=== PATIENT | male | born 1990 | race Caucasian/White ===

== ENCOUNTER 2021-02-24 04:48 | Emergency (ER) | payer MEDICAID, SELFPAY ==
--- NOTE | ~2021-02-24 | XR_ITS ---
EXAMINATION: XR CHEST CLINICAL INFORMATION: Shortness of breath COMPARISON: 04/27/2029 TECHNIQUE: 2 views of the chest were obtained. FINDINGS: The lungs are clear with no focal consolidation. No evidence of pneumothorax, pulmonary edema, or pleural effusions. The cardiomediastinal silhouette is unremarkable. No acute osseous findings. XR/XR chest 2V IMPRESSION: No acute cardiopulmonary findings.
--- NOTE | 2021-02-24 04:53 | ECG_ITS ---
Test Reason : CHEST PAIN Blood Pressure : / mmHG Vent. Rate : 091 BPM Atrial Rate : 091 BPM P-R Int : 168 ms QRS Dur : 088 ms QT Int : 336 ms P-R-T Axes : 060 061 035 degrees QTc Int : 413 ms Normal sinus rhythm ST elevation, consider early repolarization, pericarditis, or injury Abnormal ECG When compared with ECG of 23-JUN-2020 04:38, No significant change was found Referred By: Generic ED Physician Electronically Signed By:ANNA VILLASEÑOR MD
[2021-02-24 05:37] VITALS: BP 129/69; PULSE 87; RESP 16; TEMP 37.2; O2SAT 97; BMI 25.8
[2021-02-24 05:37] LABS: MANUAL DIFF FLAG NO
[2021-02-24 05:38] LABS: Basophils Percent Auto 0.3 % (0-2); Eosinophils Absolute Auto 0.1 X10*3/uL (0.0-0.4); Eosinophils Percent Auto 2.2 % (0-4); Hematocrit 41.2 % (42-52); Hemoglobin 13.7 g/dl (14.0-18.0); Imm Gran Abs Auto 0.03 X10*3/uL (0.00-0.03); Imm Gran Pct Auto 0.5 % (0.0-0.4); Lymphocytes Absolute Auto 1.8 X10*3/uL (1.2-4.9); Lymphocytes Percent Auto 28.1 % (20-40); Mean Corpuscular HGB Conc 33.3 g/dl (31.0-36.0); Mean Corpuscular Hemoglobin 29.7 pg (27.0-33.0); Mean Corpuscular Volume 89.2 fL (80-98); Mean Platelet Volume 11.6 fL (9.4-12.4); Monocytes Absolute Auto 0.7 X10*3/uL (0.1-1.2); Monocytes Percent Auto 10.4 % (2-11); Neutrophils Absolute Auto 3.6 X10*3/uL (2.0-8.3); Neutrophils Percent Auto 58.5 % (45-73); Platelet Count 188 X10*3/uL (160-400); Red Blood Count 4.62 X10*6/uL (4.60-5.80); Red Cell Distribution Width 12.7 % (11.0-16.0); White Blood Count 6.2 X10*3/uL (4.8-10.8)
[2021-02-24 06:03] LABS: Ethanol < 10 mg/dL
[2021-02-24 06:05] LABS: Anion Gap 12 (12-20); Blood Urea Nitrogen 14 mg/dL (9-16); Calcium 8.9 mg/dL (8.4-10.2); Carbon Dioxide 26 mmol/L (22-29); Chloride 105 mmol/L (96-108); Estimated Glomerular Filt Rate > 60; Glucose Random 114 mg/dL (60-115); Potassium 3.8 mmol/L (3.3-5.1); Sodium 139 mmol/L (135-145)
[2021-02-24 06:11] LABS: Troponin-I High Sensitivity < 3.5 ng/L (<3.5-35.0)
--- NOTE | 2021-02-24 09:17 | ED.GENADULT ---
HPI - General Adult General Chief complaint: ETOH/Substance Use Stated complaint: SOB, chest pain, vomiting Time Seen by Provider: 02/24/21 09:04 History of Present Illness HPI narrative: This is a 30 years old man presented to the emergency room after he smoked weed he states that they felt weird after that he experiences anxiety nausea. Onset (ago): hour(s) (1) Radiation: non-radiation Severity: moderate Pain Consistency: constant Associated symptoms: denies other symptoms Related Data Allergies Allergy/AdvReac Type Severity Reaction Status Date / Time SEAFOOD Allergy Severe THROAT Uncoded 02/24/21 05:36 CLOSING Crustaceans Allergy Unknown UNKNOWN Uncoded 02/24/21 05:36 Shellfish Allergy Unknown SWOLLEN Uncoded 02/24/21 05:36 Review of Systems Review of Systems: Yes all other systems are reviewed and are negative Cardiovascular: Cardiovascular: Reports no additional cardiovascular complaints and Reports Abdominal Cramping after Meds Respiratory: Respiratory: Reports no additional respiratory complaints and Reports no additional respiratory complaints Gastrointestinal: Gastrointestinal: Reports no additional gastrointestinal complaints and Reports abdominal pain Neurologic: Reports system reviewed and no additional complaints, except as documented Psychiatric: Psychiatric: Reports anxiety PMFSH Social History Social History Advance Directives: No Advance Directives Information Provided: No Physical Exam Vital Signs: Vital Signs: Last Vital Signs Temp 96.7 F L 02/24/21 09:54 Pulse 56 02/24/21 09:54 Resp 16 02/24/21 09:54 BP 120/82 02/24/21 09:54 Pulse Ox 100 02/24/21 09:54 Body Mass Index 25.8 Const: Other: On examination he looks well is no in distress General: cooperative and healthy appearing Orientation/consciousness: oriented to person, oriented to place, oriented to time and patient oriented x3 HENMT: Head: Yes normal to inspection, Yes No palpable skull fracture present and Yes normocephalic Eyes: General: appearance normal, both eyes and all related structures Visual Wright: normal visual wright by confrontation Alignment and Position: alignment normal Periorbital: periorbital findings normal Conjunctivae: conjunctivae normal Neck: Neck: Yes normal visual inspection, Yes full ROM and Yes no lymphadenopathy Chest: Chest palpation & inspection: normal inspection of the chest and normal palpation of entire chest wall Resp: Effort & Inspection: normal respiratory effort, able to speak in complete sentences and abnormal respiratory pattern Cardio: Jugular venous distension: no JVD Palpation: normal PMI Rate: regular rate Rhythm: regular rhythm GI: Inspection: Yes normal to inspection Palpation (GI): Soft to palpation, nontender and no guarding Skin: General skin exam: no rashes or lesions noted, elasticity normal and turgor normal Neuro: General: oriented to person, oriented to place, oriented to time, patient oriented x3 and gait normal Extrem: General: Yes normal to inspection, Yes full ROM, Yes capillary refill normal and Yes normal exam except as noted Medical Decision Making Lab Data Result diagrams: 02/24/21 05:31 02/24/21 05:31 Labs: Lab Results 02/24/21 02/24/21 02/24/21 Range/Units 05:31 05:31 05:31 WBC 6.2 (4.8-10.8) X10*3/uL RBC 4.62 (4.60-5.80) X10*6/uL Hgb 13.7 L (14.0-18.0) g/dl Hct 41.2 L (42-52) % MCV 89.2 (80-98) fL MCH 29.7 (27.0-33.0) pg MCHC 33.3 (31.0-36.0) g/dl RDW 12.7 (11.0-16.0) % Plt Count 188 (160-400) X10*3/uL MPV 11.6 (9.4-12.4) fL Immature Gran % (Auto) 0.5 H (0.0-0.4) % Neut % (Auto) 58.5 (45-73) % Lymph % (Auto) 28.1 (20-40) % [place]ck[place] % (Auto) 10.4 (2-11) % Eos % (Auto) 2.2 (0-4) % Baso % (Auto) 0.3 (0-2) % Lymph # (Auto) 1.8 (1.2-4.9) X10*3/uL [place] # (Auto) 0.7 (0.1-1.2) X10*3/uL Eos # (Auto) 0.1 (0.0-0.4) X10*3/uL Baso # (Auto) 0.0 (0.0-0.2) X10*3/uL Abs Immat Gran (auto) 0.03 (0.00-0.03) X10*3/uL Absolute Neuts (auto) 3.6 (2.0-8.3) X10*3/uL Absolute Nucleated RBC 0.000 (0.0-0.012) X10*3/uL Nucleated RBC % (auto) 0.0 (0.0-0.2) /100WBC Hold Blue Top SEE NOTE Sodium 139 (135-145) mmol/L Potassium 3.8 (3.3-5.1) mmol/L Chloride 105 (96-108) mmol/L Carbon Dioxide 26 (22-29) mmol/L Anion Gap 12 (12-20) BUN 14 (9-16) mg/dL Creatinine 1.05 (0.5-1.4) mg/dL Estim Creat Clear Calc 97.0 Estimated GFR > 60 Random Glucose 114 (60-115) mg/dL Calcium 8.9 (8.4-10.2) mg/dL Troponin I High Sens (<3.5-35.0) ng/L Ethyl Alcohol mg/dL 02/24/21 02/24/21 Range/Units 05:31 05:32 WBC (4.8-10.8) X10*3/uL RBC (4.60-5.80) X10*6/uL Hgb (14.0-18.0) g/dl Hct (42-52) % MCV (80-98) fL MCH (27.0-33.0) pg MCHC (31.0-36.0) g/dl RDW (11.0-16.0) % Plt Count (160-400) X10*3/uL MPV (9.4-12.4) fL Immature Gran % (Auto) (0.0-0.4) % Neut % (Auto) (45-73) % Lymph % (Auto) (20-40) % Bleck[place] % (Auto) (2-11) % Eos % (Auto) (0-4) % Baso % (Auto) (0-2) % Lymph # (Auto) (1.2-4.9) X10*3/uL [place] # (Auto) (0.1-1.2) X10*3/uL Eos # (Auto) (0.0-0.4) X10*3/uL Baso # (Auto) (0.0-0.2) X10*3/uL Abs Immat Gran (auto) (0.00-0.03) X10*3/uL Absolute Neuts (auto) (2.0-8.3) X10*3/uL Absolute Nucleated RBC (0.0-0.012) X10*3/uL Nucleated RBC % (auto) (0.0-0.2) /100WBC Hold Blue Top Sodium (135-145) mmol/L Potassium (3.3-5.1) mmol/L Chloride (96-108) mmol/L Carbon Dioxide (22-29) mmol/L Anion Gap (12-20) BUN (9-16) mg/dL Creatinine (0.5-1.4) mg/dL Estim Creat Clear Calc Estimated GFR Random Glucose (60-115) mg/dL Calcium (8.4-10.2) mg/dL Troponin I High Sens < 3.5 (<3.5-35.0) ng/L Ethyl Alcohol < 10 mg/dL Imaging Data Chest x-ray: Radiologist's impression: COMPARISON: 02/15/2021 TECHNIQUE: Frontal view of the chest was obtained. FINDINGS: The lungs are clear with no focal consolidation. No evidence of pneumothorax, pulmonary edema, or pleural effusions. Cardiac size is within normal limits. Calcification is present at the aortic arch. No acute osseous findings are seen. XR/XR chest 1V IMPRESSION: No acute cardiopulmonary findings. Dictated By:CHAR RAMOS MDSigned By:<Electr ECG Data Attestation: I personally reviewed and interpreted this ECG as follows: Pacemaker model: Normal sinus rhythm rate [address]-T changes normal EKG Discharge Plan Discharge Clinical Impression: Drug abuse Patient Disposition: Home, Self-Care Instructions: Cannabis Abuse (ED) Additional Instructions: Rest drink plenty of fluids ,follow up with primary care physician as needed Referrals: Fabby Hester MD [Primary Care Provider] - 2 days Interventions: ED Discharge Assessment Last Done: 02/24/21 10:02 Discharge Date/Time: 02/24/21 10:02
[2021-02-24] MEDS: Ibuprofen 800 MG TABLET PO (09:43)
[2021-02-24 09:54] VITALS: BP 120/82; PULSE 56; RESP 16; TEMP 35.9; O2SAT 100
== END 2021-02-24 10:02 | disposition home or self-care (01) ==
PROVIDERS: Emergency Provider Emergency Medicine; PCP Internal Medicine
DX: F12.10 Cannabis abuse, uncomplicated (principal); R06.02 Shortness of breath; R07.9 Chest pain, unspecified; F41.1 Generalized anxiety disorder; F43.0 Acute stress reaction
CPT/HCPCS: 36415; 71046; 80048; 80320; 84484; 85025; 93005; 99284

== ENCOUNTER 2021-11-09 05:18 | Emergency (ER) | payer MEDICAID, SELFPAY ==
[2021-11-09 05:29] VITALS: BP 117/82; BP 135/92; PULSE 69; PULSE 70; RESP 16; TEMP 36.6; O2SAT 100; BMI 25.3
--- NOTE | 2021-11-09 07:37 | ED_ITS ---
HPI - Alcohol General Chief Complaint: ETOH/Substance Use Stated Complaint: etoh Time Seen by Provider: 11/09/21 06:59 Source: patient History of Present Illness HPI narrative: this is a 31 years old patient presented by ambulance with chief complaint of alcoholic intoxication, denies SI and HI to me complaint: alcohol intoxication Last drink: Hours (ago) (3) Recent trauma: No Associated symptoms: denies other symptoms Related Data Allergies Allergy/AdvReac Type Severity Reaction Status Date / Time SEAFOOD Allergy Severe THROAT Uncoded 02/24/21 05:36 CLOSING Crustaceans Allergy Unknown UNKNOWN Uncoded 02/24/21 05:36 Shellfish Allergy Unknown SWOLLEN Uncoded 02/24/21 05:36 Review of Systems Verdana 4l Constitutional: Verdana 4d Constitutional: Verdana 4d Verdana 4d Reports no additional constitutional complaints, Denies frequent falls and Denies headache(s) Verdana 4l ENT: Verdana 4d Reports system reviewed and no additional complaints, except as documented and Denies headache(s) Verdana 4l Cardiovascular: Verdana 4d Cardiovascular: Verdana 4d Verdana 4d Reports no additional cardiovascular complaints Verdana 4l Respiratory: Verdana 4d Verdana 4d Respiratory: Verdana 4d Reports no additional respiratory complaints Verdana 4l Neurologic: Verdana 4d Denies frequent falls, Denies headache(s) and Denies focal weakness PMFSH Social History Social History Advance Directives: No Advance Directives Information Provided: No Physical Exam Verdana 4l Vital Signs: Verdana 4d Verdana 4d Vital Signs: Verdana 4d Verdana 4Bd Last Vital Signs Verdana 4d Luster Repairer New 4d Luster Repairer New 4d Temp 97.9 F 11/09/21 07:46 Luster Repairer New 4d Pulse 68 11/09/21 10:25 Luster Repairer New 4d Resp 14 11/09/21 10:25 BP 113/53 L 11/09/21 10:25 Pulse Ox 97 11/09/21 10:25 BMI result Body Mass Index 25.3 Const: General: cooperative, comfortable and no acute distress Nutritional Appearance: average body habitus Orientation/consciousness: patient oriented x3 Limitations: no limitations HENMT: Head: Yes normal to inspection Ears: hearing grossly normal bilaterally Face and sinus: Yes normal facial exam Mouth: Normal oral and palatal mucosa present Teeth and gingiva: dentition normal Neck: Neck: Yes normal visual inspection and Yes full ROM Chest: Chest palpation & inspection: normal inspection of the chest Resp: Effort & Inspection: normal respiratory effort Cardio: Rate: regular rate Rhythm: regular rhythm GI: Inspection: Yes normal to inspection Palpation (GI): Soft to palpation, not firm and no guarding Auscultation: normal bowel sounds Skin: General skin exam: no rashes or lesions noted, elasticity normal, turgor normal and atrophy Rashes: no rashes Neuro: General: patient oriented x3 Course Reevaluation(s) Reevaluation #1: patient was re-examined he is awake and alert denies SI HI, labs are within normal limit. He was seen in consultation by the care team, he was given appropriate follow-up Time: 10:20 [facility] - Alcohol Lab Data Result diagrams: 11/09/21 07:56 11/09/21 07:56 Labs: Lab Results 11/09/21 11/09/21 11/09/21 Range/Units 07:56 07:56 07:56 WBC 7.8 (4.8-10.8) X10*3/uL RBC 5.22 (4.60-5.80) X10*6/uL Hgb 15.6 (14.0-18.0) g/dl Hct 46.8 (42.0-52.0) % MCV 89.7 (80.0-98.0) fL MCH 29.9 (27.0-33.0) pg MCHC 33.3 (31.0-36.0) g/dl RDW 12.8 (11.0-16.0) % Plt Count 228 (160-400) X10*3/uL MPV 11.6 (9.4-12.4) fL Immature Gran % (Auto) 0.4 (0.0-0.4) % Neut % (Auto) 72.8 (45-73) % Lymph % (Auto) 19.8 L (20-40) % [place]ie % (Auto) 5.9 (2-11) % Eos % (Auto) 0.8 (0-4) % Baso % (Auto) 0.3 (0-2) % Lymph # (Auto) 1.6 (1.2-4.9) X10*3/uL [place]ie # (Auto) 0.5 (0.1-1.2) X10*3/uL Eos # (Auto) 0.1 (0.0-0.4) X10*3/uL Baso # (Auto) 0.0 (0.0-0.2) X10*3/uL Abs Immat Gran (auto) 0.03 (0.00-0.03) X10*3/uL Absolute Neuts (auto) 5.7 (2.0-8.3) x10*3/uL Absolute Nucleated RBC 0.000 (0.0-0.012) X10*3/uL Nucleated RBC % (auto) 0.0 (0.0-0.2) /100WBC Sodium 144 (135-145) mmol/L Potassium 4.6 D (3.3-5.1) mmol/L Chloride 108 (96-108) mmol/L Carbon Dioxide 27 (22-29) mmol/L Anion Gap 14 (12-20) BUN 8 L (9-16) mg/dL Creatinine 0.95 (0.5-1.4) mg/dL Estim Creat Clear Calc 106.3 Estimated GFR > 60 Random Glucose 108 (60-115) mg/dL Calcium 9.4 (8.4-10.2) mg/dL Total Bilirubin 0.6 (0.0-1.0) mg/dL AST 19 (5-37) U/L ALT 23 (0-40) U/L Alkaline Phosphatase 66 (39-117) U/L Total Protein 8.1 H (6.5-8.0) g/dL Albumin 5.0 (3.5-5.0) g/dL Ethyl Alcohol 176 mg/dL Discharge Plan Discharge Clinical Impression: Alcoholic intoxication, Anxiety Patient Disposition: Home, Self-Care Instructions: Alcohol Intoxication (ED), Anxiety (ED) Referrals: Physician,Unknown J [Primary Care Provider] - 2 days Stand Alone Forms: Work/School Release Interventions: ED Discharge Assessment Last Done: 11/09/21 11:00 Discharge Date/Time: 11/09/21 10:55
[2021-11-09 07:46] VITALS: BP 97/53; PULSE 64; RESP 14; TEMP 36.6; O2SAT 96
[2021-11-09 08:01] LABS: MANUAL DIFF FLAG NO
[2021-11-09 08:12] LABS: Basophils Percent Auto 0.3 % (0-2); Eosinophils Absolute Auto 0.1 X10*3/uL (0.0-0.4); Eosinophils Percent Auto 0.8 % (0-4); Hematocrit 46.8 % (42.0-52.0); Hemoglobin 15.6 g/dl (14.0-18.0); Imm Gran Abs Auto 0.03 X10*3/uL (0.00-0.03); Imm Gran Pct Auto 0.4 % (0.0-0.4); Lymphocytes Absolute Auto 1.6 X10*3/uL (1.2-4.9); Lymphocytes Percent Auto 19.8 % (20-40); Mean Corpuscular HGB Conc 33.3 g/dl (31.0-36.0); Mean Corpuscular Hemoglobin 29.9 pg (27.0-33.0); Mean Corpuscular Volume 89.7 fL (80.0-98.0); Mean Platelet Volume 11.6 fL (9.4-12.4); Monocytes Absolute Auto 0.5 X10*3/uL (0.1-1.2); Monocytes Percent Auto 5.9 % (2-11); Neutrophils Absolute Auto 5.7 x10*3/uL (2.0-8.3); Neutrophils Percent Auto 72.8 % (45-73); Platelet Count 228 X10*3/uL (160-400); Red Blood Count 5.22 X10*6/uL (4.60-5.80); Red Cell Distribution Width 12.8 % (11.0-16.0); White Blood Count 7.8 X10*3/uL (4.8-10.8)
[2021-11-09 08:18] LABS: Ethanol 176 mg/dL
[2021-11-09 08:21] LABS: Alanine Aminotransferase 23 U/L (0-40); Alkaline Phosphatase 66 U/L (39-117); Anion Gap 14 (12-20); Aspartate Amino Transferase 19 U/L (5-37); Bilirubin Total 0.6 mg/dL (0.0-1.0); Blood Urea Nitrogen 8 mg/dL (9-16); Calcium 9.4 mg/dL (8.4-10.2); Carbon Dioxide 27 mmol/L (22-29); Chloride 108 mmol/L (96-108); Creatinine Clr Calc Pharmacy 106.3; Estimated Glomerular Filt Rate > 60; Glucose Random 108 mg/dL (60-115); Potassium 4.6 mmol/L (3.3-5.1); Sodium 144 mmol/L (135-145); Total Protein 8.1 g/dL (6.5-8.0)
[2021-11-09 10:25] VITALS: BP 113/53; PULSE 68; RESP 14; O2SAT 97
--- NOTE | 2021-11-09 11:06 | MHC.RECOVSUP ---
Recovery Support note: Patient is a 31 year old Congolese speaking male who [place] [facility] [place] due to alcohol use, anxiety and depression. This publications writer met with patient to discuss his alcohol use. Patient was sleeping when this publications writer entered ED4 however he awoke when this publications writer spoke his name. Patient was engaged in consultation however provided short answers. Patient reports he has been stressed and anxious lately and that he drinks to cope with the stress. Patient acknowledges that drinking is not a healthy coping mechanism and he is interested in developing healthier ways to manage stress. Patient reports he does not drink daily. Patient denies SI/HI. Discussed recovery supports with patient. Patient previously had a therapist through [facility] and found it helpful and is interested in resuming services. Patient has attended AA meetings in the past and accepted information on [facility]. Discussed IOP and provided patient with information. This publications writer will refer patient to [facility] and he will be contacted after discharge. Discussed case with ED provider.
== END 2021-11-09 10:55 | disposition home or self-care (01) ==
PROVIDERS: Emergency Provider Emergency Medicine
DX: F10.920 Alcohol use, unspecified with intoxication, uncomplicated (principal); Y90.6 Blood alcohol level of 120-199 mg/100 ml; F41.9 Anxiety disorder, unspecified
CPT/HCPCS: 36415; 80053; 82077; 85025; 99284

== ENCOUNTER 2022-02-11 16:20 | Emergency (ER) | payer MEDICAID, SELFPAY ==
--- NOTE | 2022-02-11 | ECG_ITS ---
Test Reason : CP Blood Pressure : / mmHG Vent. Rate : 079 BPM Atrial Rate : 079 BPM P-R Int : 146 ms QRS Dur : 100 ms QT Int : 364 ms P-R-T Axes : 085 090 015 degrees QTc Int : 417 ms Normal sinus rhythm Rightward axis Biventricular hypertrophy Abnormal ECG When compared to the previous EKG of QRS axis have changed rightward Referred By: Generic ED Physician Electronically Signed By:ANNA VILLASEÑOR MD
--- NOTE | ~2022-02-11 | XR_ITS ---
EXAMINATION: XR CHEST CLINICAL INFORMATION: Chest pain. COMPARISON: 02/24/2021 chest radiographs. TECHNIQUE: Frontal view of the chest was obtained. FINDINGS: No significant abnormality is noted involving the heart, lungs, mediastinum, bony thorax or soft tissues. XR/XR chest 1V IMPRESSION: No acute cardiopulmonary process.
[2022-02-11 16:25] VITALS: BP 145/78; PULSE 87; RESP 18; TEMP 36.7; O2SAT 100; BMI 29.0
[2022-02-11 16:41] LABS: MANUAL DIFF FLAG NO
[2022-02-11 16:51] LABS: Basophils Percent Auto 0.3 % (0-2); Eosinophils Absolute Auto 0.2 X10*3/uL (0.0-0.4); Eosinophils Percent Auto 2.4 % (0-4); Hematocrit 42.8 % (42.0-52.0); Hemoglobin 14.5 g/dl (14.0-18.0); Imm Gran Abs Auto 0.04 X10*3/uL (0.00-0.03); Imm Gran Pct Auto 0.6 % (0.0-0.4); Lymphocytes Percent Auto 45.9 % (20-40); Mean Corpuscular HGB Conc 33.9 g/dl (31.0-36.0); Mean Corpuscular Hemoglobin 30.2 pg (27.0-33.0); Mean Corpuscular Volume 89.2 fL (80.0-98.0); Mean Platelet Volume 11.3 fL (9.4-12.4); Monocytes Absolute Auto 0.7 X10*3/uL (0.1-1.2); Monocytes Percent Auto 10.2 % (2-11); Neutrophils Absolute Auto 2.7 x10*3/uL (2.0-8.3); Neutrophils Percent Auto 40.6 % (45-73); Platelet Count 223 X10*3/uL (160-400); Red Cell Distribution Width 12.7 % (11.0-16.0); White Blood Count 6.6 X10*3/uL (4.8-10.8)
[2022-02-11 16:59] LABS: Anion Gap 13 (12-20); Blood Urea Nitrogen 9 mg/dL (9-16); Calcium 9.8 mg/dL (8.4-10.2); Carbon Dioxide 27 mmol/L (22-29); Chloride 103 mmol/L (96-108); Creatinine Clr Calc Pharmacy 115.3; Estimated Glomerular Filt Rate > 60; Glucose Random 124 mg/dL (60-115); Potassium 3.8 mmol/L (3.3-5.1); Sodium 139 mmol/L (135-145)
[2022-02-11 17:02] LABS: Troponin-I High Sensitivity < 3.5 ng/L (<3.5-35.0)
== END 2022-02-11 19:44 | disposition left against medical advice (07) ==
PROVIDERS: Emergency Provider Emergency Medicine
DX: R07.89 Other chest pain (principal); R55 Syncope and collapse; F17.210 Nicotine dependence, cigarettes, uncomplicated; Z71.6 Tobacco abuse counseling; Z79.899 Other long term (current) drug therapy
CPT/HCPCS: 36415; 71045; 80048; 84484; 85025; 93005; 99283

== ENCOUNTER 2022-03-11 05:15 | Emergency (ER) | payer MEDICAID, SELFPAY ==
--- NOTE | ~2022-03-11 | XR_ITS ---
EXAMINATION: XR CHEST CLINICAL INFORMATION: Dyspnea COMPARISON: None TECHNIQUE: 2 views of the chest were obtained. FINDINGS: No significant abnormality is noted involving the heart, lungs, mediastinum, bony thorax or soft tissues. XR/XR chest 2V IMPRESSION: Unremarkable examination.
[2022-03-11 05:22] VITALS: BP 122/81; PULSE 71; RESP 20; TEMP 36.7; O2SAT 98; BMI 25.0
--- NOTE | 2022-03-11 05:36 | ED_ITS ---
HPI - URI/Sore Throat General Chief Complaint: Upper Respiratory Symptoms Stated Complaint: unable to breathe Time Seen by Provider: 03/11/22 05:30 Source: patient Mode of arrival: ambulatory Limitations: no limitations History of Present Illness MD elicited complaint: other (runny nose, difficulty breathing) Pertinent past history: sinusitis and asthma Onset (ago): week(s) Consistency: intermittent Severity: mild Description of mucous: clear Able to tolerate fluids by mouth: Yes Exacerbating factors: other (worse at night) Relieving factors: nothing Context: other (has hx of allergies, also notes he stopped drinking 1 month ago and is taking trazodone without relief) Associated symptoms: rhinorrhea, nasal congestion and other (insomnia) Treatments prior to arrival: none Related Data Previous Rx's Medication Instructions Recorded cetirizine 10 mg tablet 10 mg PO DAILY PRN #30 tab 03/11/22 prednisone 20 mg tablet 40 mg PO DAILY 5 Days #10 tab 03/11/22 Allergies Allergy/AdvReac Type Severity Reaction Status Date / Time SEAFOOD Allergy Severe THROAT Uncoded 02/24/21 05:36 CLOSING Crustaceans Allergy Unknown UNKNOWN Uncoded 02/24/21 05:36 Shellfish Allergy Unknown SWOLLEN Uncoded 02/24/21 05:36 Review of Systems Review of Systems: Constitutional : No Fever, No Chills ENT/Mouth : No sore throat, pos Rhinorrhea Eyes: No Eye Pain, No Swelling, No Redness Cardiovascular : No Chest Pain, pos SOB Respiratory : No Cough, No Sputum, No Wheezing Gastrointestinal : No Nausea, No Vomiting, No Diarrhea Genitourinary : No Dysuria, No Urinary Frequency, No Hematuria, Musculoskeletal : No joint pain, No Myalgias, No Joint Swelling Skin : No Skin Lesions, No rash Neuro : No Weakness, No Numbness, No Dizziness, No Headache PMFSH Past Medical History Attestation statement: The following information was validated with the patient. Medical History (Updated 03/11/22 @ 06:06 by Jessica Casiano DO) Asthma Social History Social History (Updated 03/11/22 @ 05:49 by Jessica Casiano DO) Alcohol intake: former Patient Tobacco Use Status: Never used Tobacco Substance Use Type: Marijuana Advance Directives: No Physical Exam Vital Signs: Vital Signs: Last Vital Signs Temp 98.0 F 03/11/22 05:22 Pulse 71 03/11/22 05:22 Resp 20 03/11/22 05:22 BP 122/81 03/11/22 05:22 Pulse Ox 98 03/11/22 05:22 BMI result Body Mass Index 25.0 Appearance: Alert. Oriented X3. No acute distress. Eyes: Pupils equal, round and reactive to light. ENT: Pharynx normal. Nasal congestion Neck: Normal inspection. Neck supple. CVS: Normal heart rate and rhythm. Pulses normal. Respiratory: No respiratory distress. Breath sounds diminished Abdomen: Soft and nontender. Skin: Skin warm and dry. Normal skin color. Normal skin turgor. Extremities: No lower extremity edema. Neuro: Oriented X 3. No motor deficit. No sensory deficit. Course Course Course Narrative: negative CXR, negative COVID stable for DC 98% on RA MDM - URI/Sore Throat MDM Narrative Medical decision making narrative: 31 yo male with hx of asthma and sinusitis here with c/o nasal congestion feels like he cannot breathe - at this time will give albuterol INH, CXR, COVID swab - anticipate treatment at home. Discharge Plan Discharge Clinical Impression: Acute dyspnea, Nasal congestion Patient Disposition: Home, Self-Care Instructions: Upper Respiratory Infection (ED), Dyspnea (ED) Additional Instructions: return to ED for any worsening symptoms or concerns chest xray and COVID swab are negative USE ALBUTEROL INHALER 2 PUFFS EVERY 4 HOURS NEEDED FOR WHEEZING Prescriptions: New prednisone 20 mg tablet 40 mg PO DAILY 5 Days Qty: 10 0RF cetirizine 10 mg tablet 10 mg PO DAILY PRN (Reason: allergy symptoms) Qty: 30 0RF Referrals: [facility] [Primary Care Provider] - 2 days Stand Alone Forms: Work/School Release
[2022-03-11] MEDS: Albuterol Sulfate 90 MCG 8 GM INHALER 2 PUFF INHALE (05:50)
[2022-03-11 05:58] LABS: COVID-19 Test Negative (Negative); IDNOW Serial# 16C4AD1C
[2022-03-11] MEDS: Oxymetazoline HCl 0.05 % Nasal 15 ML SPRAY 2 SPRAY NOSTRIL-B (06:03)
== END 2022-03-11 06:29 | disposition home or self-care (01) ==
PROVIDERS: Emergency Provider Emergency Medicine
DX: R06.02 Shortness of breath (principal); R09.81 Nasal congestion; Z20.822 Contact with and (suspected) exposure to COVID-19; J45.909 Unspecified asthma, uncomplicated
CPT/HCPCS: 71046; 87635; 99284

== ENCOUNTER 2022-03-24 12:27 | Emergency (ER) | payer MEDICAID, SELFPAY ==
--- NOTE | 2022-03-24 | ECG_ITS ---
Test Reason : chest pressuer Blood Pressure : / mmHG Vent. Rate : 075 BPM Atrial Rate : 075 BPM P-R Int : 154 ms QRS Dur : 084 ms QT Int : 344 ms P-R-T Axes : 061 074 039 degrees QTc Int : 384 ms Normal sinus rhythm ST elevation, consider early repolarization Borderline ECG When compared with ECG of 11-FEB-2022 16:24, ST elevation now present in Inferior leads Referred By: Generic ED Physician Electronically Signed By:ANNA VILLASEÑOR MD
--- NOTE | ~2022-03-24 | XR_ITS ---
EXAMINATION: XR CHEST CLINICAL INFORMATION: Shortness of breath. COMPARISON: 03/11/2022 chest radiographs. TECHNIQUE: 2 views of the chest were obtained. FINDINGS: No significant abnormality is noted involving the heart, lungs, mediastinum, bony thorax or soft tissues. XR/XR chest 2V IMPRESSION: No acute cardiopulmonary process.
[2022-03-24 12:30] VITALS: BP 137/88; PULSE 83; RESP 18; TEMP 37.2; O2SAT 99; BMI 25.0
[2022-03-24 12:48] LABS: MANUAL DIFF FLAG NO
[2022-03-24 12:49] LABS: Basophils Percent Auto 0.2 % (0-2); Eosinophils Absolute Auto 0.1 X10*3/uL (0.0-0.4); Eosinophils Percent Auto 1.4 % (0-4); Hematocrit 47.8 % (42.0-52.0); Hemoglobin 15.9 g/dl (14.0-18.0); Imm Gran Pct Auto 1.2 % (0.0-0.4); Lymphocytes Absolute Auto 1.1 X10*3/uL (1.2-4.9); Lymphocytes Percent Auto 12.5 % (20-40); Mean Corpuscular HGB Conc 33.3 g/dl (31.0-36.0); Mean Corpuscular Hemoglobin 30.2 pg (27.0-33.0); Mean Corpuscular Volume 90.9 fL (80.0-98.0); Mean Platelet Volume 11.3 fL (9.4-12.4); Monocytes Absolute Auto 1.1 X10*3/uL (0.1-1.2); Monocytes Percent Auto 12.2 % (2-11); Neutrophils Absolute Auto 6.3 x10*3/uL (2.0-8.3); Neutrophils Percent Auto 72.5 % (45-73); Platelet Count 163 X10*3/uL (160-400); Red Blood Count 5.26 X10*6/uL (4.60-5.80); White Blood Count 8.6 X10*3/uL (4.8-10.8)
[2022-03-24 13:02] LABS: Anion Gap 11 (12-20); Blood Urea Nitrogen 9 mg/dL (9-16); Calcium 9.5 mg/dL (8.4-10.2); Carbon Dioxide 30 mmol/L (22-29); Chloride 103 mmol/L (96-108); Creatinine Clr Calc Pharmacy 96.1; Estimated Glomerular Filt Rate > 60; Glucose Random 104 mg/dL (60-115); Potassium 4.9 mmol/L (3.3-5.1); Sodium 139 mmol/L (135-145)
[2022-03-24 13:08] LABS: Troponin-I High Sensitivity < 3.5 ng/L (<3.5-35.0)
--- NOTE | 2022-03-24 15:17 | ED.CHESTPAIN ---
HPI - Chest Pain General Chief Complaint: Chest Pain Stated Complaint: chest pressure Time Seen by Provider: 03/24/22 12:41 Source: patient Mode of arrival: ambulatory Limitations: no limitations History of Present Illness HPI narrative: 31-year-old male with a history of asthma, alcohol abuse, anxiety and panic attacks presents for shortness of breath, chest pain, diarrhea, and panic attack. Patient has felt shortness of breath with a stuffy nose that makes it hard to breathe. When he breathes in he feels a burning in his chest, which precipitates a panic attack. States when he tries to eat or drink, he feels that he cannot breathe, and he is worried that he will suffocate, due to his stuffy nose. No headache, no sinus pressure, no fever, no cough, patient took home COVID test that was negative. No abdominal pain, no nausea, no vomiting. Patient is vaccinated for COVID and also boosted. Patient states he has not slept for 2 days due to being out of his trazodone. Patient was in rehab for alcohol abuse and has not used alcohol for the past 2 months. Endorses twice daily marijuana use. Related Data Previous Rx's Medication Instructions Recorded cetirizine 10 mg tablet 10 mg PO DAILY PRN allergy 03/11/22 symptoms #30 tabs prednisone 20 mg tablet 40 mg PO DAILY 5 days #10 tabs 03/11/22 trazodone 50 mg tablet 50 mg PO BEDTIME 30 days #30 tabs 03/24/22 Allergies Allergy/AdvReac Type Severity Reaction Status Date / Time SEAFOOD Allergy Severe THROAT Uncoded 02/24/21 05:36 CLOSING Crustaceans Allergy Unknown UNKNOWN Uncoded 02/24/21 05:36 Shellfish Allergy Unknown SWOLLEN Uncoded 02/24/21 05:36 Review of Systems Constitutional: Constitutional: Denies body ache(s), Denies chills, Denies fatigue, Denies fever(s), Denies headache(s), Denies malaise and Denies weakness Eyes: Eyes: Denies diplopia ENT: Reports dysphagia, Denies vertigo, Denies dizziness, Denies otalgia, Denies headache(s), Denies mouth pain, Denies odynophagia, Denies post nasal drip, Denies sinus pain, Denies sinus pressure, Denies sore throat and Denies throat swelling Cardiovascular: Cardiovascular: Reports chest pain, Denies syncope, Denies leg edema, Denies lightheadedness, Denies Loss of Consciousness, Denies palpitations and Reports dyspnea Respiratory: Respiratory: Denies chest congestion, Denies cough, Denies hemoptysis, Denies excessive phlegm production, Denies pain on inspiration, Reports dyspnea, Denies stridor and Denies wheezing Gastrointestinal: Gastrointestinal: Denies abdominal pain, Denies melena, Denies hematochezia, Denies change in bowel habits, Denies coffee ground emesis, Denies constipation, Reports dysphagia, Reports diarrhea, Denies nausea, Denies odynophagia and Denies vomiting Musculoskeletal: Musculoskeletal: Reports no additional musculoskeletal complaints Neurologic: Denies confusion, Denies vertigo, Denies dizziness, Denies syncope, Denies headache(s) and Denies weakness Psychiatric: Psychiatric: Reports anxiety, Denies confusion and Denies depression Endocrine: Endocrine: Denies fatigue and Denies palpitations Allergic/Immunologic: Allergic/Immunologic: Denies throat swelling and Denies wheezing PMFSH Past Medical History Medical History (Updated 03/24/22 @ 17:17 by DANIELE Parra) Asthma Social History Social History (Updated 03/11/22 @ 05:49 by Jessica Casiano DO) Alcohol intake: former Patient Tobacco Use Status: Never used Tobacco Substance Use Type: Marijuana Substance Use Frequency: Daily Last Used Substance: Days (ago) Any prior treatment program specific to substance use: No Advance Directives: No Advance Directives Information Provided: No Physical Exam Vital Signs: Vital Signs: Last Vital Signs Temp 99.0 F 03/24/22 12:30 Pulse 71 03/24/22 16:02 Resp 22 H 03/24/22 16:02 BP 129/90 H 03/24/22 16:02 Pulse Ox 100 03/24/22 16:02 O2 Del Method 03/24/22 16:02 BMI result Body Mass Index 25.0 Const: General: No confusion Nutritional Appearance: well nourished Orientation/consciousness: No confusion Limitations: no limitations HEENT: Head: Yes normal to inspection, Yes normocephalic and Yes atraumatic Ears: hearing grossly normal bilaterally, external ears normal, TM's normal bilaterally and EAC's normal General nose exam: Normal external nose present Face and sinus: Yes normal facial exam and Yes sinuses nontender Mouth: Normal oral and palatal mucosa present Throat: Yes posterior oropharynx normal Eyes: Conjunctivae: conjunctivae normal Pupils: Equal, round and reactive pupils present EOM: EOMs intact bilaterally Neck: Neck: Yes full ROM, Yes no lymphadenopathy and Yes supple Resp: Effort & Inspection: normal respiratory effort and able to speak in complete sentences Auscultation: clear to auscultation bilaterally, no crackles, no rales, no rhonchi and no wheezes Cardio: Rate: regular rate Rhythm: regular rhythm Heart sounds: S1 normal heart sound present and S2 normal heart sound present GI: Inspection: Yes normal to inspection Palpation (GI): Soft to palpation, nontender, no guarding and not rigid Percussion: Yes normal to percussion Auscultation: normal bowel sounds Skin: General skin exam: no rashes or lesions noted Neuro: General: No confusion Cranial nerves: Yes Equal, round and reactive pupils present Extrem: General: Yes normal to inspection and Yes full ROM Psych: Appearance: grossly normal Affect: Anxious affect present Attitude: cooperative Thought process: Normal thought process present Thought content: suicidality, no homicidality and no hallucinations Course Course Course Narrative: 31-year-old male presents for not having slept for 2 days because he ran out of his trazodone, for chest pain and shortness of breath that started last night. Patient has had diarrhea, feels his nose is so stuffy that when he tries to swallow he cannot drink water because he feels he will suffocate. Patient endorses anxiety, and a history of panic attacks, he says he had a panic attack in the waiting room, and is trying not to cry. Denies SI, HI, visual or auditory hallucinations patient scores 0 on the Wells score for PE, he is not tachycardic, he is satting 98% on room air. patient has an EKG that shows no ischemia, he has a negative troponin, labs are unremarkable. Will get chest x-ray, test for COVID, gave Ativan for anxiety patient states that the inhaler, steroids, and Zyrtec he was given for his stuffy nose when he was seen in the emergency room March 11, have not helped. If chest x-ray and COVID are negative, will represcribed 1 month of trazodone, have patient follow-up with primary care provider, will recommend [id number] Sudafed, and will prescribe Flonase Reevaluation(s) Reevaluation #1: FINDINGS: No significant abnormality is noted involving the heart, lungs, mediastinum, bony thorax or soft tissues. XR/XR chest 2V IMPRESSION: No acute cardiopulmonary process. Reevaluation #2: patient is COVID negative, chest x-ray is negative, patient states the Flonase is not helpful. Discussed the utility of Sudafed, counseled using a Neti pot, counseled patient to use trazodone I prescribed, and get back on a regular sleep schedule, as this will help with his anxiety. Discussed with patient that he should follow up with his therapist and his primary care provider. Discussed that I think this is more anxiety driven symptoms, that are exacerbated by lack of sleep. Gave return precautions of chest pain, shortness of breath, suicidal ideation, homicidal ideation, patient verbalized agreement and understanding of plan MDM - Chest Pain Lab Data Result diagrams: 03/24/22 12:43 03/24/22 12:43 Labs: Lab Results 03/24/22 03/24/22 03/24/22 Range/Units 12:43 12:43 12:43 WBC 8.6 (4.8-10.8) X10*3/uL RBC 5.26 (4.60-5.80) X10*6/uL Hgb 15.9 (14.0-18.0) g/dl Hct 47.8 (42.0-52.0) % MCV 90.9 (80.0-98.0) fL MCH 30.2 (27.0-33.0) pg MCHC 33.3 (31.0-36.0) g/dl RDW 13.0 (11.0-16.0) % Plt Count 163 D (160-400) X10*3/uL MPV 11.3 (9.4-12.4) fL Immature Gran % (Auto) 1.2 H (0.0-0.4) % Neut % (Auto) 72.5 (45-73) % Lymph % (Auto) 12.5 L (20-40) % Charlton % (Auto) 12.2 H (2-11) % Eos % (Auto) 1.4 (0-4) % Baso % (Auto) 0.2 (0-2) % Lymph # (Auto) 1.1 L (1.2-4.9) X10*3/uL [place] # (Auto) 1.1 (0.1-1.2) X10*3/uL Eos # (Auto) 0.1 (0.0-0.4) X10*3/uL Baso # (Auto) 0.0 (0.0-0.2) X10*3/uL Abs Immat Gran (auto) 0.10 H (0.00-0.03) X10*3/uL Absolute Neuts (auto) 6.3 (2.0-8.3) x10*3/uL Absolute Nucleated RBC 0.000 (0.0-0.012) X10*3/uL Nucleated RBC % (auto) 0.0 (0.0-0.2) /100WBC Sodium 139 (135-145) mmol/L Potassium 4.9 D (3.3-5.1) mmol/L Chloride 103 (96-108) mmol/L Carbon Dioxide 30 H (22-29) mmol/L Anion Gap 11 L (12-20) BUN 9 (9-16) mg/dL Creatinine 1.05 (0.5-1.4) mg/dL Estim Creat Clear Calc 96.1 Estimated GFR > 60 Random Glucose 104 (60-115) mg/dL Calcium 9.5 (8.4-10.2) mg/dL Troponin I High Sens < 3.5 (<3.5-35.0) ng/L COVID-19 ([facility]) (Negative) COVID-19 Clin Com 03/24/22 Range/Units 16:01 WBC (4.8-10.8) X10*3/uL RBC (4.60-5.80) X10*6/uL Hgb (14.0-18.0) g/dl Hct (42.0-52.0) % MCV (80.0-98.0) fL MCH (27.0-33.0) pg MCHC (31.0-36.0) g/dl RDW (11.0-16.0) % Plt Count (160-400) X10*3/uL MPV (9.4-12.4) fL Immature Gran % (Auto) (0.0-0.4) % Neut % (Auto) (45-73) % Lymph % (Auto) (20-40) % Charlton % (Auto) (2-11) % Eos % (Auto) (0-4) % Baso % (Auto) (0-2) % Lymph # (Auto) (1.2-4.9) X10*3/uL [place] # (Auto) (0.1-1.2) X10*3/uL Eos # (Auto) (0.0-0.4) X10*3/uL Baso # (Auto) (0.0-0.2) X10*3/uL Abs Immat Gran (auto) (0.00-0.03) X10*3/uL Absolute Neuts (auto) (2.0-8.3) x10*3/uL Absolute Nucleated RBC (0.0-0.012) X10*3/uL Nucleated RBC % (auto) (0.0-0.2) /100WBC Sodium (135-145) mmol/L Potassium (3.3-5.1) mmol/L Chloride (96-108) mmol/L Carbon Dioxide (22-29) mmol/L Anion Gap (12-20) BUN (9-16) mg/dL Creatinine (0.5-1.4) mg/dL Estim Creat Clear Calc Estimated GFR Random Glucose (60-115) mg/dL Calcium (8.4-10.2) mg/dL Troponin I High Sens (<3.5-35.0) ng/L COVID-19 ([facility]) Negative (Negative) COVID-19 Clin Com See Note ECG Data ECG #1: Interpretation: sinus at a rate of 75, KS interval 154, QRS 84, QTC 384, normal axis, early refill all, no ST depression or elevation, no T-wave all abnormalities Discharge Plan Discharge Clinical Impression: Anxiety, Nasal congestion Patient Disposition: Home, Self-Care Instructions: Allergic Rhinitis (ED), Anxiety (ED) Additional Instructions: I have prescribed trazodone to your pharmacy. Please buy some [id number] Sudafed and take it as prescribed. You may also try a nasal sinus rinse, something called Willy Med Sinus Rinse, this is like a Neti pot and would be very helpful for your nasal congestion please call your primary care provider for follow-up appointment from today's emergency room visit. I would like you to see them in the next couple of weeks, they can determine if you need allergy testing, and they can follow-up on your trazodone dose. Please call the new therapist at [facility] tomorrow, I would like you to be seen this week if possible please return to the emergency room if you have any thoughts of hurting herself, hurting anyone else, chest pain, shortness of breath, or any other new or concerning symptoms Prescriptions: New trazodone 50 mg tablet 50 mg PO BEDTIME 30 Days Qty: 30 0RF No Action prednisone 20 mg tablet 40 mg PO DAILY 5 Days Qty: 10 0RF cetirizine 10 mg tablet 10 mg PO DAILY PRN (Reason: allergy symptoms) Qty: 30 0RF Interventions: ED Discharge Assessment Last Done: 03/24/22 17:22
[2022-03-24] MEDS: LORazepam 1 MG TABLET PO (16:01)
[2022-03-24 16:02] VITALS: BP 129/90; PULSE 71; RESP 22; O2SAT 100
[2022-03-24 16:36] LABS: COVID-19 Test Negative (Negative)
--- NOTE | 2022-03-24 16:37 | PC.NURSE ---
DENIES ANY CHEST PAIN, HAS PAIN IN HIS THROAT ON OCCASION AND HAS PAIN IN MIDDLE OF UPPER CHEST ONLY. SOBER 2 MONTHS, SMOKES POT DAILY. EARS FEEL CLOGGED. SINUS AREA ALSO FEELS PRESSURE. NO CARDIAC HISTORY NOTED. TAKES TRAZODONE BUT RAN OUT 2 DAYS AGO AND HAS NO PROVIDER RIGHT NOW.
== END 2022-03-24 17:24 | disposition home or self-care (01) ==
PROVIDERS: Physician Assistant; Emergency Provider Emergency Medicine
DX: R07.89 Other chest pain (principal); F41.1 Generalized anxiety disorder; R09.81 Nasal congestion; F43.0 Acute stress reaction; F12.90 Cannabis use, unspecified, uncomplicated; Z20.822 Contact with and (suspected) exposure to COVID-19; Z79.899 Other long term (current) drug therapy
CPT/HCPCS: 36415; 71046; 80048; 84484; 85025; 87635; 93005; 99284

== ENCOUNTER 2022-07-15 00:01 | Emergency (ER) | payer MEDICAID, SELFPAY ==
--- NOTE | 2022-07-15 | ECG_ITS ---
Test Reason : SOB Blood Pressure : / mmHG Vent. Rate : 064 BPM Atrial Rate : 064 BPM P-R Int : 160 ms QRS Dur : 090 ms QT Int : 354 ms P-R-T Axes : 056 066 050 degrees QTc Int : 365 ms Normal sinus rhythm Early repolarization Normal ECG When compared with ECG of 24-MAR-2022 12:28, No significant change was found Referred By: Generic ED Physician Electronically Signed By:ALYSSA ZAPATA MD
[2022-07-15 00:32] VITALS: BP 130/83; PULSE 79; RESP 18; TEMP 36.7; O2SAT 98; BMI 24.3
[2022-07-15 00:52] LABS: Basophils Percent Auto 0.5 % (0-2); Eosinophils Absolute Auto 0.3 X10*3/uL (0.0-0.4); Eosinophils Percent Auto 4.5 % (0-4); Hematocrit 42.5 % (42.0-52.0); Hemoglobin 14.6 g/dl (14.0-18.0); Imm Gran Abs Auto 0.02 X10*3/uL (0.00-0.03); Imm Gran Pct Auto 0.3 % (0.0-0.4); Lymphocytes Absolute Auto 2.5 X10*3/uL (1.2-4.9); Lymphocytes Percent Auto 32.9 % (20-40); MANUAL DIFF FLAG NO; Mean Corpuscular HGB Conc 34.4 g/dl (31.0-36.0); Mean Corpuscular Hemoglobin 30.4 pg (27.0-33.0); Mean Corpuscular Volume 88.5 fL (80.0-98.0); Mean Platelet Volume 11.1 fL (9.4-12.4); Monocytes Absolute Auto 0.8 X10*3/uL (0.1-1.2); Monocytes Percent Auto 10.4 % (2-11); Neutrophils Absolute Auto 3.9 x10*3/uL (2.0-8.3); Neutrophils Percent Auto 51.4 % (45-73); Platelet Count 183 X10*3/uL (160-400); Red Cell Distribution Width 12.5 % (11.0-16.0); White Blood Count 7.6 X10*3/uL (4.8-10.8)
[2022-07-15 01:11] LABS: Troponin-I High Sensitivity < 3.5 ng/L (<3.5-35.0)
[2022-07-15 01:14] LABS: Alanine Aminotransferase 19 U/L (0-40); Albumin Level 4.7 g/dL (3.5-5.0); Alkaline Phosphatase 59 U/L (39-117); Anion Gap 17 (12-20); Aspartate Amino Transferase 21 U/L (5-37); Bilirubin Total 0.3 mg/dL (0.0-1.0); Blood Urea Nitrogen 10 mg/dL (9-16); Calcium 9.5 mg/dL (8.4-10.2); Carbon Dioxide 23 mmol/L (22-29); Chloride 103 mmol/L (96-108); Creatinine Clr Calc Pharmacy 97.1; Estimated Glomerular Filt Rate > 60; Glucose Random 121 mg/dL (60-115); Potassium 3.9 mmol/L (3.3-5.1); Sodium 139 mmol/L (135-145); Total Protein 7.9 g/dL (6.5-8.0)
[2022-07-15 02:15] VITALS: BP 113/71; PULSE 64; RESP 16; TEMP 36.6; O2SAT 99
--- OUTSIDE RECORDS SUMMARY | 2022-07-15 02:36 | XMS_ITS | Continuity of Care Document ---
:1990 Author Organization [facility] Address [address] [place] [id number]- Care Team Providers Name Role Phone James Rai MD Primary Care Physician Encounter [facility] [id number] Date(s): 10/14/20 - 10/15/[address] [address]- Encounter Diagnosis Tendon tear (Final) - 10/15/20 Self-inflicted injury (Final) - 10/15/20 Discharge Disposition: A-D/C Home Attending Physician: Mark Anthony Tomas MD Admitting Physician: Mark Anthony Tomas MD Referring Physician: Not on Staff, Referring MD Allergies, Adverse Reactions, Alerts Substance Reaction Severity Status shellfish Active Immunizations Given and Recorded Vaccine Date Status Refusal Reason tetanus/diphtheria/pertussis, acel(Tdap) 10/15/20 Given Medications Augmentin 875 mg-125 mg oral tablet 1 tablet, By Mouth, Every 12 hours, for 7 days, # 14 tablet, 0 Refills, Acute 10/22/20 15:05:00 EST,10/15/20 15:05:00 EST, Tablet, Partial fill upon patient request if the prescription is for a schedule II opioid drug. Start Date: 10/15/20 Stop Date: 10/22/20 Status: OrderedBactrim 400 mg-80 mg oral tablet 1 tablet, By Mouth, 2 times a day, # 14 tablet, 0 Refills, Maintenance, 10/15/20 15:05:00 EST, Tablet, Partial fill upon patient request if the prescription is for a schedule II opioid drug. Start Date: 10/15/20 Status: OrderedLexapro 5 mg oral tablet 1 tablet = 5 mg, By Mouth, Daily, # 7 tablet, 0 Refills, Maintenance, 10/15/20 15:38:00 EST, Tablet,[facility]/pharmacy #[id number], Partial fill upon patient request if the prescription is for a schedule II opioid drug. Start Date: 10/15/20 Stop Date: 10/22/20 Status: OrderedSEROquel 25 mg oral tablet 25 mg, 1, tablet, By Mouth, Daily at bedtime, # 7 tablet, Refills 0, Tot. Refills 0, Maintenance, 10/15/20 15:37:00 EST, Route to Pharmacy Electronically, [facility]/pharmacy #[id number], Partial fill upon patient request if the prescription is for a schedule II o... Start Date: 10/15/20 Stop Date: 10/22/20 Status: OrderedVistaril pamoate 25 mg oral capsule 1 capsule = 25 mg, By Mouth, 2 times a day, for 7 days, # 14 capsule, 0 Refills, Acute 10/22/20 15:38:00 EST, 10/15/20 15:38:00 EST, [facility]/pharmacy #[id number], Partial fill upon patient request if the prescription is for a schedule II opioid drug. Start Date: 10/15/20 Stop Date: 10/22/20 Status: Ordered Vital Signs Most recent to oldest 1 2 3 [Reference Range]: Oxygen Saturation [94-100 %] 100 % 99 % 99 % (10/15/20 1:01 PM) (10/15/20 4:36 AM) (10/15/20 12: 07 AM) Pulse Rate [55-90 bpm] 77 bpm 82 bpm 50 bpm (10/15/20 1:01 PM) (10/15/20 4:36 AM) *L* (10/15/20 12:07 A M) Blood Pressure [90-138/55-84 154/94 mm Hg 133/70 mm Hg 119 /72 mm Hg mm Hg] *H* (10/15/20 4:36 AM) (10/15/20 12:07 AM) (10/15/20 1:01 PM) Respiratory Rate [16-30 18 br/min 14 br/min 14 br/mi n br/min] (10/15/20 1:01 PM) *L* *L* (10/15/20 4:36 AM) (10/15/20 12:07 AM) Temperature [96.8-100.4 DegF] 99.1 DegF 98.5 DegF 97 .4 DegF (10/15/20 1:01 PM) (10/15/20 4:36 AM) (10/14/20 5:1 3 PM) Mode of Delivery (Oxygen) Room air Room air Room a ir (10/15/20 1:01 PM) (10/15/20 4:36 AM) (10/15/20 12: 07 AM) Blood pressure sites Arm, right Arm, left Arm, right (10/15/20 1:01 PM) (10/15/20 4:36 AM) (10/15/20 12: 07 AM) Temperature Route Oral Oral Oral (10/15/20 1:01 PM) (10/15/20 4:36 AM) (10/14/20 5:1 3 PM)
[2022-07-15 03:04] VITALS: BP 111/74; PULSE 52; RESP 17; TEMP 536.8; TEMP 998.2; O2SAT 98
--- NOTE | 2022-07-15 04:19 | ED.ANXIETY ---
HPI - Anxiety General Chief Complaint: Anxiety Stated Complaint: anxiety Time Seen by Provider: 07/15/22 03:16 History of Present Illness HPI narrative: Patient is 32 years old with a history of anxiety presents today with having increasing shortness of breath. Very sudden in onset similar to previous bouts of anxiety attacks. Lasting about 10 minutes. There is no history diabetes, hypertension, mi, arrhythmias, recreational drug use. Patient had multiple episodes similar. He is from home. No stress test. No history of blood clots. Related Data Previous Rx's Medication Instructions Recorded cetirizine 10 mg tablet 10 mg PO DAILY PRN allergy 03/11/22 symptoms #30 tabs prednisone 20 mg tablet 40 mg PO DAILY 5 days #10 tabs 03/11/22 trazodone 50 mg tablet 50 mg PO BEDTIME 30 days #30 tabs 03/24/22 Allergies Allergy/AdvReac Type Severity Reaction Status Date / Time SEAFOOD Allergy Severe THROAT Uncoded 02/24/21 05:36 CLOSING Crustaceans Allergy Unknown UNKNOWN Uncoded 02/24/21 05:36 Shellfish Allergy Unknown SWOLLEN Uncoded 02/24/21 05:36 Review of Systems Review of Systems: No fever no chills positive shortness of breath lasting about 10 minutes. Yes all other systems are reviewed and are negative PMFSH Past Medical History Attestation statement: The following information was validated with the patient. Medical History Asthma Social History Social History Alcohol intake: former Patient Tobacco Use Status: Never used Tobacco Use of substances other than those prescribed or required for medical reasons: Yes Substance Use Type: Marijuana Substance Use Frequency: Daily Advance Directives: No Physical Exam Vital Signs: Vital Signs: Last Vital Signs Temp 998.2 F H 07/15/22 03:04 Pulse 52 07/15/22 03:04 Resp 17 07/15/22 03:04 BP 111/74 07/15/22 03:04 Pulse Ox 98 07/15/22 03:04 O2 Del Method 07/15/22 03:04 BMI result Body Mass Index 24.3 Appearance: Alert. Oriented X3. No acute distress. Eyes: Pupils equal, round and reactive to light. ENT: Pharynx normal. Neck: Normal inspection. Neck supple. No lymph nodes noted. No crepitus CVS: Normal heart rate and rhythm. Pulses normal. Normal S1 and S2 Respiratory: No respiratory distress. Breath sounds normal. No Wheezing. No rales Abdomen: Soft and nontender. No rigidity. No distention. good BS x4 Skin: Skin warm and dry. Normal skin color. Normal skin turgor. Extremities: No lower extremity edema. Neurovascular intact to all extremities. No Lacerations. No Rash Neuro: Oriented X 3. No motor deficit. No sensory deficit. Moving all extermities. No slurred speech MDM - Anxiety MDM Narrative Medical decision making narrative: EKG showed a sinus pressure and heart rate is 70 OR QRS QTC within normal limits is no acute ST segment elevation. Patient in no distress. Pain atypical for ACS. Similar to previous bouts of anxiety attack. Will discharge patient home. In stable condition Medical Records Attestation: I reviewed the patient's medical records. Lab Data Attestation: I reviewed the patient's lab results. Result diagrams: 07/15/22 00:47 07/15/22 00:47 Labs: Lab Results 07/15/22 07/15/22 07/15/22 Range/Units 00:47 00:47 00:47 WBC 7.6 (4.8-10.8) X10*3/uL RBC 4.80 (4.60-5.80) X10*6/uL Hgb 14.6 (14.0-18.0) g/dl Hct 42.5 (42.0-52.0) % MCV 88.5 (80.0-98.0) fL MCH 30.4 (27.0-33.0) pg MCHC 34.4 (31.0-36.0) g/dl RDW 12.5 (11.0-16.0) % Plt Count 183 (160-400) X10*3/uL MPV 11.1 (9.4-12.4) fL Immature Gran % (Auto) 0.3 (0.0-0.4) % Neut % (Auto) 51.4 (45-73) % Lymph % (Auto) 32.9 (20-40) % [place] % (Auto) 10.4 (2-11) % Eos % (Auto) 4.5 H (0-4) % Baso % (Auto) 0.5 (0-2) % Lymph # (Auto) 2.5 (1.2-4.9) X10*3/uL [place] # (Auto) 0.8 (0.1-1.2) X10*3/uL Eos # (Auto) 0.3 (0.0-0.4) X10*3/uL Baso # (Auto) 0.0 (0.0-0.2) X10*3/uL Abs Immat Gran (auto) 0.02 (0.00-0.03) X10*3/uL Absolute Neuts (auto) 3.9 (2.0-8.3) x10*3/uL Absolute Nucleated RBC 0.000 (0.0-0.012) X10*3/uL Nucleated RBC % (auto) 0.0 (0.0-0.2) /100WBC Sodium 139 (135-145) mmol/L Potassium 3.9 D (3.3-5.1) mmol/L Chloride 103 (96-108) mmol/L Carbon Dioxide 23 (22-29) mmol/L Anion Gap 17 (12-20) BUN 10 (9-16) mg/dL Creatinine 1.03 (0.5-1.4) mg/dL Estim Creat Clear Calc 97.1 Estimated GFR > 60 Random Glucose 121 H (60-115) mg/dL Calcium 9.5 (8.4-10.2) mg/dL Total Bilirubin 0.3 (0.0-1.0) mg/dL AST 21 (5-37) U/L ALT 19 (0-40) U/L Alkaline Phosphatase 59 (39-117) U/L Troponin I High Sens < 3.5 (<3.5-35.0) ng/L Total Protein 7.9 (6.5-8.0) g/dL Albumin 4.7 (3.5-5.0) g/dL Discharge Plan Discharge Clinical Impression: Acute anxiety, Panic disorder Patient Disposition: Home, Self-Care Instructions: Anxiety (ED), Panic Disorder (ED) Prescriptions: No Action prednisone 20 mg tablet 40 mg PO DAILY 5 Days Qty: 10 0RF cetirizine 10 mg tablet 10 mg PO DAILY PRN (Reason: allergy symptoms) Qty: 30 0RF trazodone 50 mg tablet 50 mg PO BEDTIME 30 Days Qty: 30 0RF Referrals: [place],[facility] [Primary Care Provider] -
== END 2022-07-15 05:04 | disposition home or self-care (01) ==
PROVIDERS: Emergency Provider Emergency Medicine Emergency Medical Services
DX: F41.9 Anxiety disorder, unspecified (principal); R06.02 Shortness of breath; Z79.899 Other long term (current) drug therapy
CPT/HCPCS: 36415; 80053; 84484; 85025; 93005; 99283; 99284

== ENCOUNTER 2022-08-10 02:50 | Emergency (ER) | payer MEDICAID, SELFPAY ==
--- NOTE | ~2022-08-10 | XR_ITS ---
EXAMINATION: XR ELBOW, LEFT CLINICAL INFORMATION: Fall, pain COMPARISON: None TECHNIQUE: AP, lateral, and oblique views of the left elbow. FINDINGS: Osseous alignment is anatomic. No acute fracture is seen. No appreciable focal soft tissue abnormality or elbow effusion. XR/XR elbow LT 2V IMPRESSION: No acute findings identified.
--- NOTE | ~2022-08-10 | XR_ITS ---
EXAMINATION: XR ANKLE, LEFT CLINICAL INFORMATION: Fall, pain COMPARISON: None TECHNIQUE: AP, lateral, and mortise views of the left ankle. FINDINGS: Osseous alignment is anatomic. No acute fracture is seen. No significant focal soft tissue abnormality identified. XR/XR ankle LT 2V IMPRESSION: No acute findings identified.
[2022-08-10 03:18] VITALS: BP 133/109; PULSE 87; RESP 16; TEMP 36.9; O2SAT 96; BMI 24.3
[2022-08-10 06:39] VITALS: BP 142/92; PULSE 85; RESP 18; TEMP 36.7; O2SAT 95
--- NOTE | 2022-08-10 06:40 | PC.NURSE ---
PT WAS CALLED BACK TO TRIAGE TO REASSESS AND TAKE VITALS .
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
== END 2022-08-10 10:08 | disposition home or self-care (01) ==
PROVIDERS: Emergency Provider Emergency Medicine
DX: S93.402A Sprain of unspecified ligament of left ankle, initial encounter (principal); M79.602 Pain in left arm; M25.572 Pain in left ankle and joints of left foot; W17.89XA Other fall from one level to another, initial encounter; Y93.9 Activity, unspecified; Y92.410 Unspecified street and highway as the place of occurrence of the external cause; Y99.9 Unspecified external cause status; Z79.899 Other long term (current) drug therapy
CPT/HCPCS: 29515; 73070; 73600; 99284

== ENCOUNTER 2022-12-20 02:39 | Emergency (ER) | payer MEDICAID, SELFPAY ==
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
[2022-12-20 02:46] VITALS: BP 125/86; BP 133/94; PULSE 100; PULSE 102; RESP 16; TEMP 37.2; O2SAT 95; O2SAT 98; BMI 25.0
[2022-12-20 02:50] VITALS: BP 125/86; PULSE 97; RESP 16; TEMP 37.2; O2SAT 97
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
[2022-12-20] MEDS: Ibuprofen 600 MG TABLET PO (04:29)
== END 2022-12-20 04:32 | disposition home or self-care (01) ==
PROVIDERS: Emergency Provider Internal Medicine
DX: S02.2XXA Fracture of nasal bones, initial encounter for closed fracture (principal); S01.21XA Laceration without foreign body of nose, initial encounter; S00.531A Contusion of lip, initial encounter; Y00.XXXA Assault by blunt object, initial encounter; Y93.89 Activity, other specified; Y92.511 Restaurant or cafe as the place of occurrence of the external cause; Y99.9 Unspecified external cause status
CPT/HCPCS: 12011; 70486; 99284

== ENCOUNTER 2023-01-08 19:52 | Emergency (ER) | payer MEDICAID, SELFPAY ==
--- NOTE | ~2023-01-08 | CT_ITS ---
EXAMINATION: CT CHEST WITHOUT CONTRAST CLINICAL INFORMATION: Vomiting. Chest pain. Questionable blunting of the right costophrenic sulcus seen on prior chest x-ray. COMPARISON: None available. TECHNIQUE: Multidetector volumetric CT imaging of the chest was done. Axial MIP volume rendering provided. Sagittal and coronal reformatted images were obtained. This CT examination was performed using dose optimization techniques as appropriate, variously including the following: *Automated exposure control *Adjustment of mA and/or kV according to patient size (this includes techniques or standardized protocols for targeted exams where dose is matched to indication/reason for exam; i.e. extremities or head) *Use of iterative reconstruction technique DLP: 224 mGy-cm FINDINGS: LUNGS: Lungs are clear. No parenchymal consolidation or evidence of pneumonitis. No airways disease. There are a few sub-3 mm pulmonary nodules. There are a few fissural lymph nodes as well. MEDIASTINUM: Normal heart size. No pericardial effusion. Great vessels normal caliber. No mediastinal or hilar lymphadenopathy. Gastrografin evident within the thoracic esophagus. No extraluminal contrast to suggest esophageal tear. CORONARY ARTERY CALCIFICATION: None visualized on this study. PLEURA: There is no pleural effusion. No pleural mass or thickening. AXILLA: No lymphadenopathy. UPPER ABDOMEN: Unremarkable. OSSEOUS STRUCTURES: No acute or suspicious osseous abnormalities. CT/CT chest wo IV con IMPRESSION: * No evidence of esophageal injury. * Lungs are clear. * No pleural effusion. * There are a few sub-3 mm pulmonary nodules which are of doubtful clinical significance. Fleischner Society guidelines do not apply in patients of this age. The decision whether or not to do a single follow-up CT chest in one year would be at the clinician's discretion.
--- NOTE | ~2023-01-08 | XR_ITS ---
EXAMINATION: XR CHEST CLINICAL INFORMATION: Reason for Exam chest pain s/p vomiting COMPARISON: Chest radiograph 03/24/2022 TECHNIQUE: One view of the chest FINDINGS: Clear lungs. No pneumothorax. Blunting of the right costophrenic angle may reflect a trace pleural effusion. Normal cardiomediastinal silhouette. XR/XR chest 1V IMPRESSION: 1. Blunting of the right costophrenic angle may reflect a trace pleural effusion.
[2023-01-08 19:52] VITALS: BP 136/67; PULSE 74; RESP 18; TEMP 36.6; O2SAT 100; BMI 24.7
--- NOTE | 2023-01-08 19:53 | ED_ITS ---
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 of the chest revealed no injury to your esophagus from your vomiting. Your laboratory evaluation was unremarkable. [facility] ([facility]) and . This is an outpatient community service that can help you get treatment for your anxiety, they have access to counselors and prescribing provider. Follow-up with your doctor in 2 days. Please return to the emergency department if your symptoms get worse or if you develop any symptoms that are concerning to you. <DANIELE Steen - Last Filed: 01/08/23 19:56> Prescriptions: New ondansetron 4 mg tablet,disintegrating 4 mg PO Q6-8H PRN (Reason: nausea and vomiting) Qty: 14 0RF No Action prednisone 20 mg tablet 40 mg PO DAILY 5 Days Qty: 10 0RF cetirizine 10 mg tablet 10 mg PO DAILY PRN (Reason: allergy symptoms) Qty: 30 0RF ibuprofen 600 mg tablet 600 mg PO Q6H PRN (Reason: fever or pain) Qty: 30 0RF trazodone 50 mg tablet 50 mg PO BEDTIME 30 Days Qty: 30 0RF ibuprofen 800 mg tablet 800 mg PO Q8H PRN (Reason: pain) Qty: 14 0RF <DANIELE Steen - Last Filed: 01/08/23 19:56>
--- NOTE | 2023-01-08 20:11 | ECG_ITS ---
Test Reason : chest pain Blood Pressure : / mmHG Vent. Rate : 071 BPM Atrial Rate : 071 BPM P-R Int : 152 ms QRS Dur : 090 ms QT Int : 350 ms P-R-T Axes : 066 077 054 degrees QTc Int : 380 ms Normal sinus rhythm Normal ECG When compared with ECG of 15-JUL-2022 00:51, No significant change was found Referred By: Teagan Milner Electronically Signed By:Arian Tong
[2023-01-08 20:21] VITALS: BP 123/81; PULSE 68; RESP 14; O2SAT 100
[2023-01-08 20:21] LABS: MANUAL DIFF FLAG NO
[2023-01-08 20:32] LABS: Basophils Percent Auto 0.6 % (0-2); Eosinophils Absolute Auto 0.1 X10*3/uL (0.0-0.4); Eosinophils Percent Auto 1.9 % (0-4); Hematocrit 43.9 % (42.0-52.0); Imm Gran Abs Auto 0.02 X10*3/uL (0.00-0.03); Imm Gran Pct Auto 0.4 % (0.0-0.4); Lymphocytes Absolute Auto 1.4 X10*3/uL (1.2-4.9); Mean Corpuscular HGB Conc 34.2 g/dl (31.0-36.0); Mean Corpuscular Hemoglobin 30.5 pg (27.0-33.0); Mean Corpuscular Volume 89.2 fL (80.0-98.0); Mean Platelet Volume 12.2 fL (9.4-12.4); Monocytes Absolute Auto 0.5 X10*3/uL (0.1-1.2); Monocytes Percent Auto 9.3 % (2-11); Neutrophils Absolute Auto 3.3 x10*3/uL (2.0-8.3); Neutrophils Percent Auto 61.8 % (45-73); Platelet Count 189 X10*3/uL (160-400); Red Blood Count 4.92 X10*6/uL (4.60-5.80); Red Cell Distribution Width 12.8 % (11.0-16.0); White Blood Count 5.4 X10*3/uL (4.8-10.8)
[2023-01-08] MEDS: 0.9 % Sodium Chloride 1,000 ML 999 ML IV (20:42)
[2023-01-08] MEDS: ondansetron HCL 4 MG/2 ML VIAL IVPUSH (20:42)
[2023-01-08] MEDS: Famotidine/PF 20 MG/2 ML VIAL IVPUSH (20:42)
[2023-01-08 20:50] LABS: Amphetamine Screen Urine Not Detected (Not Detect); Barbiturates, Urine Not Detected (Not Detect); Benzodiazepines Screen Urine Not Detected (Not Detect); Cannabinoid Screen Urine POSITIVE (Not Detect); Cocaine Screen Urine Not Detected (Not Detect); Fentanyl, urine Not Detected (Not Detect); Opiate Screen Urine Not Detected (Not Detect); Phencyclidine Screen Urine Not Detected (Not Detect)
[2023-01-08 20:53] LABS: Appearance Urine Cloudy; Color Urine Yellow; Glucose Urine UA Negative (Negative); Leukocyte Esterase Urine Negative (Negative); Nitrite Urine Negative (Negative); PH 6.5 (5.0-9.0); Specific Gravity - Urine 1.015 (1.005-1.025); Urine Blood Negative (Negative); Urine Ketones Negative (Negative); Urine Protein Negative (Neg-Trace)
[2023-01-08 20:54] LABS: Alanine Aminotransferase 35 U/L (0-40); Albumin Level 4.7 g/dL (3.5-5.0); Alkaline Phosphatase 60 U/L (39-117); Anion Gap 17 (12-20); Aspartate Amino Transferase 32 U/L (5-37); Bilirubin Direct < 0.2 mg/dL (0.0-0.5); Bilirubin Total 0.4 mg/dL (0.0-1.0); Blood Urea Nitrogen 8 mg/dL (9-16); Carbon Dioxide 24 mmol/L (22-29); Chloride 107 mmol/L (96-108); Creatinine Clr Calc Pharmacy 116.3; Estimated Glomerular Filt Rate > 60; Ethanol 137 mg/dL; Glucose Random 90 mg/dL (60-115); Lipase 13 U/L (8-78); Magnesium 2.4 mg/dL (1.6-2.6); Potassium 4.5 mmol/L (3.3-5.1); Sodium 143 mmol/L (135-145); Total Protein 7.4 g/dL (6.5-8.0)
[2023-01-08] MEDS: Lidocaine HCl Viscous 2 % 15 ML SOLUTION 10 ML MUCOUS MEM (22:05)
[2023-01-08] MEDS: Sucralfate Oral Suspension 1 GM/10 ML ORAL.SUSP PO (22:05)
[2023-01-08] MEDS: Magnesium Hydrox/Alum Hydrox 30 ML ORAL.SUSP PO (22:05)
[2023-01-08 22:09] VITALS: BP 108/63; PULSE 61; RESP 20; O2SAT 100
[2023-01-08] MEDS: Diatrizoate Meglumine, Sodium 30 ML SOLUTION PO (22:38)
[2023-01-08 23:45] VITALS: BP 109/47; PULSE 70; RESP 17; TEMP 36.7; O2SAT 97
== END 2023-01-09 01:32 | disposition home or self-care (01) ==
PROVIDERS: Physician Assistant; Student in an Organized Health Care Education/Training Program; Emergency Provider Emergency Medicine Emergency Medical Services
DX: R07.89 Other chest pain (principal); F10.129 Alcohol abuse with intoxication, unspecified; M54.6 Pain in thoracic spine; Y90.5 Blood alcohol level of 100-119 mg/100 ml; F12.10 Cannabis abuse, uncomplicated; Z79.899 Other long term (current) drug therapy
CPT/HCPCS: 36415; 71045; 71250; 80048; 80076; 80307; 81003; 82077; 83690; 83735; 85025; 93005; 96361; 96374; 96375; 99284; J2405

== ENCOUNTER 2023-01-21 16:00 | Outpatient (REF) | payer MEDICAID, SELFPAY ==
--- NOTE | ~2023-01-21 | XR_ITS ---
EXAMINATION: XR RIBS, RIGHT CLINICAL INFORMATION: Fall, right-sided rib pain. COMPARISON: Chest radiographs 01/08/2023, 03/24/2022 TECHNIQUE: Frontal view chest is performed along with 4 views of the right ribs for a total of 5 views. FINDINGS: No visible rib fracture or rib destructive process. No pneumothorax or pneumomediastinum or subcutaneous emphysema. Lungs are clear. The heart is normal in size. The costophrenic sulci are well-defined. No effusion. The hilar and mediastinal contours are normal. XR/XR ribs RT min 3V w CXR1V IMPRESSION: No visible rib fracture. Lungs clear. No pneumothorax, infiltrate, or effusion.
== END 2023-01-21 16:01 | disposition home or self-care (01) ==
LOC: HO.XRAY 16:00
PROVIDERS: PCP Nurse Practitioner Primary Care; Visit Provider Nurse Practitioner Primary Care
DX: R07.81 Pleurodynia (principal); W10.8XXA Fall (on) (from) other stairs and steps, initial encounter
CPT/HCPCS: 71101

== ENCOUNTER 2023-04-07 13:12 | Emergency (ER) | payer MEDICAID, SELFPAY ==
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
[2023-04-07 13:39] VITALS: BP 125/83; PULSE 78; RESP 16; TEMP 36.2; O2SAT 98; BMI 25.1
[2023-04-07 15:51] VITALS: BP 116/80; PULSE 61; RESP 16; O2SAT 100
== END 2023-04-07 15:54 | disposition home or self-care (01) ==
PROVIDERS: Emergency Provider Emergency Medicine Emergency Medical Services; PCP Family Medicine
DX: R51.9 Headache, unspecified (principal); S06.0XAA Concussion with loss of consciousness status unknown, initial encounter; W20.8XXA Other cause of strike by thrown, projected or falling object, initial encounter; Y93.9 Activity, unspecified; Y92.9 Unspecified place or not applicable; Y99.9 Unspecified external cause status
CPT/HCPCS: 70450; 99284

== ENCOUNTER 2023-05-14 10:28 | Outpatient (REF) | payer MEDICAID, SELFPAY ==
[2023-05-14 20:41] LABS: Influenza A PCR NEGATIVE (Negative); Influenza B PCR NEGATIVE (Negative); Resp Syncy Virus RNA Qual PCR NEGATIVE (Negative); SARS COV2 PCR INHOUSE NEGATIVE (Negative)
== END 2023-05-14 10:29 | disposition home or self-care (01) ==
LOC: HO.HHCLNP 10:28
PROVIDERS: Visit Provider Internal Medicine
DX: R05.9 Cough, unspecified (principal); Z20.822 Contact with and (suspected) exposure to COVID-19
CPT/HCPCS: 0241U

== ENCOUNTER 2023-07-11 10:54 | Inpatient (IN) | payer MEDICAID, SELFPAY ==
[2023-07-11] VITALS (9 sets, daily range): BP systolic 99–132; BP diastolic 44–85; PULSE 53–100; RESP 16–22; TEMP 36.2–36.9; O2SAT 96–100; BMI 23.1; BMI 24.0
--- NOTE | 2023-07-11 11:38 | PC.NURSE ---
pt alert and oriented, skin appropriate for ethnicity, pt is visibly diaphoretic, pt is hyperventilating, dry heaving-spitting in the emesis bag, shaking uncontrollably, pt states that he thinks he is alcohol withdraw last drink was 2200 and has been drinking 750ml of Henessy daily. reports abd and chest pain 10/10, vs stable, normal sinus on the monitor. pt also reports smoking marijuana.
[2023-07-11 11:39] LABS: Alanine Aminotransferase 31 U/L (0-40); Albumin Level 5.3 g/dL (3.5-5.0); Alkaline Phosphatase 62 U/L (39-117); Anion Gap 21 (12-20); Aspartate Amino Transferase 27 U/L (5-37); Bilirubin Direct 0.3 mg/dL (0.0-0.5); Bilirubin Total 1.1 mg/dL (0.0-1.0); Blood Urea Nitrogen 19 mg/dL (9-16); Calcium 10.2 mg/dL (8.4-10.2); Carbon Dioxide 19 mmol/L (22-29); Chloride 107 mmol/L (96-108); Creatinine Clr Calc Pharmacy 94.4; Estimated Glomerular Filt Rate > 60; Ethanol < 10 mg/dL; Glucose Random 88 mg/dL (60-115); Magnesium 2.4 mg/dL (1.6-2.6); Potassium 3.9 mmol/L (3.3-5.1); Sodium 143 mmol/L (135-145); Total Protein 8.5 g/dL (6.5-8.0)
--- NOTE | 2023-07-11 11:46 | PC.NURSE ---
seizure pads in place
--- NOTE | 2023-07-11 13:05 | PC.NURSE ---
pt is currently asleep, respirations even and unlabored, no tremor at this time, no dry heaving, diaphoresis has improved
--- NOTE | 2023-07-11 16:31 | ED.ALCOHOL ---
HPI - Alcohol General Chief Complaint: ETOH/Substance Use Stated Complaint: alcohol withdrawals Time Seen by Provider: 07/11/23 13:25 Source: patient Mode of arrival: EMS Limitations: language barrier (Guamanian speaking only) History of Present Illness HPI narrative: 33-year-old male who presents emergency department for evaluation of alcohol withdrawal, chest pain and abdominal pain patient states that over the last 7 days he has been bingeing on alcohol. He has been drinking 750 mL of Pastora daily. States his last drink was at 22:00 hours last night. Patient states that he was last in rehab 1 year prior. Patient states that he feels like he is withdrawing, he states that he is tremulous and feels agitated . He states he has not been able sleep for 2 days. Patient states that in the past he has had alcohol withdrawal seizures in delirium tremens. This morning at 09:00 hours he developed pain in the center of his chest describes it as a hot sensation which is worse with movement. He also developed lower abdominal pain which she describes as a constant, throbbing sensation which is 8/10 at its worst. Patient also states that he has had dark loose diarrheal stool 4-5 times since onset of his pain. He did not see any blood in the diarrhea. Patient states he has his wisdom teeth extracted 2 months prior he did take a 7 day course of amoxicillin Related Data Previous Rx's Medication Instructions Recorded cetirizine 10 mg tablet 10 mg PO DAILY PRN allergy 03/11/22 symptoms #30 tabs prednisone 20 mg tablet 40 mg (2 x 20 mg) PO DAILY 5 days 03/11/22 #10 tabs trazodone 50 mg tablet 50 mg PO BEDTIME 30 days #30 tabs 03/24/22 ibuprofen 800 mg tablet 800 mg PO Q8H PRN pain #14 tabs 08/10/22 ibuprofen 600 mg tablet 600 mg PO Q6H PRN fever or pain 12/20/22 #30 tabs ondansetron 4 mg disintegrating 4 mg PO Q6-8H PRN nausea and 01/09/23 tablet vomiting #14 tabs Allergies Allergy/AdvReac Type Severity Reaction Status Date / Time SEAFOOD Allergy Severe THROAT Uncoded 04/07/23 13:39 CLOSING Crustaceans Allergy Unknown UNKNOWN Uncoded 04/07/23 13:39 Shellfish Allergy Unknown SWOLLEN Uncoded 04/07/23 13:39 Review of Systems Review of Systems: Yes all other systems are reviewed and are negative [facility] Past Medical History Attestation statement: The following information was validated with the patient. [facility] Narrative: Social history: He denies tobacco use. He does drink alcohol daily as discussed in the HPI. Smokes marijuana. He denies other drug use. Medical History Asthma Social History Social History Alcohol intake: current Alcohol intake frequency: 3 or more drinks per day Alcohol type: hard liquor Patient Tobacco Use Status: Never used Tobacco Smoked in Last 30 Days: No Use of substances other than those prescribed or required for medical reasons: Yes Substance Use Type: Marijuana Substance Use Frequency: Daily Advance Directives: No Advance Directives Information Provided: Yes Physical Exam ED Vital Signs: Vital Signs - 24 hr 07/11/23 11:05 07/11/23 11:39 07/11/23 13:42 Temperature 97.4 F 97.2 F Pulse Rate 89 53 53 Respiratory Rate 22 H 16 16 Blood Pressure 122/85 126/81 107/57 L Pulse Oximetry 100 99 99 Oxygen Delivery Method Room Air Room Air Room Air 07/11/23 16:29 07/11/23 18:03 Temperature Pulse Rate 64 91 Respiratory Rate 19 18 Blood Pressure 101/45 L 99/44 L Pulse Oximetry 97 100 Oxygen Delivery Method Room Air Room Air BMI result Body Mass Index 23.1 Vital signs did reveal an elevated respiratory rate of 22 otherwise were unremarkable. Exam: General: Somnolent but arousable, falls asleep in between questioning, answers all questions appropriately Head: Normocephalic, atraumatic EENT: PERRL, Lids normal, sclera normal, conjunctiva normal, nose normal , ears normal, throat without erythema or exudates Neck: Supple, no adenopathy, trachea midline and nontender Lung: breath sounds symmetric, no wheezing, rales or rhonchi Chest: symmetric movement, moderate tenderness to the anterior chest Heart: regular rate and rhythm, normal S1, S2 no murmurs or rubs Abdomen: soft, moderate lower abdominal tender, nondistended, normal bowel sounds, no rebound Back: no vertebral tenderness, no CVAT Extremities: no deformities, moves all extremities symmetrically Skin: no rashes, no lesion, normal color and warmth Neuro: Somnolent, oriented, normal speech, cranial nerves intact, moves all extremities symmetrically Psych: Pleasant, cooperative Medical Decision Making Medical Decision Making [facility] Narrative: 33-year-old male with history of alcohol use disorder, delirium tremens, alcohol withdrawal seizures who presents emergency department for evaluation of alcohol withdrawal, chest pain abdominal pain and diarrhea. Patient states he has been binge drinking for 1 week and has been drinking 750 mL of Pastora daily with his last drink being 22:00 hours. Patient states that he is feeling like he is withdrawing from alcohol also he developed anterior chest pain and abdominal pain today. Patient's vital signs did reveal an elevated respiratory rate otherwise were unremarkable. Patient's exam anterior chest wall tenderness and lower abdominal tenderness. On initial presentation patient was tremulous and vomiting and was treated Ativan 2 mg IV. Following evaluation was ordered: CBC, BMP, liver panel, ethanol, urinalysis, magnesium, urine drug screen CT scan of the abdomen pelvis with IV contrast. Patient was treated with normal saline IV x2 L, Toradol 15 mg IV, lorazepam 2 mg IV and Zofran 4 mg IV. 16:51 Patient's laboratory evaluation revealed an elevated white blood count 36857, low bicarb of 19 otherwise unremarkable. Urinalysis was negative. Patient's is feeling better after the above treatment. Patient's CT scan of the abdomen pelvis is been done but the radiology interpretation is pending. 16:[address] scan is consistent with mild distal colitis. Patient's exam still reveals left lower quadrant tenderness, concerned that he may have it infectious colitis versus C diff colitis Patient will be treated Levaquin 500 mg IV and Flagyl 500 mg IV. Patient will also be started on phenobarbital protocol, 15 milligrams/kilogram. I will discuss admission with the covering hospitalist. 18:22 The patient was discussed with Dr. Boyle over tiger text the patient will be admitted for further management Differential Diagnosis Differential Diagnoses: The differential diagnosis associated with the presentation includes Differential diagnosis includes was not limited to alcohol withdrawal,costochondritis, musculoskeletal pain, gastritis, diverticulitis, appendicitis Admission/Observation Consideration of admission/observation: Escalation of care including admission/observation considered Consult Healthcare Provider Management of the patient was discussed with: Hospitalist Lab Data [facility] Lab Attestation statement: I reviewed the patient's lab results. Independent interpretation patient's laboratory evaluation as follows: WBC elevated 15,000 bicarb low 19. LFTs normal. Urinalysis negative. 07/11/23 11:19 07/11/23 11:19 Labs: Lab Results 07/11/23 07/11/23 07/11/23 Range/Units 11:16 11:19 15:04 WBC 15.8 H (4.8-10.8) X10*3/uL RBC 5.33 (4.60-5.80) X10*6/uL Hgb 16.1 (14.0-18.0) g/dl Hct 45.9 (42.0-52.0) % MCV 86.1 (80.0-98.0) fL MCH 30.2 (27.0-33.0) pg MCHC 35.1 (31.0-36.0) g/dl RDW 12.8 (11.0-16.0) % Plt Count 246 D (160-400) X10*3/uL MPV 11.1 (9.4-12.4) fL Immature Gran % (Auto) 0.4 (0.0-0.4) % Neut % (Auto) 85.4 H (45-73) % Lymph % (Auto) 8.1 L (20-40) % [place] % (Auto) 5.6 (2-11) % Eos % (Auto) 0.2 (0-4) % Baso % (Auto) 0.3 (0-2) % Lymph # (Auto) 1.3 (1.2-4.9) X10*3/uL [place] # (Auto) 0.9 (0.1-1.2) X10*3/uL Eos # (Auto) 0.0 (0.0-0.4) X10*3/uL Baso # (Auto) 0.1 (0.0-0.2) X10*3/uL Abs Immat Gran (auto) 0.07 H (0.00-0.03) X10*3/uL Absolute Neuts (auto) 13.5 H (2.0-8.3) x10*3/uL Absolute Nucleated RBC 0.000 (0.0-0.012) X10*3/uL Nucleated RBC % (auto) 0.0 (0.0-0.2) /100WBC Sodium 143 (135-145) mmol/L Potassium 3.9 (3.3-5.1) mmol/L Chloride 107 (96-108) mmol/L Carbon Dioxide 19 L (22-29) mmol/L Anion Gap 21 H (12-20) BUN 19 H (9-16) mg/dL Creatinine 1.05 (0.5-1.4) mg/dL Estim Creat Clear Calc 94.4 Estimated GFR > 60 POC Glucose 87 (60-115) mg/dL Random Glucose 88 (60-115) mg/dL Calcium 10.2 D (8.4-10.2) mg/dL Magnesium 2.4 (1.6-2.6) mg/dL Total Bilirubin 1.1 H (0.0-1.0) mg/dL Direct Bilirubin 0.3 (0.0-0.5) mg/dL AST 27 (5-37) U/L ALT 31 (0-40) U/L Alkaline Phosphatase 62 (39-117) U/L Total Protein 8.5 H (6.5-8.0) g/dL Albumin 5.3 H (3.5-5.0) g/dL Urine Color Yellow Urine Appearance Clear Urine pH 6.5 (5.0-9.0) Ur Specific [place] >= 1.030 H (1.005-1.025) Urine Protein Negative (Neg-Trace) mg/dL Urine Glucose (UA) Negative (Negative) mg/dL Urine Ketones 80 (Negative) mg/dL Urine Blood Negative (Negative) Urine Nitrite Negative (Negative) Ur Leukocyte Esterase Negative (Negative) Urine Opiates Screen Not Detected (Not Detect) Urine Fentanyl Screen Not Detected (Not Detect) Ur Barbiturates Screen Not Detected (Not Detect) Ur Phencyclidine Scrn Not Detected (Not Detect) Ur Amphetamines Screen Not Detected (Not Detect) U Benzodiazepines Scrn Not Detected (Not Detect) Urine Cocaine Screen Not Detected (Not Detect) U Marijuana (THC) Screen POSITIVE H (Not Detect) Ethyl Alcohol < 10 mg/dL Independent Interpretation I performed an independent interpretation of an: EKG Interpretation: Twelve EKG done at 12:41 hours is as follows: Sinus bradycardia with a rate of 54: Artifact in leads 1 through 3 DC interval, QRS duration QTC intervals were normal, no ST segment elevation, no ST segment depression, no PACs no PVCs no significant T-wave abnormalities Radiology Impression Discussion of test interpretation with radiology: I have reviewed the radiologist's reading. Radiologist Impression: CT abdomen pelvis w IV con IMPRESSION: Nonspecific mild colitis distal colon. No obstruction. Tiny urachal cyst. No definite mass. Fleischner guidelines were followed. Dictated By: Sriram Tabares MD Medications Administered Discontinued Medications Generic Name Dose Route Start Last Admin Trade Name Freq PRN Reason Stop Dose Admin Sodium Chloride 1,000 mls @ 999 mls/hr 07/11/23 12:30 07/11/23 13:45 Ns IVCONT 07/11/23 13:30 Infused .Q1H1M PRAVEEN Infusion Sodium Chloride 1,000 mls @ 999 mls/hr 07/11/23 13:34 07/11/23 15:00 Ns IV 07/11/23 14:34 Infused .Q1H1M STA Infusion Iohexol 100 ml 07/11/23 14:15 07/11/23 14:16 Iohexol 350 Mg/Ml 100 Ml Infus..Btl IV 07/11/23 14:16 85 ml ONCE ONE Administration Ketorolac Tromethamine 15 mg 07/11/23 13:34 07/11/23 13:43 Ketorolac Tromethamine 15 Mg/Ml Vial IVPUSH 07/11/23 13:35 15 mg ONCE STA Administration Lorazepam 2 mg 07/11/23 12:21 07/11/23 12:29 Lorazepam 2 Mg/Ml Vial IVPUSH 07/11/23 12:22 2 mg ONCE ONE Administration Ondansetron HCl 4 mg 07/11/23 12:21 07/11/23 12:29 Ondansetron Hcl 4 Mg/2 Ml Vial IVPUSH 07/11/23 12:22 4 mg ONCE ONE Administration Discharge Plan Discharge Prescriptions: No Action prednisone 20 mg tablet 40 mg PO DAILY 5 Days Qty: 10 0RF cetirizine 10 mg tablet 10 mg PO DAILY PRN (Reason: allergy symptoms) Qty: 30 0RF ibuprofen 600 mg tablet 600 mg PO Q6H PRN (Reason: fever or pain) Qty: 30 0RF trazodone 50 mg tablet 50 mg PO BEDTIME 30 Days Qty: 30 0RF ibuprofen 800 mg tablet 800 mg PO Q8H PRN (Reason: pain) Qty: 14 0RF ondansetron 4 mg tablet,disintegrating 4 mg PO Q6-8H PRN (Reason: nausea and vomiting) Qty: 14 0RF
--- NOTE | 2023-07-11 18:03 | PC.NURSE ---
pt awake at this time, tolerating ice chips, reports feeling better pain at 7/10
--- NOTE | 2023-07-11 19:08 | PM.IMHP ---
History of Present Illness Date of Service: 07/11/23 Chief Complaint: Alcohol withdrawal Review of Systems Review of Systems: Gen: no fever Resp: no sob, no cough CV: no chest, no FRASER, no leg edema GI: No n/v, no abd pain Neuro: No confusion Yes all other systems are reviewed and are negative [facility] Medical History Asthma Social History Alcohol intake: current Alcohol intake frequency: 3 or more drinks per day Alcohol type: hard liquor Patient Tobacco Use Status: Never used Tobacco Smoked in Last 30 Days: No Use of substances other than those prescribed or required for medical reasons: Yes Substance Use Type: Marijuana Substance Use Frequency: Daily Advance Directives: No Advance Directives Information Provided: Yes Meds Allergies Allergy/AdvReac Type Severity Reaction Status Date / Time SEAFOOD Allergy Severe THROAT Uncoded 04/07/23 13:39 CLOSING Crustaceans Allergy Unknown UNKNOWN Uncoded 04/07/23 13:39 Shellfish Allergy Unknown SWOLLEN Uncoded 04/07/23 13:39 Active Medications: Current Medications Pharmacy Consult (Consult Rx Etoh Phenob Im/Po) 1 each MISCELLANE ONCE PRN; Protocol PRN Reason: Consult order Phenobarbital (Phenobarbital 15 Mg Tablet) 45 mg PO BID [facility] Stop: 07/13/23 21:01 Phenobarbital (Phenobarbital 30 Mg Tablet) 30 mg PO BID [facility] Stop: 07/15/23 21:01 Phenobarbital (Phenobarbital 15 Mg Tablet) 15 mg PO DAILY [facility] Stop: 07/17/23 09:01 Phenobarbital Sodium (Phenobarbital Sodium 130 Mg/Ml Vial Im Q3hx2) 297 mg IM Q3H [facility] Stop: 07/12/23 02:01 Physical Exam Vital Signs and Narrative: Vital Signs: Last Vital Signs Temp 97.2 F 07/11/23 11:39 Pulse 80 07/11/23 18:08 Resp 18 07/11/23 18:08 BP 103/52 L 07/11/23 18:08 Pulse Ox 100 07/11/23 18:03 O2 Del Method Room Air 07/11/23 18:03 BMI result Body Mass Index 23.1 Const: Other: Constitutional: Alert, in no distress, overweight. Mental Status: Oriented to person, place and time. Eyes: Pupils are equal, round and reactive to light. Ear, Nose and Throat: Oropharynx clear, mucous membranes moist. Ears and nose without eformities. Trachea midline. Respiratory: Clear to auscultation. No wheezing, rales or rhonchi. Cardiovascular: S1 S2 regular. No murmurs, rubs or gallops. Gastrointestinal: Abdomen soft, non-tender, non-distended. Normal bowel sounds.? Neurologic: Cranial nerves II-XII grossly intact. No focal neurological deficits. Moves all extremities spontaneously.? Skin: No rashes or lesions.? Musculoskeletal: No cyanosis or clubbing. Psychiatric: Normal mood and affect? Results Labs 07/11/23 11:19 07/11/23 11:19 Labs: Laboratory Results - last 24 hr 07/11/23 07/11/23 07/11/23 11:16 11:19 15:04 MCV 86.1 MCH 30.2 MCHC 35.1 RDW 12.8 Plt Count 246 D MPV 11.1 Immature Gran % (Auto) 0.4 Neut % (Auto) 85.4 H Lymph % (Auto) 8.1 L [place] % (Auto) 5.6 Eos % (Auto) 0.2 Baso % (Auto) 0.3 Lymph # (Auto) 1.3 [place] # (Auto) 0.9 Eos # (Auto) 0.0 Baso # (Auto) 0.1 Abs Immat Gran (auto) 0.07 H Absolute Neuts (auto) 13.5 H Absolute Nucleated RBC 0.000 Nucleated RBC % (auto) 0.0 Anion Gap 21 H Estim Creat Clear Calc 94.4 Estimated GFR > 60 POC Glucose 87 Random Glucose 88 Calcium 10.2 D Magnesium 2.4 Total Bilirubin 1.1 H Direct Bilirubin 0.3 AST 27 ALT 31 Alkaline Phosphatase 62 Total Protein 8.5 H Albumin 5.3 H Urine Color Yellow Urine Appearance Clear Urine pH 6.5 Ur Specific [place] >= 1.030 H Urine Protein Negative Urine Glucose (UA) Negative Urine Ketones 80 Urine Blood Negative Urine Nitrite Negative Ur Leukocyte Esterase Negative Urine Opiates Screen Not Detected Urine Fentanyl Screen Not Detected Ur Barbiturates Screen Not Detected Ur Phencyclidine Scrn Not Detected Ur Amphetamines Screen Not Detected U Benzodiazepines Scrn Not Detected Urine Cocaine Screen Not Detected U Marijuana (THC) Screen POSITIVE H Ethyl Alcohol < 10 Imaging Radiologist's Impressions: Impressions Abdomen/Pelvis CT 07/11/23 14:15 IMPRESSION: Nonspecific mild colitis distal colon. No obstruction. Tiny urachal cyst. No definite mass. Fleischner guidelines were followed. Assessment and Plan (1) Alcohol withdrawal: Qualifiers: Complication of substance-induced condition: with unspecified complication Qualified Code(s): F10.939 - Alcohol use, unspecified with withdrawal, unspecified Status: Acute Plan Alcohol withdrawal Abdominal pain/chest pain check Lipase leukocytosis Time Spent With Patient Time: Total time managing care of this patient today ____ minutes. Quality Stroke Does the patient have a stroke diagnosis?: No VTE Prior VTE?: No VTE Risk Level:: Medical - moderate - high VTE Device Contraindication: Treatment Not Indicated VTE Drug Contraindication: N/A - Med Ordered
--- NOTE | 2023-07-11 19:25 | P.HPHOSP_ITS ---
History of Present Illness Date of Service: 07/11/23 Attending physician on admission: [facility] Chief Complaint: abd pain, diarrhea 33-year-old male with history of mild intermittent asthma and alcohol dependence presents to the ED earlier today for evaluation of lower abdominal pain and multiple episodes of diarrhea that started this morning. He also desires detox from alcohol. He reports he consumes a 750 mL bottle of Pastora on a daily basis, last drink was around 22:00 last night. He also smokes marijuana on a regular basis but denies any other substance use including cigarettes. He denies eating any bad foods or recent travel. He was on course of amoxicillin about 2 months ago following wisdom teeth extraction but denies any other antibiotic use since then. Known home with similar symptoms. He describes the pain is severe and nonradiating. He has had about 5-6 episodes of nonbloody diarrhea since this morning. Also reporting mild headache. Denies any fevers or shaking chills. Denies any nausea, vomiting, melena, hematochezia, lightheadedness, shortness of breath, or chest pain. He reports when he arrived he was tremulous with palpitations and sweats but these have improved as he has been started on phenobarbital per protocol. On arrival, vital stable. There is leukocytosis of 15.8. Creatinine baseline, BUN slightly elevated at 19. Electrolytes normal except for CO2 of 19. Hepatic function normal except for mildly elevated bilirubin of 1.1. Urinalysis unremarkable. Urine tox screen positive for marijuana, otherwise negative. Ethyl alcohol level negative. CT abdomen/pelvis shows a nonspecific mild colitis of the distal colon without any obstruction and a tiny your urachal cyst. In the ED, patient given 2 L bolus IV NS, ketorolac, 2 mg lorazepam. Given persistent withdrawal symptoms, patient started on phenobarbital per protocol. He has also been given 500 mg Levaquin and 500 mg Flagyl. Review of Systems 2 Review of Systems: General: No fevers, malaise, unintentional weight loss HEENT: No blurred vision, diplopia. No sore throat, nasal congestion, rhinorrhea, sinus pain, ear pain Cardiovascular: No chest pain, palpitations, or leg edema Respiratory: No shortness of breath, wheezing, cough GI: +abd pain, +diarrhea. No nausea, vomiting, constipation, melena, hematochezia : No dysuria, hematuria, increased urinary frequency, decreased urinary output MSK: No myalgia, back pain Neuro: No weakness, paresthesias. +headache Skin: No rashes or lesions [facility] Medical History (Updated 07/11/23 @ 19:53 by DANIELE Brush) Alcohol use disorder Asthma Social History Alcohol intake: current Alcohol intake frequency: 3 or more drinks per day Alcohol type: hard liquor Patient Tobacco Use Status: Never used Tobacco Smoked in Last 30 Days: No Use of substances other than those prescribed or required for medical reasons: Yes Substance Use Type: Marijuana Substance Use Frequency: Daily Advance Directives: No Advance Directives Information Provided: Yes Meds Allergies Allergy/AdvReac Type Severity Reaction Status Date / Time SEAFOOD Allergy Severe THROAT Uncoded 04/07/23 13:39 CLOSING Crustaceans Allergy Unknown UNKNOWN Uncoded 04/07/23 13:39 Shellfish Allergy Unknown SWOLLEN Uncoded 04/07/23 13:39 Active Medications: Current Medications Lactated Ringer's (Lr) 1,000 mls @ 150 mls/hr IVCONT .Q6H40M [facility] Pharmacy Consult (Consult Rx Etoh Phenob Im/Po) 1 each MISCELLANE ONCE PRN; Protocol PRN Reason: Consult order Phenobarbital (Phenobarbital 15 Mg Tablet) 45 mg PO BID [facility] Stop: 07/13/23 21:01 Phenobarbital (Phenobarbital 30 Mg Tablet) 30 mg PO BID [facility] Stop: 07/15/23 21:01 Phenobarbital (Phenobarbital 15 Mg Tablet) 15 mg PO DAILY [facility] Stop: 07/17/23 09:01 Phenobarbital Sodium (Phenobarbital Sodium 130 Mg/Ml Vial Im Q3hx2) 297 mg IM Q3H [facility] Stop: 07/12/23 02:01 Physical Exam 2 Vital Signs and Narrative: Vital Signs: Last Vital Signs Temp 97.2 F 07/11/23 11:39 Pulse 80 07/11/23 18:08 Resp 18 07/11/23 18:08 BP 103/52 L 07/11/23 18:08 Pulse Ox 100 07/11/23 18:03 O2 Del Method Room Air 07/11/23 18:03 BMI result Body Mass Index 23.1 Constitutional - Awake and Alert, No apparent distress Eyes - PERRLA, EOMI Cardiovascular - S1S2, RRR, No edema Respiratory - Normal lung expansion, Normal respiratory effort, No respiratory distress, CTA bilaterally Gastrointestinal - RLQ ttp, ND; +BS; No rebound or guarding Extremities - no calf tenderness bilaterally, no swelling Skin - Warm, slightly clammy Neurological - Alert & oriented x3, horizontal nystagmus, otherwise CN II-XII in tact Psychological - Appropriate affect Results Labs 07/11/23 11:19 07/11/23 11:19 Labs: Laboratory Results - last 24 hr 07/11/23 07/11/23 07/11/23 11:16 11:19 15:04 MCV 86.1 MCH 30.2 MCHC 35.1 RDW 12.8 Plt Count 246 D MPV 11.1 Immature Gran % (Auto) 0.4 Neut % (Auto) 85.4 H Lymph % (Auto) 8.1 L [place] % (Auto) 5.6 Eos % (Auto) 0.2 Baso % (Auto) 0.3 Lymph # (Auto) 1.3 [place] # (Auto) 0.9 Eos # (Auto) 0.0 Baso # (Auto) 0.1 Abs Immat Gran (auto) 0.07 H Absolute Neuts (auto) 13.5 H Absolute Nucleated RBC 0.000 Nucleated RBC % (auto) 0.0 Anion Gap 21 H Estim Creat Clear Calc 94.4 Estimated GFR > 60 POC Glucose 87 Random Glucose 88 Calcium 10.2 D Magnesium 2.4 Total Bilirubin 1.1 H Direct Bilirubin 0.3 AST 27 ALT 31 Alkaline Phosphatase 62 Total Protein 8.5 H Albumin 5.3 H Urine Color Yellow Urine Appearance Clear Urine pH 6.5 Ur Specific [place] >= 1.030 H Urine Protein Negative Urine Glucose (UA) Negative Urine Ketones 80 Urine Blood Negative Urine Nitrite Negative Ur Leukocyte Esterase Negative Urine Opiates Screen Not Detected Urine Fentanyl Screen Not Detected Ur Barbiturates Screen Not Detected Ur Phencyclidine Scrn Not Detected Ur Amphetamines Screen Not Detected U Benzodiazepines Scrn Not Detected Urine Cocaine Screen Not Detected U Marijuana (THC) Screen POSITIVE H Ethyl Alcohol < 10 Imaging Radiologist's Impressions: Impressions Abdomen/Pelvis CT 07/11/23 14:15 IMPRESSION: Nonspecific mild colitis distal colon. No obstruction. Tiny urachal cyst. No definite mass. Fleischner guidelines were followed. Assessment and Plan (1) Colitis: Status: Acute (2) Alcohol withdrawal: Qualifiers: Complication of substance-induced condition: with unspecified complication Qualified Code(s): F10.939 - Alcohol use, unspecified with withdrawal, unspecified Status: Acute Plan 33-year-old male with history of mild intermittent asthma and alcohol dependence admitted for acute alcohol withdrawal with colitis. #Acute alcohol withdrawal -CIWA on arrival 13. Drinks 750ml hard liquor daily, last drink 10pm last night -Continue phenobarbital per protocol -Monitor on CIWA -IV thiamine x 3 days, then transition to PO -PO folic acid -Addiction medicine consult #Acute colitis- unclear etiology at this time -?Infectious vs inflammatory -Leukocytosis 15 -IV levaquin and flagyl (initiated 07/11) -GI panel and CDiff pcr pending -Clear liquid diet -Follow CBC #Mild intermittent asthma -no acute exacerbation -albuterol prn DVT prophylaxis- lovenox Full code Pt requires inpt stay at least 2 midights for management of acute alcohol withdrawal with elevated CIWA on phenobarbital per protocol Time Spent With Patient Time: Total time managing care of this patient today ____ minutes. Quality Stroke Does the patient have a stroke diagnosis?: No VTE Prior VTE?: No VTE Risk Level:: Medical - moderate - high VTE Device Contraindication: Treatment Not Indicated VTE Drug Contraindication: N/A - Med Ordered
[2023-07-11 19:33] LABS: Lipase 8 U/L (8-78)
--- NOTE | 2023-07-11 20:14 | PC.NURSE ---
completed med rec with pt, hhe sts does not take any medications, let provider know
[2023-07-12 03:06] VITALS: BP 100/57; PULSE 57; RESP 18; TEMP 36.4; O2SAT 98
[2023-07-12 05:56] LABS: MANUAL DIFF FLAG NO
[2023-07-12 06:04] LABS: Basophils Percent Auto 0.5 % (0-2); Eosinophils Absolute Auto 0.2 X10*3/uL (0.0-0.4); Eosinophils Percent Auto 2.5 % (0-4); Hematocrit 37.3 % (42.0-52.0); Hemoglobin 12.5 g/dl (14.0-18.0); Imm Gran Abs Auto 0.02 X10*3/uL (0.00-0.03); Imm Gran Pct Auto 0.2 % (0.0-0.4); Lymphocytes Absolute Auto 2.1 X10*3/uL (1.2-4.9); Lymphocytes Percent Auto 25.3 % (20-40); Mean Corpuscular HGB Conc 33.5 g/dl (31.0-36.0); Mean Corpuscular Hemoglobin 30.4 pg (27.0-33.0); Mean Corpuscular Volume 90.8 fL (80.0-98.0); Mean Platelet Volume 11.8 fL (9.4-12.4); Monocytes Percent Auto 12.2 % (2-11); Neutrophils Absolute Auto 4.9 x10*3/uL (2.0-8.3); Neutrophils Percent Auto 59.3 % (45-73); Platelet Count 173 X10*3/uL (160-400); Red Blood Count 4.11 X10*6/uL (4.60-5.80); Red Cell Distribution Width 12.8 % (11.0-16.0); White Blood Count 8.3 X10*3/uL (4.8-10.8)
[2023-07-12 06:22] LABS: Alanine Aminotransferase 21 U/L (0-40); Albumin Level 3.8 g/dL (3.5-5.0); Alkaline Phosphatase 46 U/L (39-117); Anion Gap 15 (12-20); Aspartate Amino Transferase 36 U/L (5-37); Blood Urea Nitrogen 14 mg/dL (9-16); Calcium 8.5 mg/dL (8.4-10.2); Carbon Dioxide 19 mmol/L (22-29); Chloride 106 mmol/L (96-108); Estimated Glomerular Filt Rate > 60; Glucose Random 74 mg/dL (60-115); Potassium 3.7 mmol/L (3.3-5.1); Sodium 136 mmol/L (135-145)
[2023-07-12 07:02] VITALS: BP 102/52; PULSE 54; RESP 17; TEMP 36.1; O2SAT 98
--- NOTE | 2023-07-12 07:58 | PHA.MEDREC ---
Pharmacy Consult ? Medication Reconciliation Pharmacy has completed the medication reconciliation. Patient reports they have Seroquel 25mg po bedtime at home, but haven't started taking yet.
--- NOTE | 2023-07-12 08:55 | HO.PM.IMPN ---
Subjective Subjective Date of Service: 07/12/23 Interval History: abd pain /diarrhae. Review of Systems seems abd pain-little response diarrhae improvin has tremers /anxious Physical Exam Vital Signs: Vital Signs: Last Vital Signs Temp 97 F 07/12/23 07:02 Pulse 54 07/12/23 07:02 Resp 17 07/12/23 07:02 BP 102/52 L 07/12/23 07:02 Pulse Ox 98 07/12/23 07:02 O2 Del Method Room Air 07/12/23 07:02 BMI result Body Mass Index 24.0 Appearance: Alert.? Oriented X3.? not in distress.? cvs: rrr, [id number] , no murmur res: clear to auscultation ,no rhonchii or wheezing abd: no rebound or guarding,bs present. ext pulses present , no cyanosis . neuro: axo3 , nonfocal. Objective Data Active Medications Acetaminophen (Acetaminophen 325 Mg Tablet) 650 mg PO Q6H PRN PRN Reason: Pain, Mild (Pain Scale 1-3) Docusate Sodium (Docusate Sodium 100 Mg Capsule) 100 mg PO DAILY PRN PRN Reason: Constipation Enoxaparin Sodium (Enoxaparin Sodium 40 Mg/0.4 Ml Syringe) 40 mg SUBCUT Q24H [facility] Last Admin: 07/11/23 21:08 Dose: 40 mg Documented By: AMANDA Folic Acid (Folic Acid 1 Mg Tablet) 1 mg PO DAILY [facility] Last Admin: 07/11/23 20:11 Dose: 1 mg Documented By: AMANDA Hydroxyzine HCl (Hydroxyzine Hcl 10 Mg Tablet) 10 mg PO Q6H PRN PRN Reason: anxiety/restlessness Lactated Ringer's (Lr) 1,000 mls @ 150 mls/hr IVCONT .Q6H40M [facility] Last Admin: 07/12/23 02:09 Dose: 150 mls/hr Documented By: TOMY Levofloxacin (Levaquin) 750 mg in 150 mls @ 100 mls/hr IV Q24H [facility] Metronidazole (Flagyl) 500 mg in 100 mls @ 100 mls/hr IV Q12H [facility] Last Infusion: 07/12/23 08:55 Dose: Infused Documented By: TOM Thiamine HCl 100 mg/ Sodium (Chloride) 101 mls @ 202 mls/hr IV DAILY PRAVEEN Stop: 07/13/23 09:29 Last Infusion: 07/11/23 21:46 Dose: Infused Documented By: TOMY Melatonin (Melatonin 3 Mg Tablet) 6 mg PO BEDTIME PRN PRN Reason: Sleep Last Admin: 07/12/23 02:18 Dose: 6 mg Documented By: TOMY Ondansetron HCl (Ondansetron Hcl 4 Mg/2 Ml Vial) 4 mg IVPUSH Q8H PRN PRN Reason: Nausea and Vomiting Pharmacy Consult (Consult Rx Etoh Phenob Im/Po) 1 each MISCELLANE ONCE PRN; Protocol PRN Reason: Consult order Phenobarbital (Phenobarbital 15 Mg Tablet) 45 mg PO BID [facility] Stop: 07/13/23 21:01 Phenobarbital (Phenobarbital 30 Mg Tablet) 30 mg PO BID PRAVEEN Stop: 07/15/23 21:01 Phenobarbital (Phenobarbital 15 Mg Tablet) 15 mg PO DAILY [facility] Stop: 07/17/23 09:01 Sodium Chloride (0.9 % Sodium Chloride Flush 3 Ml Syringe) 3 ml IVFLUSH QSHIFT [facility] Last Admin: 07/11/23 23:31 Dose: Not Given Documented By: TOMY Non-Admin Reason: IV Running Labs 07/12/23 05:41 07/12/23 05:41 Labs: Laboratory Results - last 24 hr 07/11/23 07/11/23 07/11/23 11:16 11:19 15:04 MCV 86.1 MCH 30.2 MCHC 35.1 RDW 12.8 Plt Count 246 D MPV 11.1 Immature Gran % (Auto) 0.4 Neut % (Auto) 85.4 H Lymph % (Auto) 8.1 L [place] % (Auto) 5.6 Eos % (Auto) 0.2 Baso % (Auto) 0.3 Lymph # (Auto) 1.3 [place] # (Auto) 0.9 Eos # (Auto) 0.0 Baso # (Auto) 0.1 Abs Immat Gran (auto) 0.07 H Absolute Neuts (auto) 13.5 H Absolute Nucleated RBC 0.000 Nucleated RBC % (auto) 0.0 Anion Gap 21 H Estim Creat Clear Calc 94.4 Estimated GFR > 60 POC Glucose 87 Random Glucose 88 Calcium 10.2 D Magnesium 2.4 Total Bilirubin 1.1 H Direct Bilirubin 0.3 AST 27 ALT 31 Alkaline Phosphatase 62 Total Protein 8.5 H Albumin 5.3 H Lipase 8 Urine Color Yellow Urine Appearance Clear Urine pH 6.5 Ur Specific [place] >= 1.030 H Urine Protein Negative Urine Glucose (UA) Negative Urine Ketones 80 Urine Blood Negative Urine Nitrite Negative Ur Leukocyte Esterase Negative Urine Opiates Screen Not Detected Urine Fentanyl Screen Not Detected Ur Barbiturates Screen Not Detected Ur Phencyclidine Scrn Not Detected Ur Amphetamines Screen Not Detected U Benzodiazepines Scrn Not Detected Urine Cocaine Screen Not Detected U Marijuana (THC) Screen POSITIVE H Ethyl Alcohol < 10 07/12/23 05:41 MCV 90.8 MCH 30.4 MCHC 33.5 RDW 12.8 Plt Count 173 D MPV 11.8 Immature Gran % (Auto) 0.2 Neut % (Auto) 59.3 Lymph % (Auto) 25.3 [place] % (Auto) 12.2 H Eos % (Auto) 2.5 Baso % (Auto) 0.5 Lymph # (Auto) 2.1 [place] # (Auto) 1.0 Eos # (Auto) 0.2 Baso # (Auto) 0.0 Abs Immat Gran (auto) 0.02 Absolute Neuts (auto) 4.9 Absolute Nucleated RBC 0.000 Nucleated RBC % (auto) 0.0 Anion Gap 15 Estim Creat Clear Calc 118.0 Estimated GFR > 60 POC Glucose Random Glucose 74 Calcium 8.5 D Magnesium Total Bilirubin 1.0 Direct Bilirubin AST 36 ALT 21 Alkaline Phosphatase 46 Total Protein 6.0 L Albumin 3.8 Lipase Urine Color Urine Appearance Urine pH Ur Specific [place] Urine Protein Urine Glucose (UA) Urine Ketones Urine Blood Urine Nitrite Ur Leukocyte Esterase Urine Opiates Screen Urine Fentanyl Screen Ur Barbiturates Screen Ur Phencyclidine Scrn Ur Amphetamines Screen U Benzodiazepines Scrn Urine Cocaine Screen U Marijuana (THC) Screen Ethyl Alcohol Assessment and Plan (1) Colitis: Status: Acute (2) Alcohol withdrawal: Status: Acute Plan 33-year-old male with history of mild intermittent asthma and alcohol dependence admitted for acute alcohol withdrawal with colitis. Acute alcohol withdrawal Drinks 750ml hard liquor daily, last drink 10pm last night somewhat improving Monitor on CIWA( intial ciwa was 13 -last ciwa improving to 4) Continue phenobarbital per protocol,thiamine and PO folic acid Addiction medicine consult possible Acute colitis- unclear etiology at this time -?Infectious vs inflammatory -Leukocytosis improved ,no fever still has similar abd pain ,diarrhae slightly improving -IV levaquin and flagyl (initiated 07/11) -GI panel and CDiff pcr pending -Clear liquid diet -Follow CBC Mild intermittent asthma -no acute exacerbation -albuterol prn DVT prophylaxis- lovenox Full code ongoing hospitlisation stay: management of acute alcohol withdrawal with elevated CIWA on phenobarbital per protocol,possible Acute colitis-need iv antibiotics. Time Spent With Patient Time: Total time managing care of this patient today ____ minutes. Quality Stroke Does the patient have a stroke diagnosis?: No VTE Prior VTE?: No VTE Risk Level:: Medical - moderate - high VTE Device Contraindication: Treatment Not Indicated VTE Drug Contraindication: N/A - Med Ordered
--- NOTE | 2023-07-12 10:27 | MHC.CM.PN ---
Pt lives w/[facility]. Previously independent; no prior services or equipment, drives self where he needs to go. D/C plan is home via [facility] transport. CM to follow.
--- NOTE | 2023-07-12 13:11 | MHC.RECOVRN ---
This writer technical publications met with patient after addiction consult was placed. Pt admitted ETOH withdrawal, colitis. Pt reports 2 years ago, detox admission at [facility]. Pt reports maintained sobriety/abstinence for 1.5 years, recurrence February 2023. Pt reports increased stress, lack of support, away from daughter contributing factors to recurrence. Pt reports started drinking on the weekends, progressed to daily. Pt reports heavy drinking for past 7 days JIGSAWYER. Pt reports for 7 days, 750ml [place] daily. Pt states no hx of hospitalizations related to ETOH use. 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 Pt stopped Antebuse. Pt reports staying busy, movivated, working alot helped to maintain sobriety. Pt reports partner, friends not supportive of recovery and lack understanding of addiction process. Pt tearful during NHAN assessment. Pt reports goal of abstinence. Reviewed harm reduction, LACHO, recovery supports. Pt verbalized understanding. Pt agreeable to executive coach referral. Pt encouraged to contact Addiction/Recovery team with any questions/concerns.
--- NOTE | 2023-07-12 14:21 | PM.DS ---
DS: Providers Provider Date of Service: 07/12/23 Date of admission: 07/11/23 19:40 Date of discharge: 07/12/23 Primary care physician: [facility] Consults: 07/11/23 19:40 Addiction Medicine Routine Consulting Provider: Addiction Covering Reason for consultation: etoh dependence Attending physician on discharge: Vandana Charles Discharging clinician: Vandana Charles DS: Diagnosis Discharge Diagnosis (1) Colitis: Status: Acute (2) Alcohol withdrawal: Status: Acute DS: Summary Hospital Course Hospital Course: 33-year-old male with history of mild intermittent asthma and alcohol dependence presents to the ED earlier today for evaluation of lower abdominal pain and multiple episodes of diarrhea that started this morning. He also desires detox from alcohol. He reports he consumes a 750 mL bottle of [place] on a daily basis, last drink was around 22:00 last night. He also smokes marijuana on a regular basis but denies any other substance use including cigarettes. He denies eating any bad foods or recent travel. He was on course of amoxicillin about 2 months ago following wisdom teeth extraction but denies any other antibiotic use since then. Known home with similar symptoms. He describes the pain is severe and nonradiating. He has had about 5-6 episodes of nonbloody diarrhea since this morning. Also reporting mild headache. Denies any fevers or shaking chills. Denies any nausea, vomiting, melena, hematochezia, lightheadedness, shortness of breath, or chest pain. He reports when he arrived he was tremulous with palpitations and sweats but these have improved as he has been started on phenobarbital per protocol. On arrival, vital stable. There is leukocytosis of 15.8. Creatinine baseline, BUN slightly elevated at 19. Electrolytes normal except for CO2 of 19. Hepatic function normal except for mildly elevated bilirubin of 1.1. Urinalysis unremarkable. Urine tox screen positive for marijuana, otherwise negative. Ethyl alcohol level negative. CT abdomen/pelvis shows a nonspecific mild colitis of the distal colon without any obstruction and a tiny your urachal cyst. In the ED, patient given 2 L bolus IV NS, ketorolac, 2 mg lorazepam. Given persistent withdrawal symptoms, patient started on phenobarbital per protocol. He has also been given 500 mg Levaquin and 500 mg Flagyl. hospital course: Patient was admitted for alcohol withdrawal, colitis: Subsequently received phenobarb protocol and IV antibiotics: Patient is somewhat improving with supportive care: He decided to go against medical advise-risk of leaving against medical advice including worsening alcohol withdrawal, seizure, also worsening abdominal infection discussed with the detail she understand and alert oriented x3 wants to leave, for could able to repeat 2 back to me of risk of leaving against medical advise. Staff witnessed discussion. Patient will be given p.o. antibiotic upon discharge. In addition patient was advised to go to nearest emergency room for getting evaluated . Assessment plan coordination time spent 50 minute. Time Spent with Patient Time attestation: Total time managing care of this patient today ____ minutes. Discharge coordination time: Greater than 30 minutes Quality: Safe Use of Opioids Does Pt have an Active Cancer Diagnosis on the Problem List?: No Quality: Stroke Does the patient have a stroke diagnosis?: No Physical Exam Vital Signs: Vital Signs: Last Vital Signs Temp 97 F 07/12/23 07:02 Pulse 54 07/12/23 07:02 Resp 17 07/12/23 07:02 BP 102/52 L 07/12/23 07:02 Pulse Ox 98 07/12/23 07:02 O2 Del Method Room Air 07/12/23 07:02 BMI result Body Mass Index 24.0 unchanged ,please see progress note from today. DS: Data Data Completed and Pending Labs on day of discharge: Laboratory Results - last 24 hr 07/11/23 07/11/23 07/12/23 11:19 15:04 05:41 WBC 8.3 RBC 4.11 L D Hgb 12.5 L D Hct 37.3 L MCV 90.8 MCH 30.4 MCHC 33.5 RDW 12.8 Plt Count 173 D MPV 11.8 Immature Gran % (Auto) 0.2 Neut % (Auto) 59.3 Lymph % (Auto) 25.3 [place] % (Auto) 12.2 H Eos % (Auto) 2.5 Baso % (Auto) 0.5 Lymph # (Auto) 2.1 [place] # (Auto) 1.0 Eos # (Auto) 0.2 Baso # (Auto) 0.0 Abs Immat Gran (auto) 0.02 Absolute Neuts (auto) 4.9 Absolute Nucleated RBC 0.000 Nucleated RBC % (auto) 0.0 Sodium 136 Potassium 3.7 Chloride 106 Carbon Dioxide 19 L Anion Gap 15 BUN 14 Creatinine 0.84 Estim Creat Clear Calc 118.0 Estimated GFR > 60 Random Glucose 74 Calcium 8.5 D Total Bilirubin 1.0 AST 36 ALT 21 Alkaline Phosphatase 46 Total Protein 6.0 L Albumin 3.8 Lipase 8 Urine Color Yellow Urine Appearance Clear Urine pH 6.5 Ur Specific [place] >= 1.030 H Urine Protein Negative Urine Glucose (UA) Negative Urine Ketones 80 Urine Blood Negative Urine Nitrite Negative Ur Leukocyte Esterase Negative Urine Opiates Screen Not Detected Urine Fentanyl Screen Not Detected Ur Barbiturates Screen Not Detected Ur Phencyclidine Scrn Not Detected Ur Amphetamines Screen Not Detected U Benzodiazepines Scrn Not Detected Urine Cocaine Screen Not Detected U Marijuana (THC) Screen POSITIVE H Imaging Chest x-ray: Radiologist's impression: ITS Impressions Abdomen/Pelvis CT 07/11/23 14:15 IMPRESSION: Nonspecific mild colitis distal colon. No obstruction. Tiny urachal cyst. No definite mass. Fleischner guidelines were followed. Discharge Plan Discharge Anticipated Discharge Date/Time: 07/12/23 14:08 Patient Disposition: Left Against Medical Advice Discharge Diagnosis: alcohol withdrawal ,coliitis Referrals: [facility] [Primary Care Provider] - 1 Week Discharge Medications: New amoxicillin-pot clavulanate 875-125 mg tablet 1 tab PO Q12H Qty: 12 0RF No Action No Known Home Meds Discharge Orders: Discharge Order (Routine); Ordered 07/12/23 Ordered By: Vandana Charles Care Plan Goals: Patient was admitted for alcohol withdrawal, colitis: Subsequently received phenobarb protocol and IV antibiotics: Patient is somewhat improving with supportive care: He decided to go against medical advise-risk of leaving against medical advice including worsening alcohol withdrawal, seizure, also worsening abdominal infection discussed with the detail she understand and alert oriented x3 wants to leave, for could able to repeat 2 back to me of risk of leaving against medical advise. Staff witnessed discussion. Patient will be given p.o. antibiotic upon discharge. In addition patient was advised to go to nearest emergency room for getting evaluated . Health Concerns: as above. Plan of Treatment: as above. Assessment: as above.
--- NOTE | 2023-07-12 14:25 | MHC.CM.PN ---
Per MD D/C indications; Pt left AMA. CM acknowledge.
--- NOTE | 2023-07-12 15:26 | PC.NURSE ---
PT LEFT AMA AT 1430. PT AWARE OF RISKS AND ONGOING ETOH WITHDRAWAL. PT HAS RESOURCES IN PLACE.
== END 2023-07-12 14:30 | disposition left against medical advice (07) | DRG 249 ==
LOC: HO.ED 18:23 → HO.EDOVER 19:54 → HO.S3 21:07
PROVIDERS: Physician Assistant; Admitting Provider Physician Assistant; Emergency Provider Emergency Medicine Emergency Medical Services; Visit Provider Internal Medicine
DX: K52.9 Noninfective gastroenteritis and colitis, unspecified (principal); F10.930 Alcohol use, unspecified with withdrawal, uncomplicated; J45.20 Mild intermittent asthma, uncomplicated
CPT/HCPCS: 36415; 74177; 80048; 80053; 80076; 80307; 81003; 82947; 83690; 83735; 85025; 93005; 99285; J1650; J1885; J1956; J2060; J2405; J2560; J3411; Q9967

== ENCOUNTER → 2023-07-11 19:40 | Outpatient (BNV) | payer MEDICAID, SELFPAY | PROVIDERS: Admitting Provider Physician Assistant; Emergency Provider Emergency Medicine Emergency Medical Services; Visit Provider Internal Medicine | DX: K52.9 Noninfective gastroenteritis and colitis, unspecified (principal); F10.939 Alcohol use, unspecified with withdrawal, unspecified | CPT/HCPCS: 99223; 99239 ==

== ENCOUNTER 2023-08-25 12:51 | Outpatient (REF) | payer MEDICAID, SELFPAY ==
[2023-08-27 22:59] LABS: TS Negative Control Passed; TS Panel A 0; TS Panel B 0; TS Positive Control Passed; TSpotTB Negative (Negative)
== END 2023-08-25 12:52 | disposition home or self-care (01) ==
LOC: HO.HHCL 12:51
PROVIDERS: Visit Provider Emergency Medicine
DX: Z11.1 Encounter for screening for respiratory tuberculosis (principal); R35.0 Frequency of micturition; J45.20 Mild intermittent asthma, uncomplicated
CPT/HCPCS: 36415; 86481; 87086

== ENCOUNTER 2023-11-13 10:25 | Outpatient (AMB) | payer MEDICAID, SELFPAY ==
--- NOTE | 2023-11-13 10:29 | MHC.OFFVIS ---
Intake Intake Visit Reasons: Renal Cyst Intake Note: New patient presents today to establish treatment for Renal Cyst Alllergies to antibiotics: None blood thinners: None Patient symptoms: Patient stated he is been bleeding since October 21, when he is having a bowel. 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 Don. He has a past medical history of alcohol abuse disorder and asthma. He presents to the office today as a new patient for renal cysts. In discussion with the patient today he reports having seeked emergency room care approximately 4 months ago for ongoing abdominal pain he had been experiencing at which time a CT of the abdomen was ordered and performed. These results were reviewed with the patient today. Tiny renal cortical cysts grossly unchanged from baseline left kidney. The kidneys are normal in size, shape, and attenuation. No hydronephrosis, hydroureter, or calculi seen. Small urachal cyst without evidence for any definite lesion. He discusses since his ER visit he has since went to [place] for detox alcohol abuse disorder. In office urinalysis results reviewed with the patient today. When asked he does report episodes of urinary frequency he otherwise denies incontinence, nocturia, hematuria, dysuria, foul smelling urine, changes to urinary stream, flank pain, fever, and or chills. Discussed at length potential causes of urinary frequency as well as renal cysts. He discusses following up with his PCP regarding his episodes of hematochezia. He otherwise offers no other issues or concerns at this time. [facility] Medical History Alcohol use disorder Asthma Social History Household Members: None Housing: House Alcohol intake: current Alcohol intake frequency: 3 or more drinks per day Alcohol type: hard liquor Patient Tobacco Use Status: Never used Tobacco Substance Use Type: Marijuana service: No Review of Systems Const Reports as per [facility] Eyes Reports no additional complaints ENT Reports no additional complaints Card Reports no additional complaints Resp Reports as per [facility] GI Reports as per [facility] Reports as per [facility] Musc Reports no additional complaints Neuro Reports as per [facility] Psych Reports as per [facility] Endo Reports no additional complaints Arnie/Lymph Reports no additional complaints Aller/Immun Reports no additional complaints Physical Exam Const General: cooperative, comfortable, no acute distress, well developed, alert and awake Orientation/consciousness: patient oriented x3 Limitations: no limitations HEENT Head: Yes normal to inspection, Yes normocephalic and Yes atraumatic Ears: hearing grossly normal bilaterally Eyes General: appearance normal, both eyes and all related structures Neck Neck: Yes normal visual inspection and Yes trachea midline Chest Chest palpation & inspection: normal inspection of the chest Resp Effort & Inspection: normal respiratory effort and able to speak in complete sentences Cardio Rate: regular rate GI Inspection: Yes normal to inspection General: Yes no CVA tenderness Back/Spine/Pelvis Back: no CVA tenderness Skin General skin exam: no rashes or lesions noted Neuro General: patient oriented x3 Extrem General: Yes normal to inspection Psych Appearance: grossly normal and well kempt Mental Status: mental status grossly normal Speech and movement: Normal speech and movement present and Clear speech present Affect: normal affect Attitude: cooperative Thought process: Normal thought process present Thought content: Normal thought content present Insight: Fair insight present (Psych) Judgement: Fair judgement present (Psych) Results AMB Urinalysis, Automated UA Leukoctes 0 Ovi/uL Last Edit by Tatianna Loera CMA on 11/13/23 10:47 UA Nitrite Negative Last Edit by Tatianna Loera CMA on 11/13/23 10:47 UA Urobilinogen 0.2 mg/dL Last Edit by Tatianna Loera CMA on 11/13/23 10:47 UA Protein 0 mg/dL Last Edit by Tatianna Loera CMA on 11/13/23 10:47 UA pH 7.0 Last Edit by Tatianna Loera CMA on 11/13/23 10:47 UA Blood 0 Vicente/uL Last Edit by Tatianna Loera CMA on 11/13/23 10:47 UA Specific [place] 1.015 Last Edit by Tatianna Loera CMA on 11/13/23 10:47 UA Ketone Negative Last Edit by Tatianna Loera CMA on 11/13/23 10:47 UA Bilirubin 0 mg/dL Last Edit by Tatianna Loera CMA on 11/13/23 10:47 UA Glucose 0 mg/dL Last Edit by Tatianna Loera CMA on 11/13/23 10:47 Results Reviewed Results Reviewed: Laboratory Last Values Urine pH (Auto) 7.0 11/13/23 10:46 Specific [place] (Auto) 1.015 11/13/23 10:46 Urine Protein (Auto) 0 mg/dL 11/13/23 10:46 Glucose (UA)(Auto) 0 mg/dL 11/13/23 10:46 Urine Ketones (Auto) Negative 11/13/23 10:46 Urine Blood (Auto) 0 Vicente/uL 11/13/23 10:46 Urine Nitrite (Auto) Negative 11/13/23 10:46 Urine Bilirubin (Auto) 0 mg/dL 11/13/23 10:46 Urine Urobilinogen (Auto) 0.2 mg/dL 11/13/23 10:46 Leukocyte Esterase (Auto) 0 Ovi/uL 11/13/23 10:46 Date of Service: 07/11/23 EXAMINATION: CT ABDOMEN AND PELVIS WITH CONTRAST FINDINGS: LUNG BASES: The visualized lung bases are unremarkable. LIVER, GALLBLADDER, AND BILIARY TREE: The liver is normal in size, shape, and attenuation. No focal hepatic lesion or biliary ductal dilatation is present. The gallbladder is unremarkable with no evidence of radiopaque gallstones, gallbladder wall thickening, or obvious pericholecystic inflammatory changes. PANCREAS: Unremarkable. SPLEEN: Unremarkable. ADRENAL GLANDS: Unremarkable. KIDNEYS AND URETERS: Tiny renal cortical cysts grossly unchanged from baseline left kidney. The kidneys are normal in size, shape, and attenuation. No hydronephrosis, hydroureter, or calculi seen. No perinephric stranding. BLADDER: Small urachal cyst without evidence for any definite lesion. GASTROINTESTINAL TRACT: Changes of mild diffuse nonspecific colitis suspected distal colon suspected. No evidence of any diverticulitis. No small bowel pathology. Normal appendix. No obstruction. ABDOMINAL WALL: No significant hernia is appreciated. LYMPH NODES: Normal. VASCULAR: Unremarkable. PELVIC VISCERA: Unremarkable. OSSEOUS STRUCTURES: Unremarkable. IMPRESSION: Nonspecific mild colitis distal colon. No obstruction. Tiny urachal cyst. No definite mass. Assessment & Plan Assessment & Plan (1) Renal cyst: Code(s): N28.1 - Cyst of kidney, acquired (2) Urinary frequency: Code(s): R35.0 - Frequency of micturition Plan In office urinalysis results reviewed with the patient today; as noted above. Recent CT results reviewed with the patient today; as noted above. Discussed at length potential causes for renal cysts as well as urinary frequency patient has been experiencing. Discussed bladder triggers/irritants. Discussed further workup with urine cytology and office cystoscopy versus surveillance monitoring; this was discussed at length; risks and benefits of these interventions were discussed. Discussed importance of following up with PCP and or GI regarding hematochezia. Will refer to GI as he is unsure if PCP has sent referral Discussed, educated, and stressed the importance of drinking plenty of water daily. Follow-up in 3 months with [facility]; or sooner with any issues, concerns, and or questions. Orders: Orders AMB Urinalysis Automated 11/13/23 R33.9 - Retention of urine, unspecified Simón Millan MD Referrals Gastroenterology Referral K92.1 - JASPREET Omer Patient Instructions: The patient had an opportunity to ask questions regarding the treatment plan. All questions were answered. Physical exam, labs, and imaging were discussed and reviewed in detail. As well as risks, benefits, and discussion of treatment choices. No major barriers to understanding were identified. The patient expressed understanding and agreement with the above treatment plan. The patient was made aware they should contact our office by phone for worsening of their current condition, the appearance of new symptoms, or with any questions or concerns. Compliance is encouraged with any medications and follow up testing that is ordered. It is a privilege to be allowed the opportunity to participate in? your urological care.? Again, if you have any questions or concerns If you have any questions or concerns please do not hesitate to contact me. The office is [phone]. This note is constructed using voice recognition software. While every effort has been made to ensure accuracy belly roller errors may have been included. Yours sincerely, JASPREET Zepeda Coding Level of Care Code New Pt Level 3 (53254) Diagnoses Renal cyst N28.1 Urinary frequency R35.0
== END 2023-11-13 11:08 | disposition home or self-care (01) ==
PROVIDERS: PCP Emergency Medicine; Visit Provider Urology
DX: N28.1 Cyst of kidney, acquired (principal); R35.0 Frequency of micturition
CPT/HCPCS: 99203

== ENCOUNTER → 2023-11-13 10:25 | Outpatient (BNVA) | payer MEDICAID, SELFPAY | PROVIDERS: PCP Emergency Medicine; Visit Provider Urology | DX: N28.1 Cyst of kidney, acquired (principal); R35.0 Frequency of micturition | CPT/HCPCS: 81003; 99202 ==

== ENCOUNTER 2024-02-21 15:23 | Emergency (ER) | payer MEDICAID, SELFPAY ==
--- NOTE | 2024-02-21 15:29 | ED.MALEGU ---
HPI - Male Genitourinary General Chief complaint: Urogenital-Male Stated complaint: Painful urination Time Seen by Provider: 02/21/24 16:33 Source: patient Mode of arrival: ambulatory Limitations: no limitations History of Present Illness ED Provider: Deann Simmons HPI Narrative: 33-year-old male previously healthy here with complaints burning with urination for the last 2 days. No testicle pain, hematuria, abdominal pain, back pain, fevers, chills, vomiting. Patient reports he recently found out that the mother of his child was unfaithful and he has some concern for STDs. Related Data Previous Rx's ?Medication ?Instructions ?Recorded doxycycline monohydrate 100 mg 100 mg PO BID #14 caps 02/21/24 capsule Allergies Allergy/AdvReac Type Severity Reaction Status Date / Time SEAFOOD Allergy Severe THROAT Uncoded 02/21/24 15:31 CLOSING Crustaceans Allergy Unknown UNKNOWN Uncoded 02/21/24 15:31 Shellfish Allergy Unknown SWOLLEN Uncoded 02/21/24 15:31 Review of Systems Review of Systems: Yes all other systems are reviewed and are negative Constitutional: Constitutional: Reports no additional constitutional complaints, Denies body ache(s), Denies chills, Denies fever(s), Denies headache(s) and Denies weakness Eyes: Eyes: Reports no additional eye complaints and Denies change in vision ENT: Reports system reviewed and no additional complaints, except as documented, Denies dizziness, Denies headache(s), Denies nasal congestion, Denies nasal discharge and Denies neck pain Cardiovascular: Cardiovascular: Reports no additional cardiovascular complaints, Denies chest pain, Denies leg edema and Denies dyspnea Respiratory: Respiratory: Reports no additional respiratory complaints, Denies cough and Denies dyspnea Gastrointestinal: Gastrointestinal: Reports no additional gastrointestinal complaints, Denies abdominal pain, Denies diarrhea, Denies nausea and Denies vomiting Genitourinary: Genitourinary: Reports dysuria, Denies flank pain, Denies penile discharge, Denies testicular mass, Denies testicular pain, Denies urinary frequency, Denies urinary hesitancy and Denies urinary incontinence Musculoskeletal: Musculoskeletal: Reports no additional musculoskeletal complaints, Denies back pain, Denies arthralgias, Denies joint swelling, Denies neck pain, Denies numbness and Denies tingling Integumentary/Breasts: Skin/Breast: Reports system reviewed and no additional complaints, except as docu and Denies rash Neurologic: Reports system reviewed and no additional complaints, except as documented, Denies Abnormal speech present, Denies dizziness, Denies headache(s), Denies numbness, Denies tingling and Denies weakness PMF Past Medical History Attestation statement: The following information was validated with the patient. Source: old records reviewed and nursing notes reviewed Medical History Alcohol use disorder Asthma Social History Social History Household Members: None Housing: House Alcohol intake: current Alcohol intake frequency: 3 or more drinks per day Alcohol type: hard liquor Patient Tobacco Use Status: Never used Tobacco Substance Use Type: Marijuana Advance Directives: No Advance Directives Information Provided: No service: No Physical Exam Vital Signs: Vital Signs: Last Vital Signs Temp 98.9 F 02/21/24 15:30 Pulse 74 02/21/24 15:30 Resp 18 02/21/24 15:30 BP 115/71 02/21/24 15:30 Pulse Ox 98 02/21/24 15:30 O2 Del Method Room Air 02/21/24 15:30 BMI result Body Mass Index 27.0 Const: General: cooperative, healthy appearing, comfortable and no acute distress Orientation/consciousness: patient oriented x3 Limitations: no limitations HEENT: Head: Yes normal to inspection Ears: hearing grossly normal bilaterally General nose exam: Normal external nose present Face and sinus: Yes normal facial exam Mouth: Normal oral and palatal mucosa present Throat: Yes posterior oropharynx normal Eyes: General: appearance normal, both eyes and all related structures Pupils: Equal, round and reactive pupils present Neck: Neck: Yes normal visual inspection Chest: Chest palpation & inspection: normal inspection of the chest Resp: Effort & Inspection: normal respiratory effort Auscultation: clear to auscultation bilaterally Cardio: Rate: regular rate Rhythm: regular rhythm Peripheral pulses: Peripheral pulses 2+ throughout GI: Inspection: Yes normal to inspection Palpation (GI): Soft to palpation and nontender Auscultation: normal bowel sounds : 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 Penis: normal penis and circumcised Meatus: meatus normal Scrotum: scrotum normal Testes: Testes normal Back/Spine/Pelvis: Thoracic/Lumbar Spine: thoracic and lumbar spine normal to inspection Skin: General skin exam: no rashes or lesions noted Neuro: General: patient oriented x3, no focal motor deficits and normal sensation to monofilament Cranial nerves: Yes Equal, round and reactive pupils present Cognition (Neuro): normal cognition Speech: No Abnormal speech present Gait exam (Neuro): Normal gait present Motor exam (neuro): 5/5 motor strength present throughout Extrem: General: Yes normal to inspection Course Course Course Narrative: This is an RME performed by Zeferino Delgado CNP: Additional HPI, ROS, PE not included below will be deferred to primary provider. Patient is a 33-year-old male who presents emergency department for evaluation of dysuria for 2 days, Denies urinary frequency/urgency/hesitancy. Denies any rashes or lesions. Reports possibility of STI, states his significant other has recently been found to have another sexual partner. Plan: Urinalysis, CT/NG Medical Decision Making Medical Decision Making [facility] Narrative: 33-year-old male previously healthy here with complaints burning with urination for the last 2 days. No testicle pain, hematuria, abdominal pain, back pain, fevers, chills, vomiting. Patient reports he recently found out that the mother of his child was unfaithful and he has some concern for STDs. exam normal Will send UA, STI panel Will treat prophylactically with ceftriaxone 500mg IM, doxy for home Differential Diagnosis Differential Diagnoses: The differential diagnosis associated with the presentation includes STI, UTI low suspicion for testicular torsion, epididymitis Admission/Observation Consideration of admission/observation: Escalation of care including admission/observation considered Lab Data [facility] Lab Attestation statement: I reviewed the patient's lab results. Labs: Lab Results 02/21/24 Range/Units 15:39 Urine Color Yellow Urine Appearance Clear Urine pH 6.5 (5.0-9.0) Ur Specific [place] <= 1.005 (1.005-1.025) Urine Protein Negative (Neg-Trace) mg/dL Urine Glucose (UA) Negative (Negative) mg/dL Urine Ketones Negative (Negative) mg/dL Urine Blood Negative (Negative) Urine Nitrite Negative (Negative) Ur Leukocyte Esterase Negative (Negative) Tests considered The following testing was considered but not selected: no abdominal pain or flank pain to suggest need for CT, no testicular pain to suggest need for ultrasound Prescription Management I considered prescription management with: Antibiotic Discharge Plan Discharge Clinical Impression: Urethritis Patient Disposition: Home, Self-Care Instructions: Nonspecific Urethritis in Men (ED) Additional Instructions: Your urine shows no signs of a urinary tract infection. We did send an STD testing. We do not know the results of these and they will take 1-2 days. We are treating her prophylactically and you received an injection of an antibiotic here and you are going home with oral antibiotics. Return for any worsening symptoms Prescriptions: New doxycycline monohydrate 100 mg capsule 100 mg PO BID Qty: 14 0RF Referrals: Physician,Unknown J [Primary Care Provider] - 1 week (as needed) Print Language: Yoruba
[2024-02-21 15:30] VITALS: BP 115/71; PULSE 74; RESP 18; TEMP 37.2; O2SAT 98; BMI 27.0
[2024-02-21 15:49] LABS: Appearance Urine Clear; Color Urine Yellow; Glucose Urine UA Negative (Negative); Leukocyte Esterase Urine Negative (Negative); Nitrite Urine Negative (Negative); PH 6.5 (5.0-9.0); Specific Gravity - Urine <= 1.005 (1.005-1.025); Urine Blood Negative (Negative); Urine Ketones Negative (Negative); Urine Protein Negative (Neg-Trace)
--- OUTSIDE RECORDS SUMMARY | 2024-02-21 16:24 | XMS_ITS | Continuity of Care Document ---
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 Name Role Phone Not on Staff, PCP Primary Care Physician Unavail able Encounter [facility] Date(s): 12/24/23 - 12/24/[address] [address]- Encounter Diagnosis Pain(Final) - 12/24/23 Left-sided chest pain(Final) - 12/24/23 Discharge Disposition: A-D/C Home Attending Physician: Bao Meza MD Admitting Physician: Bao Meza MD Referring Physician: Not on Staff, Referring MD Allergies, Adverse Reactions, Alerts Substance Reaction Severity Status buPROPion Active shellfish Active Immunizations Given and Recorded Vaccine Date Status Refusal Reason tetanus/diphtheria/pertussis, acel(Tdap) 10/15/20 Given Medications HydrOXYzine By Mouth, 0 Refills, Maintenance, 10/23/20 11:32:00 EST, Partial fill upon patient request if the prescription is for a schedule II opioid drug. Start Date: 10/23/20 Status: Ordered Lexapro 5 mg oral tablet 1 tablet = 5 mg, By Mouth, Daily, # 7 tablet, 0 Refills, Maintenance, 10/15/20 15:38:00 EST, Tablet, [facility]/pharmacy #[id number], Partial fill upon patient request if the prescription is for a schedule II opioid drug. Start Date: 10/15/20 Stop Date: 10/22/20 Status: Ordered SEROquel 25 mg oral tablet 25 mg, 1, tablet, By Mouth, Daily at bedtime, # 7 tablet, Refills 0, Tot. Refills 0, Maintenance, 10/15/20 15:37:00 EST, Route to Pharmacy Electronically, [facility]/pharmacy #[id number], Partial fill upon patient request if the prescription is for a schedule II o... Start Date: 10/15/20 Stop Date: 10/22/20 Status: Ordered Results Radiology Reports * Exam Date Time Procedure Performing Provider Status 12/24/23 12:30 PM Chest Portable Elder Gregg; Selena (V erified) Notes: (Chest Portable) Reason For Exam: CP SOB;Other: RESULT: Chest Portable Chest Portable Reason: Other:; CP SOB; Clinical Question(s): Other:; Chest pain COMPARISON: None. FINDINGS: LINES AND TUBES: None. LUNGS AND PLEURA: Clear lungs. Normal pulmonary vascularity. No pleural effusion. No pneumothorax. HEART, MEDIASTINUM AND ABBY: Heart is normal in size. Normal mediastinal and hilar contour. BONES AND SOFT TISSUES: No acute abnormality. IMPRESSION: No acute abnormality. WSN: [id number] Ordering Physician: Bao Meza Dictated By: Hemanth Recinos MD, V Dictated Date/Time: 12/24/23 12:32 p Reviewed By: Hemanth Recinos MD, V Signed By: Hemanth Recinos MD, V Signed Date/Time: 12/24/23 12:32 pm Transcribed By: NIKKO Transcribed Date/Time: 12/24/23 12:32 pm Vital Signs Most recent to oldest [Reference Range]: 1 2 3 Oxygen Saturation [94-100 %] 100 % (12/24/23 4:23 PM) 100 % (12/24/23 3:51 PM) 100 % (12/24/23 1:42 PM) Pulse Rate [55-90 bpm] 58 bpm (12/24/23 4:23 PM) 54 bpm *L* (12/24/23 3:51 PM) 68 bpm (12/24/23 1:42 PM) Blood Pressure [90-138/55-84 mm Hg] 113/69mm Hg (12/24/23 4:23 PM) 105/59mm Hg (12/24/23 3:51 PM) 109/73mm Hg (12/24/23 1:42 PM) Respiratory Rate [16-30 br/min] 17 br/min (12/24/23 4:23 PM) 14 br/min *L* (12/24/23 3:51 PM) 17 br/min (12/24/23 1:42 PM) Temperature [96.8-100.4 DegF] 98.1 DegF (3/21/24 12:00 PM) Mode of Delivery (Oxygen) Room air (12/24/23 4:23 PM) Room air (12/24/23 3:51 PM) Room air (12/24/23 1:42 PM) Blood pressure sites Arm, left (12/24/23 4:23 PM) Arm, left (12/24/23 3:51 PM) Arm, left (12/24/23 1:42 PM) Temperature Route Axillary (12/24/23 12:00 PM) Social History Social History Type Response Sex Male EKG study * Event Display: ECG 12-Lead Authored Date: Please click on pdf link to open report * Event Display: ECG 12-Lead Authored Date: Ventricular Rate: 66 BPM Atrial Rate: 66 BPM P-R Interval: 152 ms QRS Duration: 76 ms Q-T Interval: 354 ms QTC Calculation(Bazett): 371 ms P [place]: 59 degrees R [place]: 67 degrees T [place]: 53 degrees Normal sinus rhythm Early repolarization Normal ECG No previous ECGs available Confirmed by JAYDON QUEZADA ([id number]) on 12/25/2023 8:25:20 AM [place]: JAYDON QUEZADA Note * Fermín Tabares DO: PERFORM Event Display: Patient Education Leaflets Authored Date: Pericarditis ?? [id number] Pericarditis Pericarditis is inflammation of the pericardium, the thin sac (membrane) that surrounds the??heart. The pericardium holds the heart in place and helps it work correctly. Normally, there is a small amount of fluid between the inner and outer layers of the pericardium. This fluid keeps the layers from rubbing as the heart moves to pump blood. With pericarditis, there may be an increase in the amount of fluid. Sometimes this fluid can restrict how well the heart pumps and it may need to be removed. Pericarditis may last for 2 to 6 weeks. Home care Follow these guidelines when caring for yourself at home: ??? It???s important to rest until you feel better. Don???t do any strenuous activity during this time. ??? You may use ibuprofen or naproxento control pain, unless another medicine was prescribed. If you have chronic liver or kidney disease, talk with your healthcare provider before using these medicines. Also talk with your provider if you???ve had a stomach ulcer or gastrointestinal bleeding. Acetaminophen may not help this type of pain as much as ibuprofen or naproxen. ?? Follow-up care Follow up with your healthcare provider, or as advised. ?? When to get medical advice Call your healthcare provider right away if any of these occur: ??? Mild shortness of breath or more pain with breathing ??? Mild weakness or dizziness ??? Cough with small amount of dark-colored phlegm (sputum) or blood ??? Fever of 100.4??F (38??C) or higher, or as advised by your provider ??? Leg swelling ??? Fast pulse rate that doesn't go away with rest ?? Call 911 Call 911 if any of these occur: ??? A change in the type of pain. This means if it feels different, becomes more severe, lasts longer, or starts to spread into your shoulder, arm, neck, jaw, or back. ??? Fainting, or severe weakness or dizziness ??? Cough with large amount of dark-colored phlegm (sputum) or blood ??? Severe shortness of breath or pain with breathing ?? Last Reviewed Date: 2021 ?? [id number] The [employer]. All rights reserved. This information is not intended as a substitute for professional medical care. Always follow your healthcare professional's instructions. ?? Patient Care team information Care Team Personnel Name: Not on Staff, PCP Position: S Physician (General Medicine) Member Role: PCP Care Team Related Persons Name: PING GALARZA Address: home [address] [place] [id number]
[2024-02-21] MEDS: cefTRIAXone sodium 500 MG, Lidocaine HCl 1 % MPF 1 ML IM (17:38)
[2024-02-21 17:45] VITALS: BP 122/70; PULSE 56; O2SAT 99
[2024-02-21 17:48] VITALS: BP 122/70; PULSE 56; RESP 18; TEMP 36.7; O2SAT 99
--- NOTE | 2024-02-21 17:48 | PC.NURSE ---
pt medicated per order
[2024-02-22 05:18] LABS: CT PCR NOT DETECTED (Not Detect.); NG PCR NOT DETECTED (Not Detect.)
== END 2024-02-21 17:49 | disposition home or self-care (01) ==
PROVIDERS: Nurse Practitioner Family; Emergency Provider Internal Medicine
DX: N34.2 Other urethritis (principal); F12.90 Cannabis use, unspecified, uncomplicated; Z20.2 Contact with and (suspected) exposure to infections with a predominantly sexual mode of transmission
CPT/HCPCS: 0353U; 81003; 96372; 99283; 99284; J0696

== ENCOUNTER 2024-06-29 07:21 | Outpatient (REF) | payer MEDICAID, SELFPAY ==
--- NOTE | ~2024-06-29 | MR_ITS ---
MRI OF THE BRAIN WITHOUT IV CONTRAST INDICATION: Chronic headache for greater than 12 weeks, worsening in severity. COMPARISON: Head CT April 07, 2023. TECHNIQUE: Multiplanar multisequence MR imaging of the brain was obtained without IV contrast. FINDINGS: There is no hydrocephalus, extra-axial surface collection, or herniation. No parenchymal signal abnormality. The major flow voids at the skull base are preserved. There is no acute infarct on diffusion-weighted imaging. There is no intracranial hemorrhage on the gradient recalled echo acquisition. The midline structures are normal. The cerebellar tonsils are normally positioned. The cerebellum and brainstem are normal. The craniocervical junction is normal. Osseous marrow signal intensity is homogenous. The visualized soft tissues are unremarkable. There is a small retention cyst and mild mucosal thickening within the right maxillary sinus. There is moderate mucosal thickening within the ethmoid air cells bilaterally and the left sphenoid sinus. There is mild mucosal thickening within the right frontal sinus. MR/MR head/brain wo con IMPRESSION: No acute intracranial findings. [id number]-[id number] sinus mucosal disease. Electronically signed by: Jeancarlos Aranda MD 06/29/2024 08:13 AM EDT
== END 2024-06-29 07:22 | disposition home or self-care (01) ==
LOC: HO.MRI 07:21
PROVIDERS: Visit Provider Nurse Practitioner Family
DX: R51.9 Headache, unspecified (principal); G89.29 Other chronic pain
CPT/HCPCS: 70551

== ENCOUNTER 2024-09-18 12:40 | Emergency (ER) | payer MEDICAID, SELFPAY ==
--- NOTE | ~2024-09-18 | XR_ITS ---
EXAMINATION: XR CHEST CLINICAL INFORMATION: chest pain, cold symptoms COMPARISON: 01/21/2023 TECHNIQUE: 2 views of the chest were obtained. FINDINGS: No significant abnormality is noted involving the heart, lungs, mediastinum, bony thorax or soft tissues. XR/XR chest 2V IMPRESSION: Unremarkable examination. Electronically signed by: Sriram Tabares MD 09/18/2024 01:55 PM [facility]
[2024-09-18 12:42] VITALS: BP 152/94; PULSE 92; RESP 18; TEMP 36.8; O2SAT 100; BMI 24.4
--- NOTE | 2024-09-18 12:42 | ED.URI ---
HPI - URI/Sore Throat General Chief Complaint: Upper Respiratory Symptoms Stated Complaint: Cold symptoms Time Seen by Provider: 09/18/24 13:20 Source: patient Mode of arrival: ambulatory Limitations: no limitations History of Present Illness ED Provider: Deann Simmons APRN HPI Narrative: 34-year-old male with history of mild asthma here with 2 days of sinus pressure, sinus pain, cough, sore throat, headache. Had fever of 102 last evening. Has had nausea. No vomiting or diarrhea. 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 Related Data Previous Rx's ?Medication ?Instructions ?Recorded doxycycline monohydrate 100 mg 100 mg PO BID #14 caps 02/21/24 capsule Allergies Allergy/AdvReac Type Severity Reaction Status Date / Time Crustaceans Allergy Severe UNKNOWN Uncoded 09/18/24 12:44 SEAFOOD Allergy Severe THROAT Uncoded 02/21/24 15:31 CLOSING Shellfish Allergy Severe SWOLLEN Uncoded 09/18/24 12:44 Review of Systems Review of Systems: Yes all other systems are reviewed and are negative Constitutional: Constitutional: Reports no additional constitutional complaints, Denies body ache(s), Reports chills, Reports fever(s), Reports headache(s) and Denies weakness Eyes: Eyes: Reports no additional eye complaints and Denies change in vision ENT: Reports system reviewed and no additional complaints, except as documented, Denies dizziness, Reports headache(s), Denies nasal congestion, Denies nasal discharge, Denies neck pain, Reports sinus pain, Reports sinus pressure and Reports sore throat Cardiovascular: Cardiovascular: Reports no additional cardiovascular complaints, Denies chest pain, Denies leg edema and Denies dyspnea Respiratory: Respiratory: Reports no additional respiratory complaints, Reports cough and Denies dyspnea Gastrointestinal: Gastrointestinal: Reports no additional gastrointestinal complaints, Denies abdominal pain, Denies diarrhea, Denies nausea and Denies vomiting Genitourinary: Genitourinary: Denies urinary incontinence Musculoskeletal: Musculoskeletal: Reports no additional musculoskeletal complaints, Denies back pain, Denies arthralgias, Denies joint swelling, Denies neck pain, Denies numbness and Denies tingling Integumentary/Breasts: Skin/Breast: Reports system reviewed and no additional complaints, except as docu and Denies rash Neurologic: Reports system reviewed and no additional complaints, except as documented, Denies Abnormal speech present, Denies dizziness, Reports headache(s), Denies numbness, Denies tingling and Denies weakness PMF Past Medical History Attestation statement: The following information was validated with the patient. Source: old records reviewed and nursing notes reviewed Medical History Alcohol use disorder Asthma Social History Social History Household Members: None Housing: House Alcohol intake: current Alcohol intake frequency: 3 or more drinks per day Alcohol type: hard liquor Patient Tobacco Use Status: Never used Tobacco Substance Use Type: Marijuana Advance Directives: No Advance Directives Information Provided: Yes Do you have a plan to hurt others: No Plan service: No Physical Exam Vital Signs: Vital Signs: Last Vital Signs Temp 98.2 F 09/18/24 12:42 Pulse 92 09/18/24 12:42 Resp 18 09/18/24 12:42 BP 152/94 H 09/18/24 12:42 Pulse Ox 100 09/18/24 12:42 O2 Del Method Room Air 09/18/24 12:42 BMI result Body Mass Index 24.4 Const: General: cooperative, healthy appearing, comfortable and no acute distress Orientation/consciousness: patient oriented x3 Limitations: no limitations HEENT: Head: Yes normal to inspection Ears: hearing grossly normal bilaterally and TM's normal bilaterally General nose exam: Normal external nose present Face and sinus: Yes normal facial exam Mouth: Normal oral and palatal mucosa present Throat: Yes posterior oropharynx normal, Yes tonsils normal and Yes uvula midline Eyes: General: appearance normal, both eyes and all related structures Pupils: Equal, round and reactive pupils present Neck: Neck: Yes normal visual inspection, Yes full ROM, Yes no lymphadenopathy and Yes no meningeal signs Chest: Chest palpation & inspection: normal inspection of the chest Resp: Effort & Inspection: normal respiratory effort Auscultation: clear to auscultation bilaterally Cardio: Rate: regular rate Rhythm: regular rhythm Peripheral pulses: Peripheral pulses 2+ throughout GI: Inspection: Yes normal to inspection Palpation (GI): Soft to palpation and nontender Auscultation: normal bowel sounds Back/Spine/Pelvis: Thoracic/Lumbar Spine: thoracic and lumbar spine normal to inspection Skin: General skin exam: no rashes or lesions noted Neuro: General: patient oriented x3, no meningeal signs, no focal motor deficits and normal sensation to monofilament Cranial nerves: Yes Equal, round and reactive pupils present Cognition (Neuro): normal cognition Speech: No Abnormal speech present Gait exam (Neuro): Normal gait present Motor exam (neuro): 5/5 motor strength present throughout Extrem: General: Yes normal to inspection Course Course Course Narrative: This is an RME performed by Zeferino Delgado CNP: Additional HPI, ROS, PE not included below will be deferred to primary provider. patient is a 34-year-old male who presents emergency department for evaluation of cold-like symptoms coughing, sneezing, runny nose, nasal congestion, chest discomfort during coughing. Symptom onset 2 days ago. Patient does admit that he is employed on a [employer]- [employer] isolation floor. Reports that he took a home COVID - 19 test which was negative. Reports that he missed yesterday and today from work. Plan: Viral serologies, strep a, CXR Medical Decision Making Medical Decision Making [facility] Narrative: 34-year-old male with history of mild asthma here with 2 days of sinus pressure, sinus pain, cough, sore throat, headache. Had fever of 102 last evening. Has had nausea. No vomiting or diarrhea. 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 Exam is benign. VSS WIll send viral testing. Review CXR from triage Differential Diagnosis Differential Diagnoses: The differential diagnosis associated with the presentation includes Viral syndrome, influenza, pneumonia Admission/Observation Consideration of admission/observation: Escalation of care including admission/observation considered viral syndrome with no hypoxia or tachypnea requiring supplemental oxygen and or admission Lab Data [facility] Lab Attestation statement: I reviewed the patient's lab results. Labs: Lab Results 09/18/24 Range/Units 12:54 Influenza Type A (PCR) NEGATIVE (Negative) Influenza Type B (PCR) NEGATIVE (Negative) RSV RNA Qual (PCR) NEGATIVE (Negative) SARS-CoV-2 RNA (RT-PCR) NEGATIVE (Negative) S. pyogenes GrpA HERLINDA Negative (Negative) Independent Interpretation I performed an independent interpretation of an: Plain X-Ray Interpretation: I independently viewed the x-ray and agree with the radiology report Radiology Impression Discussion of test interpretation with radiology: I have reviewed the radiologist's reading. Radiologist Impression: [address] [place] [address] XRay Report Signed Patient: Mayco Sparrow MR#: [id number] : 1990 Acct:[id number] Age/Sex: 34 / M ADM Date: 09/18/24 Loc: .ED Attending Dr: Ordering Physician: Emily Delgado CNP Date of Service: 09/18/24 Procedure(s): XR chest 2V Accession Number(s): [id number] cc: Emily Delgado CNP; [facility] EXAMINATION: XR CHEST CLINICAL INFORMATION: chest pain, cold symptoms COMPARISON: 01/21/2023 TECHNIQUE: 2 views of the chest were obtained. FINDINGS: No significant abnormality is noted involving the heart, lungs, mediastinum, bony thorax or soft tissues. XR/XR chest 2V IMPRESSION: Unremarkable examination. Electronically signed by: Sriram Tabares MD 09/18/2024 01:[address] [facility] Prescription Management I considered prescription management with: Antibiotic symptoms <48 hrs, no need for antibiotics at this time Discharge Plan Discharge Clinical Impression: Viral infection Patient Disposition: Home, Self-Care Instructions: Viral Syndrome (ED) Additional Instructions: Your x-ray shows no signs of pneumonia Your testing for flu, COVID, strep and RSV are negative You likely have a virus Take Motrin or Tylenol for any pain or fever Follow-up through doctor in 5-7 days for any continued symptoms Prescriptions: No Action doxycycline monohydrate 100 mg capsule 100 mg PO BID Qty: 14 0RF Referrals: [facility] [Primary Care Provider] - 1 week Stand Alone Forms: Work/School Release Print Language: Tunisian
[2024-09-18 13:07] LABS: IDNOW Serial# 6674DD1D; Strep A Nucleic Acid Negative (Negative)
[2024-09-18 13:36] LABS: Influenza A PCR NEGATIVE (Negative); Influenza B PCR NEGATIVE (Negative); Resp Syncy Virus RNA Qual PCR NEGATIVE (Negative); SARS COV2 PCR INHOUSE NEGATIVE (Negative)
[2024-09-18 14:11] VITALS: BP 152/94; PULSE 92; RESP 18; TEMP 36.8; O2SAT 100
== END 2024-09-18 14:24 | disposition home or self-care (01) ==
PROVIDERS: Nurse Practitioner Family; Emergency Provider Emergency Medicine
DX: B34.9 Viral infection, unspecified (principal); J02.9 Acute pharyngitis, unspecified; R07.89 Other chest pain; R05.9 Cough, unspecified; R51.9 Headache, unspecified; R11.0 Nausea; Z03.818 Encounter for observation for suspected exposure to other biological agents ruled out
CPT/HCPCS: 0241U; 71046; 87651; 99282; 99283

== ENCOUNTER 2024-10-13 11:51 | Outpatient (REF) | payer MEDICAID, SELFPAY ==
[2024-10-13 13:24] LABS: MANUAL DIFF FLAG NO
[2024-10-13 13:29] LABS: Basophils Percent Auto 0.5 % (0-2); Eosinophils Absolute Auto 0.2 X10*3/uL (0.0-0.4); Eosinophils Percent Auto 2.5 % (0-4); Hematocrit 42.1 % (42.0-52.0); Imm Gran Abs Auto 0.02 X10*3/uL (0.00-0.03); Imm Gran Pct Auto 0.3 % (0.0-0.4); Lymphocytes Absolute Auto 1.4 X10*3/uL (1.2-4.9); Lymphocytes Percent Auto 22.4 % (20-40); Mean Corpuscular HGB Conc 33.3 g/dl (31.0-36.0); Mean Corpuscular Hemoglobin 30.2 pg (27.0-33.0); Mean Corpuscular Volume 90.7 fL (80.0-98.0); Mean Platelet Volume 12.5 fL (9.4-12.4); Monocytes Absolute Auto 0.7 X10*3/uL (0.1-1.2); Monocytes Percent Auto 10.6 % (2-11); Neutrophils Percent Auto 63.7 % (45-73); Platelet Count 176 X10*3/uL (160-400); Red Blood Count 4.64 X10*6/uL (4.60-5.80); Red Cell Distribution Width 12.9 % (11.0-16.0); White Blood Count 6.3 X10*3/uL (4.8-10.8)
[2024-10-13 13:49] LABS: C Reactive Protein < 0.10 mg/dL (< or = 0.50)
== END 2024-10-13 11:52 | disposition home or self-care (01) ==
LOC: HO.HHCL 11:51
PROVIDERS: Visit Provider Family Medicine
DX: K62.5 Hemorrhage of anus and rectum (principal)
CPT/HCPCS: 36415; 85025; 86140

== ENCOUNTER → 2024-11-08 14:22 | Outpatient (BNV) | payer MEDICAID, SELFPAY | PROVIDERS: Visit Provider Radiology Diagnostic Radiology | DX: M54.50 Low back pain, unspecified (principal); M25.531 Pain in right wrist | CPT/HCPCS: 72100; 73130 ==

== ENCOUNTER 2024-11-15 01:03 | Emergency (ER) | payer MEDICAID, SELFPAY ==
--- NOTE | ~2024-11-15 | XR_ITS ---
CLINICAL HISTORY: sob 2 view chest x-ray Comparison: CR/SR - XR CHEST 2V - 09/18/24 13:01 EST Findings: No consolidation or effusion. Normal size heart. No acute fracture. IMPRESSION: 1. No acute findings. This document has been electronically signed by: Jean Alicea MD on 11/15/2024 01:53:11
[2024-11-15 00:57] VITALS: BP 161/86; PULSE 90; O2SAT 98
[2024-11-15 01:04] VITALS: BP 131/78; PULSE 81; RESP 18; TEMP 36.6; O2SAT 96; BMI 25.6
--- NOTE | 2024-11-15 01:07 | ECG_ITS ---
Test Reason : CHEST PAIN Blood Pressure : */* mmHG Vent. Rate : 72 BPM Atrial Rate : 72 BPM P-R Int : 162 ms QRS Dur : 94 ms QT Int : 356 ms P-R-T Axes : 67 64 36 degrees QTcB Int : 389 ms Normal sinus rhythm with sinus arrhythmia Normal ECG When compared with ECG of 11-Jul-2023 12:41, Premature ventricular complexes are no longer Present T wave amplitude has decreased in Anterior leads Referred By: Generic ED Physician Electronically Signed By: ANNA VILLASEÑOR MD
[2024-11-15 01:21] LABS: MANUAL DIFF FLAG NO
[2024-11-15 01:22] LABS: Basophils Percent Auto 0.6 % (0-2); Eosinophils Absolute Auto 0.3 X10*3/uL (0.0-0.4); Eosinophils Percent Auto 4.7 % (0-4); Hematocrit 40.7 % (42.0-52.0); Hemoglobin 13.5 g/dl (14.0-18.0); Imm Gran Abs Auto 0.02 X10*3/uL (0.00-0.03); Imm Gran Pct Auto 0.3 % (0.0-0.4); Lymphocytes Absolute Auto 2.1 X10*3/uL (1.2-4.9); Lymphocytes Percent Auto 33.8 % (20-40); Mean Corpuscular HGB Conc 33.2 g/dl (31.0-36.0); Mean Corpuscular Volume 90.4 fL (80.0-98.0); Monocytes Absolute Auto 0.8 X10*3/uL (0.1-1.2); Monocytes Percent Auto 12.3 % (2-11); Neutrophils Absolute Auto 3.1 x10*3/uL (2.0-8.3); Neutrophils Percent Auto 48.3 % (45-73); Platelet Count 167 X10*3/uL (160-400); White Blood Count 6.3 X10*3/uL (4.8-10.8)
[2024-11-15 01:45] LABS: Alanine Aminotransferase 39 U/L (0-40); Albumin Level 4.3 g/dL (3.5-5.0); Alkaline Phosphatase 68 U/L (39-117); Anion Gap 11 (12-20); Aspartate Amino Transferase 36 U/L (5-37); Bilirubin Total 0.3 mg/dL (0.0-1.0); Blood Urea Nitrogen 7 mg/dL (9-16); Calcium 8.9 mg/dL (8.4-10.2); Carbon Dioxide 24 mmol/L (22-29); Chloride 110 mmol/L (96-108); Creatinine Clr Calc Pharmacy 97.2; Estimated Glomerular Filt Rate > 60; Glucose Random 102 mg/dL (60-115); Potassium 3.8 mmol/L (3.3-5.1); Sodium 141 mmol/L (135-145); Total Protein 7.1 g/dL (6.5-8.0); Troponin-I High Sensitivity < 2.7 ng/L (<3.5-35.0)
[2024-11-15 01:58] LABS: Influenza A PCR NEGATIVE (Negative); Influenza B PCR NEGATIVE (Negative); Resp Syncy Virus RNA Qual PCR NEGATIVE (Negative); SARS COV2 PCR INHOUSE NEGATIVE (Negative)
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
[2024-11-15 07:39] VITALS: BP 118/81; PULSE 51; RESP 16; TEMP 36.5; O2SAT 100
[2024-11-15] MEDS: Cyclobenzaprine HCl 10 MG TABLET PO (07:41)
[2024-11-15 08:11] LABS: D Dimer High Sensitivity < 150 NG/ML
[2024-11-15 09:04] VITALS: BP 120/70; PULSE 78; RESP 12; TEMP 36.9
== END 2024-11-15 09:31 | disposition home or self-care (01) ==
PROVIDERS: Emergency Provider Emergency Medicine; PCP Internal Medicine
DX: R07.89 Other chest pain (principal); M54.6 Pain in thoracic spine; R07.1 Chest pain on breathing; Z79.899 Other long term (current) drug therapy; Z03.818 Encounter for observation for suspected exposure to other biological agents ruled out
CPT/HCPCS: 0241U; 36415; 71046; 80053; 84484; 85025; 85379; 93005; 99283; 99284

== ENCOUNTER → 2024-11-15 01:07 | Outpatient (BNV) | payer MEDICAID, SELFPAY | PROVIDERS: Emergency Provider Emergency Medicine; PCP Internal Medicine; Visit Provider Internal Medicine Cardiovascular Disease | DX: R07.9 Chest pain, unspecified (principal) | CPT/HCPCS: 93010 ==

== ENCOUNTER → 2024-11-15 01:15 | Outpatient (BNV) | payer MEDICAID, SELFPAY | PROVIDERS: Visit Provider Radiology Diagnostic Radiology | DX: R06.02 Shortness of breath (principal) | CPT/HCPCS: 71046 ==

== ENCOUNTER 2024-11-27 14:19 | Emergency (ER) | payer MEDICAID, SELFPAY ==
--- NOTE | ~2024-11-27 | CT_ITS ---
CLINICAL HISTORY: sudden severe R posterior H A CT head without contrast Comparison: CT/REG/HI/SR - CT HEAD/BRAIN WO IV CON - 04/07/23 14:33 EDT Findings: No intra-axial mass, midline shift, hydrocephalus, or acute hemorrhage. No significant atrophy-like change or white matter disease. Mild mucosal thickening within the paranasal sinuses. The orbits are unremarkable. There is no acute fracture. IMPRESSION: 1. No acute intracranial findings. This document has been electronically signed by: Snehal Hudson MD on 11/27/2024 18:04:39
[2024-11-27 14:23] VITALS: BP 128/93; PULSE 80; RESP 16; TEMP 36.4; O2SAT 100; BMI 25.1
--- NOTE | 2024-11-27 14:24 | ED_ITS ---
HPI - Headache General Chief Complaint: Headache Stated Complaint: headache Time Seen by Provider: 11/27/24 16:26 Related Data Previous Rx's ?Medication ?Instructions ?Recorded doxycycline monohydrate 100 mg 100 mg PO BID #14 caps 02/21/24 capsule Allergies Allergy/AdvReac Type Severity Reaction Status Date / Time Crustaceans Allergy Severe UNKNOWN Uncoded 11/27/24 14:26 SEAFOOD Allergy Severe THROAT Uncoded 11/15/24 01:05 CLOSING Shellfish Allergy Severe SWOLLEN Uncoded 11/15/24 01:05 PMFSH Past Medical History Medical History Alcohol use disorder Asthma Social History Social History Household Members: None Housing: House Alcohol intake: current Alcohol intake frequency: 3 or more drinks per day Alcohol type: hard liquor Patient Tobacco Use Status: Never used Tobacco Substance Use Type: Marijuana Advance Directives: No Advance Directives Information Provided: No service: No Physical Exam 2 Vital Signs: Vital Signs: Last Vital Signs Temp 97.5 F 11/27/24 14:23 Pulse 80 11/27/24 14:23 Resp 16 11/27/24 14:23 BP 128/93 H 11/27/24 14:23 Pulse Ox 100 11/27/24 14:23 O2 Del Method Room Air 11/27/24 14:23 BMI result Body Mass Index 25.1 Course Course Course Narrative: This is an RME performed by Zeferino Delgado CNP: Additional HPI, ROS, PE not included below will be deferred to primary provider. Patient is a 34-year-old male who presents emergency department for evaluation, endorsing severe 10/10 R posterior headache with photophobia, exacerbates with head movement, sudden onset 1 hour prior to arrival. Denies any headaches in the past. Denies any recent trauma or injury. NO focal neuro deficits, NIH score of 0. Medical Decision Making Lab Data 11/27/24 14:35 11/27/24 14:35 Labs: Lab Results 11/27/24 Range/Units 14:35 WBC 5.7 (4.8-10.8) X10*3/uL RBC 4.77 (4.60-5.80) X10*6/uL Hgb 14.4 (14.0-18.0) g/dl Hct 42.3 (42.0-52.0) % MCV 88.7 (80.0-98.0) fL MCH 30.2 (27.0-33.0) pg MCHC 34.0 (31.0-36.0) g/dl RDW 12.5 (11.0-16.0) % Plt Count 164 (160-400) X10*3/uL MPV 11.4 (9.4-12.4) fL Immature Gran % (Auto) 0.4 (0.0-0.4) % Neut % (Auto) 55.7 (45-73) % Lymph % (Auto) 25.9 (20-40) % [place] % (Auto) 13.3 H (2-11) % Eos % (Auto) 4.2 H (0-4) % Baso % (Auto) 0.5 (0-2) % Lymph # (Auto) 1.5 (1.2-4.9) X10*3/uL [place] # (Auto) 0.8 (0.1-1.2) X10*3/uL Eos # (Auto) 0.2 (0.0-0.4) X10*3/uL Baso # (Auto) 0.0 (0.0-0.2) X10*3/uL Abs Immat Gran (auto) 0.02 (0.00-0.03) X10*3/uL Absolute Neuts (auto) 3.2 (2.0-8.3) x10*3/uL Absolute Nucleated RBC 0.000 (0.0-0.012) X10*3/uL Nucleated RBC % (auto) 0.0 (0.0-0.2) /100WBC Sodium 141 (135-145) mmol/L Potassium 3.9 (3.3-5.1) mmol/L Chloride 107 (96-108) mmol/L Carbon Dioxide 25 (22-29) mmol/L Anion Gap 13 (12-20) BUN 9 (9-16) mg/dL Creatinine 1.03 (0.5-1.4) mg/dL Estim Creat Clear Calc 95.3 Estimated GFR > 60 Random Glucose 71 (60-115) mg/dL Calcium 9.4 (8.4-10.2) mg/dL Total Bilirubin 0.7 (0.0-1.0) mg/dL AST 29 (5-37) U/L ALT 44 H (0-40) U/L Alkaline Phosphatase 68 (39-117) U/L Total Protein 7.9 (6.5-8.0) g/dL Albumin 4.8 (3.5-5.0) g/dL Influenza Type A (PCR) NEGATIVE (Negative) Influenza Type B (PCR) NEGATIVE (Negative) RSV RNA Qual (PCR) NEGATIVE (Negative) SARS-CoV-2 RNA (RT-PCR) NEGATIVE (Negative) Discharge Plan Discharge Clinical Impression: Headache Patient Disposition: Home, Self-Care Instructions: Acute Headache (DC) Prescriptions: No Action doxycycline monohydrate 100 mg capsule 100 mg PO BID Qty: 14 0RF Referrals: [facility] [Primary Care Provider] - 11/28/24 Print Language: Cook Islander
[2024-11-27 14:38] LABS: MANUAL DIFF FLAG NO
--- OUTSIDE RECORDS SUMMARY | 2024-11-27 14:38 | XMS_ITS | Encounter Summary ---
Author Organization [employer] Address [address] [place] [address] Care Team Providers Care Limo Driver Name Role Phone Roxanne Cortez [employer] Primary Care Provider [phone] Yarelis Graves NP Primary Care Provider [phone] Encounter Details Date Type Department Care Team (Late Contact Info) Description 02/10/[address] [facility] ADULT DENTAL [address] [place] [address] Ryan Carpenter DMD [address] [place] [address] Social History Tobacco Use Types Packs/Day Years Used Date Smoking Tobacco: Never Passive Smoke Exposure: Never Smokeless Tobacco: Never Depression Answer Date Recorded Patient Health Questionnaire-9 Score 3 01/05/2023 Depression Answer Date Recorded Patient Health Questionnaire-2 Score 1 01/05/2023 Sex and Gender Information Value Date Recorded Sex Assigned at Male 08/04/2022 10:16 AM EDT Legal Sex Male 10:16 AM EDT Gender Identity Male 08/04/2022 10:16 AM EDT Sexual Orientation Straight 08/04/2022 10 :16 AM EDT COVID-19 Exposure Response Date Recorded In the last 10 days, have yo u been in contact with someone who was confirmed or suspected to have Coronavirus/COVID-19? No / Unsure 02/04/2023 10:59 AM EDT documented as of this encounter Plan of Treatment Upcoming Encounters Date Type Department Care Team ([facility] Contact Info) Description 01/27/2025 9:00 AM EDT Office Visit [facility] MEDICINE [address] [place] [address] Yarelis Graves NP [address] [place] [address] documented as of this encounter Visit Diagnoses Not on filedocumented in this encounter Additional Health Concerns Assessment Noted Time PHQ-9 Depression Total Score: 3 01/06/20 23 10:23 AM EDT documented as of this encounter Care Teams Limo Driver Relationship Specialty Start Date End Date Roxanne Cortez FNP [address] [place] [address] PCP - General Family Medicine 07/11/22 06/07/24 Yarelis Graves NP [address] [place] [address] PCP - General Family Medicine 06/08/24 documented as of this encounter
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
--- OUTSIDE RECORDS SUMMARY | 2024-11-27 14:38 | XMS_ITS | Encounter Summary ---
Author Organization [employer] Address [address] [facility] 7 [place] [address] Care Team Providers Care Dock Associate Name Role Phone Star Yarelis NIRAV Primary Care Provider [phone] Reason for Referral * Imaging (Routine) - Authorized Specialty Diagnoses / Procedures Referred By Conthill t Referred To Contact Radiology Diagnoses Acute right-sided low back pain without sciatica Procedures CT Pelvis w/o Contrast Vasu Morales MD [address] [place] [address] Phone: tel: fax: [address] Phone: tel: fax: Referral ID Status Reason Start Date Expiration Date V isits Requested Visits Authorized [id number] Authorized 11/08/2024 11/08/2025 1 1 Encounter Details Date Type Department Care Team (Late st Contact Info) Description 11/08/2024 Orders Only [facility] MED & PEDS [address] [place] [address] Vasu Morales MD [address] [place], [place] [phone] Acute right-sided low back pain without sciatica (Primary Dx) Social History Tobacco Use Types Packs/Day Years [...] Description 01/27/2025 9:00 AM EDT Office Visit [facility] MEDICINE [address] [place], [place] [phone] Yarelis Graves NP [address] [place] [address] Scheduled Orders Name Type Priority Associated Diagnoses Orde r Schedule CT Pelvis w/o Contrast Imaging Routine Acute right-sided low back pain without sciatica Expected: 11/08/2024, Expires: 11/08/2025 documented as of this encounter Visit Diagnoses Diagnosis Acute right-sided low back pain without sciatica- Primary documented in this encounter Additional Health Concerns Assessment Noted Time PHQ-9 Depression Total Score: 3 01/06/20 23 10:23 AM EDT documented as of this encounter Care Teams Dock Associate Relationship Specialty Start Date End Date Yarelis Graves NP [address] [place] [address] PCP - General Family Medicine 06/08/24 documented as of this encounter
--- OUTSIDE RECORDS SUMMARY | 2024-11-27 14:38 | XMS_ITS | Encounter Summary ---
Author Organization [facility] [employer] Address [address] [facility] 7 [place] [address] Care Team Providers Care Icer Hand Name Role Phone Yarelis Graves NIRAV Primary Care Provider [phone] Reason for Visit * Reason Onset Date Comments ct pelvis order 11/22/2024 Encounter Details Date Type Department Care Team ([facility] Contact Info) Description 11/22/2024 Telephone [facility] 230 [place] [address] Vasu Morales MD [address] [place], [place] [phone] ct pelvis order Social History Tobacco Use Types Packs/Day Years [...] encounter Miscellaneous Notes * Telephone Encounter - Violette Kelly - 11/22/2024 2:34 PM EST Incoming fax from [facility], pelvis w/o wont cover entire lumbar spine for low back pain, please confirm w/ provider that this is ok. faxed to office for review documented in this encounter Plan of Treatment Upcoming Encounters Date Type Department Care Team (Late st Contact Info) Description 01/27/2025 9:00 AM EDT Office Visit [facility] MEDICINE [address] [place] [address] Yarelis Graves NP [address] [place] [address] documented as of this encounter Visit Diagnoses Not on filedocumented in this encounter Additional Health Concerns Assessment Noted Time PHQ-9 Depression Total Score: 3 01/06/20 23 10:23 AM EDT documented as of this encounter Care Teams Icer Hand Relationship Specialty Start Date End Date Yarelis Graves NP [address] [place] [address] PCP - General Family Medicine 06/08/24 documented as of this encounter
--- OUTSIDE RECORDS SUMMARY | 2024-11-27 14:38 | XMS_ITS | Encounter Summary ---
Author Organization [employer] Address [address] [facility] 7t [place] [address] Care Team Providers Care Academic Counselor Name Role Phone Roxanne CortezP Primary Care Provider [phone] Yarelis Graves NP Primary Care Provider [phone] Reason for Visit * Reason Onset Date Comments Durable Medical Equipment 09/04/2023 Encounter Details Date Type Department Care Team (Late st Contact Info) Description 09/04/2023 Telephone [facility] MEDICINE [address] [place] [address] Roxanne Cortez FNP [address] [place] [address] Durable Medical Equipment Social History Tobacco Use Types Packs/Day Years [...] encounter Miscellaneous Notes * Telephone Encounter - Quinn Lima - 09/09/2023 12:35 PM EST Tc from patient requesting status in regards to message below * Telephone Encounter - Vivian French - 09/04/2023 3:17 PM EST Tc from pt requesting a new script for nebulizer machine with medical supply and solution. documented in this encounter Plan of Treatment Upcoming Encounters Date Type Department Care Team (Late st Contact Info) Description 01/27/2025 9:00 AM EDT Office Visit [facility] MEDICINE [address] [place] [address] Yarelis Graves NP [address] [place] [address] documented as of this encounter Visit Diagnoses Not on filedocumented in this encounter Additional Health Concerns Assessment Noted Time PHQ-9 Depression Total Score: 3 01/06/20 23 10:23 AM EDT documented as of this encounter Care Teams Academic Counselor Relationship Specialty Start Date End Date Roxanne Cortez FNP [address] [place] [address] PCP - General Family Medicine 07/11/22 06/07/24 Yarelis Graves NP [address] [place] [address] PCP - General Family Medicine 06/08/24 documented as of this encounter
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
--- OUTSIDE RECORDS SUMMARY | 2024-11-27 14:38 | XMS_ITS | Encounter Summary ---
Author Organization [employer] Address [address] [facility] [address] 7[address] [place] [address] Care Team Providers Care Head Of Store Operations Name Role Phone Yarelis Graves NIRAV Primary Care Provider [phone] Reason for Visit * Reason Onset Date Comments Results 11/10/2024 Encounter Details Date Type Department Care Team ([facility] st Contact Info) Description 11/10/2024 Telephone [facility] [address] [place], [place] [phone] Coni Sorensen RN Results Social History Tobacco Use Types Packs/Day Years [...] Telephone Encounter - Nat Castillo RN - 11/11/2024 10:49 AM EST Tc to pt to let them know per Dr. Morales Please call patient to report the results. He has mildpresacral soft tissue swelling with a deformity of the sacrococcygeal junction on his x-ray. He will need a CT scan for further characterization. I advised to return to work only if the pain has improved. Pt verbalized understanding understanding, request for us to print the results for them to pickup driver. Pt advised that result will be left at [facility] [employer] front end software developer and can be picked up at their convenience. 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 Results printed and given to [facility] front end software developer. * Telephone Encounter - Vonda Parish - 11/10/2024 2:25 PM EST Tc from pt returning call regarding Xray results. * Telephone Encounter - Coni Sorensen RN - 11/10/2024 10:44 AM EST TC placed to pt and LVM to call back the office regarding results below ----- Message from Vasu Morales MD sent at 11/08/2024 4:45 PM EST ----- Please call patient to report the results. He has mild presacral soft tissue swelling with a deformity of the sacrococcygeal junction on his x-ray. He will need a CT scan for further characterization. I advised to return to work only if the pain h as improved. documented in this encounter Plan of Treatment Upcoming Encounters Date Type Department Care Team (Late st Contact Info) Description 01/27/2025 9:00 AM EDT Office Visit [facility] MEDICINE [address] [place] [address] Yarelis Graves NP [address] [place] [address] documented as of this encounter Visit Diagnoses Not on filedocumented in this encounter Additional Health Concerns Assessment Noted Time PHQ-9 Depression Total Score: 3 01/06/20 23 10:23 AM EDT documented as of this encounter Care Teams Head Of Store Operations Relationship Specialty Start Date End Date Yarelis Graves NP [address] [place] [address] PCP - General Family Medicine 06/08/24 documented as of this encounter
--- OUTSIDE RECORDS SUMMARY | 2024-11-27 14:38 | XMS_ITS | Encounter Summary ---
Author Organization [employer] Address [address] [facility] [address] [place] [address] Care Team Providers Care Family Life Educator Name Role Phone Roxanne Cortez OFFAL ICER POULTRY Primary Care Provider [phone] Yarelis Graves NP Primary Care Provider [phone] Encounter Details Date Type Department Care Team (Late st Contact Info) Description 03/03/2023 Abstract [facility] ADULT DENTAL [address] [place] [address] Ryan Carpenter DMD [address] [place] [address] Social History Tobacco Use Types Packs/Day Years [...] suspected to have Coronavirus/COVID-19? No / Unsure 02/20/2023 10:52 AM EDT documented as of this encounter Plan of Treatment Upcoming Encounters Date Type Department Care Team (Late st Contact Info) Description 01/27/2025 9:00 AM EDT Office Visit [facility] MEDICINE [address] [place] [address] Yarelis Graves NP [address] [place] [address] documented as of this encounter Visit Diagnoses Not on filedocumented in this encounter Additional Health Concerns Assessment Noted Time PHQ-9 Depression Total Score: 3 01/06/20 23 10:23 AM EDT documented as of this encounter Care Teams Family Life Educator Relationship Specialty Start Date End Date Roxanne Cortez FNP [address] [place] [address] PCP - General Family Medicine 07/11/22 06/07/24 Yarelis Graves NP [address] [place] [address] PCP - General Family Medicine 06/08/24 documented as of this encounter
--- OUTSIDE RECORDS SUMMARY | 2024-11-27 14:38 | XMS_ITS | Encounter Summary ---
Author Organization [employer] Address [address] [facility] 7t [place] [address] Care Team Providers Care Pulp Drier Firer Name Role Phone Roxanne Cortez DENTISTRY TEACHER Primary Care Provider [phone] Yarelis Graves NP Primary Care Provider Reason for Visit * Reason Onset Date Comments Appointment 04/01/2023 Encounter Details Date Type Department Care Team ([facility] st Contact Info) Description 04/01/2023 Telephone C ADULT DENTAL [address] [place] [address] Ryan Carpenter, DMD [address] [place] [address] Appointment Social History Tobacco Use Types Packs/Day Years [...] suspected to have Coronavirus/COVID-19? No / Unsure 04/01/2023 9:33 AM EDT documented as of this encounter Miscellaneous Notes * Telephone Encounter - Teagan Kelly - 04/01/2023 3:50 PM EDT Mayco Carrasquillo Patient called in and stated that stitches are falling out and wanted to know if it was normal patient was seen on 04/01/2023 please reach out to patient. documented in this encounter Plan of Treatment Upcoming Encounters Date Type Department Care Team (Late st Contact Info) Description 01/27/2025 9:00 AM EDT Office Visit [facility] MEDICINE [address] [place] [address] Yarelis Graves NP [address] [place] [address] documented as of this encounter Visit Diagnoses Not on filedocumented in this encounter Additional Health Concerns Assessment Noted Time PHQ-9 Depression Total Score: 3 01/06/20 23 10:23 AM EDT documented as of this encounter Care Teams Pulp Drier Firer Relationship Specialty Start Date End Date Roxanne Cortez FNP [address] [place] [address] PCP - General Family Medicine 07/11/22 06/07/24 Yarelis Graves NP [address] [place] [address] PCP - General Family Medicine 06/08/24 documented as of this encounter
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
--- OUTSIDE RECORDS SUMMARY | 2024-11-27 14:38 | XMS_ITS | Encounter Summary ---
Author Organization [employer] Address [address] [facility] 7t [place] [address] Care Team Providers Care Rn Testing Name Role Phone Yarelis Graves NIRAV Primary Care Provider [phone] Encounter Details Date Type Department Care Team (Late st Contact Info) Description 11/15/2024 Orders Only GENERIC EXTERNAL DATA DEPARTMENT Provider, Generic External Data Social History Tobacco Use Types Packs/Day Years [...] Description 01/27/2025 9:00 AM EDT Office Visit [facility] MEDICINE [address] [place], [place] [phone] Yarelis Graves NP [address] [place] [address] documented as of this encounter Procedures Procedure Name Priority Date/Time Associated Diagnosis Comments D DIMER HIGH SENSITIVITY Routine 11/15/2024 7:46 AM EST documented in this encounter Results * D Dimer High Sensitivity (11/15/2024 7:46 AM EST) D Dimer High Sensitivity <150 NG/ML [facility] Comment:D-DIMER HS REFERENCE RANGENote: Our assay reports D-Dimer Units (D- DU).The cut-off value for venous thromboembolic (VTE) disease is230 ng/mL. This value has a very high negative predictivevalue when the patient has a low to moderate clinicalprobability of VTE.The upper limit of normal is 243 ng/mL. 11/15/2024 7:46 AM EST 11/15/2024 7:50 AM EST us Generic External Data Provider LAB BLOOD ORDERAB LES Final Result [facility] [address] [place] [address] [phone] documented in this encounter Visit Diagnoses Not on filedocumented in this encounter Additional Health Concerns Assessment Noted Time PHQ-9 Depression Total Score: 3 01/06/20 23 10:23 AM EDT documented as of this encounter Care Teams Rn Testing Relationship Specialty Start Date End Date Yarelis Graves NP [address] [place] [address] PCP - General Family Medicine 06/08/24 documented as of this encounter
[2024-11-27 14:40] LABS: Basophils Percent Auto 0.5 % (0-2); Eosinophils Absolute Auto 0.2 X10*3/uL (0.0-0.4); Eosinophils Percent Auto 4.2 % (0-4); Hematocrit 42.3 % (42.0-52.0); Hemoglobin 14.4 g/dl (14.0-18.0); Imm Gran Abs Auto 0.02 X10*3/uL (0.00-0.03); Imm Gran Pct Auto 0.4 % (0.0-0.4); Lymphocytes Absolute Auto 1.5 X10*3/uL (1.2-4.9); Lymphocytes Percent Auto 25.9 % (20-40); Mean Corpuscular Hemoglobin 30.2 pg (27.0-33.0); Mean Corpuscular Volume 88.7 fL (80.0-98.0); Mean Platelet Volume 11.4 fL (9.4-12.4); Monocytes Absolute Auto 0.8 X10*3/uL (0.1-1.2); Monocytes Percent Auto 13.3 % (2-11); Neutrophils Absolute Auto 3.2 x10*3/uL (2.0-8.3); Neutrophils Percent Auto 55.7 % (45-73); Platelet Count 164 X10*3/uL (160-400); Red Blood Count 4.77 X10*6/uL (4.60-5.80); Red Cell Distribution Width 12.5 % (11.0-16.0); White Blood Count 5.7 X10*3/uL (4.8-10.8)
[2024-11-27 14:54] LABS: Alanine Aminotransferase 44 U/L (0-40); Albumin Level 4.8 g/dL (3.5-5.0); Alkaline Phosphatase 68 U/L (39-117); Anion Gap 13 (12-20); Aspartate Amino Transferase 29 U/L (5-37); Bilirubin Total 0.7 mg/dL (0.0-1.0); Blood Urea Nitrogen 9 mg/dL (9-16); Calcium 9.4 mg/dL (8.4-10.2); Carbon Dioxide 25 mmol/L (22-29); Chloride 107 mmol/L (96-108); Creatinine Clr Calc Pharmacy 95.3; Estimated Glomerular Filt Rate > 60; Glucose Random 71 mg/dL (60-115); Potassium 3.9 mmol/L (3.3-5.1); Sodium 141 mmol/L (135-145); Total Protein 7.9 g/dL (6.5-8.0)
[2024-11-27 15:17] LABS: Influenza A PCR NEGATIVE (Negative); Influenza B PCR NEGATIVE (Negative); Resp Syncy Virus RNA Qual PCR NEGATIVE (Negative); SARS COV2 PCR INHOUSE NEGATIVE (Negative)
--- NOTE | 2024-11-27 17:33 | ED.HA ---
HPI - Headache General Chief Complaint: Headache Stated Complaint: headache Time Seen by Provider: 11/27/24 16:26 History of Present Illness HPI Narrative: Patient is a 34-year-old male presents today with having headache on the right side occipital area denies any recent trauma. Patient's pain started about an hour ago. There is no fever no chills. No focal weakness. No bowel urinary incontinence. Not on any blood thinners. Patient from home. No neck pain or diaphoresis. Related Data Previous Rx's ?Medication ?Instructions ?Recorded doxycycline monohydrate 100 mg 100 mg PO BID #14 caps 02/21/24 capsule Allergies Allergy/AdvReac Type Severity Reaction Status Date / Time Crustaceans Allergy Severe UNKNOWN Uncoded 11/27/24 14:26 SEAFOOD Allergy Severe THROAT Uncoded 11/15/24 01:05 CLOSING Shellfish Allergy Severe SWOLLEN Uncoded 11/15/24 01:05 Review of Systems Review of Systems: Positive headache to the right occipital area PMFSH Past Medical History Attestation statement: The following information was validated with the patient. Medical History Alcohol use disorder Asthma Social History Social History Household Members: None Housing: House Alcohol intake: current Alcohol intake frequency: 3 or more drinks per day Alcohol type: hard liquor Patient Tobacco Use Status: Never used Tobacco Substance Use Type: Marijuana Advance Directives: No Advance Directives Information Provided: No service: No Physical Exam Vital Signs: Vital Signs: Last Vital Signs Temp 97.5 F 11/27/24 14:23 Pulse 80 11/27/24 14:23 Resp 16 11/27/24 14:23 BP 128/93 H 11/27/24 14:23 Pulse Ox 100 11/27/24 14:23 O2 Del Method Room Air 11/27/24 14:23 BMI result Body Mass Index 25.1 Appearance: Alert. Oriented X3. No acute distress. Eyes: Pupils equal, round and reactive to light. ENT: Pharynx normal. Neck: Normal inspection. Neck supple. No lymph nodes noted. No crepitus CVS: Normal heart rate and rhythm. Pulses normal. Normal S1 and S2 Respiratory: No respiratory distress. Breath sounds normal. No Wheezing. No rales Abdomen: Soft and nontender. No rigidity. No distention. good BS x4 Skin: Skin warm and dry. Normal skin color. Normal skin turgor. Extremities: No lower extremity edema. Neurovascular intact to all extremities. No Lacerations. No Rash Neuro: Oriented X 3. No motor deficit. No sensory deficit. Moving all extermities. No slurred speech Medical Decision Making Medical Decision Making [facility] Narrative: Well-appearing neurologically intact. Headache started less than [address] scan of the head by my interpretation was grossly negative. No evidence of bleeding. Patient's white count is normal symptoms not consistent with meningitis patient's electrolytes are normal COVID flu RSV were all negative. Not on blood thinners. Will discharge patient home likely tension headache. Differential Diagnosis Differential Diagnoses: The differential diagnosis associated with the presentation includes Intracranial bleeding, mass, infection, tension headache Admission/Observation Consideration of admission/observation: Escalation of care including admission/observation considered Lab Data [facility] Lab Attestation statement: I reviewed the patient's lab results. 11/27/24 14:35 11/27/24 14:35 Labs: Lab Results 11/27/24 Range/Units 14:35 WBC 5.7 (4.8-10.8) X10*3/uL RBC 4.77 (4.60-5.80) X10*6/uL Hgb 14.4 (14.0-18.0) g/dl Hct 42.3 (42.0-52.0) % MCV 88.7 (80.0-98.0) fL MCH 30.2 (27.0-33.0) pg MCHC 34.0 (31.0-36.0) g/dl RDW 12.5 (11.0-16.0) % Plt Count 164 (160-400) X10*3/uL MPV 11.4 (9.4-12.4) fL Immature Gran % (Auto) 0.4 (0.0-0.4) % Neut % (Auto) 55.7 (45-73) % Lymph % (Auto) 25.9 (20-40) % Braxton % (Auto) 13.3 H (2-11) % Eos % (Auto) 4.2 H (0-4) % Baso % (Auto) 0.5 (0-2) % Lymph # (Auto) 1.5 (1.2-4.9) X10*3/uL Braxton # (Auto) 0.8 (0.1-1.2) X10*3/uL Eos # (Auto) 0.2 (0.0-0.4) X10*3/uL Baso # (Auto) 0.0 (0.0-0.2) X10*3/uL Abs Immat Gran (auto) 0.02 (0.00-0.03) X10*3/uL Absolute Neuts (auto) 3.2 (2.0-8.3) x10*3/uL Absolute Nucleated RBC 0.000 (0.0-0.012) X10*3/uL Nucleated RBC % (auto) 0.0 (0.0-0.2) /100WBC Sodium 141 (135-145) mmol/L Potassium 3.9 (3.3-5.1) mmol/L Chloride 107 (96-108) mmol/L Carbon Dioxide 25 (22-29) mmol/L Anion Gap 13 (12-20) BUN 9 (9-16) mg/dL Creatinine 1.03 (0.5-1.4) mg/dL Estim Creat Clear Calc 95.3 Estimated GFR > 60 Random Glucose 71 (60-115) mg/dL Calcium 9.4 (8.4-10.2) mg/dL Total Bilirubin 0.7 (0.0-1.0) mg/dL AST 29 (5-37) U/L ALT 44 H (0-40) U/L Alkaline Phosphatase 68 (39-117) U/L Total Protein 7.9 (6.5-8.0) g/dL Albumin 4.8 (3.5-5.0) g/dL Influenza Type A (PCR) NEGATIVE (Negative) Influenza Type B (PCR) NEGATIVE (Negative) RSV RNA Qual (PCR) NEGATIVE (Negative) SARS-CoV-2 RNA (RT-PCR) NEGATIVE (Negative) Independent Interpretation I performed an independent interpretation of an: CT Scan (CT head grossly negative for any acute evidence of bleeding) Radiology Impression Discussion of test interpretation with radiology: I have reviewed the radiologist's reading. Discharge Plan Discharge Clinical Impression: Headache Patient Disposition: Home, Self-Care Instructions: Acute Headache (DC) Prescriptions: No Action doxycycline monohydrate 100 mg capsule 100 mg PO BID Qty: 14 0RF Referrals: [facility] [Primary Care Provider] - 11/28/24 Print Language: Indonesian
[2024-11-27 18:24] VITALS: BP 128/93; PULSE 80; RESP 16; TEMP 36.4; O2SAT 100
== END 2024-11-27 18:24 | disposition home or self-care (01) ==
PROVIDERS: Nurse Practitioner Family; Emergency Provider Emergency Medicine Emergency Medical Services
DX: R51.9 Headache, unspecified (principal); Z79.899 Other long term (current) drug therapy; Z03.818 Encounter for observation for suspected exposure to other biological agents ruled out
CPT/HCPCS: 0241U; 70450; 80053; 85025; 99282; 99284

== ENCOUNTER → 2024-11-27 14:28 | Outpatient (BNV) | payer MEDICAID, SELFPAY | PROVIDERS: Emergency Provider Emergency Medicine Emergency Medical Services; Visit Provider Radiology Diagnostic Radiology | DX: R51.9 Headache, unspecified (principal) | CPT/HCPCS: 70450 ==

== ENCOUNTER 2025-01-05 12:32 | Outpatient (REF) | payer MEDICAID, SELFPAY ==
--- OUTSIDE RECORDS SUMMARY | 2025-01-05 13:36 | XMS_ITS | Clinical Summary ---
Author Organization [employer] Address [address] [facility] [address] [place] [address] Care Team Providers Care Fast Food Manager Name Role Phone Yarelis Graves NIRAV Primary Care Provider [phone] Allergies Active Allergy Reactions Criticality Noted Date Comments Bupropion 10/17/2010 Other reaction(s): Increased anxiety Shellfish-Derived Products Hives 3 Other Reaction(s): Rash/Dermatitis Medications * This document contains information received from the source organization and may not represent a complete record from that organization. Glycerin-Hyprom ellose-PEG 400 (Artificial Tears) 0.2-0.2-1 % solution Administer 2 drops into affected eye(s) 3 times daily. 15 mL 3 Active Blood Pressure Monitoring (Omron 3 Series BP Monitor) device USE TO CHECK BLOOD PRESSURE EVERY DAY 1 each 3 Active diphenhydrAMINE (BENADryl) 25 MG tablet Take 1 tablet (25 mg) by mouth if needed at bedtime (nasal congestion and postnasal drip). 30 tablet 1 3 Active budesonide (Pulmicort Flexhaler) 90 MCG/ACT inhaler Inhale 1 puff in the morning and at bedtime. Rinse mouth with water after use to reduce aftertaste and incidence of candidiasis. Do not swallow. 1 each 11 4 Active Humidifiers misc 1 Units if needed in the morning, at noon, and at bedtime (congestion). 1 Units 4 03/01/20 25 Active sodium chloride (Saline Nasal Warwick) 0.65 % nasal spray Administer 1 spray into each nostril if needed for congestion. 30 mL 2 4 03/18/20 25 Active fluticasone (Flonase) 50 MCG/ACT nasal spray INSTILL 2 SPRAYS IN EACH NOSTRIL ONCE DAILY NEEDED FOR NASAL CONGESTION- for no more than 3 weeks as TRIAL for sinusitis 18 g 4 Active QUEtiapine (SEROquel) 25 MG tabletIndicatio ns:H/O insomnia Take 1 tablet (25 mg) by mouth at bedtime. 30 tablet 5 11/07/19 26 Active meloxicam (Mobic) 15 MG tablet Take 1 tablet (15 mg) by mouth Once per day. 15 tablet 5 11/23/19 26 Active cyclobenzaprine (Flexeril) 10 MG tablet Take 1 tablet (10 mg) by mouth at bedtime for 10 days. 10 tablet 5 Active albuterol 108 (90 Base) MCG/ACT inhaler Inhale 2 puffs every 4 (four) hours if needed for wheezing. 18 g 1 5 11/23/19 26 Active acetaminophen (Tylenol Extra Strength) 500 MG tablet Take 1 tablet (500 mg) by mouth every 6 (six) hours if needed for mild pain. 120 tablet 5 12/24/19 25 Diclofenac Sodium 1 % gel Apply 1 inch topically if needed in the morning and at bedtime (pain). 60 g 5 12/24/19 25 Active Problems Problem Noted Date Diagnosed Date Sprain of anterior shoulder joint 11/23/2024 Assessment & Plan (11/23/2024 5:48 PM EST): Start meloxicam daily x 1 week and [...] light duty within the next 2 weeks Contusion of left chest wall 11/23/2024 Assessment & Plan (11/23/2024 5:47 PM EST): Status post fall. She x-ray is normal, advised to use albuterol 3 times daily for the next 5 days then as needed pleuritic chest pain Follow-up with PCP Concussion without loss of consciousness 024 Sinusitis 03/18/2024 Assessment & Plan (09/26/2024 4:55 PM EST): Likely a complication of viral URI. Rx Augmentin x 10d + Flonase + Tyelnol prn He's to be out of work x 2d, back on 09/29 Advise to rest, increase PO fluids, use albuterol inh prn. Assessment & Plan (03/18/2024 6:37 PM EDT): Pt clinically presents w sinusitis ,lung exam is normal Covid /Flu neg today -augmentin BID x 10 days -Flonase for 3 weeks -Saline nasal spray -Excuse work letter for missing days of work for his symptoms from 03/16 To 03/18 -alarm signs and symptoms discussed w pt . If symptoms dont improve of keep recurring will need image of sinuses Alcohol withdrawal syndrome without complication 07/12/2023 Assessment & Plan (07/12/2023 10:31 PM EDT): Pt w Sx of alcohol withdrawal, VS stable, mild sweating and hand tremors.reports insomnia for the past 3 days -states ongoing insomnia that is making his symptoms worse , states tried before several meds with no improvement ,states used to take low dose quetiapine in the past which helped w symptoms -EKG : [id number], HR 76x', noted ST elevation in inf leads II and II. When compared w previous EKG - unchanged from before. Calculated CIWA-Ar: 13 (mild withdrawal) 02/2023 Chem wnl - Gabapentin taper for mild withdrawal. ?Day 1: 300 mg orally every 6 hours (1200 mg total daily dose) ?Day 2: 300 mg orally every 8 hours (900 mg total daily dose) ?Day 3: 300 mg orally every 12 hours (600 mg total daily dose) ?Day 4: 300 mg once at night (300 mg total daily dose) -for insomnia will resume low dose quetiapine but advised to start med only after completes gabapentin taper -Advise pt hydration. Alarm S/Sx discussed w pt. If no improvement go to ED. -Pt agreed today to referral to CRS team for EtOH abuse Upper respiratory tract infection 01/28/2023 Assessment & Plan (01/28/2023 1:55 PM EDT): Patient with URI symptoms, reports home test positive for COVID, will send supportive treatment and also will end paxlovid. RTC if worsening symptoms. He is aware of CDC recommendations for isolation and mask wearing. 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 Encounters Date Type Department Care Team Description 01/05/2025 Telephone [facility] [address] [place] [address] Yarelis Graves NP Lab Orders (Patient requesting lab order for TB TEST for work) 12/16/2024 Population Health Risk Score [facility] Department [address] [phone] Provider, Population Health Generic 11/29/2024 Orders Only [facility] [address] [place] [address] Vasu Morales MD Acute right-sided low back pain without sciatica (Primary Dx) 11/29/2024 Telephone [facility] [employer] [facility] [address] [place] [address] orders 11/27/2024 Orders Only GENERIC EXTERNAL DATA DEPARTMENT Provider, Generic External Data 11/23/2024 5:40 PM EST [facility] [address] [address] Airam Shane MD Sprain of anterior shoulder joint (Primary Dx); Contusion of left chest wall, subsequent encounter 11/23/2024 Telephone [facility] [address] [address] Yarelis Graves, NIRAV Nurse Triage 11/22/2024 Telephone [facility] [address] [place] [address] [address] pelvis order 11/18/[address] [address] Nat Castillo, CHELSI 11/15/2024 Orders Only GENERIC EXTERNAL DATA DEPARTMENT Provider, Generic External Data 11/10/2024 Telephone [facility] [address] [place] [address] Coni Sorensen, CHELSI Results 11/08/2024 Orders Only [facility] [address] [place], [place] [phone] Vasu Morales MD Acute right-sided low back pain without sciatica (Primary Dx) 11/07/2024 5:40 PM EST [facility] [address] [address] Vasu Morales MD Acute right-sided low back pain without sciatica (Primary Dx); Right wrist pain; Contusion of soft tissue; H/O insomnia 10/19/[address] [address] Yarelis Graves, NIRAV Results 10/13/2024 11:20 AM EST [facility] [address] [address] Ramses Marquez MD Rectal bleeding (Primary Dx) from Last 3 Months Immunizations Name Administration Dates Next Due Hep B, adult 03/05/2022,,05/23/2014,12/21,11/18/2013 Influenza Injectable Quadriv alant Preservative Free IIV4 MDCK 08/25/2023,12/08/2022,06/20/2020 Influenza injectable quadriv alent preservative free 12/08/2021 PPD Test 11/16/2013 Pneumococcal Polysaccharide PPSV23 11/28/2015 Tdap 10/15/2020,11/02/2012 Family History Medical History Relation Name Comments Diabetes type II Maternal Grandfather Aneurysm Mother Heart disease Mother Relation Name Status Comments Maternal Grandfather Mother Social History Tobacco Use Types Packs/Day Years Used Date Smoking Tobacco: Never Passive Smoke Exposure: Never Smokeless Tobacco: Never Tobacco Cessation:Counseling Given: Not Answered Alcohol Use Standard Drinks/Week Comments Yes 0 [...] Orientation Straight 08/04/2022 10 :16 AM EDT Last Filed Vital Signs Vital Sign Reading Time Taken Comments Blood Pressure 117/78 11/23/2024 4:59 PM EST Pulse 69 11/23/2024 4:59 PM EST Temperature 36.7 ??C (98 ??F) 11/23/2024 4:59 PM EST Respiratory Rate 16 11/23/2024 4:59 PM EST Oxygen Saturation 99% 11/23/2024 4:59 PM EST Inhaled Oxygen Concentration - - Weight 75.3 kg (166 lb) 11/23/2024 4:59 PM EST Height 170.2 cm (5' 7 ) 09/26/2024 1:48 PM EST Body Mass Index 26 09/26/2024 1:48 PM EST Plan of Treatment Upcoming Encounters Date Type Department Care Team (Late st Contact Info) Description 01/27/2025 9:00 AM EDT Office Visit [facility] [address] [place] [address] Yarelis Graves NP [address] [place] [address] Health Maintenance Due Date Last Done Comments Dental Oral Exam 1991 Dental Prophylaxis 1991 Dental X-Ray: Full Mouth 1991 Alcohol/Substance Use Screening 2003 Family Planning (PISQ) 2006 Pneumococcal Vaccine: Pediatrics (0 to 5 Years) and At-Risk Patients (6 to 49) Years) (2 of 2 - PCV) 11/28/2016 11/28/2015 Depression Screening 01/06/2024 01/05/2023, 01/06/20 Dental X-Ray: Bitewings 01/07/2024 01/05/2023 SDOH Screening 02/14/2024 02/13/2023 COVID-19 Vaccine ( season) 2024 10/15/2021, 11/30/2020, 11/09/2020 Influenza Vaccine (#1) 2024 3, 12/08/2022, 12/08/2021, Additional history exists Tobacco Screening 11/07/2025 11/07/2024 DTaP/Tdap/Td Vaccines (3 - Td or Tdap) 10/15/2030 10/15/2020, 11/02/2012 Zoster Vaccines (1 of 2) 2041 RSV Patients and Patients Aged 60 years or older (1 - 1-dose 75+ series) 2066 HIV Screening Completed 12/17/2021 Hepatitis C Screening Completed 12/17/2021 Hepatitis B Vaccines Completed 03/05/2022, 02/05/2022, 05/23/2014, Additional history exists HIB Vaccines Aged Out No longer eligi ble based on patient's age to complete this topic HPV Vaccines Aged Out No longer eligi ble based on patient's age to complete this topic Hepatitis A Vaccines Aged Out No long er eligible based on patient's age to complete this topic IPV Vaccines Aged Out No longer eligi ble based on patient's age to complete this topic Meningococcal Vaccine Aged Out No jovanni jonas eligible based on patient's age to complete this topic RSV under 20 months Aged Out No longe r eligible based on patient's age to complete this topic Rotavirus Vaccines Aged Out No longer eligible based on patient's age to complete this topic Procedures Procedure Name Priority Date/Time Associated Diagnosis Comments CT HEAD WO CONTRAST Routine 11/27/2024 6 :04 PM EST COMPREHENSIVE METABOLIC PANEL Routine 11/27/2024 2:35 PM EST CBC WITH AUTO DIFFERENTIAL Routine 11/27/2024 2:35 PM EST SARS COV2/INFLUENZA A/B AND RSV RNA QL NAAT Routine 11/27/2024 2:35 PM EST D DIMER HIGH SENSITIVITY Routine 11/15/2024 7:46 AM EST XR HAND 3+ VIEWS RIGHT Routine 2:22 PM EST Right wrist pain Contusion of soft tissue XR LUMBAR SPINE 2-3 VIEWS Routine 11/08/2024 2:22 PM EST Acute right-sided low back pain without sciatica C-REACTIVE PROTEIN Routine 10/13/2024 11 :54 AM EST Rectal bleeding CBC WITH AUTO DIFFERENTIAL Routine 10/13/2024 11:54 AM EST Rectal bleeding BITEWING - SINGLE RADIOGRAPHIC IMAGE Routine 01/05/2023 11:30 AM EDT ZZZ HISTORICAL HEPATITIS C AB W/REFL TO HCV RNA, QN, PCR Routine 12/17/2021 2:10 PM EDT HIV 1/2 ANTIGEN/ANTIBODY, FOURTH GENERATION W/RFL Routine 12/17/2021 2:10 PM EDT from Last 3 Months or Most Recently Relevant to Health Maintenance Results * CT Head w/o Contrast (11/27/2024 6:04 PM EST) Anatomical Region Laterality Modality Head, Neck Computed Tomogra phy 11/27/2024 6:04 PM EST Narrative 11/27/2024 6:06 PM EST ? [facility] ?[address] ?[place] [address] ? CT Scan Report ? Signed ? Patient: Foreign Schwartz,Mayco L ?MR#: ?? [id number] ? : 1990 ?Acct:[id number] ? Age/Sex: 34 / M ?ADM Date: 11/27/24 ? Loc: HO.ED ? Attending : ? Ordering Physician: Emily Delgado CNP ?? Date of Service: 11/27/24 ?? Procedure(s): CT head/brain wo IV con ?? Accession Number(s): [id number] ? cc: SandyEmilyemmett Bella CNP; [facility] ? Report Number: ?? [id number]: Total DLP = ??708.00 mGy-cm ? CLINICAL HISTORY: sudden severe R posterior H A ? CT head without contrast ? Comparison: CT/REG/CT/SR - CT HEAD/BRAIN WO IV CON - 04/07/23 14:33 EDT ? Findings: ?? No intra-axial mass, midline shift, hydrocephalus, or acute hemorrhage. ?? No significant atrophy-like change or white matter disease. ? Mild mucosal thickening within the paranasal sinuses. ?? The orbits are unremarkable. ?? There is no acute fracture. ? IMPRESSION: ?? 1. No acute intracranial findings. ? This document has been electronically signed by: Snehal Hudson MD on ?? 11/27/2024 18:04:39 ? Dictated By: ?Snehal Hudson MD ? Signed By: ?<Electronically signed by Snehal Hudson MD in OV> ? 11/27/241804 ? DD/ 1804 ? TD/TT: 11/27/24 1804 ? Industrial Locomotive Operator: ? Procedure Note Donotsylvesterinterpreter, Image - 11/27/[address] [place] [address] [address] Scan Report Signed Patient: Mayco Sparrow LMR#: [id number] : 1990Acct:[id number] Age/Sex: 34 / MADM Date: 11/27/24 Loc: HO.ED Attending Dr: Ordering Physician: Emily Delgado CNP Date of Service: 11/27/24 Procedure(s): CT head/brain wo IV con Accession Number(s): [id number] cc: Emily Delgado CNP; [facility] Report Number: [id number]: Total DLP = 708.00 mGy-cm CLINICAL HISTORY: sudden severe R posterior H A CT head without contrast Comparison: CT/REG/CT/SR - CT HEAD/BRAIN WO IV CON - 04/07/23 14:33 EDT Findings: No intra-axial mass, midline shift, hydrocephalus, or acute hemorrhage. No significant atrophy-like change or white matter disease. Mild mucosal thickening within the paranasal sinuses. The orbits are unremarkable. There is no acute fracture. IMPRESSION: 1. No acute intracranial findings. This document has been electronically signed by: Snehal Hudson MD on 11/27/2024 18:04:39 Dictated By: Snehal Hudson MD Signed By: <Electronically signed by Snehal Hudson MD in OV> 11/27/241804 DD/ 03 TD/TT: 11/27/241803 Industrial Locomotive Operator: [facility] External Provider IMG CT PROCEDURES Edited Result - Final * SARS-CoV-2 RNA, Influenza A/B, and RSV RNA, Ql NAAT (11/27/2024 2:35 PM EST) Influenza A PCR NEGATIVE Negative [facility] Influenza B PCR NEGATIVE Negative [facility] Resp Syncy Virus RNA Qual PCR NEGATIVE Negative [facility] SARS COV2 PCR NEGATIVE Negative [facility] Comment:All test results mus t be correlated with clinical findings.Negative results do not preclude SARS-CoV2, influenza Avirus, influenza B virus and/or RSV infectionand should not be used as the sole basis for treatment orother patient management decisions. Negative results must becombined with clinical observations, patient history, andepidemiological information.This test has not been evaluated for monitoring treatment ofinfection.This test has been authorized by the FDA under an EmergencyUse Authorization (EUA) for use by authorized laboratories.Testing performed on the [employer] GeneXpert utilizingreal-time RT-PCR.All SARS CoV2 and positive influenza A/B results arereported to [facility]. 11/27/2024 2:35 PM EST 11/27/2024 2:37 PM EST Generic External Data Provider LAB MICROBIOLOGY - GENERAL ORDERABLES Final Result [facility] [address] [place] [address] [phone] * (ABNORMAL) CBC auto differential (11/27/2024 2:35 PM EST) Only the most recent of2 resultswithin the time period is included. White Blood Count 5.7 4.8 - 10.8 X10*3/uL [facility] Red Blood Count 4.77 4.60 - 5.80 X10*6/uL [facility] Hemoglobin 14.4 14.0 - 18.0 g/dl [facility] Hematocrit 42.3 42.0 - 52.0 % [facility] Mean Corpuscular Volume 88.7 80.0 - 98.0 fL [facility] Mean Corpuscular Hemoglobin 30.2 27.0 - 33.0 pg [facility] Mean Corpuscular HGB Conc 34.0 31.0 - 36.0 g/dl [facility] Red Cell Distribution Width 12.5 11.0 - 16.0 % [facility] Platelet Count 164 160 - 400 X10*3/uL [facility] Mean Platelet Volume 11.4 9.4 - 12.4 fL [facility] Neutrophils Percent Auto 55.7 45 - 73 % [facility] Imm Gran Pct Auto 0.4 0.0 - 0.4 % [facility] Lymphocytes Percent Auto 25.9 20 - 40 % [facility] Monocytes Percent Auto 13.3(H) 2 - 11 % [facility] Eosinophils Percent Auto 4.2(H) 0 - 4 % [facility] Basophils Percent Auto 0.5 0 - 2 % [facility] NRBC Pct Auto 0.0 0.0 - 0.2 /100WBC [facility] Neutrophils Absolute Auto 3.2 2.0 - 8.3 x10*3/uL [facility] Imm Gran Abs Auto 0.02 0.00 - 0.03 X10*3/uL [facility] Lymphocytes Absolute Auto 1.5 1.2 - 4.9 X10*3/uL [facility] Monocytes Absolute Auto 0.8 0.1 - 1.2 X10*3/uL [facility] Eosinophils Absolute Auto 0.2 0.0 - 0.4 X10*3/uL [facility] Basophils Absolute Auto 0.0 0.0 - 0.2 X10*3/uL [facility] NRBC Abs Auto 0.000 0.0 - 0.012 X10*3/uL [facility] 11/27/2024 2:35 PM EST 11/27/2024 2:37 PM EST us Generic External Data Provider LAB BLOOD ORDERAB LES Final Result [facility] [address] [place] [address] [phone] * (ABNORMAL) Comprehensive Metabolic Panel (11/27/2024 2:35 PM EST) Sodium 141 135 - 145 mmol/L [facility] Potassium 3.9 3.3 - 5.1 mmol/L [facility] Chloride 107 96 - 108 mmol/L [facility] Carbon Dioxide 25 22 - 29 mmol/L [facility] Anion Gap 13 12 - 20 [facility] Urea Nitrogen (BUN) 9 9 - 16 mg/dL [facility] Creatinine, Serum 1.03 0.5 - 1.4 mg/dL [facility] Creatinine Clr Calc Pharmacy 95.3 [facility] Comment:eGFR (calculated fro m the MDRD study equation) and eCrCl(calculated from the Cockcroft-Gault equation) are based ondifferent parameters and may not yield comparable results.If eCrCl result is absurd, please check patient'sheight/weight. Estimated Glomerular Filt Rate >60 [facility] Comment:Chronic Kidney Disea se: Estimated GFR < 60 mL/min/1.94j8Tscfic Kidney Disease: Estimated GFR < 15 mL/min/1.73m2 Glucose 71 60 - 115 mg/dL [facility] Calcium 9.4 8.4 - 10.2 mg/dL [facility] Bilirubin, Total 0.7 0.0 - 1.0 mg/dL [facility] Aspartate Amino Transferase 29 5 - 37 U/L [facility] Alanine Aminotransferase 44(H) 0 - 40 U/L [facility] Total Protein 7.9 6.5 - 8.0 g/dL [facility] Albumin Level 4.8 3.5 - 5.0 g/dL [facility] Alkaline Phosphatase 68 39 - 117 U/L [facility] 11/27/2024 2:35 PM EST 11/27/2024 2:37 PM EST Generic External Data Provider LAB BLOOD ORDERAB LES Final Result Performing Organization Address [facility] de Phone Number [facility] [address] [place] [phone] * D Dimer High Sensitivity (11/15/2024 7:46 AM EST) D Dimer High Sensitivity <150 NG/ML [facility] Comment:D-DIMER HS REFERENCE RANGENote: Our assay reports D-Dimer Units (D- DU).The cut-off value for venous thromboembolic (VTE) disease is230 ng/mL. This value has a very high negative predictivevalue when the patient has a low to moderate clinicalprobability of VTE.The upper limit of normal is 243 ng/mL. 11/15/2024 7:46 AM EST 11/15/2024 7:50 AM EST Generic External Data Provider LAB BLOOD ORDERAB LES Final Result Performing Organization Address [facility] de Phone Number [facility] [address] [place] [phone] * XR Hand 3+ Views Right (11/08/2024 2:22 PM EST) Anatomical Region Laterality Modality Upper Extremities, Hand Right Radiogra phic Imaging 11/08/2024 2:22 PM EST Narrative 11/08/2024 3:58 PM EST ?[facility] ?[address] ?[place] [address] ?XRay Report ? Signed ? Patient: Foreign Schwartz,Mayco L ?MR#: ?? [id number] ? : 1990 ?Acct:[id number] ? Age/Sex: 34 / M ?ADM Date: 02/04/25 ? Loc: HO.HHCX ? Attending Dr: Vasu Morales MD ? Ordering Physician: Vasu Morales MD ?? Date of Service: 11/08/24 ?? Procedure(s): XR hand RT min 3V ?? Accession Number(s): [id number] ? cc: Vasu Morales MD ? EXAMINATION: [...] DD/ 1422 ? TD/TT: 11/08/24 1430 ? Industrial Locomotive Operator: ? Procedure Note Adair, Dori - 11/08/[address] [address] XRay Report Signed Patient: Mayco Sparrow LMR#: [id number] : 1990Acct:[id number] Age/Sex: 34 / MADM Date: 11/08/24 Loc: HO.HHCX Attending Dr: Vasu Morales MD Ordering Physician: Vasu Morales MD Date of Service: 11/08/24 Procedure(s): XR hand RT min 3V Accession Number(s): [id number] cc: Vasu Morales MD EXAMINATION: XR HAND, [...] 11/08/24 1555 DD/ 1422 TD/TT: 11/08/24 1430 Industrial Locomotive Operator: us Vasu Morales MD IMG XR PROCEDURES Final Res ult * XR Lumbar Spine 2-3 Views (11/08/2024 2:22 PM EST) Anatomical Region Laterality Modality Spine, L-spine Radiographic Roxane ging 11/08/2024 2:22 PM EST Narrative 11/08/2024 4:05 PM EST ?[facility] ?[address] ?[place] [address] ?XRay Report ? Signed ? Patient: Mayco Sparrow ?MR#: ?? [id number] ? : 1990 ?Acct:[id number] ? Age/Sex: 34 / M ?ADM Date: 11/08/24 ? Loc: HO.HHCX ? Attending Dr: Vasu Morales MD ? Ordering Physician: Vasu Morales MD ?? Date of Service: 11/08/24 ?? Procedure(s): XR lumbar spine 2-3V ?? Accession Number(s): [id number] ? cc: Vasu Morales MD ? EXAMINATION: [...] DD/ 1422 ? TD/TT: 11/08/24 1430 ? Industrial Locomotive Operator: MSM ? Procedure Note Adair, Image - 11/08/[address] [address] XRay Report Signed Patient: Mayco Sparrow LMR#: [id number] : 1990Acct:[id number] Age/Sex: 34 / MADM Date: 11/08/24 Loc: HO.HHCX Attending Dr: Vasu Morales MD Ordering Physician: Vasu Morales MD Date of Service: 11/08/24 Procedure(s): XR lumbar spine 2-3V Accession Number(s): [id number] cc: Vasu Morales MD EXAMINATION: XR LUMBOSACRAL [...] Ángel Patricio MD 11/08/2024 04:03 PM EST RP Dictated By: Ángel Patricio MD Signed By: <Electronically signed by Ángel Patricio MD in OV> 11/08/24 1603 DD/ 1422 TD/TT: 11/08/24 1430 Industrial Locomotive Operator: INOCENC[employer] us Vasu Morales MD IMG XR PROCEDURES Final Res ult * C-reactive Protein (10/13/2024 11:54 AM EST) C Reactive Protein <0.10 < or = 0.50 mg/dL [facility] Blood Venous blood specimen / Unknown 10/13/2024 11:54 AM EST 10/13/2024 1:16 PM EST Ramses Marquez MD LAB BLOOD ORDERABLES Final Resul t [facility] [address] [place] [phone] * HEPATITIS C AB W/REFL TO HCV RNA, QN, PCR (12/17/2021 2:10 PM EDT) HEPATITIS C ANTIBODY NON-REACT BEST NON-REACT [facility] INDEX 0.01 <1.00 [facility] Comment: ?? HCV antibody was non-reactive. There is no laboratory ?? evidence of HCV infection. ?? In most cases, no further action is required. However, if recent HCV exposure is suspected, a test for HCV RNA (test code 82712) is suggested. ?? For additional information please refer to http://education.[employer]/faq/CEH93j8 (This link is being provided for informational/ educational purposes only.) ?? 12/17/2021 2:10 PM EDT David Don MD HISTORICAL/NON ORDERABLE LABS Fi nal Result Performing Organization Address [facility] Phone Number [facility] [address] * HIV 1/2 ANTIGEN/ANTIBODY,FOURTH GENERATION W/RFL (12/17/2021 2:10 PM EDT) HIV-1/2 ANTIGEN AND ANTIBODIES, 4TH GENERATION W/ REFLEX NON-REACT BEST NON-REACT BEST [facility] Comment: HIV-1 antigen and HIV-1/HIV-2 antibodies were not detected. There is no laboratory evidence of HIV infection. ?? PLEASE NOTE: This information has been disclosed to you from records whose confidentiality may be protected by state law. ??If your state requires such protection, then the state law prohibits you from making any further disclosure of the information without the specific written consent of the person to whom it pertains, or as otherwise permitted by law. A general authorization for the release of medical or other information is NOT sufficient for this purpose. ? For additional information please refer to http://education.[employer]/faq/KCR676 (This link is being provided for informational/ educational purposes only.) ? The performance of this assay has not been clinically validated in patients less than 2 years old. ?? 12/17/2021 2:10 PM EDT David Don MD LAB BLOOD ORDERABLES Final Resul t Performing Organization Address [facility] Phone Number [facility] [address] from Last 3 Months or Most Recently Relevant to Health Maintenance Insurance [facility] C3 HSN [place] D[place] STAND ADULT Care Teams Fast Food Manager Relationship Specialty Start Date End Date Yarelis Graves NP [address] [place] [address] PCP - General Family Medicine 06/08/24
--- OUTSIDE RECORDS SUMMARY | 2025-01-05 13:36 | XMS_ITS | Encounter Summary ---
Author Organization [employer] Address 75 [facility] 7 [place] [address] Care Team Providers Care Spot Worker Name Role Phone [place] Yarelis NIRAV Primary Care Provider [phone] Reason for Referral * Imaging (Routine) - Authorized Specialty Diagnoses / Procedures Referred By Conthill t Referred To Contact Radiology Diagnoses Acute right-sided low back pain without sciatica Procedures CT Pelvis w/o Contrast Vasu Morales MD [address] [place] [address] Phone: tel: fax: [address] Phone: tel: fax: Referral ID Status Reason Start Date Expiration Date V isits Requested Visits Authorized [id number] Authorized 11/08/2024 11/08/2025 1 1 Encounter Details Date Type Department Care Team (Late st Contact Info) Description 11/08/2024 Orders Only [facility] MED [facility] PEDS [address] [place] [address] Vasu Morales MD [address] [place], [place] [phone] Acute right-sided low back pain without sciatica [...] Description 01/27/2025 9:00 AM EDT Office Visit [facility] MEDICINE [address] [place], [place] [phone] Yarelis Graves NP 230 [place] [address] Scheduled Orders Name Type Priority Associated Diagnoses [...] documented as of this encounter Care Teams Spot Worker Relationship Specialty Start Date End Date Yarelis Graves NP [address] [place] [address] PCP - General Family Medicine 06/08/24 documented as of this encounter
--- OUTSIDE RECORDS SUMMARY | 2025-01-05 13:37 | XMS_ITS | Encounter Summary ---
Author Organization [employer] Address [address] [facility] [address] 7t [place] [address] Care Team Providers Care Fuel Assembler Name Role Phone Roxanne Cortez DEFENSIVE DRIVING INSTRUCTOR Primary Care Provider [phone] Yarelis Graves NP Primary Care Provider [phone] Encounter Details Date Type Department Care Team (Late st Contact Info) Description 03/03/2023 Abstract [facility] ADULT DENTAL 230 [place] [address] Ryan Carpenter DMD [address] [place] [address] Social History Tobacco Use Types Packs/Day Years [...] Description 01/27/2025 9:00 AM EDT Office Visit [facility] MEDICINE [address] [place] [address] Yarelis Graves NP [address] [place] [address] documented as of this encounter Visit Diagnoses Not on filedocumented in this encounter Additional Health Concerns Assessment Noted Time PHQ-9 Depression Total Score: 3 01/06/20 23 10:23 AM EDT documented as of this encounter Care Teams Fuel Assembler Relationship Specialty Start Date End Date Roxanne Cortez FNP [address] [place] [address] PCP - General Family Medicine 07/11/22 06/07/24 Yarelis Graves NP [address] [place] [address] PCP - General Family Medicine 06/08/24 documented as of this encounter
--- OUTSIDE RECORDS SUMMARY | 2025-01-05 13:37 | XMS_ITS | Encounter Summary ---
Author Organization [employer] Address 75 [facility] 7t [place] [address] Care Team Providers Care Register Repairer Name Role Phone Roxanne CortezP Primary Care Provider [phone] Yarelis Graves NP Primary Care Provider [phone] Reason for Visit * Reason Onset Date Comments Durable Medical Equipment 09/04/2023 Encounter Details Date Type Department Care Team (Late st Contact Info) Description 09/04/2023 Telephone [facility] MEDICINE [address] [place] [address] Roxanne Cortez FNP [address] [place] [address] Durable Medical Equipment Social History Tobacco Use [...] Description 01/27/2025 9:00 AM EDT Office Visit [facility] MEDICINE [address] [place] [address] Yarelis Graves NP [address] [place] [address] documented as of this encounter Visit Diagnoses Not on filedocumented in this encounter Additional Health Concerns Assessment Noted Time PHQ-9 Depression Total Score: 3 01/06/20 23 10:23 AM EDT documented as of this encounter Care Teams Register Repairer Relationship Specialty Start Date End Date Roxanne Cortez FNP [address] [place] [address] PCP - General Family Medicine 07/11/22 06/07/24 Yarelis Graves NP [address] [place] [address] PCP - General Family Medicine 06/08/24 documented as of this encounter
--- OUTSIDE RECORDS SUMMARY | 2025-01-05 13:37 | XMS_ITS | Encounter Summary ---
Author Organization [employer] Address 75 [facility] 7t [place] [address] Care Team Providers Care Olive Pitter Name Role Phone Yarelis Graves NP Primary Care Provider [phone] Reason for Visit * Reason Onset Date Comments Lab Orders 01/05/2025 Patient requesti ng lab order for TB TEST for work Encounter Details Date Type Department Care Team ([facility] st Contact Info) Description 01/05/2025 Telephone [facility] MEDICINE [address] [place] [address] Yarelis Graves NP [address] [place] [address] Lab Orders (Patient requesting lab order for TB TEST for work) Social History Tobacco Use Types Packs/Day Years [...] Telephone Encounter - Nat Castillo RN - 01/05/2025 12:15 PM EDT Tc to pt to let them know tspo * Telephone Encounter - Adela Ahn - 01/05/2025 12:04 PM EDT Patient requesting lab order for TB TEST for work documented in this encounter Plan of Treatment Upcoming Encounters Date Type Department Care Team (Late st Contact Info) Description 01/27/2025 9:00 AM EDT Office Visit [facility] MEDICINE [address] [place] [address] Yarelis Graves NP [address] [place] [address] Scheduled Orders Name Type Priority Associated Diagnoses Orde r Schedule T-SPOT??.TB Lab Routine Screening-pulmonary TB Expected: 01/05/2025 (Approximate), Expires: 01/05/2026 documented as of this encounter Visit Diagnoses Diagnosis Screening-pulmonary TB Screening examination for pulmonary tuberculosis documented in this encounter Additional Health Concerns Assessment Noted Time PHQ-9 Depression Total Score: 3 01/06/20 23 10:23 AM EDT documented as of this encounter Care Teams Olive Pitter Relationship Specialty Start Date End Date Yarelis Graves NP [address] [place] [address] PCP - General Family Medicine 06/08/24 documented as of this encounter
--- OUTSIDE RECORDS SUMMARY | 2025-01-05 13:37 | XMS_ITS | Encounter Summary ---
Author Organization [employer] Address 75 [facility] 7t [place] [address] Care Team Providers Care Cable Splicer Assistant Name Role Phone Roxanne Cortez PIANO ASSEMBLER Primary Care Provider [phone] Yarelis Graves NP Primary Care Provider Encounter Details Date Type Department Care Team (Late Contact Info) Description 02/10/2023 Abstract [facility] ADULT DENTAL [address] [place] [address] Ryan Carpenter DMD [address] [place] [address] Social History Tobacco Use Types Packs/Day Years [...] Upcoming Encounters Date Type Department Care Team ([facility] Contact Info) Description 01/27/2025 9:00 AM EDT Office Visit [facility] MEDICINE [address] [place] [address] Yarelis Graves NP 230 [place] [address] documented as of this encounter Visit Diagnoses Not on filedocumented in this encounter Additional Health Concerns Assessment Noted Time PHQ-9 Depression Total Score: 3 01/06/20 23 10:23 AM EDT documented as of this encounter Care Teams Cable Splicer Assistant Relationship Specialty Start Date End Date Roxanne Cortez FNP [address] [place] [address] PCP - General Family Medicine 07/11/22 06/07/24 Yarelis Graves NP [address] [place] [address] PCP - General Family Medicine 06/08/24 documented as of this encounter
--- OUTSIDE RECORDS SUMMARY | 2025-01-05 13:37 | XMS_ITS | Encounter Summary ---
Author Organization [employer] Address 75 [facility] 7t [place] [address] Care Team Providers Care Business Analyst Manager Name Role Phone Roxanne Cortez ARTS MANAGER Primary Care Provider [phone] Yarelis Graves NP Primary Care Provider [phone] Reason for Visit * Reason Onset Date Comments Appointment 04/01/2023 Encounter Details Date Type Department Care Team ([facility] st Contact Info) Description 04/01/2023 Telephone C ADULT DENTAL [address] [place] [address] Ryan Carpenter, DMD [address] [place] [address] Appointment Social History Tobacco Use Types Packs/Day [...] Description 01/27/2025 9:00 AM EDT Office Visit [facility] MEDICINE [address] [place] [address] Yarelis Graves NP [address] [place] [address] documented as of this encounter Visit Diagnoses Not on filedocumented in this encounter Additional Health Concerns Assessment Noted Time PHQ-9 Depression Total Score: 3 01/06/20 23 10:23 AM EDT documented as of this encounter Care Teams Business Analyst Manager Relationship Specialty Start Date End Date Roxanne Cortez FNP [address] [place] [address] PCP - General Family Medicine 07/11/22 06/07/24 Yarelis Graves NP [address] [place] [address] PCP - General Family Medicine 06/08/24 documented as of this encounter
--- OUTSIDE RECORDS SUMMARY | 2025-01-05 13:37 | XMS_ITS | Encounter Summary ---
Author Organization [employer] Address 75 [facility] 7 [place] [address] Care Team Providers Care Bottle Washer Name Role Phone [place] Yarelis NIRAV Primary Care Provider [phone] Reason for Referral * Imaging (Routine) - Authorized Specialty Diagnoses / Procedures Referred By Contac t Referred To Contact Radiology Diagnoses Acute right-sided low back pain without sciatica Procedures CT Lumbar Spine w/o Contrast Vasu Morales MD [address] [place] [address] Phone: tel: fax: [address] Phone: tel: fax: Referral ID Status Reason Start Date Expiration Date V isits Requested Visits Authorized [id number] Authorized 11/29/2024 11/29/2025 1 1 Encounter Details Date Type Department Care Team (Late st Contact Info) Description 11/29/2024 Orders Only [facility] MEDICINE [address] [place] [address] Vasu Morales MD [address] [place], [place] [phone] Acute right-sided low back pain without sciatica [...] Description 01/27/2025 9:00 AM EDT Office Visit [facility] MEDICINE [address] [place], [place] [phone] Yarelis Graves NP [address] [place] [address] Scheduled Orders Name Type Priority Associated Diagnoses Orde r Schedule CT Lumbar Spine w/o Contrast Imaging Routine Acute right-sided low back pain without sciatica Expected: 11/29/2024, Expires: 11/29/2025 documented as of this encounter Visit Diagnoses Diagnosis Acute right-sided low back pain without sciatica- Primary documented in this encounter Additional Health Concerns Assessment Noted Time PHQ-9 Depression Total Score: 3 01/06/20 23 10:23 AM EDT documented as of this encounter Care Teams Bottle Washer Relationship Specialty Start Date End Date Yarelis Graves NP [address] [place] [address] PCP - General Family Medicine 06/08/24 documented as of this encounter
[2025-01-08 21:33] LABS: TS Negative Control Passed; TS Panel A 0; TS Panel B 0; TS Positive Control Passed; TSpotTB Negative (Negative)
== END 2025-01-05 12:33 | disposition home or self-care (01) ==
LOC: HO.HHCL 12:32
PROVIDERS: Visit Provider Nurse Practitioner Family
DX: Z11.1 Encounter for screening for respiratory tuberculosis (principal)
CPT/HCPCS: 36415; 86481

== ENCOUNTER 2025-01-24 14:28 | Outpatient (REF) | payer MEDICAID, SELFPAY ==
[2025-01-24 16:14] LABS: MANUAL DIFF FLAG NO
[2025-01-24 16:28] LABS: Basophils Percent Auto 0.6 % (0-2); Eosinophils Absolute Auto 0.2 X10*3/uL (0.0-0.4); Eosinophils Percent Auto 3.5 % (0-4); Hematocrit 43.8 % (42.0-52.0); Hemoglobin 14.5 g/dl (14.0-18.0); Imm Gran Abs Auto 0.02 X10*3/uL (0.00-0.03); Imm Gran Pct Auto 0.3 % (0.0-0.4); Lymphocytes Absolute Auto 1.8 X10*3/uL (1.2-4.9); Lymphocytes Percent Auto 26.7 % (20-40); Mean Corpuscular HGB Conc 33.1 g/dl (31.0-36.0); Mean Corpuscular Hemoglobin 29.8 pg (27.0-33.0); Mean Corpuscular Volume 89.9 fL (80.0-98.0); Mean Platelet Volume 11.9 fL (9.4-12.4); Monocytes Absolute Auto 0.7 X10*3/uL (0.1-1.2); Monocytes Percent Auto 11.3 % (2-11); Neutrophils Absolute Auto 3.8 x10*3/uL (2.0-8.3); Neutrophils Percent Auto 57.6 % (45-73); Platelet Count 190 X10*3/uL (160-400); Red Blood Count 4.87 X10*6/uL (4.60-5.80); White Blood Count 6.6 X10*3/uL (4.8-10.8)
[2025-01-24 17:13] LABS: Anion Gap 11 (12-20); Blood Urea Nitrogen 8 mg/dL (9-16); Calcium 9.3 mg/dL (8.4-10.2); Carbon Dioxide 28 mmol/L (22-29); Chloride 106 mmol/L (96-108); Estimated Glomerular Filt Rate > 60; Glucose Random 40 mg/dL (60-115); Potassium 4.1 mmol/L (3.3-5.1); Sodium 141 mmol/L (135-145)
--- OUTSIDE RECORDS SUMMARY | 2025-01-24 17:18 | XMS_ITS | Encounter Summary ---
Author Organization [employer] Address 75 [facility] 7t [place] [address] Care Team Providers Care Commissioning Manager Name Role Phone Yarelis Graves NIRAV Primary Care Provider [phone] Reason for Referral * Consultation (Urgent) - Pending Review Specialty Diagnoses / Procedures Referred By Augustina miller Referred To Contact General Surgery Diagnoses Rectal pain Trevor Hernandez MD [address] [place] [address] Phone: tel: fax: Referral ID Status Reason Start Date Expiration Date Visits Requested Visits Authorized [id number] Pending Review Specialty Services Required 01/24/2025 01/24/2026 1 1 * Imaging (STAT) - Authorized Specialty Diagnoses / Procedures Referred By Augustina miller Referred To Contact Radiology Diagnoses Rectal pain Procedures CT Abdomen Pelvis w/ Contrast Trevor Hernandez MD [address] [place] [address] Phone: tel: fax: [address] Phone: tel: fax: Referral ID Status Reason Start Date Expiration Date V isits Requested Visits Authorized [id number] Authorized 01/24/2025 01/24/2026 1 1 Reason for Visit * Reason Comments Abdominal Pain Encounter Details Date Type Department Care Team (Late st Contact Info) Description 01/24/2025 2:00 PM EDT Office Visit [facility] WALK[facility] CENTER [address] [place] [address] Trevor Hernandez MD [address] [place] [address] Rectal pain (Primary Dx) Social History Tobacco Use Types [...] housing situation today? I have beau knight 01/17/[address] you li ve. Do you have problems with any of the following? None of the above 01/17/2025 Food Insecurity Answer Date Recorded Within the past 12 months, y ou worried that your food would run out before you got money to buy more: Never True 01/17/2025 Within the past 12 months,th e food you bought just didn't last and you didn't have enough money to get more: Never True Transportation Answer Date Recorded In the past 12 months, has l ack of transportation kept you from medical appts, meetings, work or from getting things needed for daily living? No 01/17/2025 Utilities Answer Date Recorded In the past 12 months, has t he electric, gas, oil or water company threatened to shut off services in your home? No 01/17/2025 Depression Answer Date Recorded Patient Health Questionnaire-2 Score 1 01/05/2023 Internet Access Answer Date Recorded Internet Access Q1 Yes 01/17/2025 Internet Access Q2 Not on file 01/17/2025 Sex and Gender Information Value Date Recorded Sex Assigned at Male 08/04/2022 10:16 AM EDT Legal Sex Male 10:16 AM EDT Gender Identity Male 08/04/2022 10:16 AM EDT Sexual Orientation Straight 08/04/2022 10 :16 AM EDT documented as of this encounter Last Filed Vital Signs Vital Sign Reading Time Taken Comments Blood Pressure 137/90 01/24/2025 1:39 PM EDT Pulse 69 01/24/2025 1:39 PM EDT Temperature 36.7 ??C (98 ??F) 01/24/2025 1:39 PM EDT Respiratory Rate 16 01/24/2025 1:39 PM EDT Oxygen Saturation 99% 01/24/2025 1:39 PM EDT Inhaled Oxygen Concentration - - Weight 72.5 kg (159 lb 12.8 oz) 01/24/2025 1:39 PM EDT Height - - Body Mass Index 25.03 09/26/2024 1:48 PM EST documented in this encounter Progress Notes * Trevor Lima MD - 01/24/2025 2:00 PM EDT SUBJECTIVE Mayco Carrasquillo is a 34 y.o. male who presents for Abdominal Pain. HPI Review of Systems Allergies Allergen Reactions Bupropion Other reaction(s): Increased anxiety Shellfish-Derived Products Hives Other Reaction(s): Rash/Dermatitis OBJECTIVE Vitals: 01/24/25 1339 BP: (!) 137/90 BP Location: Left arm Patient Position: Sitting BP Cuff Size: Adult Pulse: 69 Resp: 16 Temp: 98 ??F (36.7 ??C) TempSrc: Temporal SpO2: 99% Weight: 159 lb 12.8 oz (72.5 kg) Physical Exam Genitourinary: Rectum: Tenderness present. No mass or external hemorrhoid. Comments: Tenderness to rectal palpation 9:00 o'clock Assessment/Plan Problem List Items Addressed This Visit Rectal pain - Primary Patient with c/o rectal pain x 1 week, described as 10/10 when severe. Seen here at the [facility] back in[facility] after he c/o rectal bleeding and was treated with Anusol cream with good results. On today's exam patient has severe tenderness on rectal exam at around 9:00. No external hemorrhoids appreciated, no palpable mass, but digital exam was very difficult given severe rectal pain. Etiology ? Thrombosed Hemorrhoid ? Need to rule out perirectal abscess. Obtain CBC, CT of Pelvis with contrast Referral for anoscopy with colorectal surgeon In the meantime refilled his prescription for Anusol Instructed patient if symptoms worsen or do not improve to present himself to the nearest ER Relevant Medications hydrocortisone (Anusol-HC) 2.5 % rectal cream Other Relevant Orders POCT urinalysis dipstick manually resulted (Completed) CBC auto differential CT Abdomen Pelvis w/ Contrast Referral to General Surgery Basic Metabolic Panel documented in this encounter Miscellaneous Notes * Assessment & Plan Note - Trevor Lima MD - 01/24/2025 2:18 PM EDT Associated Problem(s): Rectal pain Patient with c/o rectal pain x 1 week, described as 10/10 when severe. [facility] c/o rectal bleeding and was treated with Anusol cream with good results. On today's exam patient has severe tenderness on rectal exam at around 9:00. No external hemorrhoids appreciated, no palpable mass, but digital exam was very difficult given severe rectal pain. Etiology ? Thrombosed Hemorrhoid ? Need to rule out perirectal abscess. Obtain CBC, CT of Pelvis with contrast Referral for anoscopy with colorectal surgeon In the meantime refilled his prescription for Anusol Instructed patient if symptoms worsen or do not improve to present himself to the nearest ER documented in this encounter Plan of Treatment Upcoming Encounters Date Type Department Care Team (Late st Contact Info) Description 01/27/2025 9:00 AM EDT Office Visit [facility] MEDICINE [address] [place] [address] Yarelis Graves NP [address] [place] [address] Scheduled Orders Name Type Priority Associated Diagnoses Orde r Schedule CT Abdomen Pelvis w/ Contrast Imaging STAT Rectal pain Ordered: 01/24/2025 Scheduled Referrals Name Type Priority Associated Diagnoses Orde r Schedule Referral to General Surgery Outpatient Referral Urgent Rectal pain Expected: 01/24/2025 (Approximate), Expires: 01/24/2026 documented as of this encounter Procedures Procedure Name Priority Date/Time Associated Diagnosis Comments CBC WITH AUTO DIFFERENTIAL Routine 01/24/2025 2:31 PM EDT Rectal pain BASIC METABOLIC PANEL Routine 01/24/2025 2:31 PM EDT Rectal pain POCT URINALYSIS DIPSTICK Routine 01/24/2025 2:16 PM EDT Rectal pain documented in this encounter Results * (ABNORMAL) Basic Metabolic Panel (01/24/2025 2:31 PM EDT) Sodium 141 135 - 145 mmol/L [facility] Potassium 4.1 3.3 - 5.1 mmol/L [facility] Chloride 106 96 - 108 mmol/L [facility] Carbon Dioxide 28 22 - 29 mmol/L [facility] Anion Gap 11(L) 12 - 20 [facility] Urea Nitrogen (BUN) 8(L) 9 - 16 mg/dL [facility] Creatinine, Serum 0.85 0.5 - 1.4 mg/dL [facility] Estimated Glomerular Filt Rate >60 [facility] Comment:Chronic Kidney Disea se: Estimated GFR < 60 mL/min/[id number] Kidney Disease: Estimated GFR < 15 mL/min/1.73m2 Glucose 40(LL) 60 - 115 mg/dL [facility] Comment:Critical value for t est(s): GLUR Results called to abram back by: DR. FOOTE Person calling:WHITNEY Date:01/24/2025Time:17:15. Calcium 9.3 8.4 - 10.2 mg/dL [facility] Blood Venous blood specimen / Unknown 01/24/2025 2:31 PM EDT 01/24/2025 4:05 PM EDT us Trevor Lima MD LAB BLOOD ORDERABLES Final Result [facility] [address] [place] [address] [phone] * (ABNORMAL) CBC auto differential (01/24/2025 2:31 PM EDT) White Blood Count 6.6 4.8 - 10.8 X10*3/uL [facility] Red Blood Count 4.87 4.60 - 5.80 X10*6/uL [facility] Hemoglobin 14.5 14.0 - 18.0 g/dl [facility] Hematocrit 43.8 42.0 - 52.0 % [facility] Mean Corpuscular Volume 89.9 80.0 - 98.0 fL [facility] Mean Corpuscular Hemoglobin 29.8 27.0 - 33.0 pg [facility] Mean Corpuscular HGB Conc 33.1 31.0 - 36.0 g/dl [facility] Red Cell Distribution Width 13.0 11.0 - 16.0 % [facility] Platelet Count 190 160 - 400 X10*3/uL [facility] Mean Platelet Volume 11.9 9.4 - 12.4 fL [facility] Neutrophils Percent Auto 57.6 45 - 73 % [facility] Imm Gran Pct Auto 0.3 0.0 - 0.4 % [facility] Lymphocytes Percent Auto 26.7 20 - 40 % [facility] Monocytes Percent Auto 11.3(H) 2 - 11 % [facility] Eosinophils Percent Auto 3.5 0 - 4 % [facility] Basophils Percent Auto 0.6 0 - 2 % [facility] NRBC Pct Auto 0.0 0.0 - 0.2 /100WBC [facility] Neutrophils Absolute Auto 3.8 2.0 - 8.3 x10*3/uL [facility] Imm Gran Abs Auto 0.02 0.00 - 0.03 X10*3/uL [facility] Lymphocytes Absolute Auto 1.8 1.2 - 4.9 X10*3/uL [facility] Monocytes Absolute Auto 0.7 0.1 - 1.2 X10*3/uL [facility] Eosinophils Absolute Auto 0.2 0.0 - 0.4 X10*3/uL [facility] Basophils Absolute Auto 0.0 0.0 - 0.2 X10*3/uL [facility] NRBC Abs Auto 0.000 0.0 - 0.012 X10*3/uL [facility] Blood Venous blood specimen / Unknown 01/24/2025 2:31 PM EDT 01/24/2025 4:12 PM EDT Trevor Lima MD LAB BLOOD ORDERABLES Final Result [facility] [address] [place] [phone] * (ABNORMAL) POCT urinalysis dipstick manually resulted (01/24/2025 2:16 PM EDT) Color, UA Yellow Clarity, UA Clear Glucose, UA Negative Bilirubin, UA Negative Ketones, UA Negative Spec Grav, UA 1.010 Blood, UA Positive(A) Negative, None Detected Comment:Trace-intact pH, UA 7.0 Protein, UA Negative Urobilinogen, UA 0.2 Leukocytes, UA Trace Negative, Rare, Trace Nitrite, UA Negative Negative, None Detected Urine 01/24/2025 2:16 PM EDT Trevor Lima MD POINT OF CARE TEST EN TER/EDIT ORDERABLES Final Result documented in this encounter Visit Diagnoses Diagnosis Rectal pain- Primary Anal or rectal pain documented in this encounter Additional Health Concerns Assessment Noted Time PHQ-9 Depression Total Score: 3 01/06/20 23 10:23 AM EDT documented as of this encounter Care Teams Commissioning Manager Relationship Specialty Start Date End Date Yarelis Graves NP [address] [place] [phone] PCP - General Family Medicine 06/08/24 documented as of this encounter
--- OUTSIDE RECORDS SUMMARY | 2025-01-24 17:19 | XMS_ITS | Encounter Summary ---
Author Organization [employer] Address [address] [facility] 7 [place] [address] Care Team Providers Care General Scrap Worker Name Role Phone Suzy Gravesily NIRAV Primary Care Provider [phone] Reason for Referral * Imaging (Routine) - Closed Specialty Diagnoses / Procedures Referred By Contac t Referred To Contact Radiology Diagnoses Acute right-sided low back pain without sciatica Procedures CT Lumbar Spine w/o Contrast Vasu Morales MD [address] [place] [address] Phone: tel: fax: [address] Phone: tel: fax: Referral ID Status Reason Start Date Expiration Date Visits Re quested Visits Authorized [id number] Closed 11/29/2024 11/29/2025 1 1 Encounter Details Date Type Department Care Team (Late st Contact Info) Description 11/29/2024 Orders Only [facility] MEDICINE [address] [place] [address] Vasu Morales MD [address] [place], [place] [id number] Acute right-sided low back pain without sciatica [...] 01/27/2025 9:00 AM EDT Office Visit [facility] MEDICINE [address] [place], [place] [phone] Yarelis Graves NP [address] [place] [address] Scheduled Orders Name Type Priority Associated Diagnoses [...] documented as of this encounter Care Teams General Scrap Worker Relationship Specialty Start Date End Date Yarelis Graves NP [address] [place] [address] PCP - General Family Medicine 06/08/24 documented as of this encounter
--- OUTSIDE RECORDS SUMMARY | 2025-01-24 17:19 | XMS_ITS | Encounter Summary ---
Author Organization [employer] Address [address] [facility] 7t [place] [address] Care Team Providers Care Radiographer Cardiac Catheterization Name Role Phone Roxanne Cortez REHABILITATION ATTENDANT Primary Care Provider [phone] Yarelis Graves NP Primary Care Provider [phone] Encounter Details Date Type Department Care Team (Late Contact Info) Description 02/10/2023 Abstract [facility] ADULT DENTAL [address] [place] [address] Ryan Carpenter DMD [address] [place] [address] Social History Tobacco Use Types Packs/Day Years [...] Upcoming Encounters Date Type Department Care Team ([facility] Contact Info) Description 01/27/2025 9:00 AM EDT Office Visit [facility] MEDICINE [address] [place] [address] Yarelis Graves NP [address] [place] [address] documented as of this encounter Visit Diagnoses Not on filedocumented in this encounter Additional Health Concerns Assessment Noted Time PHQ-9 Depression Total Score: 3 01/06/20 23 10:23 AM EDT documented as of this encounter Care Teams Radiographer Cardiac Catheterization Relationship Specialty Start Date End Date Roxanne Cortez FNP [address] [place] [address] PCP - General Family Medicine 07/11/22 06/07/24 Yarelis Graves NP [address] [place] [address] PCP - General Family Medicine 06/08/24 documented as of this encounter
--- OUTSIDE RECORDS SUMMARY | 2025-01-24 17:19 | XMS_ITS | Encounter Summary ---
Author Organization [employer] Address [address] [facility] 7t [place] [address] Care Team Providers Care Truck Unloader Name Role Phone Yarelis Graves NIRAV Primary Care Provider [phone] Encounter Details Date Type Department Care Team (Latest Contact Info) Description 01/24/2025 Travel Social History Tobacco Use Types Packs/Day Years [...] Description 01/27/2025 9:00 AM EDT Office Visit [facility] MEDICINE [address] [place] [address] Yarelis Graves NP [address] [place] [address] documented as of this encounter Visit Diagnoses Not on filedocumented in this encounter Additional Health Concerns Assessment Noted Time PHQ-9 Depression Total Score: 3 01/06/20 23 10:23 AM EDT documented as of this encounter Care Teams Truck Unloader Relationship Specialty Start Date End Date Yarelis Graves NP [address] [place] [address] PCP - General Family Medicine 06/08/24 documented as of this encounter
--- OUTSIDE RECORDS SUMMARY | 2025-01-24 17:19 | XMS_ITS | Encounter Summary ---
Author Organization [employer] Address [address] [facility] 7t [place] [address] Care Team Providers Care Street Vendor Name Role Phone Roxanne Cortez RELAY REPAIRER Primary Care Provider [phone] Yarelis Graves NP Primary Care Provider [phone] Reason for Visit * Reason Onset Date Comments Appointment 04/01/2023 Encounter Details Date Type Department Care Team ([facility] st Contact Info) Description 04/01/2023 Telephone C ADULT DENTAL [address] [place] [address] Ryan Carpenter, DMD [address] [place] [address] Appointment Social History Tobacco Use Types Packs/Day [...] Description 01/27/2025 9:00 AM EDT Office Visit [facility] MEDICINE [address] [place] [address] Yarelis Graves NP [address] [place] [address] documented as of this encounter Visit Diagnoses Not on filedocumented in this encounter Additional Health Concerns Assessment Noted Time PHQ-9 Depression Total Score: 3 01/06/20 23 10:23 AM EDT documented as of this encounter Care Teams Street Vendor Relationship Specialty Start Date End Date Roxanne Cortez FNP [address] [place] [address] PCP - General Family Medicine 07/11/22 06/07/24 Yarelis Graves NP [address] [place] [address] PCP - General Family Medicine 06/08/24 documented as of this encounter
--- OUTSIDE RECORDS SUMMARY | 2025-01-24 17:19 | XMS_ITS | Encounter Summary ---
Author Organization [employer] Address [address] [facility] [address] 7[address] [place] [address] Care Team Providers Care Rattan Worker Name Role Phone Roxanne Cortez WARP YARN SORTER Primary Care Provider [phone] Yarelis Graves NP Primary Care Provider [phone] Encounter Details Date Type Department Care Team (Late st Contact Info) Description 03/03/2023 Abstract [facility] ADULT DENTAL [address] [place] [address] Ryan Carpenter DMD [address] [place] [address] Social History Tobacco Use Types Packs/Day Years [...] Office Visit [facility] MEDICINE [address] [place] [address] Yarelis Graves NP [address] [place] [address] documented as of this encounter Visit Diagnoses Not on filedocumented in this encounter Additional Health Concerns Assessment Noted Time PHQ-9 Depression Total Score: 3 01/06/20 23 10:23 AM EDT documented as of this encounter Care Teams Rattan Worker Relationship Specialty Start Date End Date Roxanne Cortez FNP [address] [place] [address] PCP - General Family Medicine 07/11/22 06/07/24 Yarelis Graves NP [address] [place] [address] PCP - General Family Medicine 06/08/24 documented as of this encounter
--- OUTSIDE RECORDS SUMMARY | 2025-01-24 17:19 | XMS_ITS | Encounter Summary ---
Author Organization [employer] Address [address] [facility] 7t [place] [address] Care Team Providers Care Yarn Worker Name Role Phone Roxanne CortezP Primary Care Provider [phone] Yarelis Graves NP Primary Care Provider [phone] Reason for Visit * Reason Onset Date Comments Durable Medical Equipment 09/04/2023 Encounter Details Date Type Department Care Team (Late st Contact Info) Description 09/04/2023 Telephone [facility] MEDICINE [address] [place] [address] Roxanne Cortez FNP [address] [place] [address] Durable Medical Equipment Social History Tobacco Use [...] 9:00 AM EDT Office Visit [facility] MEDICINE [address] [place] [address] Yarelis Graves NP [address] [place] [address] documented as of this encounter Visit Diagnoses Not on filedocumented in this encounter Additional Health Concerns Assessment Noted Time PHQ-9 Depression Total Score: 3 01/06/20 23 10:23 AM EDT documented as of this encounter Care Teams Yarn Worker Relationship Specialty Start Date End Date Roxanne Cortez FNP [address] [place] [address] PCP - General Family Medicine 07/11/22 06/07/24 Yarelis Graves NP [address] [place] [address] PCP - General Family Medicine 06/08/24 documented as of this encounter
--- OUTSIDE RECORDS SUMMARY | 2025-01-24 17:19 | XMS_ITS | Encounter Summary ---
Author Organization [employer] Address [address] [facility] 7t [place] [address] Care Team Providers Care Access Rep Name Role Phone Yarelis Graves NIRAV Primary Care Provider [phone] Encounter Details Date Type Department Care Team (Late st Contact Info) Description 11/08/2024 Orders Only [facility] CHC MED & PEDS [address] [place], [place] [phone] Vasu Morales MD [address] [place] [address] Acute right-sided low back pain without sciatica [...] 9:00 AM EDT Office Visit [facility] MEDICINE [address] [place] [address] Yarelis Graves NP [address] [place] [address] documented as of this encounter Visit Diagnoses Diagnosis Acute right-sided low back pain without sciatica- Primary documented in this encounter Additional Health Concerns Assessment Noted Time PHQ-9 Depression Total Score: 3 01/06/20 23 10:23 AM EDT documented as of this encounter Care Teams Access Rep Relationship Specialty Start Date End Date Yarelis Graves NP [address] [place] [address] PCP - General Family Medicine 06/08/24 documented as of this encounter
--- OUTSIDE RECORDS SUMMARY | 2025-01-24 17:19 | XMS_ITS | Clinical Summary ---
Author Organization [employer] Address [address] [facility] 7t [place] [address] Care Team Providers Care Receptionist Airline Lounge Name Role Phone Yarelis Graves NIRAV Primary Care Provider [phone] Allergies Active Allergy Reactions Criticality Noted Date [...] Units 4 03/01/20 25 Active sodium chloride ([place] Nasal [place]) 0.65 % nasal spray Administer 1 spray [...] 18 g 1 5 11/23/19 26 Active hydrocortisone (Anusol-HC) 2.5 % rectal creamIndication s:Rectal pain Insert into the rectum 2 times daily. 28 g 5 Active Active Problems Problem Noted Date Diagnosed Date Rectal pain 01/24/2025 Assessment & Plan (01/24/2025 2:40 PM EDT): Patient with c/o rectal pain x 1 week, described as 10/10 when severe. 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 ) 01/12/2025 Telephone [facility] [address] [place] [phone] Keyonna Antunez MA Chart Prep 01/05/[address] [address] Yarelis Graves NP Lab Orders (Patient requesting lab order for TB TEST for work) 12/16/2024 Population Health Risk Score [facility] () Department [address] [place] [phone] Provider, Population Health Generic 11/29/2024 Orders Only [facility] [address] [place] [phone] Vasu Morales MD Acute right-sided low back pain without sciatica (Primary Dx) 11/29/2024 Telephone [facility] Information Management [address] [place] [address] [phone] [address] orders 11/27/2024 Orders Only GENERIC EXTERNAL DATA DEPARTMENT Provider, Generic External Data 11/23/2024 5:40 PM EST Office Visit [facility] [address] [place] [address] Airam Shane MD Sprain of anterior shoulder joint (Primary Dx); Contusion of left chest wall, subsequent encounter 11/23/2024 Telephone [facility] [address] [place] [address] Yarelis Graves, NIRAV Nurse Triage 11/22/2024 [facility] Information Management [address] [place] [address] [phone] [address] pelvis order 11/18/[address] [address] Nat Castillo, CHELSI 11/15/2024 Orders Only GENERIC EXTERNAL DATA DEPARTMENT Provider, Generic External Data 11/10/2024 Telephone [facility] PEDS [address] [place] [address] Coni Sorensen, CHELSI Results 11/08/2024 Orders Only [facility] [address] [place] [address] Vasu Morales MD Acute right-sided low back pain without sciatica (Primary Dx) 11/07/2024 5:40 PM EST Office Visit [facility] [address] [place] [address] Vasu Morales MD Acute right-sided low back pain without sciatica (Primary Dx); Right wrist pain; Contusion of soft tissue; H/O insomnia from Last 3 Months Immunizations Name Administration [...] your housing situation today? I have beau sing 01/17/[address] you li [...] 12.8 oz) 01/24/2025 1:39 PM EDT Height 170.2 cm (5' 7 ) 09/26/2024 1:48 PM EST Body Mass Index 25.03 09/26/2024 1:48 PM EST Plan of Treatment Upcoming Encounters Date Type Department Care Team (Late st Contact Info) Description 01/27/2025 9:00 AM EDT Office Visit [facility] [address] [place] [address] Yarelis Graves, NIRAV [address] [place] [address] Health Maintenance Due Date Last Done Comments Dental Oral Exam 1991 Dental Prophylaxis 1991 Dental X-Ray: Full Mouth 1991 Alcohol/Substance Use Screening 2003 Family Planning (PISQ) 2006 Pneumococcal Vaccine: Pediatrics (0 to 5 Years) and At-Risk Patients (6 to 49) Years) (2 of 2 - PCV) 11/28/2016 11/28/2015 Depression Screening 01/06/2024 01/05/2023, 01/06/20 Dental X-Ray: Bitewings 01/07/2024 01/05/2023 COVID-19 Vaccine ( season) 2024 10/15/2021, 11/30/2020, 11/09/2020 Influenza Vaccine (#1) 2024 3, 12/08/2022, 12/08/2021, Additional history exists Tobacco Screening 11/07/2025 11/07/2024 SDOH Screening 01/17/2026 01/17/2025 DTaP/Tdap/Td Vaccines (3 - Td or Tdap) [...] Routine 01/24/2025 2:16 PM EDT Rectal pain T-SPOT(R).TB Routine 01/05/2025 12:33 PM EDT Screening-pulmonar y TB CT HEAD WO CONTRAST Routine 11/27/2024 6 [...] Acute right-sided low back pain without sciatica BITEWING - SINGLE RADIOGRAPHIC IMAGE Routine 01/05/2023 11:30 AM EDT ZZZ HISTORICAL HEPATITIS C AB W/REFL TO HCV RNA, QN, PCR Routine 12/17/2021 2:10 PM EDT HIV 1/2 ANTIGEN/ANTIBODY, FOURTH GENERATION W/RFL Routine 12/17/2021 2:10 PM EDT from Last 3 Months or Most Recently Relevant to Health Maintenance Results * (ABNORMAL) CBC auto differential (01/24/2025 2:31 PM EDT) Only the most recent of2 resultswithin the time period is included. White Blood Count 6.6 4.8 - 10.8 X10*3/uL [facility] Red Blood Count 4.87 4.60 - 5.80 X10*6/uL [facility] Hemoglobin 14.5 14.0 - 18.0 g/dl [facility] Hematocrit 43.8 42.0 - 52.0 % [facility] Mean Corpuscular Volume 89.9 80.0 - 98.0 fL [facility] Mean Corpuscular Hemoglobin 29.8 27.0 - 33.0 pg [facility] Mean Corpuscular HGB Conc 33.1 31.0 - 36.0 g/dl [facility] Red Cell Distribution Width 13.0 11.0 - 16.0 % [facility] Platelet Count 190 160 - 400 X10*3/uL [facility] Mean Platelet Volume 11.9 9.4 - 12.4 fL [facility] Neutrophils Percent Auto 57.6 45 - 73 % [facility] Imm Gran Pct Auto 0.3 0.0 - 0.4 % [facility] Lymphocytes Percent Auto 26.7 20 - 40 % [facility] Monocytes Percent Auto 11.3(H) 2 - 11 % [facility] Eosinophils Percent Auto 3.5 0 - 4 % [facility] Basophils Percent Auto 0.6 0 - 2 % [facility] NRBC Pct Auto 0.0 0.0 - 0.2 /100WBC [facility] Neutrophils Absolute Auto 3.8 2.0 - 8.3 x10*3/uL [facility] Imm Gran Abs Auto 0.02 0.00 - 0.03 X10*3/uL [facility] Lymphocytes Absolute Auto 1.8 1.2 - 4.9 X10*3/uL [facility] Monocytes Absolute Auto 0.7 0.1 - 1.2 X10*3/uL [facility] Eosinophils Absolute Auto 0.2 0.0 - 0.4 X10*3/uL [facility] Basophils Absolute Auto 0.0 0.0 - 0.2 X10*3/uL [facility] NRBC Abs Auto 0.000 0.0 - 0.012 X10*3/uL [facility] Blood Venous blood specimen / Unknown 01/24/2025 2:31 PM EDT 01/24/2025 4:12 PM EDT us Trevor Lima MD LAB BLOOD ORDERABLES Final Result [facility] [address] [place] [address] [phone] * (ABNORMAL) Basic Metabolic Panel (01/24/2025 2:31 PM EDT) Sodium 141 135 - 145 mmol/L [facility] Potassium 4.1 3.3 - 5.1 mmol/L [facility] Chloride 106 96 - 108 mmol/L [facility] Carbon Dioxide 28 22 - 29 mmol/L [facility] Anion Gap 11(L) 12 - 20 [facility] Urea Nitrogen (BUN) 8(L) 9 - 16 mg/dL [facility] Creatinine, Serum 0.85 0.5 - 1.4 mg/dL [facility] Estimated Glomerular Filt Rate >60 [facility] Comment:Chronic Kidney Disea se: Estimated GFR < 60 mL/min/1.06y6Gebtvc Kidney Disease: Estimated GFR < 15 mL/min/1.73m2 Glucose 40(LL) 60 - 115 mg/dL [facility] Comment:Critical value for t est(s): GLUR Results called to abram back by: DR. FOOTE Person calling:ALKASAB Date:01/24/2025Time:17:15. Calcium 9.3 8.4 - 10.2 mg/dL [facility] Blood Venous blood specimen / Unknown 01/24/2025 2:31 PM EDT 01/24/2025 4:05 PM EDT us Trevor Lima MD LAB BLOOD ORDERABLES Final Result [facility] [address] [place] [phone] * (ABNORMAL) POCT urinalysis dipstick manually [...] None Detected Urine 01/24/2025 2:16 PM EDT us Trevor Lima MD POINT OF CARE TEST EN TER/EDIT ORDERABLES Final Result * T-SPOT??.TB (01/05/2025 12:33 PM EDT) T Spot TB Negative Negative [facility] Comment:A negative test resu lt does not exclude the possibilityof exposure to or infection with Mycobacteriumtuberculosis (M. tuberculosis). Patients with recentexposure to TB infected individuals exhibiting anegative T-SPOT.TB result should be considered forretesting within 6 weeks or if other relevant clinicalsymptoms indicate. Results from T-SPOT.TB testing mustbe used in conjunction with each individual'sepidemiological history, current medical status,and results of other diagnostic evaluations.The T-SPOT.TB test is qualitative and results arereported as positive, borderline, or negative, giventhat the test controls perform as expected. In linewith the Centers for Disease Control and Prevention's2010 recommendation to report quantitative measurementsalongside the qualitative result, the laboratoryprovides spot counts for informational purposes only.The T-SPOT.TB test should not be interpreted as aquantitative test. TS PANEL A 0 [facility] TS PANEL B 0 [facility] Negative Control Passed [facility] Positive Control Passed [facility] Comment:For additional infor jorje, please refer tohttp://education.User Replay/faq/HSL132(This link is being provided for informational/educational purposes only.)THIS TEST WAS PERFORMED AT:[employer] [id number] [place] [address]JXRDDZQKRISTY GAUTAM MD,PHD 01/05/2025 12:3 3 PM EDT 01/05/2025 1:26 PM EDT us Yarelis Graves BRICK POINTER LAB BLOOD ORDERABLES Final Resul t [facility] [address] [place] [address] [phone] * CT Head w/o Contrast (11/27/2024 6:04 PM EST) Anatomical Region Laterality Modality Head, Neck Computed Tomogra phy 11/27/2024 6:04 PM EST Narrative 11/27/2024 6:06 PM EST ? [facility] ?[address] [facility] [address] ?[place] [address] ? CT Scan Report ? Signed ? Patient: Foreign Schwartz,Mayco L ?MR#: ?? [id number] ? : 1990 ?Acct:[id number] ? Age/Sex: 34 / M ?ADM Date: 02/23/25 ? Loc: HO.ED ? Attending Dr: ? Ordering Physician: Barcome,Emily M. BUSINESS MANAGEMENT PROFESSOR ?? Date of Service: 11/27/24 ?? Procedure(s): CT head/brain wo IV con ?? Accession Number(s): [id number] ? cc: Emily Delgado CNP; [facility] ? Report Number: ?? [id number]: Total DLP = ??708.00 mGy-cm ? CLINICAL HISTORY: sudden severe R posterior H A ? CT head without contrast ? Comparison: CT/REG/ID/SR - CT HEAD/BRAIN WO IV CON - [...] by Snehal Hudson MD in OV> ? 11/27/24 1805 ? DD/ 1804 ? TD/TT: 11/27/24 1804 ? Waste Management Specialist: ? Procedure Note Donaraceliinterpreter, Image - 11/27/[address] [place] [address] [address] Scan Report Signed Patient: Mayco Sparrow LMR#: [id number] : 1990Acct:[id number] Age/Sex: 34 / MADM Date: 11/27/24 Loc: HO.ED Attending Dr: Ordering Physician: Emily Delgado CNP Date of Service: 11/27/24 Procedure(s): CT head/brain wo IV con Accession Number(s): [id number] cc: Emily Delgado CNP; [facility] Report Number: [id number]: Total DLP = 708.00 mGy-cm CLINICAL HISTORY: sudden severe R posterior H A CT head without contrast Comparison: CT/REG/ID/SR - CT HEAD/BRAIN WO IV CON - [...] in OV> 11/27/241804 DD/ 03 TD/TT: 11/27/241803 Waste Management Specialist: [facility] External Provider IMG CT PROCEDURES Edited Result - Final * SARS-CoV-2 RNA, Influenza A/B, and RSV RNA, Ql NAAT (11/27/2024 2:35 PM EST) Influenza A PCR NEGATIVE Negative [facility] Influenza B PCR NEGATIVE Negative [facility] Resp Syncy Virus RNA Qual PCR NEGATIVE Negative [facility] SARS COV2 PCR NEGATIVE Negative [facility] Comment:All test results mus t [...] use by authorized laboratories.Testing performed on the [employer] GeneXpert utilizingreal-time RT-PCR.All SARS CoV2 and positive influenza A/B results arereported to [facility]. 11/27/2024 2:35 PM EST 11/27/2024 2:37 PM EST us Generic External Data Provider LAB MICROBIOLOGY - GENERAL ORDERABLES Final Result [facility] [address] [place] [address] [phone] * (ABNORMAL) Comprehensive Metabolic Panel (11/27/2024 2:35 PM EST) Sodium 141 135 - 145 mmol/L [facility] Potassium 3.9 3.3 - 5.1 mmol/L [facility] Chloride 107 96 - 108 mmol/L [facility] Carbon Dioxide 25 22 - 29 mmol/L [facility] Anion Gap 13 12 - 20 [facility] Urea Nitrogen (BUN) 9 9 - 16 mg/dL [facility] Creatinine, Serum 1.03 0.5 - 1.4 mg/dL [facility] Creatinine Clr Calc Pharmacy 95.3 [facility] Comment:eGFR (calculated fro m the MDRD study equation) and eCrCl(calculated from the Cockcroft-Gault equation) are based ondifferent parameters and may not yield comparable results.If eCrCl result is absurd, please check patient'sheight/weight. Estimated Glomerular Filt Rate >60 [facility] Comment:Chronic Kidney Disea se: Estimated GFR < 60 mL/min/1.24p3Nuggzq Kidney Disease: Estimated GFR < 15 mL/min/1.73m2 Glucose 71 60 - 115 mg/dL [facility] Calcium 9.4 8.4 - 10.2 mg/dL [facility] Bilirubin, Total 0.7 0.0 - 1.0 mg/dL [facility] Aspartate Amino Transferase 29 5 - 37 U/L [facility] Alanine Aminotransferase 44(H) 0 - 40 U/L [facility] Total Protein 7.9 6.5 - 8.0 g/dL [facility] Albumin Level 4.8 3.5 - 5.0 g/dL [facility] Alkaline Phosphatase 68 39 - 117 U/L [facility] 11/27/2024 2:35 PM EST 11/27/2024 2:37 PM EST us Generic External Data Provider LAB BLOOD ORDERAB LES Final Result [facility] [address] [place] [address] [phone] * D Dimer High Sensitivity (11/15/2024 7:46 AM EST) D Dimer High Sensitivity <150 NG/ML [facility] Comment:D-DIMER HS REFERENCE RANGENote: Our [...] Provider LAB BLOOD ORDERAB LES Final Result [facility] [address] [place] [address] [phone] * XR Hand 3+ Views Right (11/08/2024 2:22 PM EST) Anatomical Region Laterality Modality Upper Extremities, Hand Right Radiogra phic Imaging 11/08/2024 2:22 PM EST Narrative 11/08/2024 3:58 PM EST ?[facility] ?[address] ?[place] [address] ?XRay Report ? Signed ? Patient: Mayco Sparrow ?MR#: ?? [id number] ? : 1990 ?Acct:[id number] ? Age/Sex: 34 / M ?ADM Date: 11/08/24 ? Loc: HO.HHCX ? Attending Dr: Vasu Morales MD ? Ordering Physician: Vasu Morales MD ?? Date of Service: 11/08/24 ?? Procedure(s): XR hand RT min 3V ?? Accession Number(s): [id number] ? cc: Vasu Morales MD ? EXAMINATION: [...] signed by Sriram Harvey MD in OV> ?11/08/241554 ? DD/ 1422 ? TD/TT: 11/08/24 1430 ? Waste Management Specialist: ? Procedure Note Donjamia, Image - 11/08/[address] [address] XRay Report Signed Patient: Mayco Sparrow LMR#: [id number] : 1990Acct:[id number] Age/Sex: 34 / MADM Date: 11/08/24 Loc: HO.HHCX Attending Dr: Vasu Morales MD Ordering Physician: Vasu Morales MD Date of Service: 11/08/24 Procedure(s): XR hand RT min 3V Accession Number(s): [id number] cc: Vasu Morales MD EXAMINATION: XR HAND, [...] Sriram Harvey MD 11/08/2024 03:55 PM EST Dictated By: Sriram Harvey MD Signed By: <Electronically signed by Sriram Harvey MD in OV> 11/08/24 1555 DD/ 1422 TD/TT: 11/08/24 1430 Waste Management Specialist: us Vasu Morales MD IMG XR PROCEDURES Final Res ult * XR Lumbar Spine 2-3 Views (11/08/2024 2:22 PM EST) Anatomical Region Laterality Modality Spine, L-spine Radiographic Roxane ging 11/08/2024 2:22 PM EST Narrative 11/08/2024 4:05 PM EST ?[facility] ?[address] ?[place] [address] ?XRay Report ? Signed ? Patient: Mayco Sparrow ?MR#: ?? [id number] ? : 1990 ?Acct:[id number] ? Age/Sex: 34 / M ?ADM Date: 11/08/24 ? Loc: HO.HHCX ? Attending Dr: Vasu Morales MD ? Ordering Physician: Vasu Morales MD ?? Date of Service: 11/08/24 ?? Procedure(s): XR lumbar spine 2-3V ?? Accession Number(s): [id number] ? cc: Vasu Morales MD ? EXAMINATION: [...] 04:03 PM EST RP ? Dictated By: ?Sintia,Ángel Holt MD ? Signed By: ?<Electronically signed by Ángel Patricio MD in OV> ?11/08/24 1603 ? DD/ 1422 ? TD/TT: 11/08/24 1430 ? Waste Management Specialist: MSM ? Procedure Note Donotsylvesterinterpreter, Image - 11/08/[address] [address] XRay Report Signed Patient: Mayco Sparrow LMR#: [id number] : 1990Acct:[id number] Age/Sex: 34 / MADM Date: 11/08/24 Loc: HO.HHCX Attending Dr: Vasu Morales MD Ordering Physician: Vasu Morales MD Date of Service: 11/08/24 Procedure(s): XR lumbar spine 2-3V Accession Number(s): [id number] cc: Vasu Morales MD EXAMINATION: XR LUMBOSACRAL [...] 11/08/24 1603 DD/ 1422 TD/TT: 11/08/24 1430 Waste Management Specialist: INOCENCIO us Vasu Morales MD IMG XR PROCEDURES Final Res ult * HEPATITIS C AB W/REFL TO HCV RNA, QN, PCR (12/17/2021 2:10 PM EDT) HEPATITIS C ANTIBODY NON-REACT BEST NON-REACT BEST [facility] INDEX 0.01 <1.00 [facility] Comment: ?? HCV antibody was non-reactive. There is no laboratory ?? evidence of HCV infection. ?? In most cases, no further action is required. However, if recent HCV exposure is suspected, a test for HCV RNA (test code 84418) is suggested. ?? For additional information please refer to http://UBmatrix.User Replay/faq/NAY80e7 (This link is being provided for informational/ educational purposes only.) ?? 12/17/2021 2:10 PM EDT us David Don MD HISTORICAL/NON ORDERABLE LABS Fi nal Result [facility] [address] * HIV 1/2 ANTIGEN/ANTIBODY,FOURTH GENERATION W/RFL (12/17/2021 2:10 PM EDT) HIV-1/2 ANTIGEN AND ANTIBODIES, 4TH GENERATION W/ REFLEX NON-REACT BEST NON-REACT BEST [facility] Comment: HIV-1 antigen and HIV-1/HIV-2 [...] ? For additional information please refer to http://UBmatrix.User Replay/faq/XNU598 (This link is being provided for informational/ educational purposes only.) ? The performance of this assay has not been clinically validated in patients less than 2 years old. ?? 12/17/2021 2:10 PM EDT us David Don MD LAB BLOOD ORDERABLES Final Resul t [facility] [address] from Last 3 Months or Most Recently Relevant to Health Maintenance Insurance [facility]ICA[facility] STAND ADULT * Guarantor: Mayco Carrasquillo Account Type Relation to Patient Date of Phone Billing Address Personal/Family Self [address] [phone] Care Teams Receptionist Airline Lounge Relationship Specialty Start Date End Date Yarelis Graves NP [address] [place] [address] PCP - General Family Medicine 06/08/24
== END 2025-01-24 14:29 | disposition home or self-care (01) ==
LOC: HO.HHCL 14:28
PROVIDERS: Visit Provider Internal Medicine
DX: K62.89 Other specified diseases of anus and rectum (principal)
CPT/HCPCS: 36415; 80048; 85025

== ENCOUNTER 2025-01-27 07:12 | Outpatient (REF) | payer MEDICAID, SELFPAY ==
--- NOTE | ~2025-01-27 | CT_ITS ---
EXAMINATION: CT ABDOMEN PELVIS WITH IV CONTRAST HISTORY: severe 10/10 rectal pain, rule out perirectal abscess COMPARISON: Comparison is made with the prior examination dated 07/11/2023. TECHNIQUE: CT scan of the abdomen and pelvis was performed following administration of 85 mL Omnipaque 350 using standard departmental protocol. Coronal and sagittal reformatted images were generated and reviewed. The patient received oral contrast material. This CT exam was performed with one or more of the following dose reduction techniques: automated exposure control, adjustment of the mA and/or kV according to patient size, use of iterative reconstruction technique. DLP: 274 mGy-cm FINDINGS: LOWER CHEST: The visualized lung bases are clear. There is no pleural effusion. CARDIOVASCULATURE: The heart is normal in size. There is no pericardial effusion. LIVER: The liver is normal in size and contour. No liver mass is identified. The hepatic and portal veins are patent. GALLBLADDER / BILE DUCTS: The gallbladder is unremarkable. There is no intra or extrahepatic biliary ductal dilatation. SPLEEN: The spleen is normal in size. No focal splenic lesion is identified. PANCREAS: The pancreas is unremarkable in appearance. ADRENAL GLANDS: Within normal limits. KIDNEYS/RETROPERITONEUM: No renal calculi are identified. There is no hydronephrosis. There are subcentimeter hypodensities in the left kidney which likely represent cysts. These are unchanged from the prior study. LYMPH NODES: No abdominal or pelvic lymphadenopathy. VASCULATURE: The abdominal aorta is normal in caliber. MESENTERY/PERITONEUM: No free fluid. No masses. There is no free intraperitoneal gas. STOMACH: The stomach is collapsed, limiting evaluation. SMALL BOWEL: The small bowel is normal in caliber. COLON: The colon is unremarkable. No perirectal fluid collection is identified. The perirectal fat is preserved. APPENDIX: Normal. URINARY BLADDER/PELVIC ORGANS: The urinary bladder is unremarkable. The prostate is normal in size. BONES / SOFT TISSUES: No suspicious bony or soft tissue abnormalities. CT/CT abdomen pelvis w IV con IMPRESSION: Tiny left renal cysts. Otherwise unremarkable contrast-enhanced CT of the abdomen and pelvis. No perirectal fluid collection is seen. Electronically signed by: James Ball MD 01/27/2025 09:52 AM EDT RP
--- OUTSIDE RECORDS SUMMARY | 2025-01-27 07:15 | XMS_ITS | Encounter Summary ---
Author Organization [employer] Address [address] [facility] [address] [place] [address] Care Team Providers Care Superintendent Horticulture Name Role Phone Roxanne CortezP Primary Care Provider [phone] Yarelis Graves NP Primary Care Provider [phone] Reason for Visit * Reason Onset Date Comments Durable Medical Equipment 09/04/2023 Encounter Details Date Type Department Care Team (Late st Contact Info) Description 09/04/2023 Telephone [facility] MEDICINE [address] [place] [address] Roxanne Cortez FNP [address] [place] [address] Durable Medical Equipment Social History Tobacco Use [...] Description 01/27/2025 9:00 AM EDT Office Visit [facility] MEDICINE [address] [place] [address] Yarelis Graves NP [address] [place] [address] documented as of this encounter Visit Diagnoses Not on filedocumented in this encounter Additional Health Concerns Assessment Noted Time PHQ-9 Depression Total Score: 3 01/06/20 23 10:23 AM EDT documented as of this encounter Care Teams Superintendent Horticulture Relationship Specialty Start Date End Date Roxanne Cortez FNP [address] [place] [address] PCP - General Family Medicine 07/11/22 06/07/24 Yarelis Graves NP [address] [place] [address] PCP - General Family Medicine 06/08/24 documented as of this encounter
--- OUTSIDE RECORDS SUMMARY | 2025-01-27 07:15 | XMS_ITS | Encounter Summary ---
Author Organization [employer] Address [address] [facility] 7t [place] [address] Care Team Providers Care Psychologist Chief Name Role Phone Roxanne Cortez INSPECTOR [employer]ITE Primary Care Provider [phone] Yarelis Graves NP Primary Care Provider [phone] Encounter Details Date Type Department Care Team (Late Contact Info) Description 02/10/2023 Abstract [facility] ADULT DENTAL [address] [place] [address] Ryan Carpenter DMD [address] [place] [address] Social History Tobacco Use Types Packs/Day Years [...] Upcoming Encounters Date Type Department Care Team ([facility] Contact Info) Description 01/27/2025 9:00 AM EDT Office Visit [facility] MEDICINE [address] [place] [address] Yarelis Graves NP [address] [place] [address] documented as of this encounter Visit Diagnoses Not on filedocumented in this encounter Additional Health Concerns Assessment Noted Time PHQ-9 Depression Total Score: 3 01/06/20 23 10:23 AM EDT documented as of this encounter Care Teams Psychologist Chief Relationship Specialty Start Date End Date Roxanne Cortez FNP [address] [place] [address] PCP - General Family Medicine 07/11/22 06/07/24 Yarelis Graves NP [address] [place] [address] PCP - General Family Medicine 06/08/24 documented as of this encounter
--- OUTSIDE RECORDS SUMMARY | 2025-01-27 07:15 | XMS_ITS | Encounter Summary ---
Author Organization [employer] Address [address] [facility] 7t [place] [address] Care Team Providers Care Basting Marker Name Role Phone Yarelis Graves NIRAV Primary Care Provider [phone] Encounter Details Date Type Department Care Team (Late st Contact Info) Description 11/08/2024 Orders Only [facility] MED & PEDS [address] [place], [place] [phone] Vasu Morales MD [address] [place] [address] Acute right-sided low back pain without sciatica [...] 01/27/2025 9:00 AM EDT Office Visit [facility] MEDICINE [address] [place] [address] Yarelis Graves NP [address] [place] [address] documented as of this encounter Visit Diagnoses Diagnosis Acute right-sided low back pain without sciatica- Primary documented in this encounter Additional Health Concerns Assessment Noted Time PHQ-9 Depression Total Score: 3 01/06/20 23 10:23 AM EDT documented as of this encounter Care Teams Basting Marker Relationship Specialty Start Date End Date Yarelis Graves NP [address] [place] [address] PCP - General Family Medicine 06/08/24 documented as of this encounter
--- OUTSIDE RECORDS SUMMARY | 2025-01-27 07:15 | XMS_ITS | Encounter Summary ---
Author Organization [employer] Address [address] [facility] 7t [place] [address] Care Team Providers Care Immigration Services Officer Name Role Phone Yarelis Graves NIRAV Primary Care Provider [phone] Reason for Referral * Consultation (Urgent) - Authorized Specialty Diagnoses / Procedures Referred By Conthill t Referred To Contact General Surgery Diagnoses Rectal pain Trevor Hernandez MD [address] [place] [address] Phone: tel: fax: Ho Valdez MD [address] [place] [address] Phone: tel: fax: Referral ID Status Reason Start Date Expiration Date Visits Requested Visits Authorized [id number] Authorized Specialty Services Required 01/24/2025 01/24/2026 12 12 * Imaging (STAT) - Authorized Specialty Diagnoses / Procedures Referred By Contac t Referred To Contact Radiology Diagnoses Rectal pain Procedures CT Abdomen Pelvis w/ Contrast Trevor Hernandez MD [address] [place] [address] Phone: tel: fax: [facility] [address] [place] [address] Phone: tel: fax: Referral ID Status Reason Start Date Expiration Date V isits Requested Visits Authorized [id number] Authorized 01/24/2025 01/24/2026 1 1 Reason for Visit * Reason Comments Abdominal Pain Encounter Details Date Type Department Care Team (Late st Contact Info) Description 01/24/2025 2:00 PM EDT Office Visit [facility] [address] [place] [address] Trevor Hernandez MD [address] [place] [address] Rectal pain (Primary Dx) Social History Tobacco [...] - 01/24/2025 2:00 PM EDT SUBJECTIVE Mayco Carrasuqillo is a 34 y.o. male who presents [...] 10/10 when severe. Seen here at the [facility] back [facility] after he c/o rectal bleeding and was [...] 10/10 when severe. Seen here at the [facility] back inJanuary after he c/o rectal bleeding [...] Description 01/27/2025 9:00 AM EDT Office Visit [facility] MEDICINE [address] [place] [address] Yarelis Graves, NIRAV [address] [place] [address] Scheduled Orders Name Type Priority Associated Diagnoses [...] EDT) Sodium 141 135 - 145 mmol/L [facility] Potassium 4.1 3.3 - 5.1 mmol/L [facility] Chloride 106 96 - 108 mmol/L [facility] Carbon Dioxide 28 22 - 29 mmol/L [facility] Anion Gap 11(L) 12 - 20 [facility] Urea Nitrogen (BUN) 8(L) 9 - 16 mg/dL [facility] Creatinine, Serum 0.85 0.5 - 1.4 mg/dL [facility] Estimated Glomerular Filt Rate >60 [facility] Comment:Chronic Kidney Disea se: Estimated GFR < 60 mL/min/1.68b8Xjlloe Kidney Disease: Estimated GFR < 15 mL/min/1.73m2 Glucose 40(LL) 60 - 115 mg/dL [facility] Comment:Critical value for t est(s): GLUR Results called to abram back by: DR. FOOTE Person calling:WHITNEY Date:01/24/2025Time:17:15. Calcium 9.3 8.4 - 10.2 mg/dL [facility] Blood Venous blood specimen / Unknown 01/24/2025 2:31 PM EDT 01/24/2025 4:05 PM EDT Trevor Lima MD LAB BLOOD ORDERABLES Final Result [facility] [address] [place], [place] [phone] * (ABNORMAL) CBC auto differential (01/24/2025 2:31 PM EDT) White Blood Count 6.6 4.8 - 10.8 X10*3/uL [facility] Red Blood Count 4.87 4.60 - 5.80 X10*6/uL [facility] Hemoglobin 14.5 14.0 - 18.0 g/dl [facility] Hematocrit 43.8 42.0 - 52.0 % [facility] Mean Corpuscular Volume 89.9 80.0 - 98.0 fL [facility] Mean Corpuscular Hemoglobin 29.8 27.0 - 33.0 pg [facility] Mean Corpuscular HGB Conc 33.1 31.0 - 36.0 g/dl [facility] Red Cell Distribution Width 13.0 11.0 - 16.0 % [facility] Platelet Count 190 160 - 400 X10*3/uL [facility] Mean Platelet Volume 11.9 9.4 - 12.4 fL [facility] Neutrophils Percent Auto 57.6 45 - 73 % [facility] Imm Gran Pct Auto 0.3 0.0 - 0.4 % [facility] Lymphocytes Percent Auto 26.7 20 - 40 % [facility] Monocytes Percent Auto 11.3(H) 2 - 11 % [facility] Eosinophils Percent Auto 3.5 0 - 4 % [facility] Basophils Percent Auto 0.6 0 - 2 % [facility] NRBC Pct Auto 0.0 0.0 - 0.2 /100WBC [facility] Neutrophils Absolute Auto 3.8 2.0 - 8.3 x10*3/uL [facility] Imm Gran Abs Auto 0.02 0.00 - 0.03 X10*3/uL [facility] Lymphocytes Absolute Auto 1.8 1.2 - 4.9 X10*3/uL [facility] Monocytes Absolute Auto 0.7 0.1 - 1.2 X10*3/uL [facility] Eosinophils Absolute Auto 0.2 0.0 - 0.4 X10*3/uL [facility] Basophils Absolute Auto 0.0 0.0 - 0.2 X10*3/uL [facility] NRBC Abs Auto 0.000 0.0 - 0.012 X10*3/uL [facility] Blood Venous blood specimen / Unknown 01/24/2025 2:31 PM EDT 01/24/2025 4:12 PM EDT Trevor Lima MD LAB BLOOD ORDERABLES Final Result [facility] [address] [place] [phone] * (ABNORMAL) POCT urinalysis dipstick manually [...] Noted Time PHQ-9 Depression Total Score: 3 04/03/20 23 10:23 AM EDT documented as of this encounter Care Teams Immigration Services Officer Relationship Specialty Start Date End Date Yarelis Graves NP [address] [place] [address] PCP - General Family Medicine 06/08/24 documented as of this encounter
--- OUTSIDE RECORDS SUMMARY | 2025-01-27 07:15 | XMS_ITS | Encounter Summary ---
Author Organization [employer] Address [address] [facility] 7t [place] [address] Care Team Providers Care Physician Executive Name Role Phone Roxanne Cortez CASEWORK SUPERVISOR Primary Care Provider [phone] Yarelis Graves NP Primary Care Provider [phone] Reason for Visit * Reason Onset Date Comments Appointment 04/01/2023 Encounter Details Date Type Department Care Team ([facility] st Contact Info) Description 04/01/2023 Telephone C ADULT DENTAL [address] [place] [address] Ryan Carpenter, DMD [address] [place] [address] Appointment Social History Tobacco Use Types Packs/Day [...] 9:00 AM EDT Office Visit [facility] [address] [place] [address] Yarelis Graves NP [address] [place] [address] documented as of this encounter Visit Diagnoses Not on filedocumented in this encounter Additional Health Concerns Assessment Noted Time PHQ-9 Depression Total Score: 3 01/06/20 23 10:23 AM EDT documented as of this encounter Care Teams Physician Executive Relationship Specialty Start Date End Date Roxanne Cortez FNP [address] [place] [address] PCP - General Family Medicine 07/11/22 06/07/24 Yarelis Graves NP [address] [place] [address] PCP - General Family Medicine 06/08/24 documented as of this encounter
--- OUTSIDE RECORDS SUMMARY | 2025-01-27 07:15 | XMS_ITS | Encounter Summary ---
Author Organization [employer] Address [address] [facility] [address] 7[address] [place] [address] Care Team Providers Care Steward/Stewardess Second Class Name Role Phone Roxanne Cortez DIRECTOR OF NEUROLOGY Primary Care Provider [phone] Yarelis Graves NP Primary Care Provider [phone] Encounter Details Date Type Department Care Team (Late st Contact Info) Description 03/03/2023 Abstract [facility] [address] [place] [address] Ryan Carpenter DMD [address] [place] [address] Social History Tobacco Use Types Packs/Day Years [...] Description 01/27/2025 9:00 AM EDT Office Visit [facility] [address] [place] [address] Yarelis Graves NP [address] [place] [address] documented as of this encounter Visit Diagnoses Not on filedocumented in this encounter Additional Health Concerns Assessment Noted Time PHQ-9 Depression Total Score: 3 01/06/20 23 10:23 AM EDT documented as of this encounter Care Teams Steward/Stewardess Second Class Relationship Specialty Start Date End Date Roxanne Cortez FNP [address] [place] [address] PCP - General Family Medicine 07/11/22 06/07/24 Yarelis Graves NP [address] [place] [address] PCP - General Family Medicine 06/08/24 documented as of this encounter
--- OUTSIDE RECORDS SUMMARY | 2025-01-27 07:15 | XMS_ITS | Encounter Summary ---
Author Organization [employer] Address [address] [facility] 7 [place] [address] Care Team Providers Care Air Control/Anti Air Warfare Officer Name Role Phone Suzy Gravesily NIRAV Primary Care Provider [phone] Reason for Referral * Imaging (Routine) - Closed Specialty Diagnoses / Procedures Referred By Contac t Referred To Contact Radiology Diagnoses Acute right-sided low back pain without sciatica Procedures CT Lumbar Spine w/o Contrast Vasu Morales MD [address] [place] [address] Phone: tel: fax: [address] Phone: tel: fax: Referral ID Status Reason Start Date Expiration Date Visits Re quested Visits Authorized [id number] Closed 11/29/2024 11/29/2025 1 1 Encounter Details Date Type Department Care Team (Late st Contact Info) Description 11/29/2024 Orders Only [facility] MED[facility] [address] [place] [address] Vasu Morales MD [address] [place], [place] [phone] Acute right-sided low back pain without sciatica [...] 01/27/2025 9:00 AM EDT Office Visit [facility] [address] [place], [place] [phone] Yarelis Graves NP [address] [place] [address] Scheduled Orders Name Type Priority Associated Diagnoses [...] documented as of this encounter Care Teams Air Control/Anti Air Warfare Officer Relationship Specialty Start Date End Date Yarelis Graves NP [address] [place] [address] PCP - General Family Medicine 06/08/24 documented as of this encounter
--- OUTSIDE RECORDS SUMMARY | 2025-01-27 07:15 | XMS_ITS | Encounter Summary ---
Author Organization [employer] Address [address] [facility] 7t [place] [address] Care Team Providers Care Manager Configuration Name Role Phone Yarelis Graves NIRAV Primary Care Provider [phone] Encounter Details Date Type Department Care Team [...] Description 01/27/2025 9:00 AM EDT Office Visit [facility] MED[facility] [address] [place] [address] Yarelis Graves NP [address] [place] [address] documented as of this encounter Visit Diagnoses Not on filedocumented in this encounter Additional Health Concerns Assessment Noted Time PHQ-9 Depression Total Score: 3 01/06/20 23 10:23 AM EDT documented as of this encounter Care Teams Manager Configuration Relationship Specialty Start Date End Date Yarelis Graves NP [address] [place] [address] PCP - General Family Medicine 06/08/24 documented as of this encounter
--- OUTSIDE RECORDS SUMMARY | 2025-01-27 07:15 | XMS_ITS | Clinical Summary ---
Author Organization [employer] Address [address] [facility] 7t [place] [address] Care Team Providers Care Medical Insurance Coder Name Role Phone Yarelis Graves NIRAV Primary Care Provider [phone] Allergies Active Allergy Reactions Criticality Noted Date [...] Units 4 03/01/20 25 Active sodium chloride ([place] Nasal [place]) 0.65 % nasal spray Administer 1 spray [...] 2 times daily. 28 g 5 Active FREESTYLE LITE test strip Use to test blood sugar 2 times daily 100 each 5 01/25/20 26 Active Lancets misc Use to test blood sugar 2 times daily 100 each 5 Active Alcohol Swabs 70 % pads Use to test blood sugar 2 times daily 100 each 5 Active Blood Glucose Monitoring Suppl (FreeStyle [place] Lite) w/Device kit Use to test blood sugar 2 times daily 1 kit 5 Active Active Problems Problem Noted Date Diagnosed Date Rectal pain 01/24/2025 Assessment & Plan (01/24/2025 2:40 PM EDT): Patient with c/o rectal pain x 1 week, described as 10/10 when severe. 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 ) 01/12/[address] [address] Keyonna Antunez [place] Chart Prep 01/05/[address] [address] Yarelis Graves NP Lab Orders (Patient requesting lab order for TB TEST for work) 12/16/2024 Population Health Risk Score [facility] () Department [address] [place] [phone] Provider, Population Health Generic 11/29/2024 Orders Only [facility] [address] [place] [phone] Vasu Morales MD Acute right-sided low back pain without sciatica (Primary Dx) 11/29/2024 Telephone [facility] [address] [place] [address] [phone] Vasu Mor[address] MD ct orders 11/27/2024 Orders Only GENERIC EXTERNAL DATA DEPARTMENT Provider, Generic External Data 11/23/2024 5:40 PM EST Office Visit [facility] [address] [address] Airam Shane MD Sprain of anterior shoulder joint (Primary Dx); Contusion of left chest wall, subsequent encounter 11/23/2024 Telephone [facility] [address] [place] [phone] Yarelis Graves, NIRAV Nurse Triage 11/22/2024 Telephone [facility] [address] [place] [address] [address] pelvis order 11/18/2024 Telephone [facility] [address] [place] [phone] Nat Castillo, CHELSI 11/15/2024 Orders Only GENERIC EXTERNAL DATA DEPARTMENT Provider, Generic External Data 11/10/2024 Telephone [facility] [address], [place] [phone] Coni Sorensen, RN Results 11/08/2024 Orders Only [facility] [address], [place] [phone] Vasu Morales MD Acute right-sided low back pain without sciatica (Primary Dx) 11/07/2024 5:40 PM EST Office Visit [facility] [address] [place] [phone] Vasu Morales MD Acute right-sided low back [...] Description 01/27/2025 9:00 AM EDT Office Visit [facility] [address] [place], [place] [phone] Yarelis Graves NP [address] [place], [place] [phone] Health Maintenance Due Date Last Done Comments [...] Blood Count 6.6 4.8 - 10.8 X10*3/uL [facility] Red Blood Count 4.87 4.60 - 5.80 X10*6/uL [facility] Hemoglobin 14.5 14.0 - 18.0 g/dl [facility] Hematocrit 43.8 42.0 - 52.0 % [facility] Mean Corpuscular Volume 89.9 80.0 - 98.0 fL [facility] Mean Corpuscular Hemoglobin 29.8 27.0 - 33.0 pg [facility] Mean Corpuscular HGB Conc 33.1 31.0 - 36.0 g/dl [facility] Red Cell Distribution Width 13.0 11.0 - 16.0 % [facility] Platelet Count 190 160 - 400 X10*3/uL [facility] Mean Platelet Volume 11.9 9.4 - 12.4 fL [facility] Neutrophils Percent Auto 57.6 45 - 73 % [facility] Imm Gran Pct Auto 0.3 0.0 - 0.4 % [facility] Lymphocytes Percent Auto 26.7 20 - 40 % [facility] Monocytes Percent Auto 11.3(H) 2 - 11 % [facility] Eosinophils Percent Auto 3.5 0 - 4 % [facility] Basophils Percent Auto 0.6 0 - 2 % [facility] NRBC Pct Auto 0.0 0.0 - 0.2 /100WBC [facility] Neutrophils Absolute Auto 3.8 2.0 - 8.3 x10*3/uL [facility] Imm Gran Abs Auto 0.02 0.00 - 0.03 X10*3/uL [facility] Lymphocytes Absolute Auto 1.8 1.2 - 4.9 X10*3/uL [facility] Monocytes Absolute Auto 0.7 0.1 - 1.2 X10*3/uL [facility] Eosinophils Absolute Auto 0.2 0.0 - 0.4 X10*3/uL [facility] Basophils Absolute Auto 0.0 0.0 - 0.2 X10*3/uL [facility] NRBC Abs Auto 0.000 0.0 - 0.012 X10*3/uL [facility] Blood Venous blood specimen / Unknown 01/24/2025 2:31 PM EDT 01/24/2025 4:12 PM EDT us Trevor Lima MD LAB BLOOD ORDERABLES Final Result [facility] [address] [place], [place] [phone] * (ABNORMAL) Basic Metabolic Panel (01/24/2025 2:31 PM EDT) Sodium 141 135 - 145 mmol/L [facility] Potassium 4.1 3.3 - 5.1 mmol/L [facility] Chloride 106 96 - 108 mmol/L [facility] Carbon Dioxide 28 22 - 29 mmol/L [facility] Anion Gap 11(L) 12 - 20 [facility] Urea Nitrogen (BUN) 8(L) 9 - 16 mg/dL [facility] Creatinine, Serum 0.85 0.5 - 1.4 mg/dL [facility] Estimated Glomerular Filt Rate >60 [facility] Comment:Chronic Kidney Disea se: Estimated GFR < 60 mL/min/1.43s9Aovwnc Kidney Disease: Estimated GFR < 15 mL/min/1.73m2 Glucose 40(LL) 60 - 115 mg/dL [facility] Comment:Critical value for t est(s): GLUR Results called to abram back by: DR. FOOTE Person calling:WHITNEY Date:01/24/2025Time:17:15. Calcium 9.3 8.4 - 10.2 mg/dL [facility] Blood Venous blood specimen / Unknown 01/24/2025 2:31 PM EDT 01/24/2025 4:05 PM EDT Trevor Lima MD LAB BLOOD ORDERABLES Final Result [facility] [address] [place] [phone] * (ABNORMAL) POCT urinalysis dipstick manually [...] PM EDT) T Spot TB Negative Negative [facility] Comment:A negative test resu lt does [...] as aquantitative test. TS PANEL A 0 [facility] TS PANEL B 0 [facility] Negative Control Passed [facility] Positive Control Passed [facility] Comment:For additional infor matlucas, please refer tohttp://education.[facility]/faq/ZWT376(This link is being provided for informational/educational purposes only.)THIS TEST WAS PERFORMED AT:[employer] [id number] [place] [phone] GAUTAM MD,PHD 01/05/2025 12:3 3 PM EDT 01/05/2025 1:26 PM EDT Yarelis Graves NP LAB BLOOD ORDERABLES Final Resul t [facility] [address] [place] [phone] * CT Head w/o Contrast (11/27/2024 6:04 PM EST) Anatomical Region Laterality Modality Head, Neck Computed Tomogra phy 11/27/2024 6:04 PM EST Narrative 11/27/2024 6:06 PM EST ? [facility] ?[address] ?[place] [address] ? CT Scan Report ? Signed ? Patient: Foreign Schwartz,Mayco L ?MR#: ?? [id number] ? : 1990 ?Acct:[id number] ? Age/Sex: 34 / M ?ADM Date: 11/27/24 ? Loc: HO.ED ? Attending Dr: ? Ordering Physician: Emily Delgado CNP ?? Date of Service: 11/27/24 ?? Procedure(s): CT head/brain wo IV con ?? Accession Number(s): [id number] ? cc: Emily Delgado CNP; [facility] ? Report Number: ?? [id number]: Total DLP = ??708.00 mGy-cm ? CLINICAL HISTORY: sudden severe R posterior H A ? CT head without contrast ? Comparison: CT/REG/MT/SR - CT HEAD/BRAIN WO IV CON - [...] in OV> ? 11/27/24 1805 ? DD/ 180 ? TD/TT: 11/27/241803 ? Art Display Maker: ? Procedure Note Dori Borrero - 11/27/[address] [address] [place] Scan Report Signed Patient: Mayco Sparrow LMR#: [id number] : 1990Acct:[id number] Age/Sex: 34 / MADM Date: 11/27/24 Loc: HO.ED Attending Dr: Ordering Physician: Emily Delgado CNP Date of Service: 11/27/24 Procedure(s): CT head/brain wo IV con Accession Number(s): [id number] cc: Emily Delgado COMMUNITY RELATIONS COORDINATOR; [facility] Report Number: [id number]: Total DLP = 708.00 mGy-cm CLINICAL HISTORY: sudden severe R posterior H A CT head without contrast Comparison: CT/REG/MT/SR - CT HEAD/BRAIN WO IV CON - [...] in OV> 11/27/241804 DD/ 03 TD/TT: 11/27/241803 Art Display Maker: [facility] External Provider IMG CT PROCEDURES Edited Result - Final * SARS-CoV-2 RNA, Influenza A/B, and RSV RNA, Ql NAAT (11/27/2024 2:35 PM EST) Influenza A PCR NEGATIVE Negative [facility] Influenza B PCR NEGATIVE Negative [facility] Resp Syncy Virus RNA Qual PCR NEGATIVE Negative [facility] SARS COV2 PCR NEGATIVE Negative [facility] Comment:All test results mus t [...] use by authorized laboratories.Testing performed on the [employer] GeneXpert utilizingreal-time RT-PCR.All SARS CoV2 and positive influenza A/B results arereported to [facility]. 11/27/2024 2:35 PM EST 11/27/2024 2:37 PM EST us Generic External Data Provider LAB MICROBIOLOGY - GENERAL ORDERABLES Final Result [facility] [address] [place] [phone] * (ABNORMAL) Comprehensive Metabolic Panel (11/27/2024 2:35 PM EST) Sodium 141 135 - 145 mmol/L [facility] Potassium 3.9 3.3 - 5.1 mmol/L [facility] Chloride 107 96 - 108 mmol/L [facility] Carbon Dioxide 25 22 - 29 mmol/L [facility] Anion Gap 13 12 - 20 [facility] Urea Nitrogen (BUN) 9 9 - 16 mg/dL [facility] Creatinine, Serum 1.03 0.5 - 1.4 mg/dL [facility] Creatinine Clr Calc Pharmacy 95.3 [facility] Comment:eGFR (calculated fro m the MDRD study equation) and eCrCl(calculated from the Cockcroft-Gault equation) are based ondifferent parameters and may not yield comparable results.If eCrCl result is absurd, please check patient'sheight/weight. Estimated Glomerular Filt Rate >60 [facility] Comment:Chronic Kidney Disea se: Estimated GFR < 60 mL/min/1.32n0Hbciyq Kidney Disease: Estimated GFR < 15 mL/min/1.73m2 Glucose 71 60 - 115 mg/dL [facility] Calcium 9.4 8.4 - 10.2 mg/dL [facility] Bilirubin, Total 0.7 0.0 - 1.0 mg/dL [facility] Aspartate Amino Transferase 29 5 - 37 U/L [facility] Alanine Aminotransferase 44(H) 0 - 40 U/L [facility] Total Protein 7.9 6.5 - 8.0 g/dL [facility] Albumin Level 4.8 3.5 - 5.0 g/dL [facility] Alkaline Phosphatase 68 39 - 117 U/L [facility] 11/27/2024 2:35 PM EST 11/27/2024 2:37 PM EST Generic External Data Provider LAB BLOOD ORDERAB LES Final Result Performing Organization Address [facility] de Phone Number [facility] [address] [place] [phone] * D Dimer High Sensitivity (11/15/2024 7:46 AM EST) D Dimer High Sensitivity <150 NG/ML [facility] Comment:D-DIMER HS REFERENCE RANGENote: Our assay [...] ORDERAB LES Final Result Performing Organization Address [facility] de Phone Number [facility] [address] [place] [phone] * XR Hand 3+ Views Right (11/08/2024 2:22 PM EST) Anatomical Region Laterality Modality Upper Extremities, Hand Right Radiogra phic Imaging 11/08/2024 2:22 PM EST Narrative 11/08/2024 3:58 PM EST ?[facility] ?[address] ?[place] [address] ?XRay Report ? Signed ? Patient: Foreign Schwartz,Mayco L ?MR#: ?? [id number] ? : 1990 ?Acct:[id number] ? Age/Sex: 34 / M ?ADM Date: /04/25 ? Loc: HO.HHCX ? Attending Dr: Vasu Morales MD ? Ordering Physician: Vasu Morales MD ?? Date of Service: 11/08/24 ?? Procedure(s): XR hand RT min 3V ?? Accession Number(s): [id number] ? cc: Vsau Morales MD ? EXAMINATION: ?? XR HAND, [...] by Sriram Harvey MD in OV> ?11/08/24 5515 ? DD/ 1422 ? TD/TT: 11/08/24 1430 ? Art Display Maker: ? Procedure Note Dori Borrero - 11/08/2024 [place] [address] XRay Report Signed Patient: Mayco Sparrow LMR#: [id number] : 1990Acct:[id number] Age/Sex: 34 / MADM Date: 11/08/24 Loc: HO.HHCX Attending Dr: Vasu Morales MD Ordering Physician: Vasu Morales MD Date of Service: 11/08/24 Procedure(s): XR hand RT min 3V Accession Number(s): [id number] cc: Vasu Morales MD EXAMINATION: XR HAND, [...] 11/08/24 1555 DD/ 1422 TD/TT: 11/08/24 1430 Art Display Maker: us Vasu Morales MD IMG XR PROCEDURES Final Res ult * XR Lumbar Spine 2-3 Views (11/08/2024 2:22 PM EST) Anatomical Region Laterality Modality Spine, L-spine Radiographic Roxane ging 11/08/2024 2:22 PM EST Narrative 11/08/2024 4:05 PM EST ?[facility] ?[address] ?[place] [address] ?XRay Report ? Signed ? Patient: Mayco Sparrow ?MR#: ?? [id number] ? : 1990 ?Acct:[id number] ? Age/Sex: 34 / M ?ADM Date: 11/08/24 ? Loc: HO.HHCX ? Attending Dr: Vasu Morales MD ? Ordering Physician: Vasu Morales MD ?? Date of Service: 11/08/24 ?? Procedure(s): XR lumbar spine 2-3V ?? Accession Number(s): [id number] ? cc: Vasu Morales MD ? EXAMINATION: [...] DD/ 1422 ? TD/TT: 11/08/24 1430 ? Art Display Maker: MSM ? Procedure Note Dori Borrero - 11/08/[address] [address] XRay Report Signed Patient: Mayco Sparrow LMR#: [id number] : 1990Acct:[id number] Age/Sex: 34 / MADM Date: 11/08/24 Loc: HO.HHCX Attending Dr: Vasu Morales MD Ordering Physician: Vasu Morales MD Date of Service: 11/08/24 Procedure(s): XR lumbar spine 2-3V Accession Number(s): [id number] cc: Vasu Morales MD EXAMINATION: XR LUMBOSACRAL [...] 11/08/24 1603 DD/ 1422 TD/TT: 11/08/24 1430 Art Display Maker: [facility] us Vasu Morales MD IMG XR PROCEDURES Final Res ult * HEPATITIS C AB W/REFL TO HCV RNA, QN, PCR (12/17/2021 2:10 PM EDT) HEPATITIS C ANTIBODY NON-REACT BEST NON-REACT BEST [facility] INDEX 0.01 <1.00 [facility] Comment: ?? HCV antibody was non-reactive. There is no laboratory ?? evidence of HCV infection. ?? In most cases, no further action is required. However, if recent HCV exposure is suspected, a test for HCV RNA (test code 66027) is suggested. ?? For additional information please refer to http://education.[facility]/faq/FDJ34i0 (This link is being provided for informational/ educational purposes only.) ?? 12/17/2021 2:10 PM EDT us David Don MD HISTORICAL/NON ORDERABLE LABS Fi nal Result [facility] [address] * HIV 1/2 ANTIGEN/ANTIBODY,FOURTH GENERATION W/RFL (12/17/2021 2:10 PM EDT) HIV-1/2 ANTIGEN AND ANTIBODIES, 4TH GENERATION W/ REFLEX NON-REACT BEST NON-REACT BEST [facility] Comment: HIV-1 antigen and [...] ? For additional information please refer to http://education.[facility]/faq/WJH328 (This link is being provided for informational/ educational purposes only.) ? The performance of this assay has not been clinically validated in patients less than 2 years old. ?? 12/17/2021 2:10 PM EDT us David Don MD LAB BLOOD ORDERABLES Final Resul t Performing Organization Address City/State/[facility] Co de Phone Number [facility] [address] from Last 3 Months or Most Recently Relevant to Health Maintenance Insurance [facility] C3 HSN [employer] ADULT Care Teams Medical Insurance Coder Relationship Specialty Start Date End Date Yarelis Graves NP [address] [place] [phone] PCP - General Family Medicine 06/08/24
--- OUTSIDE RECORDS SUMMARY | 2025-01-27 07:15 | XMS_ITS | Encounter Summary ---
Author Organization [employer] Address [address] [place] [address] Care Team Providers Care Carpenter Supervisor Wooden [employer] Name Role Phone Star Yarelis NIRAV Primary Care Provider [phone] Reason for Visit * Reason Onset Date Comments ACRYLIC FABRICATOR PHONE TRIAGE 01/24/2025 Encounter Details Date Type Department Care Team ([facility] st Contact Info) Description 01/24/[address] [facility] [address] [place], [place] [phone] Angela Gonzáles DO [address] [place] [address] ACRYLIC FABRICATOR PHONE TRIAGE Social History Tobacco Use Types Packs/Day Years [...] encounter Miscellaneous Notes * Telephone Encounter - Shona Delcid RN - 01/25/2025 2:09 PM EDT Call placed to patient. Patient reports he feels at his baseline today. He is unsure why his BG waslow yesterday. Advised patient that he has an appointment Thursday01/27/2025 at 9:00 AM with his PCP Yarelis Graves. Patient verbalizes understanding and agreement with plan of care at this time. * Telephone Encounter - Shona Delcid RN - 01/25/2025 8:44 AM EDT Call attempt x 2 to patient for status check following critical blood glucose of 40 yesterday evening and to offer patient appointment this morning at 9:30 AM with PCP. No answer, voicemail box full.Patient has upcoming appointment with PCP Thursday01/27/2025 at 9:00 AM. Will re-task for second attempt at status check. * Telephone Encounter - Angela Gonzáles DO - 01/24/2025 6:34 PM EDT Received call from [facility] lab reporting critical BS of 40 which was drawn at 2:30pm this afternoon. Chart reviewed. Pt was seen for sick visit with Dr. Guthrie today for severe rectal pain and sent for labs. Called pt at home number to review results. Pt reports that the low sugar doesn't make sense as he had eaten and drank multiple regular sodas prior to coming to [facility] for his visit today. He says that he has eaten again since he had his labs done. Reviewed hypoglycemia sx with pt and he reports that he has been feeling weird lately. Advised pt will send rx for glucometer and supplies so that he can check his BS when he feels symptomatic. Reviewed hypoglycemia treatment with patient. Advised pt go to ED if persistent sx. He agrees with plans. Advised pt will notify PCP and have sooner visit scheduled with PCP for eval. documented in this encounter Plan of Treatment Upcoming Encounters Date Type Department Care Team (Late st Contact Info) Description 01/27/2025 9:00 AM EDT Office Visit [facility] [address] [place] [address] Yarelis Graves NP [address] [place] [address] documented as of this encounter Visit Diagnoses Not on filedocumented in this encounter Additional Health Concerns Assessment Noted Time PHQ-9 Depression Total Score: 3 01/06/20 23 10:23 AM EDT documented as of this encounter Care Teams Carpenter Supervisor Wooden Ship Relationship Specialty Start Date End Date Yarelis Graves NP [address] [place] [address] PCP - General Family Medicine 06/08/24 documented as of this encounter
[2025-01-27] MEDS: iohexoL 350 MG/ML 100 ML INFUS..BTL IV (09:34)
[2025-01-27] MEDS: Barium Sulfate Oral (Vanilla) 450 ML ORAL.SUSP 900 ML PO (09:34)
== END 2025-01-27 07:13 | disposition home or self-care (01) ==
LOC: HO.CT 07:12
PROVIDERS: PCP Internal Medicine; Visit Provider Internal Medicine
DX: K62.89 Other specified diseases of anus and rectum (principal)
CPT/HCPCS: 74177; Q9967

== ENCOUNTER → 2025-01-27 07:16 | Outpatient (BNV) | payer MEDICAID, SELFPAY | PROVIDERS: PCP Internal Medicine; Visit Provider Radiology Diagnostic Radiology | DX: K62.89 Other specified diseases of anus and rectum (principal) | CPT/HCPCS: 74177 ==

== ENCOUNTER 2025-02-15 14:14 | Outpatient (AMB) | payer MEDICAID, SELFPAY ==
--- NOTE | 2025-02-15 14:15 | MHC.OFFVIS ---
Vital Signs 02/15/25 14:28 Height 5 ft 7 in Weight 159 lb BMI 24.9 BP 129/89 Blood Pressure Location Rt brachial Position Sitting Pulse 83 Intake Visit Reasons: rectal pain Intake Note: Patient referred by pcp Dr. Dhillon for rectal pain. Present X1yr. Denies prior trauma to area. Patient c/o: feels like there is a cut inside anal cavity. Reports diarrhea, constipation at times. Was prescribed HC 2.5% cream but no improvement. Just keep area moist. Reports no family hx of Colon CA. 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 He says that he has had this for over a year. He describes this has pain in his anus especially with bowel movements. He says that passage of stool causes this severe pain that lingers for a while. He describes this as sharp like a knife cutting his anus He says that he would also noticed this pain periodically during the day. He describes occasional passage of blood per rectum seen on wiping. He said he had been tried on multiple creams in the past without any relief. He has a history of alcohol abuse but he states that he has been sober regards to this. [facility] Medical History (Updated 02/15/25 @ 14:39 by Burke Lewis MD) Anal fissure Alcohol use disorder Asthma Family History Mother Brain aneurysm Blood clots in brain Social History Household Members: None Housing: House Alcohol intake: current Alcohol intake frequency: holidays/special occasions only Alcohol type: hard liquor Patient Tobacco Use Status: Never used Tobacco Substance Use Type: Marijuana service: No Review of Systems Const Denies chills and Denies fever(s) Card Denies chest pain, Denies dyspnea and Denies dyspnea on exertion Resp Denies cough, Denies dyspnea and Denies dyspnea on exertion GI Reports hematochezia and Denies change in bowel habits Denies hematuria and Denies difficulty urinating Musc Denies back pain and Denies limited range of motion Neuro Denies focal weakness and Denies convulsions Psych Denies depression and Denies mood swings Physical Exam Const General: comfortable and no acute distress Orientation/consciousness: patient oriented x3 Neck Neck: Yes no lymphadenopathy Resp Auscultation: clear to auscultation bilaterally Cardio Rhythm: regular rhythm GI Other: Rectal exam shows an anal fissure in the posterior midline seen on retraction of the anal opening, very tender to touch, with hypertonicity of the sphincter, therefore unable to tolerate anoscopy or digital exam Palpation (GI): Soft to palpation, nontender and no guarding Neuro General: patient oriented x3 Assessment & Plan Assessment & Plan (1) Anal fissure: Code(s): K60.2 - Anal fissure, unspecified Category: Medical Plan: 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 He describes significant pain with this for the past year and wants to proceed with surgical sphincterotomy. I explained to him the technique of exam under anesthesia and lateral internal sphincterotomy. I reviewed the risks including but not limited to bleeding, infections, postop pain, sphincter dysfunction, as well as the benefits and alternatives. I explained to him what to expect postoperatively and has given consent. Coding Level of Care Code New Pt Level 3 (84971) Diagnoses Anal fissure K60.2
--- OUTSIDE RECORDS SUMMARY | 2025-02-15 14:17 | XMS_ITS | Encounter Summary ---
Author Organization [employer] Address [address] [facility] [place] [address] Care Team Providers Care Communications Lead Name Role Phone Roxanne Cortez DIESEL MOTOR MECHANIC Primary Care Provider [phone] Yarelis Graves WEB FEEDER Primary Care Provider [phone] Charley Dominique DIESEL MOTOR MECHANIC Primary Care Provider [phone] Encounter Details Date Type Department Care Team (Late st Contact Info) Description 03/03/2023 Abstract [facility] AD[facility] D[facility]AL [address] [place] [address] Ryan Carpenter, DMD [address] [place] [address] Social History Tobacco Use Types Packs/Day Years [...] Care Team (Late st Contact Info) Description 03/03/2025 10:15 AM EDT Office Visit [facility] MEDICINE [address] [place] [address] Charley Dominique FNP [address] [place] [address] 04/28/2025 9:00 AM EDT Office Visit [facility] OPTOMETRY [address] [place] [address] TarkaSangeeta, OD [address] [place] [address] documented as of this encounter Visit Diagnoses Not on filedocumented in this encounter Additional Health Concerns Assessment Noted Time PHQ-9 Depression Total Score: 3 01/06/20 23 10:23 AM EDT documented as of this encounter Care Teams Communications Lead Relationship Specialty Start Date End Date Roxanne Cortez FNP [address] [place] [address] PCP - General Family Medicine 07/11/22 06/07/24 Yarelis Graves NP [address] [place] [id number] PCP - General Family Medicine 06/08/24 01/26/25 Charley Dominiqeu FNP [address] [place] [id number] PCP - General Family Medicine 01/27/25 documented as of this encounter
--- OUTSIDE RECORDS SUMMARY | 2025-02-15 14:17 | XMS_ITS | Clinical Summary ---
Author Organization [employer] Address [address] [place] [address] Care Team Providers Care Senior Systems Software Engineer Name Role Phone Charley Dominique [facility] Primary Care Provider [phone] Allergies Active Allergy Reactions Criticality Noted Date Comments Bupropion 10/17/2010 Other reaction(s): Increased anxiety Shellfish-Derived Products Hives 3 Other Reaction(s): Rash/Dermatitis Medications * This document contains information received from the source organization and may not represent a complete record from that organization. Glycerin-Hypro mellose-PEG 400 (Artificial Tears) 0.2-0.2-1 % solution Administer 2 drops into affected eye(s) 3 times daily. 15 mL 01/21/20 23 Active Blood Pressure Monitoring (Omron 3 Series BP Monitor) device USE TO CHECK BLOOD PRESSURE EVERY DAY 1 each 02/28/20 23 Active diphenhydrAMIN E (BENADryl) 25 MG tablet Take 1 tablet (25 mg) by mouth if needed at bedtime (nasal congestion and postnasal drip). 30 tablet 1 05/14/20 23 Active Humidifiers misc 1 Units if needed in the morning, at noon, and at bedtime (congestion). 1 Units 03/01/20 24 025 Active sodium chloride (Searcy Nasal [place]) 0.65 % nasal spray Administer 1 spray into each nostril if needed for congestion. 30 mL 2 03/18/20 24 025 Active fluticasone (Flonase) 50 MCG/ACT nasal spray INSTILL 2 SPRAYS IN EACH NOSTRIL ONCE DAILY NEEDED FOR NASAL CONGESTION- for no more than 3 weeks as TRIAL for sinusitis 18 g 09/26/20 24 Active meloxicam (Mobic) 15 MG tablet Take 1 tablet (15 mg) by mouth Once per day. 15 tablet 11/23/19 25 Active hydrocortisone (Anusol-HC) 2.5 % rectal creamIndicatio ns:Rectal pain Insert into the rectum 2 times daily. 28 g 01/25/20 25 Active FREESTYLE LITE test strip Use to test blood sugar 2 times daily 100 each 01/25/20 25 026 Active Lancets misc Use to test blood sugar 2 times daily 100 each 01/25/20 25 Active Alcohol Swabs 70 % pads Use to test blood sugar 2 times daily 100 each 01/25/20 25 Active Blood Glucose Monitoring Suppl (FreeStyle [place] Lite) w/Device kit Use to test blood sugar 2 times daily 1 kit 01/25/20 Active cyclobenzaprin e (Flexeril) 10 MG tabletIndicati ons:Rectal pain Take 1 tablet (10 mg) by mouth at bedtime. 60 tablet 01/28/20 25 025 Active albuterol 108 (90 Base) MCG/ACT inhaler Inhale 2 puffs every 4 (four) hours if needed for wheezing. 18 g 1 01/28/20 25 Active budesonide-for moterol (Symbicort) 80-4.5 MCG/ACT inhaler Inhale 2 puffs in the morning and at bedtime. Rinse mouth with water after use to reduce aftertaste and incidence of candidiasis. Do not swallow. 1 each 01/28/20 25 026 Active busPIRone (Buspar) 7.5 MG tablet Take 1 tab orally bid prn anxiety 60 tablet 2 01/28/20 Active budesonide (Pulmicort Flexhaler) 90 MCG/ACT inhaler Inhale 1 puff in the morning and at bedtime. Rinse mouth with water after use to reduce aftertaste and incidence of candidiasis. Do not swallow. 1 each 12/30/19 24 025 Discontinued(Co st of medication) QUEtiapine (SEROquel) 25 MG tabletIndicati ons:H/O insomnia Take 1 tablet (25 mg) by mouth at bedtime. 30 tablet 11/07/19 25 025 Discontinued(Si de effects) cyclobenzaprin e (Flexeril) 10 MG tablet Take 1 tablet (10 mg) by mouth at bedtime for 10 days. 10 tablet 11/23/19 025 Discontinued(Re order (will not trigger notification to Pharmacy)) albuterol 108 (90 Base) MCG/ACT inhaler Inhale 2 puffs every 4 (four) hours if needed for wheezing. 18 g 1 11/23/19 025 Discontinued(Re order (will not trigger notification to Pharmacy)) Active Problems Problem Noted Date Diagnosed Date Skin lesion 01/29/2025 Blurry vision 01/29/2025 Well adult exam 01/29/2025 Rectal pain 01/24/2025 Assessment & Plan (01/24/2025 2:40 PM EDT): Patient with c/o rectal pain x 1 week, described as 10/10 when severe. 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 Encounters Date Type Department Care Team Description 01/31/2025 Telephone [facility] [address] [place] [phone] Charley Dominique FNP Results 01/27/2025 9:30 AM EDT Office Visit [facility] [address] [place] [phone] Charley Dominique FNP Well adult exam (Primary Dx); Blurry vision; Rectal pain; Skin lesion 01/27/2025 Travel 01/24/2025 2:00 PM EDT Office Visit [facility] [address] [place] [address] Trevor Hernandez MD Rectal pain (Primary Dx) 01/24/2025 Telephone [facility] [address] [place] [address] Angela Foote DO PRO SHOP ATTENDANT PHONE TRIAGE 01/24/2025 Travel 01/17/2025 Patient Outreach [facility] [address] [place], [place] [phone] Yarelis Graves NP Pre-visit Planning (SDOH negative, Tobacco screening negative. ) 01/12/2025 Telephone [facility] [address] [place] [address] Keyonna Antunez MA Chart Prep 01/05/[address] [address] Yarelis Graves NP Lab Orders (Patient requesting lab order for TB TEST for work) 12/16/2024 Population Health Risk Score [facility] (C3) Department [address] [place] [phone] Provider, Population Health Generic 11/29/2024 Orders Only [facility] [address] [place] [phone] Vasu Morales MD Acute right-sided low back pain without sciatica (Primary Dx) 11/29/2024 Telephone [facility] [address] [place] [phone] orders 11/27/2024 Orders Only GENERIC EXTERNAL DATA DEPARTMENT Provider, Generic External Data 11/23/2024 5:40 PM EST Office Visit [facility] [address] [place] [phone] Airam Shane MD Sprain of anterior shoulder joint (Primary Dx); Contusion of left chest wall, subsequent encounter 11/23/2024 Telephone [facility] [address] [place] [phone] Yarelis Graves NP Nurse Triage 11/22/2024 [facility] Information [address] [address] [address] pelvis order 11/18/[address] [address] Nat Castillo, CHELSI from Last 3 Months Immunizations Immunization Administration Dates Next Due Hep B, adult [...] Answer Date Recorded Patient Health Questionnaire-9 Score 4 01/27/2025 Patient Health Questionnaire-9 Score 4 01/27/2025 Last PHQ-9: Questionnaire Data Not on file 0 01/27/2025 Housing Stability Answer Date Recorded What is your housing situation today? I have beaumichael knight 01/17/[address] you [...] Answer Date Recorded Patient Health Questionnaire-2 Score 0 01/27/2025 Internet Access Answer Date Recorded Internet Access [...] Sign Reading Time Taken Comments Blood Pressure 125/91 01/27/2025 10:11 AM EDT Pulse 67 01/27/2025 10:11 AM EDT Temperature 36.8 ??C (98.3 ??F) 01/27/2025 10:11 AM E DT Respiratory Rate 20 01/27/2025 10:11 AM EDT Oxygen Saturation 99% 01/24/2025 1:39 PM EDT Inhaled Oxygen Concentration - - Weight 73.1 kg (161 lb 2 oz) 01/27/2025 10:11 AM EDT Height 172.3 cm (5' 7.82 ) 01/27/2025 10:11 AM E DT Body Mass Index 24.63 01/27/2025 10:11 AM EDT Plan of Treatment Upcoming Encounters Date Type Department Care Team (Late st Contact Info) Description 03/03/2025 10:15 AM EDT Office Visit [facility] [address] [place] [address] Charley Dominique FNP [address] [place] [address] 04/28/2025 9:00 AM EDT Office Visit [facility] [address] [place] [address] Sangeeta Keen, OD [address] [place] [address] [phone] (work) Health Maintenance Due Date Last Done Comments Dental Oral Exam 1991 Dental Prophylaxis 1991 Dental X-Ray: Full Mouth 1991 Family Planning (PISQ) 2006 Pneumococcal Vaccine: Pediatrics (0 to 5 Years) and At-Risk Patients (6 to 49) Years) (2 of 2 - PCV) 11/28/2016 11/28/2015 Dental X-Ray: Bitewings 01/07/2024 01/05/2023 COVID-19 Vaccine ( season) 2024 10/15/2021, 11/30/2020, 11/09/2020 Influenza Vaccine (#1) 2024 , 12/08/2022, 12/08/2021, Additional history exists Alcohol/Substance Use Screening 01/27/2026 01/27/2025 Depression Screening 01/27/2026 01/27/2025, 01/28/20 SDOH Screening 01/27/2026 01/27/2025 Tobacco Screening 01/27/2026 01/27/2025 DTaP/Tdap/Td Vaccines (3 - Td or Tdap) [...] Name Priority Date/Time Associated Diagnosis Comments CT ABDOMEN PELVIS W CONTRAST STAT 01/27/2025 9:20 AM EDT Rectal pain CBC WITH AUTO DIFFERENTIAL Routine 01/24/2025 2:31 [...] QL NAAT Routine 11/27/2024 2:35 PM EST BITEWING - SINGLE RADIOGRAPHIC IMAGE Routine 01/05/2023 11:30 AM EDT ZZZ HISTORICAL HEPATITIS C AB W/REFL TO HCV RNA, QN, PCR Routine 12/17/2021 2:10 PM EDT HIV 1/2 ANTIGEN/ANTIBODY, FOURTH GENERATION W/RFL Routine 12/17/2021 2:10 PM EDT from Last 3 Months or Most Recently Relevant to Health Maintenance Results * CT Abdomen Pelvis w/ Contrast (01/27/2025 9:20 AM EDT) Anatomical Region Laterality Modality Body, Pelvis, Abdomen Computed T omography 01/27/2025 9:20 AM EDT Narrative 01/27/2025 9:55 AM EDT ? [facility] ?[address] ?[place] [address] ? CT Scan Report ? Signed ? Patient: Foreign Schwartz,Mayco L ?MR#: ?? [id number] ? : 1990 ?Acct:[id number] ? Age/Sex: 34 / M ?ADM Date: 01/27/25 ? Loc: HO.CT ? Attending Dr: Trevor Dhillon MD ? Ordering Physician: Trevor Dhillon MD ?? Date of Service: 01/27/25 ?? Procedure(s): CT abdomen pelvis w IV con ?? Accession Number(s): [id number] ? cc: Trevor Dhillon MD ? Report Number: ?? [id number]: Total DLP = ??274.00 mGy-cm ?? EXAMINATION: ??CT ABDOMEN PELVIS WITH IV CONTRAST ? HISTORY: severe 10/10 rectal pain, rule out perirectal abscess ? COMPARISON: Comparison is made with the prior examination dated ?? 07/11/2023. ? TECHNIQUE: CT scan of the abdomen and pelvis was performed following ?? administration of 85 mL Omnipaque 350 using standard departmental ?? protocol. Coronal and sagittal reformatted images were generated and ?? reviewed. ??The patient received oral contrast material. ? This CT exam was performed with one or more of the following dose ?? reduction techniques: automated exposure control, adjustment of the mA ?? and/or kV according to patient size, use of iterative reconstruction ?? technique. ? DLP: 274 mGy-cm ? FINDINGS: ? LOWER CHEST: The visualized lung bases are clear. There is no pleural ?? effusion. ? CARDIOVASCULATURE: The heart is normal in size. ??There is no ?? pericardial effusion. ? LIVER: ??The liver is normal in size and contour. ??No liver mass is ?? identified. ??The hepatic and portal veins are patent. ? GALLBLADDER / BILE DUCTS: ??The gallbladder is unremarkable. There is no ?? intra or extrahepatic biliary ductal dilatation. ? SPLEEN: The spleen is normal in size. No focal splenic lesion is ?? identified. ? PANCREAS: The pancreas is unremarkable in appearance. ? ADRENAL GLANDS: Within normal limits. ? KIDNEYS/RETROPERITONEUM: No renal calculi are identified. There is no ?? hydronephrosis. ??There are subcentimeter hypodensities in the left ?? kidney which likely represent cysts. These are unchanged from the prior ?? study. ? LYMPH NODES: ??No abdominal or pelvic lymphadenopathy. ? VASCULATURE: ??The abdominal aorta is normal in caliber. ? MESENTERY/PERITONEUM: No free fluid. No masses. ??There is no free ?? intraperitoneal gas. ? STOMACH: ??The stomach is collapsed, limiting evaluation. ? SMALL BOWEL: ?? The small bowel is normal in caliber. ? COLON: ??The colon is unremarkable. No perirectal fluid collection is ?? identified. The perirectal fat is preserved. ? APPENDIX: ??Normal. ? URINARY BLADDER/PELVIC ORGANS: The urinary bladder is unremarkable. ? The prostate is normal in size. ? BONES / SOFT TISSUES: ??No suspicious bony or soft tissue abnormalities. ? CT/CT abdomen pelvis w IV con ?? IMPRESSION: ?? Tiny left renal cysts. Otherwise unremarkable contrast-enhanced CT of ?? the abdomen and pelvis. No perirectal fluid collection is seen. ? Electronically signed by: ??James Ball MD ??01/27/2025 09:52 AM EDT ?? RP ? Dictated By: ?James Ball MD ? Signed By: ?<Electronically signed by James Ball MD in OV> ?01/27/25 0952 ? DD/ 0920 ? TD/TT: 01/27/25 0935 ? Loading Unit Tool Setter: ? Procedure Note Adair, Dori - 01/27/[address] [address] [address] Scan Report Signed Patient: Mayco Sparrow LMR#: [id number] : 1990Acct:[id number] Age/Sex: 34 / MADM Date: 01/27/25 Loc: HO.CT Attending Dr: Trevor Dhillon MD Ordering Physician: Trevor Dhillon MD Date of Service: 01/27/25 Procedure(s): CT abdomen pelvis w IV con Accession Number(s): [id number] cc: Trevor Dhillon MD Report Number: [id number]: Total DLP = 274.00 mGy-cm EXAMINATION: CT ABDOMEN PELVIS WITH IV CONTRAST HISTORY: severe 07/14 rectal pain, rule out perirectal abscess COMPARISON: Comparison is made with the prior examination dated 07/11/2023. TECHNIQUE: CT scan of the abdomen and pelvis was performed following administration of 85 mL Omnipaque 350 using standard departmental protocol. Coronal and sagittal reformatted images were generated and reviewed. The patient received oral contrast material. This CT exam was performed with one or more of the following dose reduction techniques: automated exposure control, adjustment of the mA and/or kV according to patient size, use of iterative reconstruction technique. DLP: 274 mGy-cm FINDINGS: LOWER CHEST: The visualized lung bases are clear. There is no pleural effusion. CARDIOVASCULATURE: The heart is normal in size. There is no pericardial effusion. LIVER: The liver is normal in size and contour. No liver mass is identified. The hepatic and portal veins are patent. GALLBLADDER / BILE DUCTS: The gallbladder is unremarkable. There is no intra or extrahepatic biliary ductal dilatation. SPLEEN: The spleen is normal in size. No focal splenic lesion is identified. PANCREAS: The pancreas is unremarkable in appearance. ADRENAL GLANDS: Within normal limits. KIDNEYS/RETROPERITONEUM: No renal calculi are identified. There is no hydronephrosis. There are subcentimeter hypodensities in the left kidney which likely represent cysts. These are unchanged from the prior study. LYMPH NODES: No abdominal or pelvic lymphadenopathy. VASCULATURE: The abdominal aorta is normal in caliber. MESENTERY/PERITONEUM: No free fluid. No masses. There is no free intraperitoneal gas. STOMACH: The stomach is collapsed, limiting evaluation. SMALL BOWEL: The small bowel is normal in caliber. COLON: The colon is unremarkable. No perirectal fluid collection is identified. The perirectal fat is preserved. APPENDIX: Normal. URINARY BLADDER/PELVIC ORGANS: The urinary bladder is unremarkable. The prostate is normal in size. BONES / SOFT TISSUES: No suspicious bony or soft tissue abnormalities. CT/CT abdomen pelvis w IV con IMPRESSION: Tiny left renal cysts. Otherwise unremarkable contrast-enhanced CT of the abdomen and pelvis. No perirectal fluid collection is seen. Electronically signed by: James Ball MD 01/27/2025 09:52 AM EDT RP Dictated By: James Ball MD Signed By: <Electronically signed by James Ball MD in OV> 01/27/2552 DD/ 9 TD/TT: 01/27/2535 Loading Unit Tool Setter: Trevor Lima MD IMG CT PROCEDURES Chintan kezia Result - Final * (ABNORMAL) CBC auto differential (01/24/2025 2:31 PM EDT) Only the most recent of2 resultswithin the time period is included. White Blood Count 6.6 4.8 - 10.8 X10*3/uL [facility] Red Blood Count 4.87 4.60 - 5.80 X10*6/uL [facility] Hemoglobin 14.5 14.0 - 18.0 g/dl [facility] Hematocrit 43.8 42.0 - 52.0 % [facility] Mean Corpuscular Volume 89.9 80.0 - 98.0 fL [facility] Mean Corpuscular Hemoglobin 29.8 27.0 - 33.0 pg [facility] Mean Corpuscular HGB Conc 33.1 31.0 - 36.0 g/dl [facility] Red Cell Distribution Width 13.0 11.0 - 16.0 % [facility] Platelet Count 190 160 - 400 X10*3/uL [facility] Mean Platelet Volume 11.9 9.4 - 12.4 fL [facility] Neutrophils Percent Auto 57.6 45 - 73 % [facility] Imm Gran Pct Auto 0.3 0.0 - 0.4 % [facility] Lymphocytes Percent Auto 26.7 20 - 40 % [facility] Monocytes Percent Auto 11.3(H) 2 - 11 % [facility] Eosinophils Percent Auto 3.5 0 - 4 % [facility] Basophils Percent Auto 0.6 0 - 2 % [facility] NRBC Pct Auto 0.0 0.0 - 0.2 /100WBC [facility] Neutrophils Absolute Auto 3.8 2.0 - 8.3 x10*3/uL [facility] Imm Gran Abs Auto 0.02 0.00 - 0.03 X10*3/uL [facility] Lymphocytes Absolute Auto 1.8 1.2 - 4.9 X10*3/uL [facility] Monocytes Absolute Auto 0.7 0.1 - 1.2 X10*3/uL [facility] Eosinophils Absolute Auto 0.2 0.0 - 0.4 X10*3/uL [facility] Basophils Absolute Auto 0.0 0.0 - 0.2 X10*3/uL [facility] NRBC Abs Auto 0.000 0.0 - 0.012 X10*3/uL [facility] Blood Venous blood specimen / Unknown 01/24/2025 2:31 PM EDT 01/24/2025 4:12 PM EDT us Trevor Lima MD LAB BLOOD ORDERABLES Final Result [facility] [address] [place] [address] [phone] * (ABNORMAL) Basic Metabolic Panel (01/24/2025 2:31 PM EDT) Sodium 141 135 - 145 mmol/L [facility] Potassium 4.1 3.3 - 5.1 mmol/L [facility] Chloride 106 96 - 108 mmol/L [facility] Carbon Dioxide 28 22 - 29 mmol/L [facility] Anion Gap 11(L) 12 - 20 [facility] Urea Nitrogen (BUN) 8(L) 9 - 16 mg/dL [facility] Creatinine, Serum 0.85 0.5 - 1.4 mg/dL [facility] Estimated Glomerular Filt Rate >60 [facility] Comment:Chronic Kidney Disea se: Estimated GFR < 60 mL/min/1.76w1Xdgwlx Kidney Disease: Estimated GFR < 15 mL/min/1.73m2 Glucose 40(LL) 60 - 115 mg/dL [facility] Comment:Critical value for t est(s): GLUR Results called to andread back by: DR. FOOTE Person calling:WHITNEY Date:01/24/2025Time:17:15. Calcium 9.3 8.4 - 10.2 mg/dL [facility] Blood Venous blood specimen / Unknown 01/24/2025 2:31 PM EDT 01/24/2025 4:05 PM EDT Trevor Lima MD LAB BLOOD ORDERABLES Final Result [facility] [address] [place] [phone] * (ABNORMAL) POCT urinalysis dipstick manually [...] PM EDT) T Spot TB Negative Negative [facility] Comment:A negative test resu lt [...] as aquantitative test. TS PANEL A 0 [facility] TS PANEL B 0 [facility] Negative Control Passed [facility] Positive Control Passed [facility] Comment:For additional infor mation, please refer [email or web address].Courseload/faq/ZVK543(This link is being provided for informational/educational purposes only.)THIS TEST WAS PERFORMED AT:[id number] [place] [address]ETUMQEDKRISTY GAUTAM MD,PHD 01/05/2025 12:3 3 PM EDT 01/05/2025 1:26 PM EDT us Yarelis Graves NP LAB BLOOD ORDERABLES Final Resul t [facility] [address] [place] [phone] * CT Head w/o Contrast (11/27/2024 6:04 PM EST) Anatomical Region Laterality Modality Head, Neck Computed Tomogra phy 11/27/2024 6:04 PM EST Narrative 11/27/2024 6:06 PM EST ? [facility] ?[address] ?[place] [address] ? CT Scan Report ? Signed ? Patient: Foreign Schwartz,Mayco L ?MR#: ?? [id number] ? : 1990 ?Acct:[id number] ? Age/Sex: 34 / M ?ADM Date: 11/27/24 ? Loc: HO.ED ? Attending Dr: ? Ordering Physician: Emily Delgado CNP ?? Date of Service: 11/27/24 ?? Procedure(s): CT head/brain wo IV con ?? Accession Number(s): [id number] ? cc: Emily Delgado CNP; [facility] ? Report Number: ?? [id number]: Total DLP = ??708.00 mGy-cm ? CLINICAL HISTORY: sudden severe R posterior H A ? CT head without contrast ? Comparison: CT/REG/PA/SR - CT HEAD/BRAIN WO IV CON - [...] in OV> ? 11/27/24 1805 ? DD/ 03 ? TD/TT: 11/27/24 1804 ? Loading Unit Tool Setter: ? Procedure Note Dori Borrero - 11/27/[address] [address] [address] Scan Report Signed Patient: Mayco Sparrow LMR#: [id number] : 1990Acct:[id number] Age/Sex: 34 / MADM Date: 11/27/24 Loc: HO.ED Attending Dr: Ordering Physician: Emily Delgado CNP Date of Service: 11/27/24 Procedure(s): CT head/brain wo IV con Accession Number(s): [id number] cc: Emily Delgado CNP; [facility] Report Number: [id number]: Total DLP = 708.00 mGy-cm CLINICAL HISTORY: sudden severe R posterior H A CT head without contrast Comparison: CT/REG/PA/SR - CT HEAD/BRAIN WO IV CON - [...] in OV> 11/27/241804 DD/ 03 TD/TT: 11/27/241803 Loading Unit Tool Setter: [facility] External Provider IMG CT PROCEDURES Edited Result - Final * SARS-CoV-2 RNA, Influenza A/B, and RSV RNA, Ql NAAT (11/27/2024 2:35 PM EST) Influenza A PCR NEGATIVE Negative [facility] Influenza B PCR NEGATIVE Negative [facility] Resp Syncy Virus RNA Qual PCR NEGATIVE Negative [facility] SARS COV2 PCR NEGATIVE Negative [facility] Comment:All test results mus t [...] use by authorized laboratories.Testing performed on the [employer] GeneXpert utilizingreal-time RT-PCR.All SARS CoV2 and positive influenza A/B results arereported to QUINN RODRIGUEZ. 11/27/2024 2:35 PM EST 11/27/2024 2:37 PM EST us Generic External Data Provider LAB MICROBIOLOGY - GENERAL ORDERABLES Final Result [facility] [address] [place] [phone] [phone] * (ABNORMAL) Comprehensive Metabolic Panel (11/27/2024 2:35 PM EST) Sodium 141 135 - 145 mmol/L [facility] Potassium 3.9 3.3 - 5.1 mmol/L [facility] Chloride 107 96 - 108 mmol/L [facility] Carbon Dioxide 25 22 - 29 mmol/L [facility] Anion Gap 13 12 - 20 [facility] Urea Nitrogen (BUN) 9 9 - 16 mg/dL [facility] Creatinine, Serum 1.03 0.5 - 1.4 mg/dL [facility] Creatinine Clr Calc Pharmacy 95.3 [facility] Comment:eGFR (calculated fro m the MDRD study equation) and eCrCl(calculated from the Cockcroft-Gault equation) are based ondifferent parameters and may not yield comparable results.If eCrCl result is absurd, please check patient'sheight/weight. Estimated Glomerular Filt Rate >60 [facility] Comment:Chronic Kidney Disea se: Estimated GFR < 60 mL/min/1.75b0Rksnlm Kidney Disease: Estimated GFR < 15 mL/min/1.73m2 Glucose 71 60 - 115 mg/dL [facility] Calcium 9.4 8.4 - 10.2 mg/dL [facility] Bilirubin, Total 0.7 0.0 - 1.0 mg/dL [facility] Aspartate Amino Transferase 29 5 - 37 U/L [facility] Alanine Aminotransferase 44(H) 0 - 40 U/L [facility] Total Protein 7.9 6.5 - 8.0 g/dL [facility] Albumin Level 4.8 3.5 - 5.0 g/dL [facility] Alkaline Phosphatase 68 39 - 117 U/L [facility] 11/27/2024 2:35 PM EST 11/27/2024 2:37 PM EST Generic External Data Provider LAB BLOOD ORDERAB LES Final Result Performing Organization Address [facility] Co de Phone Number [facility] [address] [place] [address] [phone] * HEPATITIS C AB W/REFL TO HCV RNA, QN, PCR (12/17/2021 2:10 PM EDT) HEPATITIS C ANTIBODY NON-REACT BEST NON-REACT BEST [facility] INDEX 0.01 <1.00 [facility] Comment: ?? HCV antibody was non-reactive. There is no laboratory ?? evidence of HCV infection. ?? In most cases, no further action is required. However, if recent HCV exposure is suspected, a test for HCV RNA (test code 20276) is suggested. ?? For additional information please refer to http://education.Courseload/faq/PXF18z4 (This link is being provided for informational/ educational purposes only.) ?? 12/17/2021 2:10 PM EDT David Don MD HISTORICAL/NON ORDERABLE LABS Fi nal Result Performing Organization Address [facility] Co de Phone Number [facility] [address] * HIV 1/2 ANTIGEN/ANTIBODY,FOURTH GENERATION W/RFL (12/17/2021 2:10 PM EDT) HIV-1/2 ANTIGEN AND ANTIBODIES, 4TH GENERATION W/ REFLEX [facility] Comment: HIV-1 antigen and HIV-1/HIV-2 [...] ? For additional information please refer to http://education.Courseload/faq/IMV338 (This link is being provided for informational/ educational purposes only.) ? The performance of this assay has not been clinically validated in patients less than 2 years old. ?? 12/17/2021 2:10 PM EDT us David Don MD LAB BLOOD ORDERABLES Final Resul t Performing Organization Address City/State/[facility] Co ms Phone Number [facility] Any[address] from Last 3 Months or Most Recently Relevant to Health Maintenance Insurance [facility] C[facility] [place] ST[place] ADULT Care Teams Senior Systems Software Engineer Relationship Specialty Start Date End Date Charley Dominique FNP [address] [place] [id number] PCP - General Family Medicine 01/27/25
--- OUTSIDE RECORDS SUMMARY | 2025-02-15 14:17 | XMS_ITS | Encounter Summary ---
Author Organization [employer] Address [address] [facility] 7t [place] [address] Care Team Providers Care Land Department Head Name Role Phone Roxanne Cortez SENIOR TAX MANAGER Primary Care Provider [phone] Yarelis Graves INSPECTOR OF DREDGING Primary Care Provider [phone] Charley Dominique SENIOR TAX MANAGER Primary Care Provider [phone] Encounter Details Date Type Department Care Team (Late Contact Info) Description 02/10/2023 Abstract [facility] ADULT DENTAL [address] [place] [address] Ryan Carpenter, DMD [address] [place] [address] Social History Tobacco Use Types Packs/Day Years [...] Upcoming Encounters Date Type Department Care Team ([facility] Contact Info) Description 03/03/2025 10:15 AM EDT Office Visit [facility] MEDICINE [address] [place] [address] Charley Dominique FNP [address] [facility] [place] [address] 04/28/2025 9:00 AM EDT Office Visit [facility] OPTOMETRY [address] [place] [address] StephanyCassidy duvallica, OD [address] [place] [address] documented as of this encounter Visit Diagnoses Not on filedocumented in this encounter Additional Health Concerns Assessment Noted Time PHQ-9 Depression Total Score: 3 01/06/20 23 10:23 AM EDT documented as of this encounter Care Teams Land Department Head Relationship Specialty Start Date End Date Roxanne Cortez FNP [address] [facility] [place] [address] PCP - General Family Medicine 07/11/22 06/07/24 Yarelis Graves NP [address] [facility] [place] [address] PCP - General Family Medicine 06/08/24 01/26/25 Charley Dominique FNP [address] [place] [address] PCP - General Family Medicine 01/27/25 documented as of this encounter
--- OUTSIDE RECORDS SUMMARY | 2025-02-15 14:17 | XMS_ITS | Encounter Summary ---
Author Organization [employer] Address [address] [facility] 7t [place] [address] Care Team Providers Care Production Control Pegboard Clerk Name Role Phone YazYarelis garcia GRIP Primary Care Provider [phone] Charley Dominique REAL ESTATE ACQUISITION ANALYST Primary Care Provider [phone] Encounter Details Date Type Department Care Team ([facility] st Contact Info) Description 11/08/2024 Orders Only [facility] CHC MED & PEDS [address] [place], [place] [phone] Vasu Morales MD [address] [place] [address] Acute right-sided low back pain without sciatica [...] Description 03/03/2025 10:15 AM EDT Office Visit [facility] MEDICINE [address] [place] [address] Charley Dominique FNP [address] [place] [address] 04/28/2025 9:00 AM EDT Office Visit [facility] OPTOMETRY [address] [place] [address] Sangeeta Keen, OD [address] [place] [address] documented as of this encounter Visit Diagnoses Diagnosis Acute right-sided low back pain without sciatica- Primary documented in this encounter Additional Health Concerns Assessment Noted Time PHQ-9 Depression Total Score: 3 01/06/20 23 10:23 AM EDT documented as of this encounter Care Teams Production Control Pegboard Clerk Relationship Specialty Start Date End Date Yarelis Graves NP [address] [place] [address] PCP - General Family Medicine 06/08/24 01/26/25 Charley Dominique FNP [address] [place] [address] PCP - General Family Medicine 01/27/25 documented as of this encounter
--- OUTSIDE RECORDS SUMMARY | 2025-02-15 14:17 | XMS_ITS | Encounter Summary ---
Author Organization [employer] Address [address] [facility] 7t [place] [address] Care Team Providers Care Acoustical Installer Name Role Phone Roxanne Cortez BLOCKER AND CUTTER CONTACT LENS Primary Care Provider [phone] Yarelis Graves NP Primary Care Provider [phone] Charley Dominique BLOCKER AND CUTTER CONTACT LENS Primary Care Provider Reason for Visit * Reason Onset Date Comments Durable Medical Equipment 09/04/2023 Encounter Details Date Type Department Care Team (Late st Contact Info) Description 09/04/2023 Telephone [facility] MEDICINE [address] [place] [address] Roxanne Cortez FNP [address] [place] [address] Durable Medical Equipment Social History Tobacco Use [...] Description 03/03/2025 10:15 AM EDT Office Visit [facility] MEDICINE [address] [place], [place] [phone] Charley Dominique FNP [address] [place], [place] [phone] 04/28/2025 9:00 AM EDT Office Visit [facility] OPTOMETRY [address] [place] [address] Sangeeta Keen, OD [address] [place] [address] documented as of this encounter Visit Diagnoses Not on filedocumented in this encounter Additional Health Concerns Assessment Noted Time PHQ-9 Depression Total Score: 3 01/06/20 23 10:23 AM EDT documented as of this encounter Care Teams Acoustical Installer Relationship Specialty Start Date End Date Roxanne Cortez FNP [address] [place] [address] PCP - General Family Medicine 07/11/22 06/07/24 Yarelis Graves NP [address] [place] [address] PCP - General Family Medicine 06/08/24 01/26/25 Charley Dominique FNP [address] [place] [address] PCP - General Family Medicine 01/27/25 documented as of this encounter
--- OUTSIDE RECORDS SUMMARY | 2025-02-15 14:17 | XMS_ITS | Encounter Summary ---
Author Organization [employer] Address [address] [facility] 7t [place] [address] Care Team Providers Care Narcotics And/Or Vice Detective Name Role Phone Yarelis Graves PATIENT ACCESS ASSOCIATE Primary Care Provider [phone] Charley Dominique BUS CLEANER Primary Care Provider [phone] Reason for Referral * Imaging (Routine) - Closed Specialty Diagnoses / Procedures Referred By Contac t Referred To Contact Radiology Diagnoses Acute right-sided low back pain without sciatica Procedures CT Lumbar Spine w/o Contrast Vasu Morales MD [address] [place] [address] Phone: tel: fax: [address] Phone: tel: fax: Referral ID Status Reason Start Date Expiration Date Visits Re quested Visits Authorized [id number] Closed 11/29/2024 11/29/2025 1 1 Encounter Details Date Type Department Care Team (Late st Contact Info) Description 11/29/2024 Orders Only [facility] MEDICINE [address] [place] [address] Vasu Morales MD [address] [place] [address] Acute right-sided low back pain without sciatica [...] Description 03/03/2025 10:15 AM EDT Office Visit [facility] MEDICINE [address] [place] [address] Charley Dominique FNP [address] [place] [address] 04/28/2025 9:00 AM EDT Office Visit [facility] OPTOMETRY [address] [place] [address] Sangeeta Keen, OD [address] [place] [address] Scheduled Orders Name Type Priority Associated Diagnoses [...] documented as of this encounter Care Teams Narcotics And/Or Vice Detective Relationship Specialty Start Date End Date Yarelis Graves NP [address] [place] [address] PCP - General Family Medicine 06/08/24 01/26/25 Charley Dominique FNP [address] [place] [address] PCP - General Family Medicine 01/27/25 documented as of this encounter
--- OUTSIDE RECORDS SUMMARY | 2025-02-15 14:17 | XMS_ITS | Encounter Summary ---
Author Organization [employer] Address [address] [facility] 7t [place] [address] Care Team Providers Care Sanitor Name Role Phone Roxanne Cortez INTEGRATED PROGRAM TEACHER Primary Care Provider [phone] Yarelis Graves CATALOGING ASSISTANT Primary Care Provider [phone] Charley Dominique INTEGRATED PROGRAM TEACHER Primary Care Provider [phone] Reason for Visit * Reason Onset Date Comments Appointment 04/01/2023 Encounter Details Date Type Department Care Team ([facility] st Contact Info) Description 04/01/2023 Telephone [facility] ADULT DENTAL [address] [place] [address] Ryan Carpenter, DMD [address] [place] [address] Appointment Social History Tobacco Use Types Packs/Day [...] Teagan Kelly - 04/01/2023 3:50 PM EDT [facility] Foreign Patient called in and stated that stitches are falling out and wanted to know if it was normal patient was seen on 04/01/2023 please reach out to patient. documented in this encounter Plan of Treatment Upcoming Encounters Date Type Department Care Team (Late st Contact Info) Description 03/03/2025 10:15 AM EDT Office Visit [facility] MEDICINE [address] [place] [address] Charley Dominique FNP [address] [place] [address] 04/28/2025 9:00 AM EDT Office Visit [facility] OPTOMETRY [address] [place] [address] Tarka, Sangeeta, OD [address] [place] [address] documented as of this encounter Visit Diagnoses Not on filedocumented in this encounter Additional Health Concerns Assessment Noted Time PHQ-9 Depression Total Score: 3 01/06/20 23 10:23 AM EDT documented as of this encounter Care Teams Sanitor Relationship Specialty Start Date End Date Roxanne Cortez FNP [address] [place] [address] PCP - General Family Medicine 07/11/22 06/07/24 Yarelis Graves NP [address] [place] [address] PCP - General Family Medicine 06/08/24 01/26/25 Charley Dominique FNP [address] [place] [address] PCP - General Family Medicine 01/27/25 documented as of this encounter
[2025-02-15 14:28] VITALS: BP 129/89; PULSE 83; BMI 24.9
== END 2025-02-15 14:36 | disposition home or self-care (01) ==
LOC: HO.HGS 14:15
PROVIDERS: PCP Internal Medicine; Visit Provider Surgery
DX: K60.2 Anal fissure, unspecified (principal)
CPT/HCPCS: 99203

== ENCOUNTER → 2025-02-15 14:14 | Outpatient (BNVA) | payer MEDICAID, SELFPAY | PROVIDERS: PCP Internal Medicine; Visit Provider Surgery | DX: K60.2 Anal fissure, unspecified (principal) | CPT/HCPCS: 99202 ==

== ENCOUNTER 2025-03-02 06:27 | Day surgery (SDC) | payer MEDICAID, SELFPAY ==
--- OUTSIDE RECORDS SUMMARY | 2025-02-24 11:28 | XMS_ITS | Clinical Summary ---
Author Organization [employer] Address [address] [facility] [address] [place] [address] Care Team Providers Care Penology Professor Name Role Phone Charley Dominique [facility] Primary Care Provider Allergies Active Allergy Reactions Criticality Noted Date [...] Units 03/01/20 24 025 Active sodium chloride (Anoka Nasal [place]) 0.65 % nasal spray Administer 1 spray [...] 25 Active Blood Glucose Monitoring Suppl (FreeStyle Warwick Lite) w/Device kit Use to test blood [...] 10/10 when severe. 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 Encounters Date Type Department Care Team Description 01/31/2025 Telephone [facility] [address] [place] [phone] Charley Dominique FNP Results 01/27/2025 9:30 AM EDT Office Visit [facility] [address] [place] [phone] Charley Dominique FNP Well adult exam (Primary Dx); Blurry vision; Rectal pain; Skin lesion 01/27/2025 Travel 01/24/2025 2:00 PM EDT Office Visit [facility] [address] [place] [address] Trevor Hernandez MD Rectal pain (Primary Dx) 01/24/2025 Telephone [facility] [address] [place] [address] Angela Foote DO PRESIDENT/[employer] PHONE TRIAGE 01/24/2025 Travel 01/17/2025 Patient Outreach [facility] [address] [place] [address] Yarelis Graves NP Pre-visit Planning (SDOH negative, Tobacco screening negative. ) 01/12/2025 Telephone [facility] [address] [place] [address] Keyonna Antunez MA Chart Prep 01/05/2025 Telephone [facility] [address] [place], [place] [phone] Yarelis Graves NP Lab Orders (Patient requesting lab order for TB TEST for work) 12/16/2024 Population Health Risk Score [facility] (C3) Department [address] [place] [phone] Provider, Population Health Generic 11/29/2024 Orders Only [facility] [address] [place] [address] Vasu Morales MD Acute right-sided low back pain without sciatica (Primary Dx) 11/29/2024 [facility] Health Information Management [address] [place], [place] [phone] Vasu Morales MD ct orders 11/27/2024 Orders Only GENERIC EXTERNAL DATA DEPARTMENT Provider, Generic External Data from Last 3 Months Immunizations Immunization Administration [...] the past 12 months, has t he sickweather, gas, oil or water company threatened to [...] AM EDT Office Visit [facility] [address] [place] [address] Charley Dominique FNP [address] [place] [address] 04/28/2025 9:00 AM EDT Office Visit [facility] [address] [place] [address] Sangeeta Keen, OD [address] [place] [address] Health Maintenance Due Date Last Done Comments Dental Oral Exam 1991 Dental Prophylaxis 1991 Dental X-Ray: Full Mouth 1991 Disability Screening 1991 Family Planning (PISQ) 2006 Pneumococcal Vaccine: Pediatrics (0 to 5 Years) and At-Risk Patients (6 to 49) Years) (2 of 2 - PCV) 11/28/2016 11/28/2015 Dental X-Ray: Bitewings 01/07/2024 01/05/2023 COVID-19 Vaccine ( season) 2024 10/15/2021, 11/30/2020, 11/09/2020 Influenza Vaccine (#1) 2024 3, 12/08/2022, 12/08/2021, Additional history exists Alcohol/Substance Use [...] patient's age to complete this topic Meningococcal B Vaccine Aged Out No l onger eligible based on patient's age to complete [...] EDT Narrative 01/27/2025 9:55 AM EDT ? [facility] ?[address] ?[place] [address] ? CT Scan Report ? Signed ? Patient: Foreign Schwartz,Mayco L ?MR#: ?? [id number] ? : 1990 ?Acct:[id number] ? Age/Sex: 34 / M ?ADM Date: 04/25/25 ? Loc: HO.CT ? Attending : Trevor Dhillon MD ? Ordering Physician: Trevor Dhillon MD ?? Date of Service: 01/27/25 ?? Procedure(s): CT abdomen pelvis w IV con ?? Accession Number(s): [id number] ? cc: Trevor Dhillon MD ? Report Number: ?? [id number]: Total DLP = ??274.00 mGy-cm ?? EXAMINATION: ??CT ABDOMEN PELVIS WITH IV CONTRAST ? HISTORY: severe 07/14 rectal pain, rule out perirectal abscess ? [...] ??James Ball MD ??01/27/2025 09:52 AM EDT ? Dictated By: ?James Ball MD ? Signed By: ?<Electronically signed by James Ball MD in OV> ?01/27/25 0952 ? DD/ 0920 ? TD/TT: 01/27/25 0935 ? City Designer: ? Procedure Note Dori Borrero - 01/27/[address] [place] [address] [address] Scan Report Signed Patient: Mayco Sparrow LMR#: [id number] : 1990Acct:[id number] Age/Sex: 34 / MADM Date: 01/27/25 Loc: HO.CT Attending Dr: Trevor Dhillon MD Ordering Physician: Trevor Dhillon MD Date of Service: 01/27/25 Procedure(s): CT abdomen pelvis w IV con Accession Number(s): [id number] cc: Trevor Dhillon MD Report Number: [id number]: Total DLP = 274.00 mGy-cm EXAMINATION: CT ABDOMEN PELVIS WITH IV CONTRAST HISTORY: severe 10/10 rectal pain, rule out perirectal abscess COMPARISON: [...] James Ball MD 01/27/2025 09:52 AM EDT Dictated By: James Ball MD Signed By: <Electronically signed by James Ball MD in OV> 01/27/25 0952 DD/ 9 TD/TT: 01/27/25934 City Designer: Trevor Lima MD IMG CT PROCEDURES Chintan kezia Result - Final * (ABNORMAL) CBC auto differential (01/24/2025 2:31 PM EDT) Only the most recent of2 resultswithin the time period is included. White Blood Count 6.6 4.8 - 10.8 X10*3/uL [facility] Red Blood Count 4.87 4.60 - 5.80 X10*6/uL [facility] Hemoglobin 14.5 14.0 - 18.0 g/dl [facility] Hematocrit 43.8 42.0 - 52.0 % [facility] Mean Corpuscular Volume 89.9 80.0 - 98.0 fL [facility] Mean Corpuscular Hemoglobin 29.8 27.0 - 33.0 pg [facility] Mean Corpuscular HGB Conc 33.1 31.0 - 36.0 g/dl [facility] Red Cell Distribution Width 13.0 11.0 - 16.0 % [facility] Platelet Count 190 160 - 400 X10*3/uL [facility] Mean Platelet Volume 11.9 9.4 - 12.4 fL [facility] Neutrophils Percent Auto 57.6 45 - 73 % [facility] Imm Gran Pct Auto 0.3 0.0 - 0.4 % [facility] Lymphocytes Percent Auto 26.7 20 - 40 % [facility] Monocytes Percent Auto 11.3(H) 2 - 11 % [facility] Eosinophils Percent Auto 3.5 0 - 4 % [facility] Basophils Percent Auto 0.6 0 - 2 % [facility] NRBC Pct Auto 0.0 0.0 - 0.2 /100WBC [facility] Neutrophils Absolute Auto 3.8 2.0 - 8.3 x10*3/uL [facility] Imm Gran Abs Auto 0.02 0.00 - 0.03 X10*3/uL [facility] Lymphocytes Absolute Auto 1.8 1.2 - 4.9 X10*3/uL [facility] Monocytes Absolute Auto 0.7 0.1 - 1.2 X10*3/uL [facility] Eosinophils Absolute Auto 0.2 0.0 - 0.4 X10*3/uL [facility] Basophils Absolute Auto 0.0 0.0 - 0.2 X10*3/uL [facility] NRBC Abs Auto 0.000 0.0 - 0.012 X10*3/uL [facility] Blood Venous blood specimen / Unknown 01/24/2025 2:31 PM EDT 01/24/2025 4:12 PM EDT us Trevor Lima MD LAB BLOOD ORDERABLES Final Result [facility] [address] [place] [address] [phone] * (ABNORMAL) Basic Metabolic Panel (01/24/2025 2:31 PM EDT) Sodium 141 135 - 145 mmol/L [facility] Potassium 4.1 3.3 - 5.1 mmol/L [facility] Chloride 106 96 - 108 mmol/L [facility] Carbon Dioxide 28 22 - 29 mmol/L [facility] Anion Gap 11(L) 12 - 20 [facility] Urea Nitrogen (BUN) 8(L) 9 - 16 mg/dL [facility] Creatinine, Serum 0.85 0.5 - 1.4 mg/dL [facility] Estimated Glomerular Filt Rate >60 [facility] Comment:Chronic Kidney Disea se: Estimated GFR < 60 mL/min/1.65j5Ntfqsl Kidney Disease: Estimated GFR < 15 mL/min/1.73m2 Glucose 40(LL) 60 - 115 mg/dL [facility] Comment:Critical value for t est(s): GLUR Results called to abram saunders by: DR. FOOTE Person calling:ALKASAB Date:01/24/2025Time:17:15. Calcium 9.3 8.4 - 10.2 mg/dL [facility] Blood Venous blood specimen / Unknown 01/24/2025 2:31 PM EDT 01/24/2025 4:05 PM EDT Trevor Lima MD LAB BLOOD ORDERABLES Final Result [facility] [address] [place] [phone] * (ABNORMAL) POCT urinalysis dipstick manually [...] PM EDT) T Spot TB Negative Negative [facility] Comment:A negative test resu lt [...] as aquantitative test. TS PANEL A 0 [facility] TS PANEL B 0 [facility] Negative Control Passed [facility] Positive Control Passed [facility] Comment:For additional infor jorje, please refer tohttp://education.Teleport/faq/SJR716(This link is being provided for informational/educational purposes only.)THIS TEST WAS PERFORMED AT:[facility] [address] [place] [address]VVGVMBGKRISTY GAUTAM MD,PHD 01/05/2025 12:3 3 PM EDT 01/05/2025 1:26 PM EDT us Yarelis Graves NP LAB BLOOD ORDERABLES Final Resul t [facility] [address] [place] [address] [phone] * CT Head w/o Contrast (11/27/2024 6:04 PM EST) Anatomical Region Laterality Modality Head, Neck Computed Tomogra phy 11/27/2024 6:04 PM EST Narrative 11/27/2024 6:06 PM EST ? [facility] ?[address] ?[place] [address] ? CT Scan Report ? Signed ? Patient: Foreign Schwartz,Mayco L ?MR#: ?? [id number] ? : 1990 ?Acct:[id number] ? Age/Sex: 34 / M ?ADM Date: 02/23/25 ? Loc: HO.ED ? Attending Dr: ? Ordering Physician: Emily Delgado CNP ?? Date of Service: 11/27/24 ?? Procedure(s): CT head/brain wo IV con ?? Accession Number(s): [id number] ? cc: Emily Delgado CNP; [facility] ? Report Number: ?? [id number]: Total DLP = ??708.00 mGy-cm ? CLINICAL HISTORY: sudden severe R posterior H A ? CT head without contrast ? Comparison: CT/REG/W[place]/SR - CT HEAD/BRAIN WO IV CON - [...] DD/ 1804 ? TD/TT: 11/27/24 1804 ? City Designer: ? Procedure Note [place], Image - 11/27/[address] [place] [address] [address] Scan Report Signed Patient: Mayco Sparrow LMR#: [id number] : 1990Acct:[id number] Age/Sex: 34 / MADM Date: 11/27/24 Loc: HO.ED Attending Dr: Ordering Physician: Emily Delgado CNP Date of Service: 11/27/24 Procedure(s): CT head/brain wo IV con Accession Number(s): [id number] cc: Emily Delgado CNP; [facility] Report Number: [id number]: Total DLP = 708.00 mGy-cm CLINICAL HISTORY: sudden severe R posterior H A CT head without contrast Comparison: CT/REG/WY/SR - CT HEAD/BRAIN WO IV CON - [...] in OV> 11/27/241804 DD/ 03 TD/TT: 11/27/241803 City Designer: [facility] External Provider IMG CT PROCEDURES Edited Result - Final * SARS-CoV-2 RNA, Influenza A/B, and RSV RNA, Ql NAAT (11/27/2024 2:35 PM EST) Influenza A PCR NEGATIVE Negative [facility] Influenza B PCR NEGATIVE Negative [facility] Resp Syncy Virus RNA Qual PCR NEGATIVE Negative [facility] SARS COV2 PCR NEGATIVE Negative [facility] Comment:All test results mus t [...] use by authorized laboratories.Testing performed on the [employer] GeneXpert utilizingreal-time RT-PCR.All SARS CoV2 and positive influenza A/B results arereported to [facility]. 11/27/2024 2:35 PM EST 11/27/2024 2:37 PM EST Generic External Data Provider LAB MICROBIOLOGY - GENERAL ORDERABLES Final Result [facility] [address] [place] [address] [phone] * (ABNORMAL) Comprehensive Metabolic Panel (11/27/2024 2:35 PM EST) Sodium 141 135 - 145 mmol/L [facility] Potassium 3.9 3.3 - 5.1 mmol/L [facility] Chloride 107 96 - 108 mmol/L [facility] Carbon Dioxide 25 22 - 29 mmol/L [facility] Anion Gap 13 12 - 20 [facility] Urea Nitrogen (BUN) 9 9 - 16 mg/dL [facility] Creatinine, Serum 1.03 0.5 - 1.4 mg/dL [facility] Creatinine Clr Calc Pharmacy 95.3 [facility] Comment:eGFR (calculated fro m the MDRD study equation) and eCrCl(calculated from the Cockcroft-Gault equation) are based ondifferent parameters and may not yield comparable results.If eCrCl result is absurd, please check patient'sheight/weight. Estimated Glomerular Filt Rate >60 [facility] Comment:Chronic Kidney Disea se: Estimated GFR < 60 mL/min/1.83l2Voqvyv Kidney Disease: Estimated GFR < 15 mL/min/1.73m2 Glucose 71 60 - 115 mg/dL [facility] Calcium 9.4 8.4 - 10.2 mg/dL [facility] Bilirubin, Total 0.7 0.0 - 1.0 mg/dL [facility] Aspartate Amino Transferase 29 5 - 37 U/L [facility] Alanine Aminotransferase 44(H) 0 - 40 U/L [facility] Total Protein 7.9 6.5 - 8.0 g/dL [facility] Albumin Level 4.8 3.5 - 5.0 g/dL [facility] Alkaline Phosphatase 68 39 - 117 U/L [facility] 11/27/2024 2:35 PM EST 11/27/2024 2:37 PM EST us Generic External Data Provider LAB BLOOD ORDERAB LES Final Result [facility] [address] [place] [phone] [phone] * HEPATITIS C AB W/REFL TO HCV RNA, QN, PCR (12/17/2021 2:10 PM EDT) HEPATITIS C ANTIBODY NON-REACT BEST NON-REACT BEST [facility] INDEX 0.01 <1.00 [facility] Comment: ?? HCV antibody was non-reactive. There is no laboratory ?? evidence of HCV infection. ?? In most cases, no further action is required. However, if recent HCV exposure is suspected, a test for HCV RNA (test code 46594) is suggested. ?? For additional information please refer to http://[employer].Teleport/faq/DEJ93a7 (This link is being provided for informational/ educational purposes only.) ?? 12/17/2021 2:10 PM EDT us David Don MD HISTORICAL/NON ORDERABLE LABS Fi nal Result [facility] [address] * HIV 1/2 ANTIGEN/ANTIBODY,FOURTH GENERATION W/RFL (12/17/2021 2:10 PM EDT) HIV-1/2 ANTIGEN AND ANTIBODIES, 4TH GENERATION W/ REFLEX NON-REACT BEST NON-REACT BEST [facility] Comment: HIV-1 antigen and HIV-1/HIV-2 [...] ? For additional information please refer to http://[employer].Teleport/faq/CXC755 (This link is being provided for informational/ educational purposes only.) ? The performance of this assay has not been clinically validated in patients less than 2 years old. ?? 12/17/2021 2:10 PM EDT us David Don MD LAB BLOOD ORDERABLES Final Resul t [facility] [address] from Last 3 Months or Most Recently Relevant to Health Maintenance Insurance [facility] C3 HSN FULL DENTAL-[facility] MEDICAID STAND ADULT Care Teams Penology Professor Relationship Specialty Start Date End Date Charley Dominique FNP [address] [place] [phone] PCP - General Family Medicine 01/27/25
--- NOTE | 2025-03-01 09:14 | HO.ANESPROP2 ---
Documented by User: Gaby Newton NP 03/01/25 09:19 HPI - Anesthesia Eval Consult details Narrative: 34yo M for EUA, lateral Internal Sphincterotomy PMFSH Active Problems Active Problems: All Active Problems Anal fissure (Acute) Urinary frequency (Acute) Renal cyst (Acute) Colitis (Acute) Abdominal pain (Acute) Chest pain (Acute) Alcohol withdrawal (Acute) Past Medical History Medical History Anal fissure Alcohol use disorder Asthma Family History Family History Mother Brain aneurysm Blood clots in brain Social History Social History Household Members: None Housing: House Alcohol intake: current Alcohol intake frequency: former alcohol drinker Alcohol type: hard liquor Patient Tobacco Use Status: Never used Tobacco Use of substances other than those prescribed or required for medical reasons: Yes Substance Use Type: Marijuana Substance Use Frequency: Daily Have you been hit, kicked, punched, or otherwise hurt by someone within the past year? If so, by whom?: No Are you DNR?: No Advance Directives: No Advance Directives Information Provided: Yes Poor oral hygiene: No service: No Meds Allergies Allergy/AdvReac Type Severity Reaction Status Date / Time Crustaceans Allergy Severe UNKNOWN Uncoded 03/02/25 06:39 SEAFOOD Allergy Severe THROAT Uncoded 03/02/25 06:39 CLOSING Shellfish Allergy Severe SWOLLEN Uncoded 03/02/25 06:39 Home Medications ?Medication ?Instructions ?Recorded ?Confirmed ?Last Taken ?Type ibuprofen 600 mg tablet 600 mg PO Q8H PRN moderate pain 02/15/25 03/02/25 02/27/25 History quetiapine 25 mg tablet 25 mg PO BEDTIME 02/15/25 03/02/25 02/27/25 History Exam Pertinent Lab Results Pertinent Lab Results: Laboratory Tests 01/24/25 14:31 WBC 6.6 Hgb 14.5 Hct 43.8 Plt Count 190 Sodium 141 Potassium 4.1 Chloride 106 Carbon Dioxide 28 BUN 8 L Creatinine 0.85 Narrative Narrative: EKG 11/2024 Vent. Rate : 72 BPM Atrial Rate : 72 BPM P-R Int : 162 ms QRS Dur : 94 ms QT Int : 356 ms P-R-T Axes : 67 64 36 degrees QTcB Int : 389 ms Normal sinus rhythm with sinus arrhythmia Normal ECG When compared with ECG of 11-Jul-2023 12:41, Premature ventricular complexes are no longer Present T wave amplitude has decreased in Anterior leads Assessment and Plan Assessment Anesthesia Assessment: Chart Reviewed Documented by User: Kalpesh Griffiths MD 03/02/25 10:15 [facility] Past Medical History Medical History Anal fissure Alcohol use disorder Asthma Family History Family History Mother Brain aneurysm Blood clots in brain Social History Social History Household Members: None Housing: House Alcohol intake: current Alcohol intake frequency: former alcohol drinker Alcohol type: hard liquor Patient Tobacco Use Status: Never used Tobacco Use of substances other than those prescribed or required for medical reasons: Yes Substance Use Type: Marijuana Substance Use Frequency: Daily Have you been hit, kicked, punched, or otherwise hurt by someone within the past year? If so, by whom?: No Are you DNR?: No Advance Directives: No Advance Directives Information Provided: Yes Poor oral hygiene: No service: No Meds Allergies Allergy/AdvReac Type Severity Reaction Status Date / Time Crustaceans Allergy Severe UNKNOWN Uncoded 03/02/25 06:39 SEAFOOD Allergy Severe THROAT Uncoded 03/02/25 06:39 CLOSING Shellfish Allergy Severe SWOLLEN Uncoded 03/02/25 06:39 Home Medications ?Medication ?Instructions ?Recorded ?Confirmed ?Last Taken ?Type ibuprofen 600 mg tablet 600 mg PO Q8H PRN moderate pain 02/15/25 03/02/25 02/27/25 History quetiapine 25 mg tablet 25 mg PO BEDTIME 02/15/25 03/02/25 02/27/25 History Exam Airway Mallampati Class: III TM Dist: >3cm Neck ROM: Full Heart: RRR Lungs: CTA Assessment and Plan Final Anesthetic Review ASA Class: III Final Preanesthetic Review: No Changes in Pt Med Stat Patient Risk: Low Procedure Risk: Low Anesthetic Plan Anesthetic Plan: GA Disposition: Standard PACU
[2025-03-02 06:41] VITALS: BMI 24.9
[2025-03-02 06:45] VITALS: BMI 24.9
[2025-03-02] MEDS: Lactated Ringers 1,000 ML 100 ML IVCONT (07:01)
--- NOTE | 2025-03-02 10:29 | MHC.SHP ---
Pre-Procedural Eval Section A - 24 Hr Update-Section A only Date of Service: 03/02/25 The patient is an INPATIENT: No Changes since office visit: No Cold of Flu in the past 2 weeks, No New Medical Problems, No Changes in Medication and No Patient answered all questions The patient has been examined within 24 hours of the surgical procedure. The History & Physical has been completed within 30 days and I have reviewed it.: Yes Section B - Complete if H&P > 30 days Chief Complaint: Anal fissure, unspecified Allergies: Allergies Allergy/AdvReac Type Severity Reaction Status Date / Time Crustaceans Allergy Severe UNKNOWN Uncoded 03/02/25 06:39 SEAFOOD Allergy Severe THROAT Uncoded 03/02/25 06:39 CLOSING Shellfish Allergy Severe SWOLLEN Uncoded 03/02/25 06:39 Plan I have reviewed the history and physical and performed a pertinent physical examination on my patient. No changes have occurred unless specified. Time Spent With Patient Time: Total time managing care of this patient today ____ minutes.
--- NOTE | 2025-03-02 11:30 | W.PM.OPN ---
Operative Note Operative Note Date of Service: 03/02/25 Narrative: Preop diagnosis: Anal fissure, posterior midline Postop diagnosis: The same Procedure: Exam under anesthesia, left lateral internal sphincterotomy Surgeon: Burke Lewis MD Fire Marshal Refinery: DANIELE Rangel student The patient is a 34-year-old male with a long history of anal pain especially with history of stools. His examined the office showed a posterior midline fissure. In view of his chronic complaints, he wanted to proceed with sphincterotomy. He understood the technique of the planned procedure as well as the risks, benefits, and alternatives He was brought to the operating room placed in prone reynaldo-knife position under general anesthesia via endotracheal tube. The buttocks were retracted with wide tape laterally. The perianal area was prepped and draped in the usual sterile fashion. A surgical time-out was done. The patient received Cefotan 2 g IV preoperatively Examination of the anal orifice revealed external hemorrhoids on both the left and right side. Retraction of the anal verge showed anterior midline fissure in the distal anoderm I inserted the Dillon Regan retractor. I examined the anal canal circumferentially. There was note of internal external hemorrhoids. There were no other lesions. There was no fissure ulceration. The posterior midline fissure in the distal the anoderm was seen I palpated for the intersphincteric groove. I made a short incision overlying this. I then used the hemostat to gently dissect the internal sphincter and identify the intersphincteric space. The external sphincter was protected and I divided the internal sphincter fibers down to the level of the dentate line. I closed the incision with a running chromic 3-0 stitch. Hemostasis was ensured I then infiltrated the perianal area with Marcaine 0.5% for postop analgesia. The procedure was completed The patient tolerated the procedure well. There were no immediate complications. Initial and final counts of sponges and instruments were correct. Estimated blood loss about cc The patient was extubated without difficulty and transferred to the recovery room with stable vital signs.
[2025-03-02 11:40] VITALS: BP 114/76; PULSE 66; RESP 16; TEMP 36.6; O2SAT 100
[2025-03-02 11:45] VITALS: BP 121/72; PULSE 62; RESP 18; O2SAT 100
[2025-03-02] MEDS: fentaNYL citrate/PF 100 MCG/2 ML VIAL 50 MCG IVPUSH ×2 (11:45→11:50)
[2025-03-02 11:50] VITALS: BP 108/78; PULSE 61; RESP 18; RESP 20; O2SAT 100
[2025-03-02 11:55] VITALS: BP 116/62; PULSE 54; RESP 20; O2SAT 100
[2025-03-02 12:10] VITALS: BP 111/79; PULSE 63; RESP 16; TEMP 36.7; O2SAT 99
== END 2025-03-02 13:04 | disposition home or self-care (01) ==
PROVIDERS: PCP Internal Medicine; Visit Provider Surgery
PROC: (CPT 46080; principal; 2025-03-02 10:00)
DX: K60.2 Anal fissure, unspecified (principal); K62.89 Other specified diseases of anus and rectum; K64.8 Other hemorrhoids; K64.4 Residual hemorrhoidal skin tags; K59.00 Constipation, unspecified; F10.90 Alcohol use, unspecified, uncomplicated; J45.909 Unspecified asthma, uncomplicated; Z79.1 Long term (current) use of non-steroidal anti-inflammatories (NSAID); Z79.899 Other long term (current) drug therapy
CPT/HCPCS: 46080; J0690; J2003; J2250; J2405; J2704; J2795; J3010

== ENCOUNTER → 2025-03-02 06:27 | Outpatient (BNV) | payer SELFPAY | PROVIDERS: PCP Internal Medicine; Visit Provider Surgery | DX: K60.2 Anal fissure, unspecified (principal) | CPT/HCPCS: 46080 ==

== ENCOUNTER 2025-03-03 10:44 | Outpatient (REF) | payer SELFPAY ==
[2025-03-03 14:09] LABS: Alanine Aminotransferase 25 U/L (0-40); Albumin Level 4.4 g/dL (3.5-5.0); Alkaline Phosphatase 52 U/L (39-117); Appearance Urine Clear; Aspartate Amino Transferase 28 U/L (5-37); Bilirubin Direct 0.2 mg/dL (0.0-0.5); Bilirubin Total 0.4 mg/dL (0.0-1.0); Color Urine Yellow; Glucose Urine UA Negative (Negative); Leukocyte Esterase Urine Small (1+) (Negative); Nitrite Urine Negative (Negative); Specific Gravity - Urine <= 1.005 (1.005-1.025); Total Protein 6.6 g/dL (6.5-8.0); UMIC TRIGGER UA YES; Urine Blood Negative (Negative); Urine Ketones Negative (Negative); Urine Protein Negative (Neg-Trace)
[2025-03-03 14:21] LABS: Bacteria Urine None Seen (None Seen); Hyaline Casts Urine 0-2 /LPF (0-2); RBC Urine 0-2 /HPF (0-2); Squamous Epithelial Cell Urine 0-2 /HPF (0-2); WBC Urine 0-5 /HPF (0-5)
[2025-03-03 14:34] LABS: Creatinine Urine 20.15 mg/dL; Total Protein Urine Random < 7 mg/dL (<12)
== END 2025-03-03 10:45 | disposition home or self-care (01) ==
LOC: HO.HHCL 10:44
PROVIDERS: Visit Provider Nurse Practitioner Family
DX: R31.29 Other microscopic hematuria (principal)
CPT/HCPCS: 36415; 80076; 81001; 82570; 84156

== ENCOUNTER 2025-03-13 13:18 | Outpatient (AMB) | payer MEDICAID, SELFPAY ==
--- NOTE | 2025-03-13 13:33 | A.OFFVIS_ITS ---
Vital Signs 03/13/25 13:34 Weight 156 lb BP 129/80 Blood Pressure Location Rt brachial Position Sitting Pulse 67 Intake Visit Reasons: wound check Intake Note: Patient here s/p left lateral internal sphincterotomy. Patient c/o: reports severe pain. Wound oozing pinkish discharge. Taking rx pain meds but experiencing chest pain for the past 2 days. SX: 03-02-2025 Charge Master Specialist Required: No Accompanied by: Self / Same As Patient Allergies Crustaceans Allergy (Severe, Uncoded 03/13/25 13:38) UNKNOWN SEAFOOD Allergy (Severe, Uncoded 03/13/25 13:38) THROAT CLOSING Shellfish Allergy (Severe, Uncoded 03/13/25 13:38) SWOLLEN HPI HPI wound check: Details: He is here for postop visit after lateral internal sphincterotomy for an anal fissure last 03/02/2025. He describes having some clear drainage from the area on and off. He also says that he had pain on the incision but this has been improving steadily. He denies significant bleeding. [facility] Medical History Anal fissure Alcohol use disorder Asthma Surgical History History of rectal sphincterotomy (03/02/25) Family History Mother Brain aneurysm Blood clots in brain Social History Household Members: None Housing: House Alcohol intake: current Alcohol intake frequency: former alcohol drinker Alcohol type: hard liquor Patient Tobacco Use Status: Never used Tobacco Substance Use Type: Marijuana service: No Review of Systems Const Denies chills and Denies fever(s) Physical Exam Vital Signs: Last Vital Signs Pulse 67 03/13/25 13:34 BP 129/80 03/13/25 13:34 Const Other: Sitting down comfortably General: comfortable and no acute distress Resp Effort & Inspection: normal respiratory effort GI Other: Rectal exam shows the sphincterotomy site to be healing well without any signs of infection, no discharge, no induration, no redness Assessment & Plan Assessment & Plan (1) Anal fissure: Code(s): K60.2 - Anal fissure, unspecified Category: Medical Plan: Status post lateral internal sphincterotomy. I assured him that the surgical site seems to be healing well. There is no evidence of any infection I recommended for him to do hot Sitz baths. I will see him again in the office for another wound check in about a month. He is comfortable with the plan. Coding Level of Care Code Global (94386) Diagnoses Anal fissure K60.2
[2025-03-13 13:34] VITALS: BP 129/80; PULSE 67
--- OUTSIDE RECORDS SUMMARY | 2025-03-13 15:02 | XMS_ITS | Encounter Summary ---
Author Organization [employer] Address [address] [facility] [address] [place] [address] Care Team Providers Care Mirror Silverer Name Role Phone Charley Dominique Primary Care Provider [phone] Reason for Visit * Reason Onset Date Comments Results 03/13/2025 Encounter Details Date Type Department Care Team ([facility] Contact Info) Description 03/13/2025 Telephone [facility] [address] [place] [address] Charley Dominique FNP [address] [place] [address] Results Social History Tobacco Use Types Packs/Day [...] encounter Miscellaneous Notes * Telephone Encounter - Uche Ahn - 03/13/2025 2:07 PM EDT TC from pt requesting call back regarding Results. Type of results: 03/03/25 Date when done: Last week Facility: [facility] Labs documented in this encounter Plan of Treatment Not on file documented as of this encounter Visit Diagnoses Not on filedocumented in this encounter Additional Health Concerns Assessment Noted Time PHQ-9 Depression Total Score: 4 01/28/20 10:47 AM EDT documented as of this encounter Care Teams Mirror Silverer Relationship Specialty Start Date End Date Charley Dominique FNP [address] [place] [address] PCP - General Family Medicine 01/27/25 documented as of this encounter
== END 2025-03-13 13:52 | disposition home or self-care (01) ==
LOC: HO.HGS 13:18
PROVIDERS: PCP Internal Medicine; Visit Provider Surgery
DX: K60.2 Anal fissure, unspecified (principal)
CPT/HCPCS: 99024

== ENCOUNTER → 2025-03-13 13:18 | Outpatient (BNVA) | payer MEDICAID, SELFPAY | PROVIDERS: PCP Internal Medicine; Visit Provider Surgery | DX: K60.2 Anal fissure, unspecified (principal) | CPT/HCPCS: 99212 ==

== ENCOUNTER 2025-04-02 23:19 | Emergency (ER) | payer MEDICAID, SELFPAY ==
[2025-04-02 23:38] VITALS: BP 110/77; PULSE 66; RESP 16; TEMP 36.6; O2SAT 99; BMI 23.9
--- OUTSIDE RECORDS SUMMARY | 2025-04-03 01:23 | XMS_ITS | Clinical Summary ---
Author Organization [employer] Address [address] [facility] 7[address] [place] [address] Care Team Providers Care Rn Medical Surgical Name Role Phone Charley Dominique [facility] Primary Care Provider [phone] Allergies Active Allergy Reactions Criticality Noted Date Comments Bupropion 10/17/2010 Other reaction(s): Increased anxiety Shellfish-Derived Products Hives 3 Other Reaction(s): Rash/Dermatitis Medications * This document contains information received from the source organization and may not represent a complete record from that organization. Glycerin-Hyprome llose-PEG 400 (Artificial Tears) 0.2-0.2-1 % solution Administer [...] postnasal drip). 30 tablet 1 3 Active fluticasone (Flonase) 50 MCG/ACT nasal spray INSTILL 2 SPRAYS IN EACH NOSTRIL ONCE DAILY NEEDED FOR NASAL CONGESTION- for no more than 3 weeks as TRIAL for sinusitis 18 g 4 Active meloxicam (Mobic) 15 MG tablet Take 1 tablet (15 mg) by mouth Once per day. 15 tablet 5 11/23/19 26 Active hydrocortisone (Anusol-HC) 2.5 % rectal creamIndications :Rectal pain Insert into the rectum 2 times [...] 5 Active Blood Glucose Monitoring Suppl (FreeStyle Rochelle Lite) w/Device kit Use to test blood sugar 2 times daily 1 kit 5 Active cyclobenzaprine (Flexeril) 10 MG tabletIndication s:Rectal pain Take 1 tablet (10 mg) by mouth at bedtime. 60 tablet 5 Active albuterol 108 (90 Base) MCG/ACT inhaler Inhale 2 puffs every 4 (four) hours if needed for wheezing. 18 g 1 5 01/28/20 26 Active budesonide-formo terol (Symbicort) 80-4.5 MCG/ACT inhaler Inhale 2 puffs in the morning and at bedtime. Rinse mouth with water after use to reduce aftertaste and incidence of candidiasis. Do not swallow. 1 each 11 5 01/28/20 26 Active busPIRone (Buspar) 7.5 MG tablet Take 1 tab orally bid prn anxiety 60 tablet 2 5 Active cyclobenzaprine (Flexeril) 10 MG tabletIndication s:Acute non intractable tension-type headache Take one tab po prn q 12 hours prn pain 10 tablet 5 Active sodium chloride (Windsor Nasal [place]) 0.65 % nasal spray Administer 1 spray into each nostril if needed for congestion. 30 mL 2 4 03/18/20 25 ondansetron (Zofran) 4 MG tabletIndication s:Nausea Take 1 tablet (4 mg) by mouth every 8 (eight) hours if needed for nausea or vomiting for up to 7 days. 20 tablet 5 03/10/20 25 Active Problems Problem Noted Date Diagnosed Date Headache 03/04/2025 Assessment & Plan (03/14/2025 9:45 AM EDT): Likely tension type from multifactorial triggers including possible withdrawal form prescribed pain medications and viral illness, in the setting of new contacts. -supportive care, ER precautions, keep hydrated, maintain caffeine intake Orders: cyclobenzaprine (Flexeril) 10 MG tablet; Take one tab po prn q 12 hours prn pain POCT Rapid Covid-19 BinaxNOW POCT Rapid Influenza B SCOTT ID NOW POCT Rapid Influenza A SCOTT ID NOW Chest wall pain 03/04/2025 Anal fissure 03/04/2025 History of rectal sphincterotomy 03/04/2025 Nausea 03/04/2025 Other microscopic hematuria 03/04/2025 Skin lesion 01/29/2025 Well adult exam 01/29/2025 Rectal pain 01/24/2025 Assessment & Plan (01/24/2025 2:40 PM EDT): Patient with c/o rectal pain x 1 week, described as 10/10 when severe. 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 Resolved Problems Problem Noted Date Diagnosed Date Resolved Date Blurry vision 01/29/2025 03/06/2025 Encounters Date Type Department Care Team Description 03/14/2025 9:20 AM EDT Office Visit [facility] [address] [place], [place] [phone] Lisa Espino MD Acute non intractable tension-type headache (Primary Dx) 03/13/2025 Telephone [facility] [address] [place], [place] [phone] Charley Dominique FNP Results 03/06/2025 1:00 PM EDT Office Visit [facility] [address] [place] [address] Sangeeta Keen, OD Myopia, bilateral (Primary Dx) 03/06/2025 Travel 03/06/[address] [address] Nat Castillo RN 03/03/2025 10:15 AM EDT Office Visit [address] [address] Charley Dominique FNP Asymptomatic microscopic hematuria (Primary Dx); History of rectal sphincterotomy; Nausea 03/03/2025 Travel 03/02/[address] [address] Homer Mendez [place] chart prepp 03/02/[address] [address] Charley Dominique FNP switch to televisit 01/31/[address] [address] Charley Dominique FNP Results 01/27/2025 9:30 AM EDT Office Visit [address] [address] Charley Dominique FNP Well adult exam (Primary Dx); Blurry vision; Rectal pain; Skin lesion 01/27/2025 Travel 01/24/2025 2:00 PM EDT Office Visit [facility] [address] [place] [phone] Trevor Hernandez MD Rectal pain (Primary Dx) 01/24/[address] [address] Angela Foote DO FILM CRITIC PHONE TRIAGE 01/24/2025 Travel 01/17/2025 Patient Outreach [facility] [address] [place], [place] [phone] Yarelis Graves NP Pre-visit Planning (SDOH negative, Tobacco screening negative. ) 01/12/[address] [address] Keyonna Antunez [place] Chart Prep 01/05/[address] [address] Yarelis Graves NP Lab Orders (Patient requesting lab order for TB TEST for work) from Last 3 Months Immunizations Immunization Administration [...] Sign Reading Time Taken Comments Blood Pressure 125/88 03/14/2025 9:17 AM EDT Pulse 66 03/14/2025 9:17 AM EDT Temperature 35.8 C (96.5 F) 03/14/2025 9:17 AM EDT Respiratory Rate 16 03/14/2025 9:17 AM EDT Oxygen Saturation 99% 03/14/2025 9:17 AM EDT Inhaled Oxygen Concentration - - Weight 70.5 kg (155 lb 8 oz) 03/14/2025 9:17 AM EDT Height 167.6 cm (5' 6 ) 03/14/2025 9:17 AM EDT Body Mass Index 25.1 03/14/2025 9:17 AM EDT Plan of Treatment Health Maintenance Due Date Last Done Comments Dental Oral Exam 1990 Dental Prophylaxis 1990 Dental X-Ray: Full Mouth 1991 Family Planning (PISQ) 2006 Pneumococcal Vaccine: Pediatrics (0 to 5 Years) and At-Risk Patients (6 to 49) Years (2 of 2 - PCV) 11/28/2016 11/28/2015 Dental X-Ray: Bitewings 01/07/2024 01/05/2023 COVID-19 Vaccine ( season) 2024 10/15/2021, 11/30/2020, 11/09/2020 Influenza Vaccine (Season Ended) 2025 08/25/2023, 12/08/2022, 12/08/2021, Additional history exists Alcohol/Substance Use Screening 01/27/2026 01/27/2025 Depression Screening 01/27/2026 01/27/2025, 01/28/20 SDOH Screening 01/27/2026 01/27/2025 Disability Screening 03/03/2026 03/03/2025 Tobacco Screening 03/06/2026 03/06/2025 DTaP/Tdap/Td Vaccines (3 - Td or Tdap) [...] Procedure Name Priority Date/Time Associated Diagnosis Comments POCT INFLUENZA B (ID NOW RAPID MOLECULAR) Routine 03/14/2025 9:52 AM EDT Acute non intractable tension-type headache POCT INFLUENZA A (ID NOW RAPID MOLECULAR) Routine 03/14/2025 9:51 AM EDT Acute non intractable tension-type headache POCT RAPID COVID ANTIGEN Routine 03/14/2025 9:43 AM EDT Acute non intractable tension-type headache URINALYSIS, COMPLETE Routine 03/03/2025 10:46 AM EDT Asymptomatic microscopic hematuria HEPATIC FUNCTION PANEL Routine 03/03/2025 10:46 AM EDT Asymptomatic microscopic hematuria PROTEIN CREATININE RATIO, URINE Routine 03/03/2025 10:46 AM EDT Asymptomatic microscopic hematuria CT ABDOMEN PELVIS W CONTRAST STAT 01/27/2025 9:20 AM EDT Rectal pain CBC WITH AUTO DIFFERENTIAL Routine 01/24/2025 2:31 PM EDT Rectal pain BASIC METABOLIC PANEL Routine 01/24/2025 2:31 PM EDT Rectal pain POCT URINALYSIS DIPSTICK Routine 01/24/2025 2:16 PM EDT Rectal pain T-SPOT(R).TB Routine 01/05/2025 12:33 PM EDT Screening-pulmonary TB BITEWING - SINGLE RADIOGRAPHIC IMAGE Routine 01/05/2023 11:30 AM EDT ZZZ HISTORICAL HEPATITIS C AB W/REFL TO HCV RNA, QN, PCR Routine 12/17/2021 2:10 PM EDT HIV 1/2 ANTIGEN/ANTIBODY, FOURTH GENERATION W/RFL Routine 12/17/2021 2:10 PM EDT from Last 3 Months or Most Recently Relevant to Health Maintenance Results * POCT Rapid Influenza B SCOTT ID NOW (03/14/2025 9:52 AM EDT) Influenza B Negative Negative, Indeterminate [facility] QC Media Lot # [id number] [facility] Lot# Expiration Date 1082 [facility] Swab 03/14/2025 9:52 AM EDT us Lisa Espino MD POINT OF CARE TEST ENTER/E DIT ORDERABLES Final Result Performing Organization Address City/[facility]/ZIP Co de Phone Number [facility] [address] [place] [address] [phone] * POCT Rapid Influenza A SCOTT ID NOW (03/14/2025 9:51 AM EDT) Influenza A Negative Negative, Indeterminate [facility] QC Media Lot # [id number] [facility] Lot# Expiration Date [address] [facility] Swab 03/14/2025 9:51 AM EDT Lisa Espino MD POINT OF CARE TEST ENTER/E DIT ORDERABLES Final Result Performing Organization Address [facility]/ZIP Co de Phone Number [facility] [address] [place] [address] [phone] * POCT Rapid Covid-19 BinaxNOW (03/14/2025 9:43 AM EDT) Rapid COVID Ag Negative QC Media Lot # [id number] Lot# Expiration Date 8126 Swab 03/14/2025 9:43 AM EDT Result [facility] iLsa Espino MD POINT OF CARE TEST ENTER/E DIT ORDERABLES Final Result * Protein Creatinine Ratio, Urine (03/03/2025 10:46 AM EDT) Creatinine, Urine 20.15 mg/dL [facility] Protein, Total, Random Urine <7 <12 mg/dL [facility] Protein/Creatin ine Ratio, Ur TNP <0.2 [facility] Comment:Unable to calculate urine protein creatinine ratio due tolow creatinine or protein result. 03/03/2025 10:4 6 AM EDT 03/03/2025 1:22 PM EDT Charley Dominique ROLL SETTER LAB URINE ORDERABLES Final Res ult Performing Organization Address [facility] de Phone Number [facility] [address] [place] [address] [phone] * (ABNORMAL) Urinalysis Complete (03/03/2025 10:46 AM EDT) Color Urine Yellow [facility] Appearance Urine Clear [facility] PH 7.0 5.0 - 9.0 [facility] Glucose Urine UA Negative Negative mg/dL [facility] Urine Blood Negative Negative [facility] Specific [place] - Urine <=1.005 1.005 - 1.025 [facility] Urine Protein Negative Neg-Trace mg/dL [facility] Urine Ketones Negative Negative mg/dL [facility] Nitrite Urine Negative Negative [facility] Leukocyte Esterase Urine Small (1+)(A) Negative [facility] RBC Urine 0-2 0 - 2 /HPF [facility] Urine WBC 0-5 0 - 5 /HPF [facility] Urine Squamous Epithelial Cell 0-2 0 - 2 /HPF [facility] Urine Bacteria None Seen None Seen [facility] Hyaline Casts, Urine 0-2 0 - 2 /LPF [facility] Urine (Urine, Random) 03/03/2025 10:46 AM EDT 03/03/2025 1:22 PM EDT [facility] URINE ORDERABLES Final Res ult Performing Organization Address [facility] Co de Phone Number [facility] [address] [place] [address] [phone] * Hepatic Function Panel (03/03/2025 10:46 AM EDT) Bilirubin, Total 0.4 0.0 - 1.0 mg/dL [facility] Bilirubin, Direct 0.2 0.0 - 0.5 mg/dL [facility] Aspartate Amino Transferase 28 5 - 37 U/L [facility] Alanine Aminotransferase 25 0 - 40 U/L [facility] Total Protein 6.6 6.5 - 8.0 g/dL [facility] Albumin Level 4.4 3.5 - 5.0 g/dL [facility] Alkaline Phosphatase 52 39 - 117 U/L [facility] Blood Venous blood specimen / Unknown 03/03/2025 10:46 AM EDT 03/03/2025 1:51 PM EDT us Charleycuco Dominique ROLL SETTER LAB BLOOD ORDERABLES Final Res ult Performing Organization Address City/State/[facility] Co de Phone Number [facility] [address] [place] [address] [phone] * CT Abdomen Pelvis w/ Contrast (01/27/2025 9:20 AM EDT) Anatomical Region Laterality Modality Body, Pelvis, Abdomen Computed T omography 01/27/2025 9:20 AM EDT Narrative 01/27/2025 9:55 AM EDT [place] [address] [address] Scan Report Signed Patient: Mayco Sparrow MR#: [id number] : 1990 Acct:[id number] Age/Sex: 34 / M ADM Date: 01/27/25 Loc: HO.CT Attending Dr: Trevor Dhillon MD Ordering Physician: Trevor Dhillon MD Date of Service: 01/27/25 Procedure(s): CT abdomen pelvis w IV con Accession Number(s): [id number] cc: Trevor Dhillon MD Report Number: [id number]: Total DLP = 274.00 mGy-cm EXAMINATION: CT [...] in OV> 01/27/25 0952 DD/ 9 TD/TT: 01/27/25 0935 Quality Assurance Engineer: Procedure Note Donotuseinterpreter, Image - 01/27/[address] [address] [address] Scan Report Signed Patient: Mayco Sparrow LMR#: [id number] : 1990Acct:[id number] Age/Sex: 34 / MADM Date: 01/27/25 Loc: HO.CT Attending Dr: Trevor Dhillon MD Ordering Physician: Trevor Dhillon MD Date of Service: 01/27/25 Procedure(s): CT abdomen pelvis w IV con Accession Number(s): [id number] cc: Trevor Dhillon MD Report Number: [id number]: Total DLP = 274.00 mGy-cm EXAMINATION: CT [...] Ball MD in OV> 01/27/25 0952 DD/ 0920 TD/TT: 01/27/25 0935 Quality Assurance Engineer: Trevor Lima MD IMG CT PROCEDURES Chintan keiza Result - Final * (ABNORMAL) CBC auto differential (01/24/2025 2:31 PM EDT) White Blood Count 6.6 4.8 - 10.8 X10*3/uL [facility] Red Blood Count 4.87 4.60 - 5.80 X10*6/uL [facility] Hemoglobin 14.5 14.0 - 18.0 g/dl [facility] Hematocrit 43.8 42.0 - 52.0 % [facility] Mean Corpuscular Volume 89.9 80.0 - 98.0 fL [facility] Mean Corpuscular Hemoglobin 29.8 27.0 - 33.0 pg [facility] Mean Corpuscular HGB Conc 33.1 31.0 - 36.0 g/dl [facility] Red Cell Distribution Width 13.0 11.0 - 16.0 % [facility] Platelet Count 190 160 - 400 X10*3/uL [facility] Mean Platelet Volume 11.9 9.4 - 12.4 fL [facility] Neutrophils Percent Auto 57.6 45 - 73 % [facility] Imm Gran Pct Auto 0.3 0.0 - 0.4 % [facility] Lymphocytes Percent Auto 26.7 20 - 40 % [facility] Monocytes Percent Auto 11.3(H) 2 - 11 % [facility] Eosinophils Percent Auto 3.5 0 - 4 % [facility] Basophils Percent Auto 0.6 0 - 2 % [facility] NRBC Pct Auto 0.0 0.0 - 0.2 /100WBC [facility] Neutrophils Absolute Auto 3.8 2.0 - 8.3 x10*3/uL [facility] Imm Gran Abs Auto 0.02 0.00 - 0.03 X10*3/uL [facility] Lymphocytes Absolute Auto 1.8 1.2 - 4.9 X10*3/uL [facility] Monocytes Absolute Auto 0.7 0.1 - 1.2 X10*3/uL [facility] Eosinophils Absolute Auto 0.2 0.0 - 0.4 X10*3/uL [facility] Basophils Absolute Auto 0.0 0.0 - 0.2 X10*3/uL [facility] NRBC Abs Auto 0.000 0.0 - 0.012 X10*3/uL [facility] Blood Venous blood specimen / Unknown 01/24/2025 2:31 PM EDT 01/24/2025 4:12 PM EDT us Trevor Lima MD LAB BLOOD ORDERABLES Final Result [facility] [address] [place] [address] [phone] * (ABNORMAL) Basic Metabolic Panel (01/24/2025 2:31 PM EDT) Sodium 141 135 - 145 mmol/L [facility] Potassium 4.1 3.3 - 5.1 mmol/L [facility] Chloride 106 96 - 108 mmol/L [facility] Carbon Dioxide 28 22 - 29 mmol/L [facility] Anion Gap 11(L) 12 - 20 [facility] Urea Nitrogen (BUN) 8(L) 9 - 16 mg/dL [facility] Creatinine, Serum 0.85 0.5 - 1.4 mg/dL [facility] Estimated Glomerular Filt Rate >60 [facility] Comment:Chronic Kidney Disea se: Estimated GFR < 60 mL/min/1.09l4[place] Kidney Disease: Estimated GFR < 15 mL/min/1.73m2 Glucose 40(LL) 60 - 115 mg/dL [facility] Comment:Critical value for t est(s): GLUR Results called to abram back by: DR. FOOTE Person calling:WHITNEY Date:01/24/2025Time:17:15. Calcium 9.3 8.4 - 10.2 mg/dL [facility] Blood Venous blood specimen / Unknown 01/24/2025 2:31 PM EDT 01/24/2025 4:05 PM EDT us Trevor Lima MD LAB BLOOD ORDERABLES Final Result [facility] [address] [place] [phone] * (ABNORMAL) POCT urinalysis dipstick manually [...] PM EDT) T Spot TB Negative Negative [facility] Comment:A negative test resu lt [...] as aquantitative test. TS PANEL A 0 [facility] TS PANEL B 0 [facility] Negative Control Passed [facility] Positive Control Passed [facility] Comment:For additional infor matlucas, please refer tohttp://education.[employer]/faq/XZG718(This link is being provided for informational/educational purposes only.)THIS TEST WAS PERFORMED AT:[employer] [id number] [place] [address]RGSMUEBKRISTY GAUTAM MD,PHD 01/05/2025 12:3 3 PM EDT 01/05/2025 1:26 PM EDT us Yarelis Graves NP LAB BLOOD ORDERABLES Final Resul t [facility] [address] [place] [address] [phone] * HEPATITIS C AB W/REFL TO HCV RNA, QN, PCR (12/17/2021 2:10 PM EDT) HEPATITIS C ANTIBODY NON-REACT BEST NON-REACT BEST [facility] INDEX 0.01 <1.00 [facility] Comment: HCV antibody was non-reactive. There is no laboratory evidence of HCV infection. In most cases, no further action is required. However, if recent HCV exposure is suspected, a test for HCV RNA (test code 79236) is suggested. For additional information please refer to http://Wik[employer]/faq/VOI35c8 (This link is being provided for informational/ educational purposes only.) 12/17/2021 2:10 PM EDT David Don MD HISTORICAL/NON ORDERABLE LABS Fi nal Result [facility] [address] * HIV 1/2 ANTIGEN/ANTIBODY,FOURTH GENERATION W/RFL (12/17/2021 2:10 PM EDT) HIV-1/2 ANTIGEN AND ANTIBODIES, 4TH GENERATION W/ REFLEX NON-REACT BEST NON-REACT BEST [facility] Comment: HIV-1 antigen and HIV-1/HIV-2 antibodies were not detected. There is no laboratory evidence of HIV infection. PLEASE NOTE: This information has been disclosed to you from records whose confidentiality may be protected by state law. If your state requires such protection, then the state law prohibits you from making any further disclosure of the information without the specific written consent of the person to whom it pertains, or as otherwise permitted by law. A general authorization for the release of medical or other information is NOT sufficient for this purpose. For additional information please refer to http://Wik[employer]/faq/TKU124 (This link is being provided for informational/ educational purposes only.) The performance of this assay has not been clinically validated in patients less than 2 years old. 12/17/2021 2:10 PM EDT us Davdi Don MD LAB BLOOD ORDERABLES Final Resul t [facility] [address] from Last 3 Months or Most Recently Relevant to Health Maintenance Insurance [place] [facility] MEDICAID STAND ADULT Care Teams Rn Medical Surgical Relationship Specialty Start Date End Date Charley Dominique FNP [address] [place] [phone] PCP - General Family Medicine 01/27/25
[2025-04-03 01:31] VITALS: BP 117/81; PULSE 60; RESP 16; TEMP 36.7; O2SAT 97
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
[2025-04-03] MEDS: Fluorescein Sodium STRIP 1 STRIP EYE-LEFT (02:21)
[2025-04-03] MEDS: Ketorolac Tromethamine 30 MG/ML VIAL IM (02:22)
[2025-04-03] MEDS: Tetracaine HCl 0.5% Oph Sol 5 ML DROPS 3 DROP EYE-LEFT (02:22)
[2025-04-03] MEDS: Acetaminophen 325 MG TABLET 975 MG PO (02:22)
[2025-04-03] MEDS: Erythromycin Base 0.5% Oph Oin 1 GM TUBE 1 CM EYE-LEFT (02:22)
[2025-04-03 02:54] VITALS: BP 117/81; PULSE 60; RESP 16; TEMP 36.7; O2SAT 97
== END 2025-04-03 02:55 | disposition home or self-care (01) ==
PROVIDERS: Emergency Provider Emergency Medicine
DX: H57.12 Ocular pain, left eye (principal); H16.102 Unspecified superficial keratitis, left eye
CPT/HCPCS: 96372; 99284; J1885

== ENCOUNTER 2025-07-09 20:11 | Emergency (ER) | payer MEDICAID, SELFPAY ==
--- NOTE | ~2025-07-09 | XR_ITS ---
CLINICAL HISTORY: left ankle pain 3 view left ankle Comparison: CR/SR - XR ANKLE 1-2 VIEWS LEFT - 08/10/22 03:50 EST Findings: No acute fractures. Ankle mortise intact. No significant loss of joint space, osteophytes, or erosions. No ankle effusion. No radiopaque foreign body. IMPRESSION: 1. No acute findings. This document has been electronically signed by: Malachi Hernandez MD on 07/09/2025 21:26:28
--- NOTE | ~2025-07-09 | XR_ITS ---
CLINICAL HISTORY: left foot pain 3 view left foot Comparison: None provided Findings: No fractures or dislocations. No significant arthritic change or erosions. No ankle effusion. No radiopaque foreign body. IMPRESSION: 1. No acute findings. This document has been electronically signed by: Malachi Hernandez MD on 07/09/2025 21:27:37
[2025-07-09 20:40] VITALS: BP 110/75; PULSE 77; RESP 16; TEMP 37.3; O2SAT 95; BMI 25.2
--- NOTE | 2025-07-09 20:40 | ED.GENADULT ---
HPI - General Adult General Chief complaint: Extremity Injury, Lower Stated complaint: left foot injury Time Seen by Provider: 07/09/25 21:19 Source: patient Mode of arrival: ambulatory Limitations: no limitations History of Present Illness ED Provider: FELIX NEWBY PA-C HPI narrative: 35 yo M with PMH significant for asthma and alcohol use disorder presents to the ED today after sustaining an injury to the left ankle this afternoon. Reports he was rushing out of the house around 1200 today when he twisted (inverted) his ankle. He does not recall hearing a crack/pop. Was able to bear weight after, states he walked about a mile following the injury. Upon returning home, pain and swelling worsened. States the pain now extends up his valdovinos and down into his toes. Reports ROM and ambulation is limited d/t pain. He tried taking cyclobenzaprine without improvement, just made him drowsy. Reports OTC tylenol did not provide much relief either. Reports no prior injuries/surgeries to the LLE. Patient denies n/v, fevers/chills, numbness/tingling, CP or SOB. Related Data Home Medications ?Medication ?Instructions ?Recorded ?Confirmed ibuprofen 600 mg tablet 600 mg PO Q8H PRN moderate pain 02/15/25 03/02/25 quetiapine 25 mg tablet 25 mg PO BEDTIME 02/15/25 03/02/25 Previous Rx's ?Medication ?Instructions ?Recorded ibuprofen 600 mg tablet 600 mg PO Q6H PRN pain #30 tabs 03/02/25 oxycodone-acetaminophen 5 mg-325 1 tab PO Q6H PRN pain (scale score 03/10/25 mg tablet (Percocet) 7-10) #20 tabs docusate sodium 100 mg capsule 100 mg PO BID #30 caps 03/11/25 (Colace) acetaminophen 500 mg capsule 1,000 mg (2 x 500 mg) PO Q8H PRN 04/03/25 fever or pain #14 caps ibuprofen 400 mg tablet 400 mg PO Q6H PRN pain #14 tabs 04/03/25 ofloxacin 0.3 % eye drops See Rx Instructions ophthalmic 04/03/25 (eye) .COMPLEX #10 mL Allergies Allergy/AdvReac Type Severity Reaction Status Date / Time Crustaceans Allergy Severe UNKNOWN Uncoded 07/09/25 20:43 SEAFOOD Allergy Severe THROAT Uncoded 07/09/25 20:43 CLOSING Shellfish Allergy Severe SWOLLEN Uncoded 07/09/25 20:43 Review of Systems Review of Systems: Yes all other systems are reviewed and are negative [facility] Past Medical History Attestation statement: The following information was validated with the patient. Source: old records reviewed and nursing notes reviewed Medical History Anal fissure Alcohol use disorder Asthma Surgical History History of rectal sphincterotomy (03/02/25) Family History Family History Mother Brain aneurysm Blood clots in brain Social History Social History Household Members: None Housing: House Alcohol intake: current Alcohol intake frequency: former alcohol drinker Alcohol type: hard liquor Patient Tobacco Use Status: Never used Tobacco Substance Use Type: Marijuana Advance Directives: No Advance Directives Information Provided: No service: No Physical Exam ED Vital Signs: Vital Signs - 24 hr 07/09/25 20:40 Temperature 99.2 F Pulse Rate 77 Respiratory Rate 16 Blood Pressure 110/75 Pulse Oximetry 95 Oxygen Delivery Method Room Air BMI result Body Mass Index 25.2 vital signs stable General: Well appearing, in no acute distress. Skin: Warm, dry, intact. No rashes or lesions. Head: Normocephalic, atraumatic. EENT: Hearing is intact b/l. Conjunctiva clear. Sclera is anicteric. PERRLA. EOM intact. Moist mucous membranes.? Neck: Supple without LAD Cardiac: Chest wall symmetric. RRR Lungs: Normal respiratory effort without accessory muscle use. CTA bilaterally Back: No midline spinous or paraspinal tenderness. No step off deformity. Ext: +swelling noted to left lateral malleolus. No deformity, erythema. Tender to palpation over left lateral malleolus without palpable deformity, crepitus. No fluctuance. ROM intact to left ankle and all toes however plantar and dorsiflexion of the left ankle elicits pain. No tenderness over Achilles tendon insertion or plantar fascia. Sensation intact to light touch. Cap refill less than 2 seconds. Palpable DP and PT pulse intact. Ambulating with limping gait. Neuro: AOx3. Normal speech Course Course Course Narrative: 35 year old male presents to the ED with left foot pain. He was running and tripped this morning, and fell with his foot inverted. He was initially walking on it throughout the day, now unable to bear weight. Pain radiates to up the valdovinos to the mid-calf and down to the toes. Hurts to Able to wiggle toes, strong pedal pulses. Reevaluation(s) Reevaluation #1: X-rays negative Patient has not ankle sprain. Alberto wrap applied, crutches provided over the next couple of days. Educated on rice therapy. Patient has remained stable throughout ED visit today. Discussed worrisome signs and symptoms and when to return to the ED. All questions answered at this time. Patient is agreeable with disposition and stable for discharge. Procedures Orthopedic Splinting/Casting Injury #1: Side: left Lower Extremity Injury Location: ankle and foot Lower Extremity Immobilizer: Alberto wrap Other Orthopedic Equipment: crutches Medical Decision Making Medical Decision Making [facility] Narrative: 35 yo M with PMH significant for asthma and alcohol use disorder presents to the ED today after sustaining an injury to the left ankle this afternoon. vital signs stable. he is well appearing and in NAD. On exam, swelling noted to left lateral malleolus. No deformity, erythema. Tender to palpation over left lateral malleolus without palpable deformity, crepitus. No fluctuance. ROM intact to left ankle and all toes however plantar and dorsiflexion of the left ankle elicits pain. No tenderness over Achilles tendon insertion or plantar fascia. Sensation intact to light touch. Cap refill less than 2 seconds. Palpable DP and PT pulse intact. Ambulating with limping gait. Differential diagnosis includes msk sprain/strain, fracture, dislocation, contusion. Unlikely neurovascular compromise, threat to limb, compartment syndrome. Plan for imaging, pain control, re-evaluation. Differential Diagnosis Differential Diagnoses: The differential diagnosis associated with the presentation includes as above. Admission/Observation not indicated. Independent Interpretation I performed an independent interpretation of an: Plain X-Ray Interpretation: xr left ankle/foot without fracture Radiology Impression Discussion of test interpretation with radiology: I have reviewed the radiologist's reading. Radiologist Impression: Procedure(s): XR foot LT min 3V Accession Number(s): [id number] cc: [facility]; Omar Avilez~ Reason for Exam: left foot pain CLINICAL HISTORY: left foot pain 3 view left foot Comparison: None provided Findings: No fractures or dislocations. No significant arthritic change or erosions. No ankle effusion. No radiopaque foreign body. IMPRESSION: 1. No acute findings. This document has been electronically signed by: Malachi Hernandez MD on 07/09/2025 21:27:37 Date of Service: 07/09/25 Procedure(s): XR ankle LT min 3V Accession Number(s): [id number] cc: [facility]; Omar Avilez~ Reason for Exam: left ankle CLINICAL HISTORY: left ankle pain 3 view left ankle Comparison: CR/SR - XR ANKLE 1-2 VIEWS LEFT - 08/10/22 03:50 EST Findings: No acute fractures. Ankle mortise intact. No significant loss of joint space, osteophytes, or erosions. No ankle effusion. No radiopaque foreign body. IMPRESSION: 1. No acute findings. This document has been electronically signed by: Malachi Hernandez MD on 07/09/2025 21:26:28 External Record Review External record reviewed: Inpatient record Prescription Management I considered prescription management with: Pain Medication Social Determinants Patient?s care significantly limited by Social Determinants of Health including: Other Social Determinant of Health Critical Care Time Critical Care Time Critical Care Time: No Discharge Plan Discharge Clinical Impression: Ankle sprain Patient Disposition: Home, Self-Care Instructions: Ankle Sprain (ED), P.R.I.C.E. Treatment (ED) Additional Instructions: You have been evaluated in the Emergency Department today for left ankle pain. Your xrays do not demonstrate fracture. You sprained your ankle. We have provided you with an ALBERTO wrap for compression. Utilize RICE therapy - rest, ice, compress, elevate We have provided crutches for you to use over the next few days. Please rest and elevate the affected area above heart level to minimize swelling. I recommend you take 600mg ibuprofen every 6 hours or tylenol 650mg every 6 hours as needed for pain. If needed, you can alternate these medications so that you take one medication every 3 hours. For example, at noon take ibuprofen, then at 3pm take tylenol, then at 6pm take ibuprofen.? Follow up with PCP as needed. Return to the Emergency Department if you experience worsening pain, numbness, tingling, change of color in your toes/fingers, or any other concerning symptoms. Prescriptions: No Action oxycodone-acetaminophen [Percocet] 5-325 mg tablet 1 tab PO Q6H PRN (Reason: pain (scale score 7-10)) Qty: 20 0RF Rx Instructions: Partial Fill upon patient request. docusate sodium [Colace] 100 mg capsule 100 mg PO BID Qty: 30 0RF ibuprofen 600 mg tablet 600 mg PO Q6H PRN (Reason: pain) Qty: 30 0RF ofloxacin 0.3 % drops See Rx Instructions .ROUTE .COMPLEX Qty: 10 0RF Rx Instructions: put 2 drps into affected eye(s) every 2 h x 2 days, then 2 drps 4 times/day days 7 ibuprofen 400 mg tablet 400 mg PO Q6H PRN (Reason: pain) Qty: 14 0RF acetaminophen 500 mg capsule 1,000 mg PO Q8H PRN (Reason: fever or pain) Qty: 14 0RF quetiapine 25 mg tablet 25 mg PO BEDTIME ibuprofen 600 mg tablet 600 mg PO Q8H PRN (Reason: moderate pain) Referrals: [facility] [Primary Care Provider, Medical] Print Language: Sudanese
--- OUTSIDE RECORDS SUMMARY | 2025-07-09 21:25 | XMS_ITS | Encounter Summary ---
Author Organization [employer] Address [address] [place] [address] Care Team Providers Care Academic Tutor Name Role Phone Yarelis Graves TRANSIT COACH OPERATOR Primary Care Provider [phone] Charley Dominique ACCOUNTS RECEIVABLE COLLECTOR Primary Care Provider Encounter Details Date Type Department Care Team ([facility] st Contact Info) Description 11/08/2024 Orders Only [facility] [address] [place], [place] [id number] Vasu Morales MD [address] [place] [address] Acute right-sided low back pain without sciatica [...] Care Team (Late st Contact Info) Description 09/08/2025 10:30 AM EST Office Visit [facility] [address] [place] [address] Olivia Funez MD [address] [place] [address] documented as of this encounter Visit Diagnoses Diagnosis Acute right-sided low back pain without sciatica- Primary documented in this encounter Additional Health Concerns Assessment Noted Time PHQ-9 Depression Total Score: 3 01/06/20 23 10:23 AM EDT documented as of this encounter Care Teams Academic Tutor Relationship Specialty Start Date End Date Yarelis Graves NP [address] [place] [address] PCP - General Family Medicine 06/08/24 01/26/25 Charley Dominique FNP [address] [place] [address] PCP - General Family Medicine 01/27/25 documented as of this encounter
--- OUTSIDE RECORDS SUMMARY | 2025-07-09 21:25 | XMS_ITS | Encounter Summary ---
Author Organization [employer] Address [address] [facility] [address] [place] [address] Care Team Providers Care Corporate Director Talent Assessment Name Role Phone Roxanne Cortez COATER OPERATOR Primary Care Provider [phone] Yarelis Graves BUZZLE BUFFER Primary Care Provider [phone] Charley Dominique COATER OPERATOR Primary Care Provider [phone] Encounter Details Date Type Department Care Team (Late Contact Info) Description 02/10/2023 Abstract [facility] [address] [place] [address] Ryan Carpenter, DMD [address] [place] [address] Social History Tobacco Use Types Packs/Day Years [...] Encounters Date Type Department Care Team (Late Contact Info) Description 09/08/2025 10:30 AM EST Office Visit [facility] [address] [place] [address] Olivia Funez MD [address] [place] [address] documented as of this encounter Visit Diagnoses Not on filedocumented in this encounter Additional Health Concerns Assessment Noted Time PHQ-9 Depression Total Score: 3 01/06/20 23 10:23 AM EDT documented as of this encounter Care Teams Corporate Director Talent Assessment Relationship Specialty Start Date End Date Roxanne Cortez FNP [address] [place] [address] PCP - General Family Medicine 07/11/22 06/07/24 Yarelis Graves NP [address] [place] [id number] PCP - General Family Medicine 06/08/24 01/26/25 Charley Dominique FNP [address] [place] [id number] PCP - General Family Medicine 01/27/25 documented as of this encounter
--- OUTSIDE RECORDS SUMMARY | 2025-07-09 21:25 | XMS_ITS | Encounter Summary ---
Author Organization [employer] Address [address] [facility] [address] [place] [address] Care Team Providers Care Driver Lifter Of Sanitation Truck Name Role Phone Yarelis Graves SITE WORKER Primary Care Provider [phone] Charley Dominique CREDIT MANAGER Primary Care Provider [phone] Reason for Referral * Imaging (Routine) - Closed Specialty Diagnoses / Procedures Referred By Contac t Referred To Contact Radiology Diagnoses Acute right-sided low back pain without sciatica Procedures CT Lumbar Spine w/o Contrast Vasu Morales MD [address] [place] [address] Phone: tel: fax: [address] Phone: tel: fax: Referral ID Status Reason Start Date Expiration Date Visits Re quested Visits Authorized [id number] Closed 11/29/2024 11/29/2025 1 1 Encounter Details Date Type Department Care Team (Late st Contact Info) Description 11/29/2024 Orders Only [facility] [address] [place] [address] Vasu Morales MD [address] [place], [place] [phone] Acute right-sided low back pain without sciatica [...] Description 09/08/2025 10:30 AM EST Office Visit [facility] [address] [place] [address] Olivia Funez MD [address] [place] [address] Scheduled Orders Name Type Priority Associated Diagnoses [...] documented as of this encounter Care Teams Driver Lifter Of [employer] Truck Relationship Specialty Start Date End Date Yarelis Graves NP [address] [place] [address] PCP - General Family Medicine 06/08/24 01/26/25 Charley Dominique FNP [address] [place] [address] PCP - General Family Medicine 01/27/25 documented as of this encounter
--- OUTSIDE RECORDS SUMMARY | 2025-07-09 21:25 | XMS_ITS | Encounter Summary ---
Author Organization [employer] Address [address] [facility] 7t [place] [address] Care Team Providers Care Auto Body Repair Technician Name Role Phone Roxanne Cortez ADULT NEUROPSYCHOLOGIST Primary Care Provider [phone] Yarelis Graves NP Primary Care Provider [phone] Charley Dominique ADULT NEUROPSYCHOLOGIST Primary Care Provider [phone] Reason for Visit * Reason Onset Date Comments Durable Medical Equipment 09/04/2023 Encounter Details Date Type Department Care Team (Late st Contact Info) Description 09/04/2023 Telephone [facility] [address] [place] [address] Roxanne Cortez FNP [address] [place] [address] Durable Medical Equipment Social History Tobacco Use [...] Description 09/08/2025 10:30 AM EST Office Visit [facility] [address] [place] [address] Olivia Funez MD [address] [place] [address] documented as of this encounter Visit Diagnoses Not on filedocumented in this encounter Additional Health Concerns Assessment Noted Time PHQ-9 Depression Total Score: 3 01/06/20 23 10:23 AM EDT documented as of this encounter Care Teams Auto Body Repair Technician Relationship Specialty Start Date End Date Roxanne Cortez FNP [address] [place] [address] PCP - General Family Medicine 07/11/22 06/07/24 Yarelis Graves NP [address] [place] [address] PCP - General Family Medicine 06/08/24 01/26/25 Charley Dominique FNP [address] [place] [address] PCP - General Family Medicine 01/27/25 documented as of this encounter
--- OUTSIDE RECORDS SUMMARY | 2025-07-09 21:25 | XMS_ITS | Encounter Summary ---
Author Organization [employer] Address [address] [facility] [address] 7[address] [place] [address] Care Team Providers Care Timber Sizer Operator Name Role Phone Charley Dominique INVESTMENTS MANAGER Primary Care Provider [phone] Reason for Visit * Reason Onset Date Comments rs no show appt 04/19/2025 Encounter Details Date Type Department Care Team ([facility] st Contact Info) Description 04/19/2025 Telephone [facility] ADULT DENTAL [address] [place] [address] Ayana Du [address] [place] [address] rs no show appt Social History Tobacco Use Types Packs/Day Years Used Date Smoking Tobacco: Former Cigarettes Passive Smoke Exposure: Never Smokeless Tobacco: Never [...] encounter Miscellaneous Notes * Telephone Encounter - Adamaris Rodriguez - 04/19/2025 3:03 PM EDT Patient called in stating that he didn't make it to his 2pm appt because he is in the hospital. Explained to patient there office will call tor rs after waiting period for no show appts. Patient understood DR documented in this encounter Plan of Treatment Upcoming Encounters Date Type Department Care Team (Late st Contact Info) Description 09/08/2025 10:30 AM EST Office Visit [facility] [address] [place] [address] Olivia Funez MD [address] [place] [address] documented as of this encounter Visit Diagnoses Not on filedocumented in this encounter Additional Health Concerns Assessment Noted Time PHQ-9 Depression Total Score: 4 01/28/20 25 10:47 AM EDT documented as of this encounter Care Teams Timber Sizer Operator Relationship Specialty Start Date End Date Charley Dominique FNP [address] [place] [address] PCP - General Family Medicine 01/27/25 documented as of this encounter
--- OUTSIDE RECORDS SUMMARY | 2025-07-09 21:25 | XMS_ITS | Clinical Summary ---
Author Organization [employer] Address [address] [facility] 7t [place] [address] Care Team Providers Care Interactive Digital Media Specialist Name Role Phone Charley Dominique [facility] Primary Care Provider [phone] Allergies Active Allergy Reactions Criticality Noted Date [...] 5 Active Blood Glucose Monitoring Suppl (FreeStyle Fitzhugh Lite) w/Device kit Use to test blood [...] hours prn pain 10 tablet 5 Active Alcohol Swabs 70 % pads USE TO TEST BLOOD SUGAR 2 TIMES DAILY 5 Active Mapap 500 MG capsule TAKE 2 CAPSULES BY MOUTH EVERY 8 HOURS NEEDED FOR PAIN 5 Active amoxicillin-clav ulanate (Augmentin) 875-125 MG tablet Take 1 tablet by mouth every 12 (twelve) hours. 2 Active cetirizine (ZyrTEC) 10 MG tablet Take 1 tablet by mouth at bed time. 2 Active disulfiram (Antabuse) 250 MG tablet Take 250 mg by mouth in the morning. 0 Active docusate sodium (Colace) 100 MG capsule Take 1 capsule by mouth 2 times daily. 5 Active escitalopram (Lexapro) 10 MG tablet Take 10 mg by mouth in the morning. 0 Active hydrOXYzine HCl (Atarax) 25 MG tablet Take 25 mg by mouth. 0 Active hydrOXYzine HCl (Atarax) 25 MG tablet Take 1 tablet by mouth every 6 (six) hours. 2 Active ibuprofen 400 MG tablet Take 1 tablet by mouth every 6 (six) hours if needed for pain. 5 Active ibuprofen 600 MG tablet Take 1 tablet by mouth every 6 (six) hours if needed for pain. 5 Active ketoconazole (NIZOral) 2 % cream Apply to affected areas twice daily for 3 weeks 0 Active ofloxacin (Ocuflox) 0.3 % ophthalmic solution INSTILL 2 DROPS INTO AFFECTED EYE(S) EVERY 2 HOURS FOR 2 DAYS, THEN 2 DROPS 4 TIMES/DAY DAYS 7 5 Active oxyCODONE-acetam inophen (Percocet) 5-325 MG tablet TAKE 1 TABLET BY MOUTH EVERY 6 HOURS NEEDED FOR PAIN SCALE 7-10 5 Active traZODone (Desyrel) 50 MG tablet take 1 tablet by oral route every day at bedtime 0 Active albuterol (ProAir HFA) 108 (90 Base) MCG/ACT inhaler Inhale 2 puff as directed every six hours as needed 2 Active cyclobenzaprine (Flexeril) 5 MG tablet Take 5 mg by mouth. 0 Active Active Problems Problem Noted Date Diagnosed Date Periodontal disease 04/04/2025 Dental calculus 04/04/2025 Headache 03/04/2025 Assessment & Plan (03/14/2025 9:45 [...] 10/10 when severe. Seen here at the [facility] back in October after he c/o [...] x 10 days -Flonase for 3 weeks -Yreka nasal spray -Excuse work letter for missing days of work for his symptoms from 03/16 To 03/18 -alarm signs and symptoms discussed w pt . If symptoms dont improve of keep recurring will need image of sinuses Alcohol withdrawal syndrome without complication ([facility] 07/12/2023 Assessment & Plan (07/12/2023 10:31 PM EDT): Pt w Sx of alcohol withdrawal, VS stable, mild sweating and hand tremors.reports insomnia for the past 3 days -states ongoing insomnia that is making his symptoms worse , states tried before several meds with no improvement ,states used to take low dose quetiapine in the past which helped w symptoms -EKG : NAQ272, HR 76x', noted ST elevation in inf [...] urethritis 01/05/2023 Alcohol use disorder, severe, dependence (CMS/HC C) 06/30/2020 Episode of recurrent major depressive disorder 0 06/30/2020 Assessment & Plan (01/05/2023 6:00 PM EDT): -Previously tried escitalopram and bupropion, which he had adverse reaction -Cotninue trazodone for insomnia -Refer to [facility] Polysubstance abuse 06/30/2020 Asthma 11/02/2012 Assessment & Plan (06/23/2025 11:56 AM EDT): Stable Continue prn albuterol 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 Resolved Problems Problem Noted Date Diagnosed Date Resolved Date Blurry vision 01/29/2025 03/06/2025 Encounters Date Type Department Care Team Description 06/23/2025 10:00 AM EDT Office Visit [facility] [address] [place] [address] Omar Alves CNP Encounter for physical examination (Primary Dx); Encounter for immunization; Mild persistent asthma without complication; Elevated BP without diagnosis of hypertension; Dietary counseling; Exercise counseling; Overweight 06/23/2025 Travel 06/16/2025 Patient Outreach [facility] [address] [place] [address] Charley Dominique FNP Pre-visit Planning (Pre visit planning unable to LVM ) 06/09/2025 Telephone [facility] [address] [place] [address] Omar Alves CNP No Show 06/09/2025 Telephone [facility] [address] [place] [address] Omar Alves CNP No Show 06/07/2025 Telephone [facility] [address] [place] [address] Charley Dominique FNP chart prep 04/20/2025 3:00 PM EDT Office Visit [facility] ADULT D[facility] [address] [place] [address] Ayana Du 04/19/2025 Telephone [facility] [address] [place] [address] Ayana Du rs no show appt 04/12/2025 Telephone [facility] [address] [place] [address] Brooklyn Garcia from Last 3 Months Immunizations Immunization Administration Dates Next Due Hep A, Adult 06/23/2025 Hep B, adult 03/05/2022,,05/23/2014,12/21,11/18/2013 Influenza Injectable Quadriv [...] rehab for etoh Alcohol Answer Date Recorded How often do you have a drink containing alcohol ? 1 06/23/2025 How many drinks containing a lcohol do you have on a typical day when you are drinking? 0 06/23/2025 How often do you have six or more drinks on one occasion? 1 06/23/2025 Depression Answer Date Recorded Patient Health Questionnaire-9 [...] Sign Reading Time Taken Comments Blood Pressure 140/86 06/23/2025 10:01 AM EDT Pulse 60 06/23/2025 10:01 AM EDT Temperature 36.7 C (98.1 F) 06/23/2025 10:01 AM EDT Respiratory Rate 14 06/23/2025 10:01 AM EDT Oxygen Saturation 98% 06/23/2025 10:01 AM EDT Inhaled Oxygen Concentration - - Weight 72.6 kg (160 lb) 06/23/2025 10:01 AM EDT Height 167.6 cm (5' 6 ) 06/23/2025 10:01 AM EDT Body Mass Index 25.82 06/23/2025 10:01 AM EDT Plan of Treatment Upcoming Encounters Date Type Department Care Team (Late st Contact Info) Description 09/08/2025 10:30 AM EST Office Visit [facility] [address] [place] [address] Olivia Funez MD [address] [place] [address] Health Maintenance Due Date Last Done Comments Family Planning (PISQ) 2006 Influenza Vaccine (#1) 2025 , 12/08/2022, 12/08/2021, Additional history exists Dental Oral Exam 10/22/2025 04/20/2025 Dental Prophylaxis 10/22/2025 04/20/2025 Alcohol/Substance Use Screening 01/27/2026 01/27/2025 Depression Screening 01/27/2026 01/27/2025, 01/28/20 SDOH Screening 01/27/2026 01/27/2025 Disability Screening 03/03/2026 03/03/2025 Dental X-Ray: Bitewings 04/21/2026 04/20/2025, 01/05 COVID-19 Vaccine ( - 2024- season) 2026 10/15/2021, 11/30/2020, 11/09/2020 Postponed from 06/05/2025 (Patient Refused) HPV Vaccines (1 - Male 3-dose series) 06/23/2026 Postponed from 2006 (Patient Refused) Pneumococcal Vaccine: Pediatrics (0 to 5 Years) and At-Risk Patients (6 to 49) Years (2 of 2 - PCV) 06/23/2026 11/28/2015 Postponed from 11/28/2016 (Patient Refused) Tobacco Screening 06/23/2026 06/23/2025 Dental X-Ray: Full Mouth 04/21/2028 04/20/2025 DTaP/Tdap/Td Vaccines (3 - Td or Tdap) 10/15/2030 10/15/2020, 11/02/2012 Zoster Vaccines (1 of 2) 2041 RSV Patients and Patients Aged 60 years or older (1 - 1-dose 75+ series) 2066 HIV Screening Completed 12/17/2021 Hepatitis C Screening Completed 12/17/2021 Hepatitis B Vaccines Completed 03/05/2022, 02/05/2022, 05/23/2014, Additional history exists Hepatitis A Vaccines Aged Out 06/23/2025 No long er eligible based on patient's age to complete this topic HIB Vaccines Aged Out No longer eligi [...] Procedure Name Priority Date/Time Associated Diagnosis Comments PERIODIC ORAL EVALUATION - ESTABLISHED PATIENT Routine 04/20/2025 3:00 PM EDT CASE PRESENTATION, DETAILED AND EXTENSIVE TREATMENT PLANNING Routine 04/20/2025 3:00 PM EDT INTRAORAL - COMPLETE SERIES OF RADIOGRAPHIC IMAGES Routine 04/20/2025 3:00 PM EDT PROPHYLAXIS - ADULT Routine 04/20/2025 3 :00 PM EDT 28 EXTRACTION Routine 04/20/2025 12:00 AM EDT 29 EXTRACTION Routine 04/20/2025 12:00 AM EDT 19 EXTRACTION Routine 04/20/2025 12:00 AM EDT 18 EXTRACTION Routine 04/20/2025 12:00 AM EDT ZZZ HISTORICAL HEPATITIS C AB W/REFL TO HCV RNA, QN, PCR Routine 12/17/2021 2:10 PM EDT HIV 1/2 ANTIGEN/ANTIBODY, FOURTH GENERATION W/RFL Routine 12/17/2021 2:10 PM EDT from Last 3 Months or Most Recently Relevant to Health Maintenance Results * HEPATITIS C AB W/REFL TO HCV RNA, QN, PCR (12/17/2021 2:10 PM EDT) HEPATITIS C ANTIBODY NON-REACT BEST NON-REACT BEST [facility] INDEX 0.01 <1.00 [facility] Comment: HCV antibody was non-reactive. There is no laboratory evidence of HCV infection. In most cases, no further action is required. However, if recent HCV exposure is suspected, a test for HCV RNA (test code 15179) is suggested. For additional information please refer to http://[employer].Experenti/faq/JKY79m7 (This link is being provided for informational/ educational purposes only.) 12/17/2021 2:10 PM EDT David Don MD HISTORICAL/NON ORDERABLE LABS Fi nal Result Performing Organization Address [facility] de Phone Number [facility] [address] * HIV 1/2 ANTIGEN/ANTIBODY,FOURTH GENERATION W/RFL (12/17/2021 2:10 PM EDT) HIV-1/2 ANTIGEN AND ANTIBODIES, 4TH GENERATION W/ REFLEX NON-REACT BEST NON-REACT BEST [facility] Comment: HIV-1 antigen and [...] purpose. For additional information please refer to http://[employer].Experenti/faq/YPR842 (This link is being provided for informational/ educational purposes only.) The performance of this assay has not been clinically validated in patients less than 2 years old. 12/17/2021 2:10 PM EDT David Don MD LAB BLOOD ORDERABLES Final Resul t Performing Organization Address [facility] de Phone Number [facility] [address] from Last 3 Months or Most Recently Relevant to Health Maintenance Insurance [place] [facility] MEDICAID STAND ADULT Care Teams Interactive Digital Media Specialist Relationship Specialty Start Date End Date Okhipo, Charley, MOLD FORMS BUILDER [address] [place] [address] PCP - General Family Medicine 01/27/25
--- OUTSIDE RECORDS SUMMARY | 2025-07-09 21:25 | XMS_ITS | Encounter Summary ---
Author Organization [employer] Address [address] [facility] 7t [place] [address] Care Team Providers Care Correspondence School Teacher Name Role Phone Roxanne Cortez DOCUMENTATION COORDINATOR Primary Care Provider [phone] Yarelis Graves SPECIFICATION MANAGER Primary Care Provider [phone] Charley Dominique DOCUMENTATION COORDINATOR Primary Care Provider [phone] Reason for Visit * Reason Onset Date Comments Appointment 04/01/2023 Encounter Details Date Type Department Care Team (Late st Contact Info) Description 04/01/2023 Telephone [facility] ADULT [facility]ENT[facility] [address] [place] [address] Ryan Carpenter, DMD [address] [place] [address] Appointment Social History Tobacco Use Types Packs/Day [...] Teagan Kelly - 04/01/2023 3:50 PM EDT Maycogabriele Mcmanusgo Patient called in and stated that stitches are falling out and wanted to know if it was normal patient was seen on 04/01/2023 please reach out to patient. documented in this encounter Plan of Treatment Upcoming Encounters Date Type Department Care Team (Late st Contact Info) Description 09/08/2025 10:30 AM EST Office Visit [facility] [address] [place] [address] Olivia Funez MD [address] [place] [address] documented as of this encounter Visit Diagnoses Not on filedocumented in this encounter Additional Health Concerns Assessment Noted Time PHQ-9 Depression Total Score: 3 01/06/20 23 10:23 AM EDT documented as of this encounter Care Teams Correspondence School Teacher Relationship Specialty Start Date End Date Roxanne Cortez FNP [address] [place] [address] PCP - General Family Medicine 07/11/22 06/07/24 Yarelis Graves NP [address] [place] [address] PCP - General Family Medicine 06/08/24 01/26/25 Charley Dominique FNP [address] [place] [address] PCP - General Family Medicine 01/27/25 documented as of this encounter
--- OUTSIDE RECORDS SUMMARY | 2025-07-09 21:25 | XMS_ITS | Encounter Summary ---
Author Organization [employer] Address [address] [facility] [address] [place] [address] Care Team Providers Care Advertising Clerk Name Role Phone Roxanne Cortez COMMUNITY SPECIALIST Primary Care Provider [phone] Yarelis Graves STARCH CRAB Primary Care Provider [phone] Charley Dominique COMMUNITY SPECIALIST Primary Care Provider [phone] Encounter Details Date Type Department Care Team (Late st Contact Info) Description 03/03/2023 Abstract [facility] ADULT DENTAL [address] [place] [address] Ryan Carpenter, DMD [address] [place] [address] Social History Tobacco Use Types Packs/Day Years [...] Description 09/08/2025 10:30 AM EST Office Visit [facility] [address] [place] [address] Olivia Funez MD [address] [place] [address] documented as of this encounter Visit Diagnoses Not on filedocumented in this encounter Additional Health Concerns Assessment Noted Time PHQ-9 Depression Total Score: 3 01/06/20 23 10:23 AM EDT documented as of this encounter Care Teams Advertising Clerk Relationship Specialty Start Date End Date Roxanne Cortez FNP [address] [place] [address] PCP - General Family Medicine 07/11/22 06/07/24 Yarelis Graves NP [address] [place] [address] PCP - General Family Medicine 06/08/24 01/26/25 Charley Dominique FNP [address] [place] [address] PCP - General Family Medicine 01/27/25 documented as of this encounter
[2025-07-09 22:20] VITALS: BP 97/92; PULSE 72; RESP 16; TEMP 37.2; O2SAT 98
[2025-07-09 22:21] VITALS: BP 97/92; PULSE 72; RESP 16; TEMP 37.2; O2SAT 98
== END 2025-07-09 22:21 | disposition home or self-care (01) ==
PROVIDERS: Emergency Provider Emergency Medicine
DX: S93.402A Sprain of unspecified ligament of left ankle, initial encounter (principal); M25.572 Pain in left ankle and joints of left foot; X50.9XXA Other and unspecified overexertion or strenuous movements or postures, initial encounter; Y93.9 Activity, unspecified; Y92.9 Unspecified place or not applicable; Y99.8 Other external cause status; Z79.899 Other long term (current) drug therapy
CPT/HCPCS: 73610; 73630; 96372; 99284; J1885

== ENCOUNTER → 2025-07-09 20:15 | Outpatient (BNV) | payer MEDICAID, SELFPAY | PROVIDERS: Emergency Provider Emergency Medicine; Visit Provider Student in an Organized Health Care Education/Training Program | DX: M25.572 Pain in left ankle and joints of left foot (principal); M79.672 Pain in left foot | CPT/HCPCS: 73610; 73630 ==

== ENCOUNTER 2025-08-08 11:57 | Outpatient (REF) | payer MEDICAID, SELFPAY ==
[2025-08-08 13:16] LABS: MANUAL DIFF FLAG NO
[2025-08-08 13:24] LABS: Hematocrit 41.6 % (42.0-52.0); Hemoglobin 13.8 g/dl (14.0-18.0); Imm Gran Abs Auto 0.02 X10*3/uL (0.00-0.03); Imm Gran Pct Auto 0.4 % (0.0-0.4); Lymphocytes Absolute Auto 1.5 X10*3/uL (1.2-4.9); Mean Corpuscular HGB Conc 33.2 g/dl (31.0-36.0); Mean Corpuscular Hemoglobin 30.1 pg (27.0-33.0); Mean Corpuscular Volume 90.6 fL (80.0-98.0); NRBC Abs Auto 0.000 X10*3/uL (0.0-0.012); NRBC Pct Auto 0.0 /100WBC (0.0-0.2); Platelet Count 168 X10*3/uL (160-400); Red Blood Count 4.59 X10*6/uL (4.60-5.80); White Blood Count 5.6 X10*3/uL (4.8-10.8)
[2025-08-08 13:36] LABS: Anion Gap 7 (12-20); Blood Urea Nitrogen 10 mg/dL (9-16); Calcium 8.8 mg/dL (8.4-10.2); Carbon Dioxide 30 mmol/L (22-29); Chloride 108 mmol/L (96-108); Cholesterol 157 mg/dL (<200); Estimated Glomerular Filt Rate > 60; HDL Cholesterol 40 mg/dL (>40); Potassium 4.0 mmol/L (3.3-5.1); Sodium 141 mmol/L (135-145); Triglycerides 90 mg/dL (<150)
--- OUTSIDE RECORDS SUMMARY | 2025-08-08 14:47 | XMS_ITS | Encounter Summary ---
Author Organization [employer] Address [address] [facility] 7t [place] [address] Care Team Providers Care Emery Grinder Name Role Phone Roxanne Cortez SOLDERING INSPECTOR Primary Care Provider [phone] Yarelis Graves NP Primary Care Provider [phone] Charley Dominique SOLDERING INSPECTOR Primary Care Provider [phone] Reason for Visit * Reason Onset Date Comments Durable Medical Equipment 09/04/2023 Encounter Details Date Type Department Care Team (Late st Contact Info) Description 09/04/2023 Telephone [facility] MED[facility] [address] [place] [address] Roxanne Cortez FNP [address] [place] [address] Durable Medical Equipment Social History Tobacco Use [...] Description 09/08/2025 10:30 AM EST Office Visit [facility] [address] [place] [address] Olivia Funez MD [address] [place] [address] documented as of this encounter Visit Diagnoses Not on filedocumented in this encounter Additional Health Concerns Assessment Noted Time PHQ-9 Depression Total Score: 3 01/06/20 23 10:23 AM EDT documented as of this encounter Care Teams Emery Grinder Relationship Specialty Start Date End Date Roxanne Cortez FNP [address] [place] [address] PCP - General Family Medicine 07/11/22 06/07/24 Yarelis Graves NP [address] [place] [address] PCP - General Family Medicine 06/08/24 01/26/25 Charley Dominique FNP [address] [place] [address] PCP - General Family Medicine 01/27/25 documented as of this encounter
--- OUTSIDE RECORDS SUMMARY | 2025-08-08 14:47 | XMS_ITS | Clinical Summary ---
Author Organization [employer] Address [address] [place] [address] Care Team Providers Care Information Technology Specialist Name Role Phone Charley Dominique [facility] Primary Care Provider [phone] Allergies Active Allergy Reactions Criticality Noted Date Comments Bupropion 10/17/2010 Other reaction(s): Increased anxiety Shellfish Protein-Containing Drug Products Hives 11/02/2012 Other Reaction(s): Rash/Dermatitis Medications * This document [...] 5 Active Blood Glucose Monitoring Suppl (FreeStyle [place] Lite) w/Device kit Use to test blood [...] of candidiasis. Do not swallow. 1 each 5 01/28/20 26 Active busPIRone (Buspar) 7.5 [...] 10/10 when severe. Seen here at the [facility] back in October after he c/o [...] x 10 days -Flonase for 3 weeks -Bailey nasal spray -Excuse work letter for missing days of work for his symptoms from 03/16 To 03/18 -alarm signs and symptoms discussed w pt . If symptoms dont improve of keep recurring will need image of sinuses Alcohol withdrawal syndrome without complication ([facility]) 07/12/2023 Assessment & Plan (07/12/2023 10:31 PM EDT): Pt w Sx of alcohol withdrawal, VS stable, mild sweating and hand tremors.reports insomnia for the past 3 days -states ongoing insomnia that is making his symptoms worse , states tried before several meds with no improvement ,states used to take low dose quetiapine in the past which helped w symptoms -EKG : RRV146, HR 76x', noted ST elevation in inf [...] reaction -Cotninue trazodone for insomnia -Refer to [facility] Polysubstance abuse 06/30/2020 Asthma 11/02/2012 Assessment & Plan (06/23/2025 11:56 AM EDT): Stable Continue prn albuterol 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 Resolved Problems Problem Noted Date Diagnosed Date Resolved Date Blurry vision 01/29/2025 03/06/2025 Encounters Date Type Department Care Team Description 07/09/2025 Orders Only [facility] External Provider, [facility] 06/23/2025 10:00 AM EDT Office Visit [facility] [address] [place] [address] Omar Alves CNP Encounter for physical examination (Primary Dx); Encounter for immunization; Mild persistent asthma without complication; Elevated BP without diagnosis of hypertension; Dietary counseling; Exercise counseling; Overweight 06/23/2025 Travel 06/16/2025 Patient Outreach [facility] [address] [place] [address] Charley Dominique FNP Pre-visit Planning (Pre visit planning unable to LVM ) 06/09/2025 Telephone [facility] [address] [place] [address] Omar Alves CNP No Show 06/09/2025 Telephone [facility] [address] [place] [address] Omar Alves CNP No Show 06/07/2025 Telephone [facility] [address] [place] [address] Charley Dominique FNP chart prep from Last 3 Months Immunizations Immunization Administration [...] Description 09/08/2025 10:30 AM EST Office Visit [facility] [address] [place] [address] Olivia Funez MD [address] [place] [address] Health Maintenance Due Date Last Done Comments Family Planning (PISQ) 2006 Influenza Vaccine (#1) 2025 , 12/08/2022, 12/08/2021, Additional history exists Dental Oral Exam 10/22/2025 04/20/2025 Dental Prophylaxis 10/22/2025 04/20/2025 Alcohol/Substance Use Screening 01/27/2026 01/27/2025 Depression Screening 01/27/2026 01/27/2025, 01/28/20 SDOH Screening 01/27/2026 01/27/2025 Disability Screening 03/03/2026 03/03/2025 Dental X-Ray: Bitewings 04/21/2026 04/20/2025, 01/05 COVID-19 Vaccine ( season) 2026 10/15/2021, 11/30/2020, 11/09/2020 Postponed from [...] Procedure Name Priority Date/Time Associated Diagnosis Comments LIPID PANEL, STANDARD Routine 08/08/2025 12:03 PM EST Encounter for physical examination CBC WITH AUTO DIFFERENTIAL Routine 08/08/2025 12:03 PM EST Encounter for physical examination BASIC METABOLIC PANEL Routine 08/08/2025 12:03 PM EST Encounter for physical examination XR FOOT 3+ VIEWS LEFT Routine 07/09/2025 9:27 PM EDT XR ANKLE 3+ VIEWS LEFT Routine 07/09/2025 9:26 PM EDT PROPHYLAXIS - ADULT Routine 04/20/2025 3 :00 PM EDT INTRAORAL - COMPLETE SERIES OF RADIOGRAPHIC IMAGES Routine 04/20/2025 3:00 PM EDT PERIODIC ORAL EVALUATION - ESTABLISHED PATIENT Routine 04/20/2025 3:00 PM EDT ZZZ HISTORICAL HEPATITIS C AB W/REFL TO HCV RNA, QN, PCR Routine 12/17/2021 2:10 PM EDT HIV 1/2 ANTIGEN/ANTIBODY, FOURTH GENERATION W/RFL Routine 12/17/2021 2:10 PM EDT from Last 3 Months or Most Recently Relevant to Health Maintenance Results * (ABNORMAL) CBC auto differential (08/08/2025 12:03 PM EST) White Blood Count 5.6 4.8 - 10.8 X10*3/uL [facility] Red Blood Count 4.59(L) 4.60 - 5.80 X10*6/uL [facility] Hemoglobin 13.8(L) 14.0 - 18.0 g/dl [facility] Hematocrit 41.6(L) 42.0 - 52.0 % [facility] Mean Corpuscular Volume 90.6 80.0 - 98.0 fL [facility] Mean Corpuscular Hemoglobin 30.1 27.0 - 33.0 pg [facility] Mean Corpuscular HGB Conc 33.2 31.0 - 36.0 g/dl [facility] Red Cell Distribution Width 13.2 11.0 - 16.0 % [facility] Platelet Count 168 160 - 400 X10*3/uL [facility] Mean Platelet Volume 12.4 9.4 - 12.4 fL [facility] Neutrophils Percent Auto 55.3 45 - 73 % [facility] Imm Gran Pct Auto 0.4 0.0 - 0.4 % [facility] Lymphocytes Percent Auto 27.4 20 - 40 % [facility] Monocytes Percent Auto 11.2(H) 2 - 11 % [facility] Eosinophils Percent Auto 5.2(H) 0 - 4 % [facility] Basophils Percent Auto 0.5 0 - 2 % [facility] NRBC Pct Auto 0.0 0.0 - 0.2 /100WBC [facility] Neutrophils Absolute Auto 3.1 2.0 - 8.3 x10*3/uL [facility] Imm Gran Abs Auto 0.02 0.00 - 0.03 X10*3/uL [facility] Lymphocytes Absolute Auto 1.5 1.2 - 4.9 X10*3/uL [facility] Monocytes Absolute Auto 0.6 0.1 - 1.2 X10*3/uL [facility] Eosinophils Absolute Auto 0.3 0.0 - 0.4 X10*3/uL [facility] Basophils Absolute Auto 0.0 0.0 - 0.2 X10*3/uL [facility] NRBC Abs Auto 0.000 0.0 - 0.012 X10*3/uL [facility] Blood Venous blood specimen / Unknown 08/08/2025 12:03 PM EST 08/08/2025 1:12 PM EST [facility] LAB BLOOD ORDERABLES Michaela l Result Performing Organization Address [facility] Co de Phone Number [facility] [address] [place] [phone] * (ABNORMAL) Lipid Panel, Standard (08/08/2025 12:03 PM EST) Triglycerides 90 <150 mg/dL [facility] Comment:Desirable Triglyceri de: less than 150 mg/dLBorderline High Triglyceride 150-199 mg/dLHigh Triglyceride: 200-499 mg/dLVery High Triglyceride: greater than or equal to 5OO mg/dL Cholesterol 157 <200 mg/dL [facility] Comment:Desirable Cholestero l: less than 200 mg/dLBorderline High Cholesterol: 200-239 mg/dLHigh Cholesterol: greater than 239 mg/dL LDL Cholesterol Calculated 99 <100 mg/dL [facility] Comment:Desirable LDL: less than 100 mg/dLNear Optimal/Above Optimal LDL: 110- 129 mg/dLBorderline High LDL: 130-159 mg/dLHigh LDL: 160-189 mg/dLVery High LDL: greater than or equal to 190 mg/dL HDL Cholesterol 40(L) >40 mg/dL [facility] Comment:Desirable HDL: great er than 40 mg/dL Note: This HDL assay may give artificially low results in patients with liver disease. Blood Venous blood specimen / Unknown 08/08/2025 12:03 PM EST 08/08/2025 1:12 PM EST [facility] LAB BLOOD ORDERABLES Michaela l Result Performing Organization Address [facility] Co de Phone Number [facility] [address] [place] [phone] * (ABNORMAL) Basic Metabolic Panel (08/08/2025 12:03 PM EST) Sodium 141 135 - 145 mmol/L [facility] Potassium 4.0 3.3 - 5.1 mmol/L [facility] Chloride 108 96 - 108 mmol/L [facility] Carbon Dioxide 30(H) 22 - 29 mmol/L [facility] Anion Gap 7(L) 12 - 20 [facility] Urea Nitrogen (BUN) 10 9 - 16 mg/dL [facility] Creatinine, Serum 0.91 0.5 - 1.4 mg/dL [facility] Estimated Glomerular Filt Rate >60 [facility] Comment:Chronic Kidney Disea se: Estimated GFR < 60 mL/min/1.87q7Pxkmtl Kidney Disease: Estimated GFR < 15 mL/min/1.73m2 Glucose 93 60 - 115 mg/dL [facility] Calcium 8.8 8.4 - 10.2 mg/dL [facility] Blood Venous blood specimen / Unknown 08/08/2025 12:03 PM EST 08/08/2025 1:12 PM EST [facility] LAB BLOOD ORDERABLES Michaela l Result Performing Organization Address City/State/[facility] Co de Phone Number [facility] [address] [place] [address] [phone] * XR Foot 3+ Views Left (07/09/2025 9:27 PM EDT) Anatomical Region Laterality Modality Lower Extremities, Foot Left Radiogra phic Imaging 07/09/2025 9:27 PM EDT Narrative 07/09/2025 9:28 PM EDT [address] [address] XRay Report Signed Patient: Mayco Sparrow MR#: [id number] : 1990 Acct:[id number] Age/Sex: 35 / M ADM Date: 07/09/25 Loc: .ED Attending Dr: Ordering Physician: Omar Avilez Date of Service: 07/09/25 Procedure(s): XR foot LT min 3V Accession Number(s): [id number] cc: [facility]; Omar Avilez Reason for Exam: left foot pain CLINICAL HISTORY: left foot pain 3 view left foot Comparison: None provided Findings: No fractures or dislocations. No significant arthritic change or erosions. No ankle effusion. No radiopaque foreign body. IMPRESSION: 1. No acute findings. This document has been electronically signed by: Malachi Hernandez MD on 07/09/2025 21:27:37 Dictated By: Malachi Hernandez MD Signed By: <Electronically signed by Malachi Hernandez MD in OV> 07/09/252126 DD/ 26 TD/TT: 07/09/252126 Business Law Professor: Procedure Note Dori Borrero - 07/09/2025 [place] [address] XRay Report Signed Patient: Mayco Sparrow LMR#: [id number] : 1990Acct:[id number] Age/Sex: 35 / MADM Date: 07/09/25 Loc: HO.ED Attending Dr: Ordering Physician: Omar Avilez Date of Service: 07/09/25 Procedure(s): XR foot LT min 3V Accession Number(s): [id number] cc: [facility]; Omar Avilez Reason for Exam: left foot pain CLINICAL HISTORY: left foot pain 3 view left foot Comparison: None provided Findings: No fractures or dislocations. No significant arthritic change or erosions. No ankle effusion. No radiopaque foreign body. IMPRESSION: 1. No acute findings. This document has been electronically signed by: Malachi Hernandez MD on 07/09/2025 21:27:37 Dictated By: Malachi Hernandez MD Signed By: <Electronically signed by Malachi Hernandez MD in OV> 07/09/252126 DD/ 26 TD/TT: 07/09/252126 Business Law Professor: [facility] External Provider IMG XR PROCEDURES Edited Result - Final * XR Ankle 3+ Views Left (07/09/2025 9:26 PM EDT) Anatomical Region Laterality Modality Lower Extremities, Ankle Left Radiogr aphic Imaging 07/09/2025 9:26 PM EDT Narrative 07/09/2025 9:27 PM EDT [address] [address] XRay Report Signed Patient: Mayco Sparrow MR#: [id number] : 1990 Acct:[id number] Age/Sex: 35 / M ADM Date: 07/09/25 Loc: HO.ED Attending Dr: Ordering Physician: Omar Avilez Date of Service: 07/09/25 Procedure(s): XR ankle LT min 3V Accession Number(s): [id number] cc: [facility]; Omar Avilez Reason for Exam: left ankle CLINICAL HISTORY: left ankle pain 3 view left ankle Comparison: CR/SR - XR ANKLE 1-2 VIEWS LEFT - 08/10/22 03:50 EST Findings: No acute fractures. Ankle mortise intact. No significant loss of joint space, osteophytes, or erosions. No ankle effusion. No radiopaque foreign body. IMPRESSION: 1. No acute findings. This document has been electronically signed by: Malachi Hernandez MD on 07/09/2025 21:26:28 Dictated By: Malachi Hernandez MD Signed By: <Electronically signed by Malachi Hernandez MD in OV> 07/09/252126 DD/ 25 TD/TT: 07/09/252125 Business Law Professor: Procedure Note Donotuseinterpreter, Image - 07/09/[address] [address] XRay Report Signed Patient: Mayco Sparrow LMR#: [id number] : 1990Acct:[id number] Age/Sex: 35 / MADM Date: 07/09/25 Loc: HO.ED Attending Dr: Ordering Physician: Omar Avilez Date of Service: 07/09/25 Procedure(s): XR ankle LT min 3V Accession Number(s): [id number] cc: [facility]; Omar Avilez Reason for Exam: left ankle CLINICAL HISTORY: left ankle pain 3 view left ankle Comparison: CR/SR - XR ANKLE 1-2 VIEWS LEFT - 08/10/22 03:50 EST Findings: No acute fractures. Ankle mortise intact. No significant loss of joint space, osteophytes, or erosions. No ankle effusion. No radiopaque foreign body. IMPRESSION: 1. No acute findings. This document has been electronically signed by: Malachi Hernandez MD on 07/09/2025 21:26:28 Dictated By: Malachi Hernandez MD Signed By: <Electronically signed by Malachi Hernandez MD in OV> 07/09/252126 DD/ 25 TD/TT: 07/09/252125 Business Law Professor: [facility] External Provider IMG XR PROCEDURES Edited Result - Final * HEPATITIS C AB W/REFL TO HCV RNA, QN, PCR (12/17/2021 2:10 PM EDT) HEPATITIS C ANTIBODY NON-REACT BEST NON-REACT BEST [facility] INDEX 0.01 <1.00 [facility] Comment: HCV antibody was non-reactive. There is no laboratory evidence of HCV infection. In most cases, no further action is required. However, if recent HCV exposure is suspected, a test for HCV RNA (test code 14523) is suggested. For additional information please refer to http://education.JamLegend.Stimatix GI/faq/EWH19a7 (This link is being provided for informational/ educational purposes only.) 12/17/2021 2:10 PM EDT David Don MD HISTORICAL/NON ORDERABLE LABS Fi nal Result [facility] [address] * HIV 1/2 ANTIGEN/ANTIBODY,FOURTH GENERATION W/RFL (12/17/2021 2:10 PM EDT) HIV-1/2 ANTIGEN AND ANTIBODIES, 4TH GENERATION W/ REFLEX NON-REACT BEST NON-REACT BEST [facility] Comment: HIV-1 antigen and HIV-1/HIV-2 [...] purpose. For additional information please refer to http://education.CinemaKi/faq/UUW924 (This link is being provided for informational/ educational purposes only.) The performance of this assay has not been clinically validated in patients less than 2 years old. 12/17/2021 2:10 PM EDT us David Don MD LAB BLOOD ORDERABLES Final Resul t [facility] [address] from Last 3 Months or Most Recently Relevant to Health Maintenance [place] [address] C[place] ST[place] ADULT Care Teams Information Technology Specialist Relationship Specialty Start Date End Date Charley Dominique FNP [address] [place] [address] PCP - General Family Medicine 01/27/25
--- OUTSIDE RECORDS SUMMARY | 2025-08-08 14:47 | XMS_ITS | Encounter Summary ---
Author Organization [employer] Address [address] [place] [address] Care Team Providers Care Youth Support Worker Name Role Phone Charley Dominique EMPLOYMENT COUNSELOR Primary Care Provider [phone] Reason for Visit * Reason Onset Date Comments rs no show appt 04/19/2025 Encounter Details Date Type Department Care Team ([facility] st Contact Info) Description 04/19/2025 Telephone [facility] [address] [place] [address] Ayana Du [address] [place] [address] rs no show appt Social History Tobacco [...] Description 09/08/2025 10:30 AM EST Office Visit [facility] [address] [place] [address] Olivia Funez MD [address] [place] [address] documented as of this encounter Visit Diagnoses Not on filedocumented in this encounter Additional Health Concerns Assessment Noted Time PHQ-9 Depression Total Score: 4 01/28/20 25 10:47 AM EDT documented as of this encounter Care Teams Youth Support Worker Relationship Specialty Start Date End Date Charley Dominique FNP [address] [place] [address] PCP - General Family Medicine 01/27/25 documented as of this encounter
--- OUTSIDE RECORDS SUMMARY | 2025-08-08 14:47 | XMS_ITS | Encounter Summary ---
Author Organization [employer] Address [address] [facility] 7t [place] [address] Care Team Providers Care Manager Talent Management Name Role Phone Yarelis Graves GUEST ASSOCIATE Primary Care Provider [phone] Charley Dominique SENIOR ENERGY CONSULTANT Primary Care Provider [phone] Encounter Details Date Type Department Care Team ([facility] st Contact Info) Description 11/08/2024 Orders Only [facility] [address] [place], [place] [phone] Vasu Morales MD [address] [place] [address] Acute right-sided low back pain without sciatica [...] Description 09/08/2025 10:30 AM EST Office Visit [facility] [address] [place] [address] Olivia Funez MD [address] [place] [address] documented as of this encounter Visit Diagnoses Diagnosis Acute right-sided low back pain without sciatica- Primary documented in this encounter Additional Health Concerns Assessment Noted Time PHQ-9 Depression Total Score: 3 01/06/20 23 10:23 AM EDT documented as of this encounter Care Teams Manager Talent Management Relationship Specialty Start Date End Date Yarelis Graves NP [address] [place] [address] PCP - General Family Medicine 06/08/24 01/26/25 Charley Dominique FNP [address] [place] [address] PCP - General Family Medicine 01/27/25 documented as of this encounter
--- OUTSIDE RECORDS SUMMARY | 2025-08-08 14:47 | XMS_ITS | Encounter Summary ---
Author Organization [employer] Address [address] [place] [address] Care Team Providers Care Hadoop Application Developer Name Role Phone Roxanne Cortez PLY CUTTER Primary Care Provider [phone] Yarelis Graves POWDER TRUCK DRIVER Primary Care Provider [phone] Charley Dominique PLY CUTTER Primary Care Provider [phone] Encounter Details Date Type Department Care Team (Late st Contact Info) Description 03/03/2023 Abstract [facility] [address] [place] [address] Ryan Carpenter, DMD [address] [place] [address] Social History Tobacco Use Types Packs/Day Years [...] Description 09/08/2025 10:30 AM EST Office Visit [facility] [address] [place] [address] Olivia Funez MD [address] [place] [address] documented as of this encounter Visit Diagnoses Not on filedocumented in this encounter Additional Health Concerns Assessment Noted Time PHQ-9 Depression Total Score: 3 01/06/20 23 10:23 AM EDT documented as of this encounter Care Teams Hadoop Application Developer Relationship Specialty Start Date End Date Roxanne Cortez FNP [address] [place] [address] PCP - General Family Medicine 07/11/22 06/07/24 Yarelis Graves NP [address] [place] [address] PCP - General Family Medicine 06/08/24 01/26/25 Charely Dominique FNP [address] [place] [address] PCP - General Family Medicine 01/27/25 documented as of this encounter
--- OUTSIDE RECORDS SUMMARY | 2025-08-08 14:47 | XMS_ITS | Encounter Summary ---
Author Organization [employer] Address [address] [facility] 7t [place] [address] Care Team Providers Care Wireless Engineer Name Role Phone Roxnane Cortez LITHARGE MILL OPERATOR Primary Care Provider [phone] Yarelis Graves QUICK PRINT OPERATOR Primary Care Provider [phone] Charley Dominique LITHARGE MILL OPERATOR Primary Care Provider [phone] Encounter Details Date Type Department Care Team (Late Contact Info) Description 02/10/2023 Abstract [facility] [address] [place] [address] Ryan Carpenter, DMD [address] [place] [address] Social History Tobacco Use Types Packs/Day Years [...] 09/08/2025 10:30 AM EST Office Visit [facility] [address] [place] [address] Olivia Funez MD [address] [place] [address] documented as of this encounter Visit Diagnoses Not on filedocumented in this encounter Additional Health Concerns Assessment Noted Time PHQ-9 Depression Total Score: 3 01/06/20 23 10:23 AM EDT documented as of this encounter Care Teams Wireless Engineer Relationship Specialty Start Date End Date Roxanne Cortez FNP [address] [place] [address] PCP - General Family Medicine 07/11/22 06/07/24 Yarelis Graves NP [address] [place] [address] PCP - General Family Medicine 06/08/24 01/26/25 Charley Dominique FNP [address] [place] [address] PCP - General Family Medicine 01/27/25 documented as of this encounter
--- OUTSIDE RECORDS SUMMARY | 2025-08-08 14:47 | XMS_ITS | Encounter Summary ---
Author Organization [employer] Address [address] [facility] 7 [place] [address] Care Team Providers Care Theater Teacher Name Role Phone Yarelis Graves CARE MANAGER CNA Primary Care Provider [phone] Charley Dominique AUTOMOTIVE GENERAL MANAGER Primary Care Provider [phone] Reason for Referral * Imaging (Routine) - Closed Specialty Diagnoses / Procedures Referred By Contac t Referred To Contact Radiology Diagnoses Acute right-sided low back pain without sciatica Procedures CT Lumbar Spine w/o Contrast Vasu Morales MD [address] [place] [address] Phone: tel: fax: [address] Phone: tel: fax: Referral ID Status Reason Start Date Expiration Date Visits Re quested Visits Authorized [id number] Closed 11/29/2024 11/29/2025 1 1 Encounter Details Date Type Department Care Team (Late st Contact Info) Description 11/29/2024 Orders Only [facility] [address] [place] [address] Vasu Morales MD [address] [place], [place] [phone] Acute right-sided low back pain without sciatica [...] Description 09/08/2025 10:30 AM EST Office Visit [facility] [address] [place] [address] Olivia Funez MD [address] [place] [address] Scheduled Orders Name Type Priority [...] documented as of this encounter Care Teams Theater Teacher Relationship Specialty Start Date End Date Yarelis Graves NP [address] [place] [address] PCP - General Family Medicine 06/08/24 01/26/25 Charley Dominique FNP [address] [place] [address] PCP - General Family Medicine 01/27/25 documented as of this encounter
--- OUTSIDE RECORDS SUMMARY | 2025-08-08 14:47 | XMS_ITS | Encounter Summary ---
Author Organization [employer] Address [address] [facility] 7t [place] [address] Care Team Providers Care Control Board Operator Name Role Phone Roxanne Cortez IT INFRASTRUCTURE ARCHITECT Primary Care Provider [phone] Yarelis Graves OPTICAL COATING TECHNICIAN Primary Care Provider [phone] Charley Dominique IT INFRASTRUCTURE ARCHITECT Primary Care Provider Reason for Visit * Reason Onset Date Comments Appointment 04/01/2023 Encounter Details Date Type Department Care Team (Late st Contact Info) Description 04/01/2023 Telephone [facility] ADULT DENTAL [address] [place] [address] Ryan Carpenter, DMD [address] [place] [address] Appointment Social History Tobacco Use Types Packs/Day [...] Description 09/08/2025 10:30 AM EST Office Visit [facility] MEDICINE [address] [place] [address] Olivia Funez MD [address] [place] [address] documented as of this encounter Visit Diagnoses Not on filedocumented in this encounter Additional Health Concerns Assessment Noted Time PHQ-9 Depression Total Score: 3 01/06/20 23 10:23 AM EDT documented as of this encounter Care Teams Control Board Operator Relationship Specialty Start Date End Date Roxanne Cortez FNP [address] [place] [address] PCP - General Family Medicine 07/11/22 06/07/24 Yarelis Graves NP [address] [place] [address] PCP - General Family Medicine 06/08/24 01/26/25 Charley Dominique FNP [address] [place] [address] PCP - General Family Medicine 01/27/25 documented as of this encounter
== END 2025-08-08 11:58 | disposition home or self-care (01) ==
LOC: HO.HHCL 11:57
DX: Z00.00 Encounter for general adult medical examination without abnormal findings (principal)
CPT/HCPCS: 36415; 80048; 80061; 85025

== ENCOUNTER 2025-08-12 02:32 | Emergency (ER) | payer MEDICAID, SELFPAY ==
[2025-08-12 02:36] VITALS: BP 127/85; BP 129/87; PULSE 103; PULSE 83; RESP 20; TEMP 36.7; O2SAT 97; O2SAT 99; BMI 25.0
--- NOTE | 2025-08-12 02:36 | ECG_ITS ---
Test Reason : CHEST PAIN Blood Pressure : */* mmHG Vent. Rate : 88 BPM Atrial Rate : 88 BPM P-R Int : 154 ms QRS Dur : 88 ms QT Int : 360 ms P-R-T Axes : 58 60 44 degrees QTcB Int : 435 ms Normal sinus rhythm Normal ECG When compared with ECG of 15-Nov-2024 01:13, No significant change was found Referred By: Generic ED Physician Electronically Signed By: Arian Tong
[2025-08-12 03:04] LABS: MANUAL DIFF FLAG NO
[2025-08-12 03:05] LABS: Hematocrit 43.0 % (42.0-52.0); Hemoglobin 14.6 g/dl (14.0-18.0); Imm Gran Abs Auto 0.04 X10*3/uL (0.00-0.03); Imm Gran Pct Auto 0.5 % (0.0-0.4); Lymphocytes Absolute Auto 2.6 X10*3/uL (1.2-4.9); Mean Corpuscular HGB Conc 34.0 g/dl (31.0-36.0); Mean Corpuscular Hemoglobin 29.9 pg (27.0-33.0); Mean Corpuscular Volume 88.1 fL (80.0-98.0); NRBC Abs Auto 0.000 X10*3/uL (0.0-0.012); NRBC Pct Auto 0.0 /100WBC (0.0-0.2); Platelet Count 174 X10*3/uL (160-400); Red Blood Count 4.88 X10*6/uL (4.60-5.80); White Blood Count 7.3 X10*3/uL (4.8-10.8)
[2025-08-12 03:18] LABS: Alanine Aminotransferase 33 U/L (0-40); Albumin Level 5.0 g/dL (3.5-5.0); Alkaline Phosphatase 74 U/L (39-117); Anion Gap 13 (12-20); Aspartate Amino Transferase 30 U/L (5-37); Blood Urea Nitrogen 5 mg/dL (9-16); Calcium 8.7 mg/dL (8.4-10.2); Carbon Dioxide 26 mmol/L (22-29); Chloride 109 mmol/L (96-108); Creatinine Clr Calc Pharmacy 99.2; Estimated Glomerular Filt Rate > 60; Potassium 3.8 mmol/L (3.3-5.1); Sodium 144 mmol/L (135-145); Total Protein 7.5 g/dL (6.5-8.0)
--- OUTSIDE RECORDS SUMMARY | 2025-08-12 03:22 | XMS_ITS | Encounter Summary ---
Author Organization [employer] Address 75 [facility] 7t [place] [address] Care Team Providers Care Transfer Professor Name Role Phone Yarelis Graves BUSINESS REPORTING DEVELOPER Primary Care Provider Charley Dominique FOREST ECONOMICS PROFESSOR Primary Care Provider [phone] Reason for Referral * Imaging (Routine) - Closed Specialty Diagnoses / Procedures Referred By Contac t Referred To Contact Radiology Diagnoses Acute right-sided low back pain without sciatica Procedures CT Lumbar Spine w/o Contrast Vasu Morales MD [address] [place] [address] Phone: tel: fax: [address] Phone: tel: fax: Referral ID Status Reason Start Date Expiration Date Visits Re quested Visits Authorized [id number] Closed 11/29/2024 11/29/2025 1 1 Encounter Details Date Type Department Care Team (Late st Contact Info) Description 11/29/2024 Orders Only [facility] MEDICINE [address] [place] [address] Vasu Morales MD [address] [place], [place] [phone] Acute right-sided low back pain without sciatica [...] 09/08/2025 10:30 AM EST Office Visit [facility] MEDICINE [address] [place] [address] Olivia Funez MD [address] [place] [address] Scheduled Orders Name Type Priority [...] documented as of this encounter Care Teams Transfer Professor Relationship Specialty Start Date End Date Yarelis Graves NP [address] [place] [address] PCP - General Family Medicine 06/08/24 01/26/25 Charley Dominique FNP [address] [place] [address] PCP - General Family Medicine 01/27/25 documented as of this encounter
--- OUTSIDE RECORDS SUMMARY | 2025-08-12 03:22 | XMS_ITS | Encounter Summary ---
Author Organization [employer] Address 75 [facility] 7t [place] [address] Care Team Providers Care Drapery Cutter Machine Name Role Phone Roxanne Cortez PETROLEUM REFINERY WORKER Primary Care Provider [phone] Yarelis Graves NP Primary Care Provider [phone] Charley Dominique PETROLEUM REFINERY WORKER Primary Care Provider [phone] Reason for Visit * Reason Onset Date Comments Durable Medical Equipment 09/04/2023 Encounter Details Date Type Department Care Team (Late st Contact Info) Description 09/04/2023 Telephone [facility] MEDICINE [address] [place] [address] Roxanne Cortez FNP [address] [place] [address] Durable Medical Equipment Social History Tobacco Use [...] Description 09/08/2025 10:30 AM EST Office Visit [facility] MEDICINE [address] [place] [address] Olivia Funez MD [address] [place] [address] documented as of this encounter Visit Diagnoses Not on filedocumented in this encounter Additional Health Concerns Assessment Noted Time PHQ-9 Depression Total Score: 3 01/06/20 23 10:23 AM EDT documented as of this encounter Care Teams Drapery Cutter Machine Relationship Specialty Start Date End Date Roxanne Cortez FNP [address] [place] [address] PCP - General Family Medicine 07/11/22 06/07/24 Yarelis Graves NP [address] [place] [address] PCP - General Family Medicine 06/08/24 01/26/25 Charley Dominique FNP [address] [place] [address] PCP - General Family Medicine 01/27/25 documented as of this encounter
--- OUTSIDE RECORDS SUMMARY | 2025-08-12 03:22 | XMS_ITS | Encounter Summary ---
Author Organization [employer] Address 75 [facility] 7t [place] [address] Care Team Providers Care Acreage Reporter Name Role Phone Yarelis Graves APPOINTMENT SCHEDULER Primary Care Provider [phone] Charley Dominique EXAMINER RATING CLERK Primary Care Provider [phone] Encounter Details Date Type Department Care Team ([facility] st Contact Info) Description 11/08/2024 Orders Only [facility] CHC MED & PEDS [address] [place], [place] [phone] Vasu Morales MD [address] [place] [address] Acute right-sided low back pain without sciatica [...] Description 09/08/2025 10:30 AM EST Office Visit [facility] MEDICINE [address] [place] [address] Olivia Funez MD [address] [place] [address] documented as of this encounter Visit Diagnoses Diagnosis Acute right-sided low back pain without sciatica- Primary documented in this encounter Additional Health Concerns Assessment Noted Time PHQ-9 Depression Total Score: 3 01/06/20 23 10:23 AM EDT documented as of this encounter Care Teams Acreage Reporter Relationship Specialty Start Date End Date Yarelis Graves NP [address] [place] [address] PCP - General Family Medicine 06/08/24 01/26/25 Charley Dominique FNP [address] [place] [address] PCP - General Family Medicine 01/27/25 documented as of this encounter
--- OUTSIDE RECORDS SUMMARY | 2025-08-12 03:22 | XMS_ITS | Encounter Summary ---
Author Organization [employer] Address [address] [facility] [address] 7[address] [place] [address] Care Team Providers Care Pathology Laboratory Aides Teacher Name Role Phone Charley Dominique ARTIST MANNEQUIN COLORING Primary Care Provider [phone] Reason for Visit * Reason Onset Date Comments rs no show appt 04/19/2025 Encounter Details Date Type Department Care Team ([facility] st Contact Info) Description 04/19/2025 Telephone [facility] ADULT DENTAL [address] [place] [address] Ayana Du [address] [place] [address] rs no show appt Social History Tobacco [...] Description 09/08/2025 10:30 AM EST Office Visit [facility] MEDICINE [address] [place] [address] Olivia Funez MD [address] [place] [address] documented as of this encounter Visit Diagnoses Not on filedocumented in this encounter Additional Health Concerns Assessment Noted Time PHQ-9 Depression Total Score: 4 01/28/20 25 10:47 AM EDT documented as of this encounter Care Teams Pathology Laboratory Aides Teacher Relationship Specialty Start Date End Date Charley Dominique FNP [address] [place] [address] PCP - General Family Medicine 01/27/25 documented as of this encounter
--- OUTSIDE RECORDS SUMMARY | 2025-08-12 03:22 | XMS_ITS | Encounter Summary ---
Author Organization [employer] Address [address] [facility] [address] [place] [address] Care Team Providers Care Lsat Instructor Name Role Phone Roxanne Cortez CHILD DEVELOPMENT DIRECTOR Primary Care Provider [phone] Yarelis Graves PARACHUTE FOLDER Primary Care Provider [phone] Charley Dominique CHILD DEVELOPMENT DIRECTOR Primary Care Provider [phone] Encounter Details Date Type Department Care Team (Late st Contact Info) Description 03/03/2023 Abstract [facility] ADULT DENTAL [address] [place] [address] Ryan Carpenter, DMD [address] [place] [address] Social History Tobacco Use Types Packs/Day Years [...] Description 09/08/2025 10:30 AM EST Office Visit [facility] MEDICINE [address] [place] [address] Olivia Funez MD [address] [place] [address] documented as of this encounter Visit Diagnoses Not on filedocumented in this encounter Additional Health Concerns Assessment Noted Time PHQ-9 Depression Total Score: 3 01/06/20 23 10:23 AM EDT documented as of this encounter Care Teams Lsat Instructor Relationship Specialty Start Date End Date Roxanne Cortez FNP [address] [place] [address] PCP - General Family Medicine 07/11/22 06/07/24 Yarelis Graves NP [address] [place] [address] PCP - General Family Medicine 06/08/24 01/26/25 Charley Dominique FNP [address] [place] [address] PCP - General Family Medicine 01/27/25 documented as of this encounter
--- OUTSIDE RECORDS SUMMARY | 2025-08-12 03:22 | XMS_ITS | Encounter Summary ---
Author Organization [employer] Address [address] [facility] 7t [place] [address] Care Team Providers Care Water Filtration Technician Name Role Phone Charley Dominique UMBRELLA SUPERVISOR Primary Care Provider [phone] Encounter Details Date Type Department Care Team (Late st Contact Info) Description 08/08/2025 Results Follow-Up [facility] CHC MED & PEDS [address] [place], [place] [phone] Omar Alves, RANGE AIDE [address] [place], [place] [phone] Basic Metabolic Panel, CBC auto differential, Lipid Panel, Standard Social History Tobacco Use Types Packs/Day Years [...] Description 09/08/2025 10:30 AM EST Office Visit [facility] MEDICINE [address] [place] [address] Olivia Funez MD [address] [place] [address] documented as of this encounter Visit Diagnoses Not on filedocumented in this encounter Additional Health Concerns Assessment Noted Time PHQ-9 Depression Total Score: 4 01/28/20 10:47 AM EDT documented as of this encounter Care Teams Water Filtration Technician Relationship Specialty Start Date End Date Charley Dominique FNP [address] [place] [address] PCP - General Family Medicine 01/27/25 documented as of this encounter
--- OUTSIDE RECORDS SUMMARY | 2025-08-12 03:22 | XMS_ITS | Encounter Summary ---
Author Organization [employer] Address [address] [facility] [address] 7[address] [place] [address] Care Team Providers Care Welder Tech Name Role Phone Roxanne Cortez MIMEOGRAPH OPERATOR Primary Care Provider [phone] Yarelis Graves RADIOLOGY TECHNOLOGIST Primary Care Provider [phone] Charley Dominique MIMEOGRAPH OPERATOR Primary Care Provider [phone] Reason for Visit * Reason Onset Date Comments Appointment 04/01/2023 Encounter Details Date Type Department Care Team (Late st Contact Info) Description 04/01/2023 Telephone [facility] ADULT DENTAL [address] [place] [address] Ryan Carpenter, DMD [address] [place] [address] Appointment Social History Tobacco Use Types Packs/Day [...] Description 09/08/2025 10:30 AM EST Office Visit [facility] MEDICINE [address] [place] [address] Olivia Funez MD [address] [place] [address] documented as of this encounter Visit Diagnoses Not on filedocumented in this encounter Additional Health Concerns Assessment Noted Time PHQ-9 Depression Total Score: 3 01/06/20 23 10:23 AM EDT documented as of this encounter Care Teams Welder Tech Relationship Specialty Start Date End Date Roxanne Cortez FNP [address] [place] [address] PCP - General Family Medicine 07/11/22 06/07/24 Yarelis Graves NP [address] [place] [address] PCP - General Family Medicine 06/08/24 01/26/25 Charley Dominique FNP [address] [place] [address] PCP - General Family Medicine 01/27/25 documented as of this encounter
--- OUTSIDE RECORDS SUMMARY | 2025-08-12 03:22 | XMS_ITS | Clinical Summary ---
Author Organization [employer] Address [address] [facility] [address] [place] [address] Care Team Providers Care Naval Surface Fire Support Planner Name Role Phone Charley Dominique [facility] Primary Care Provider [phone] Allergies Active Allergy Reactions Criticality Noted Date [...] 5 Active Blood Glucose Monitoring Suppl (FreeStyle [place] Lite) w/Device kit Use to test blood [...] 10/10 when severe. Seen here at the [facility] back in October after he c/o [...] x 10 days -Flonase for 3 weeks -Ravalli nasal spray -Excuse work letter for missing days of work for his symptoms from 03/16 To 03/18 -alarm signs and symptoms discussed w pt . If symptoms dont improve of keep recurring will need image of sinuses Alcohol withdrawal syndrome without complication ([facility]) 07/12/2023 Assessment & Plan (07/12/2023 10:31 PM EDT): Pt w Sx of alcohol withdrawal, VS stable, mild sweating and hand tremors.reports insomnia for the past 3 days -states ongoing insomnia that is making his symptoms worse , states tried before several meds with no improvement ,states used to take low dose quetiapine in the past which helped w symptoms -EKG : [id number], HR 76x', noted ST elevation in inf [...] reaction -Cotninue trazodone for insomnia -Refer to [facility] Polysubstance abuse 06/30/2020 Asthma 11/02/2012 Assessment & Plan (06/23/2025 11:56 AM EDT): Stable Continue prn albuterol 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 Resolved Problems Problem Noted Date Diagnosed Date Resolved Date Blurry vision 01/29/2025 03/06/2025 Encounters Date Type Department Care Team Description 08/12/2025 Orders Only GENERIC EXTERNAL DATA DEPARTMENT Provider, Generic External Data 08/08/2025 Results Follow-Up [facility] [address] [place] [address] Omar Alves CNP Basic Metabolic Panel, CBC auto differential, Lipid Panel, Standard 07/09/2025 Orders Only [facility] External Provider, [facility] 06/23/2025 10:00 AM EDT Office Visit [facility] [address] [place] [address] Omar Alves CNP Encounter for physical examination (Primary Dx); Encounter for immunization; Mild persistent asthma without complication; Elevated BP without diagnosis of hypertension; Dietary counseling; Exercise counseling; Overweight 06/23/2025 Travel 06/16/2025 Patient Outreach [facility] [address] [place] [address] [place] [address] Charley Dominique FNP Pre-visit Planning (Pre visit planning unable to LVM ) 06/09/2025 Telephone [facility] [address] [place] [address] Omar Alves CNP No Show 06/09/2025 Telephone [facility] [address] [place] [address] Omar Alves CNP No Show 06/07/2025 Telephone [facility] [address] [place] [address] Charley Dominique FNP chart prep from Last [...] Visit [facility] [address] [facility] [place] [address] Olivia Funez MD [address] [facility] [place] [address] Health Maintenance Due Date Last Done Comments Family Planning (PISQ) 2006 Influenza Vaccine (#1) 2025 , 12/08/2022, 12/08/2021, Additional history exists Dental Oral Exam 10/22/2025 04/20/2025 Dental Prophylaxis 10/22/2025 04/20/2025 Alcohol/Substance Use Screening 01/27/2026 01/27/2025 Depression Screening 01/27/2026 01/27/2025, 01/28/20 SDOH Screening 01/27/2026 01/27/2025 Disability Screening 03/03/2026 03/03/2025 Dental X-Ray: Bitewings 04/21/2026 04/20/2025, 01/05 COVID-19 Vaccine ( - season) 2026 10/15/2021, 11/30/2020, 11/09/2020 Postponed from [...] Procedure Name Priority Date/Time Associated Diagnosis Comments COMPREHENSIVE METABOLIC PANEL Routine 08/12/2025 2:58 AM EST CBC WITH AUTO DIFFERENTIAL Routine 08/12/2025 2:58 AM EST LIPID PANEL, STANDARD Routine 08/08/2025 12:03 PM EST Encounter for physical examination CBC WITH AUTO DIFFERENTIAL Routine 08/08/2025 12:03 PM EST Encounter for physical examination BASIC METABOLIC PANEL Routine 08/08/2025 12:03 PM EST Encounter for physical examination XR FOOT 3+ VIEWS LEFT Routine 07/09/2025 9:27 PM EDT XR ANKLE 3+ VIEWS LEFT Routine 9:26 PM EDT PROPHYLAXIS - ADULT Routine [...] Maintenance Results * (ABNORMAL) CBC auto differential (08/12/2025 2:58 AM EST) Only the most recent of2 resultswithin the time period is included. White Blood Count 7.3 4.8 - 10.8 X10*3/uL [facility] Red Blood Count 4.88 4.60 - 5.80 X10*6/uL [facility] Hemoglobin 14.6 14.0 - 18.0 g/dl [facility] Hematocrit 43.0 42.0 - 52.0 % [facility] Mean Corpuscular Volume 88.1 80.0 - 98.0 fL [facility] Mean Corpuscular Hemoglobin 29.9 27.0 - 33.0 pg [facility] Mean Corpuscular HGB Conc 34.0 31.0 - 36.0 g/dl [facility] Red Cell Distribution Width 13.2 11.0 - 16.0 % [facility] Platelet Count 174 160 - 400 X10*3/uL [facility] Mean Platelet Volume 11.4 9.4 - 12.4 fL [facility] Neutrophils Percent Auto 47.0 45 - 73 % [facility] Imm Gran Pct Auto 0.5(H) 0.0 - 0.4 % [facility] Lymphocytes Percent Auto 35.8 20 - 40 % [facility] Monocytes Percent Auto 11.1(H) 2 - 11 % [facility] Eosinophils Percent Auto 4.9(H) 0 - 4 % [facility] Basophils Percent Auto 0.7 0 - 2 % [facility] NRBC Pct Auto 0.0 0.0 - 0.2 /100WBC [facility] Neutrophils Absolute Auto 3.4 2.0 - 8.3 x10*3/uL [facility] Imm Gran Abs Auto 0.04(H) 0.00 - 0.03 X10*3/uL [facility] Lymphocytes Absolute Auto 2.6 1.2 - 4.9 X10*3/uL [facility] Monocytes Absolute Auto 0.8 0.1 - 1.2 X10*3/uL [facility] Eosinophils Absolute Auto 0.4 0.0 - 0.4 X10*3/uL [facility] Basophils Absolute Auto 0.1 0.0 - 0.2 X10*3/uL [facility] NRBC Abs Auto 0.000 0.0 - 0.012 X10*3/uL [facility] 08/12/2025 2:58 AM EST 08/12/2025 3:03 AM EST us Generic External Data Provider LAB BLOOD ORDERAB LES Final Result [facility] [address] [place] [address] [phone] * (ABNORMAL) Comprehensive Metabolic Panel (08/12/2025 2:58 AM EST) Sodium 144 135 - 145 mmol/L [facility] Potassium 3.8 3.3 - 5.1 mmol/L [facility] Chloride 109(H) 96 - 108 mmol/L [facility] Carbon Dioxide 26 22 - 29 mmol/L [facility] Anion Gap 13 12 - 20 [facility] Urea Nitrogen (BUN) 5(L) 9 - 16 mg/dL [facility] Creatinine, Serum 0.98 0.5 - 1.4 mg/dL [facility] Creatinine Clr Calc Pharmacy 99.2 [facility] Comment:eGFR (calculated fro m the MDRD study equation) and eCrCl(calculated from the Cockcroft-Gault equation) are based ondifferent parameters and may not yield comparable results.If eCrCl result is absurd, please check patient'sheight/weight. Estimated Glomerular Filt Rate >60 [facility] Comment:Chronic Kidney Disea se: Estimated GFR < 60 mL/min/1.01k9Bywebf Kidney Disease: Estimated GFR < 15 mL/min/1.73m2 Glucose 110 60 - 115 mg/dL [facility] Calcium 8.7 8.4 - 10.2 mg/dL [facility] Bilirubin, Total 0.3 0.0 - 1.0 mg/dL [facility] Aspartate Amino Transferase 30 5 - 37 U/L [facility] Alanine Aminotransferase 33 0 - 40 U/L [facility] Total Protein 7.5 6.5 - 8.0 g/dL [facility] Albumin Level 5.0 3.5 - 5.0 g/dL [facility] Alkaline Phosphatase 74 39 - 117 U/L [facility] 08/12/2025 2:58 AM EST 08/12/2025 3:03 AM EST us Generic External Data Provider LAB BLOOD ORDERAB LES Final Result [facility] [address] [place] [phone] * (ABNORMAL) Lipid Panel, Standard (08/08/2025 12:03 PM EST) Triglycerides 90 <150 mg/dL [facility] Comment:Desirable Triglyceri de: less than 150 mg/dLBorderline High Triglyceride 150-199 mg/dLHigh Triglyceride: 200-499 mg/dLVery High Triglyceride: greater than or equal to 5OO mg/dL Cholesterol 157 <200 mg/dL [facility] Comment:Desirable Cholestero l: less than 200 mg/dLBorderline High Cholesterol: 200-239 mg/dLHigh Cholesterol: greater than 239 mg/dL LDL Cholesterol Calculated 99 <100 mg/dL [facility] Comment:Desirable LDL: less than 100 mg/dLNear Optimal/Above Optimal LDL: 110- 129 mg/dLBorderline High LDL: 130-159 mg/dLHigh LDL: 160-189 mg/dLVery High LDL: greater than or equal to 190 mg/dL HDL Cholesterol 40(L) >40 mg/dL [facility] Comment:Desirable HDL: great er than 40 mg/dL Note: This HDL assay may give artificially low results in patients with liver disease. Blood Venous blood specimen / Unknown 08/08/2025 12:03 PM EST 08/08/2025 1:12 PM EST [facility] LAB BLOOD ORDERABLES Michaela l Result Performing Organization Address City/[facility]/ZIP Co de Phone Number [facility] [address] [place] [address] [phone] * (ABNORMAL) Basic Metabolic Panel (08/08/2025 12:03 PM EST) Sodium 141 135 - 145 mmol/L [facility] Potassium 4.0 3.3 - 5.1 mmol/L [facility] Chloride 108 96 - 108 mmol/L [facility] Carbon Dioxide 30(H) 22 - 29 mmol/L [facility] Anion Gap 7(L) 12 - 20 [facility] Urea Nitrogen (BUN) 10 9 - 16 mg/dL [facility] Creatinine, Serum 0.91 0.5 - 1.4 mg/dL [facility] Estimated Glomerular Filt Rate >60 [facility] Comment:Chronic Kidney Disea se: Estimated GFR < 60 mL/min/1.63h7Tcbcov Kidney Disease: Estimated GFR < 15 mL/min/1.73m2 Glucose 93 60 - 115 mg/dL [facility] Calcium 8.8 8.4 - 10.2 mg/dL [facility] Blood Venous blood specimen / Unknown 08/08/2025 12:03 PM EST 08/08/2025 1:12 PM EST [facility] LAB BLOOD ORDERABLES Michaela l Result Performing Organization Address City/[facility]/ZIP Co de Phone Number [facility] [address] [place] [address] [phone] * XR Foot 3+ Views Left (07/09/2025 9:27 PM EDT) Anatomical Region Laterality Modality Lower Extremities, Foot Left Radiogra phic Imaging 07/09/2025 9:27 PM EDT Narrative 07/09/2025 9:28 PM EDT [address] [address] XRay Report Signed Patient: Mayco Sparrow MR#: [id number] : 1990 Acct:[id number] Age/Sex: 35 / M ADM Date: 07/09/25 Loc: HO.ED Attending Dr: Ordering Physician: Omar Avilez Date of Service: 07/09/25 Procedure(s): XR foot LT min 3V Accession Number(s): [id number] cc: [facility]; Omar Avilez Reason for Exam: left [...] in OV> 07/09/252126 DD/ 26 TD/TT: 07/09/252126 Bus Monitor: Procedure Note Donotsylvesterinterpreter, Image - 07/09/[address] [address] XRay Report Signed Patient: Mayco Sparrow LMR#: [id number] : 1990Acct:[id number] Age/Sex: 35 / MADM Date: 07/09/25 Loc: HO.ED Attending Dr: Ordering Physician: Omar Avilez Date of Service: 07/09/25 Procedure(s): XR foot LT min 3V Accession Number(s): [id number] cc: [facility]; Omar Avilez Reason for Exam: left [...] in OV> 07/09/252126 DD/ 26 TD/TT: 07/09/252126 Bus Monitor: [facility] External Provider IMG XR PROCEDURES Edited Result - Final * XR Ankle 3+ Views Left (07/09/2025 9:26 PM EDT) Anatomical Region Laterality Modality Lower Extremities, Ankle Left Radiogr aphic Imaging 07/09/2025 9:26 PM EDT Narrative 07/09/2025 9:27 PM EDT [place] [address] XRay Report Signed Patient: Mayco Sparrow MR#: [id number] : 1990 Acct:[id number] Age/Sex: 35 / M ADM Date: 07/09/25 Loc: .ED Attending Dr: Ordering Physician: Omar Avilez Date of Service: 07/09/25 Procedure(s): XR ankle LT min 3V Accession Number(s): [id number] cc: [facility]; Omar Avilez Reason for Exam: left [...] in OV> 07/09/252126 DD/ 25 TD/TT: 07/09/252125 Bus Monitor: Procedure Note Donotuseinterpreter, Image - 07/09/[address] [address] XRay Report Signed Patient: Mayco Sparrow LMR#: [id number] : 1990Acct:[id number] Age/Sex: 35 / MADM Date: 07/09/25 Loc: HO.ED Attending Dr: Ordering Physician: Omar Avilez Date of Service: 07/09/25 Procedure(s): XR ankle LT min 3V Accession Number(s): [id number] cc: [facility]; Omar Avilez Reason for Exam: left [...] in OV> 07/09/252126 DD/ 25 TD/TT: 07/09/252125 Bus Monitor: [facility] External Provider IMG XR PROCEDURES Edited Result - Final * HEPATITIS C AB W/REFL TO HCV RNA, QN, PCR (12/17/2021 2:10 PM EDT) HEPATITIS C ANTIBODY NON-REACT BEST NON-REACT BEST [facility] INDEX 0.01 <1.00 [facility] Comment: HCV antibody was non-reactive. There is no laboratory evidence of HCV infection. In most cases, no further action is required. However, if recent HCV exposure is suspected, a test for HCV RNA (test code 85233) is suggested. For additional information please refer to [email or web address] (This link is being provided for informational/ educational purposes only.) 12/17/2021 2:10 PM EDT David Don MD HISTORICAL/NON ORDERABLE LABS Fi nal Result Performing Organization Address [facility] Co de Phone Number [facility] [address] * HIV 1/2 ANTIGEN/ANTIBODY,FOURTH GENERATION W/RFL (12/17/2021 2:10 PM EDT) HIV-1/2 ANTIGEN AND ANTIBODIES, 4TH GENERATION W/ REFLEX NON-REACT BEST NON-REACT BEST [facility] Comment: HIV-1 antigen and HIV-1/HIV-2 [...] purpose. For additional information please refer to [email or web address]/GTC894 (This link is being provided for informational/ educational purposes only.) The performance of this assay has not been clinically validated in patients less than 2 years old. 12/17/2021 2:10 PM EDT David Don MD LAB BLOOD ORDERABLES Final Resul t Performing Organization Address [facility] Co de Phone Number [facility] [address] from Last 3 Months or Most Recently Relevant to Health Maintenance Insurance [facility] C3 DENTAL-[facility] MEDICAID STAND ADULT Care Teams Naval Surface Fire Support Planner Relationship Specialty Start Date End Date Charley Dominique FNP [address] [place] [address] PCP - General Family Medicine 01/27/25
--- OUTSIDE RECORDS SUMMARY | 2025-08-12 03:22 | XMS_ITS | Encounter Summary ---
Author Organization [employer] Address [address] [facility] [address] [place] [address] Care Team Providers Care Gravity Prospecting Observer Name Role Phone Charley Dominique TAX MANAGER CPA Primary Care Provider [phone] Encounter Details Date Type Department Care Team ([facility] st Contact Info) Description 08/12/2025 Orders Only GENERIC EXTERNAL DATA [...] Description 09/08/2025 10:30 AM EST Office Visit [facility] [address] [place] [address] Olivia Funez MD [address] [place] [address] documented as of this encounter Procedures Procedure Name Priority Date/Time Associated Diagnosis Comments CBC WITH AUTO DIFFERENTIAL Routine 08/12/2025 2:58 AM EST COMPREHENSIVE METABOLIC PANEL Routine 08/12/2025 2:58 AM EST documented in this encounter Results * (ABNORMAL) Comprehensive Metabolic Panel (08/12/2025 2:58 AM EST) Sodium 144 135 - 145 mmol/L [facility] Potassium 3.8 3.3 - 5.1 mmol/L [facility] Chloride 109(H) 96 - 108 mmol/L [facility] Carbon Dioxide 26 22 - 29 mmol/L [facility] Anion Gap 13 12 - 20 [facility] Urea Nitrogen (BUN) 5(L) 9 - 16 mg/dL [facility] Creatinine, Serum 0.98 0.5 - 1.4 mg/dL [facility] Creatinine Clr Calc Pharmacy 99.2 [facility] Comment:eGFR (calculated fro m the MDRD study equation) and eCrCl(calculated from the Cockcroft-Gault equation) are based ondifferent parameters and may not yield comparable results.If eCrCl result is absurd, please check patient'sheight/weight. Estimated Glomerular Filt Rate >60 [facility] Comment:Chronic Kidney Disea se: Estimated GFR < 60 mL/min/1.94x2Qolsiw Kidney Disease: Estimated GFR < 15 mL/min/1.73m2 Glucose 110 60 - 115 mg/dL [facility] Calcium 8.7 8.4 - 10.2 mg/dL [facility] Bilirubin, Total 0.3 0.0 - 1.0 mg/dL [facility] Aspartate Amino Transferase 30 5 - 37 U/L [facility] Alanine Aminotransferase 33 0 - 40 U/L [facility] Total Protein 7.5 6.5 - 8.0 g/dL [facility] Albumin Level 5.0 3.5 - 5.0 g/dL [facility] Alkaline Phosphatase 74 39 - 117 U/L [facility] 08/12/2025 2:58 AM EST 08/12/2025 3:03 AM EST us Generic External Data Provider LAB BLOOD ORDERAB LES Final Result [facility] [address] [place] [phone] * (ABNORMAL) CBC auto differential (08/12/2025 2:58 AM EST) White Blood Count 7.3 4.8 - 10.8 X10*3/uL [facility] Red Blood Count 4.88 4.60 - 5.80 X10*6/uL [facility] Hemoglobin 14.6 14.0 - 18.0 g/dl [facility] Hematocrit 43.0 42.0 - 52.0 % [facility] Mean Corpuscular Volume 88.1 80.0 - 98.0 fL [facility] Mean Corpuscular Hemoglobin 29.9 27.0 - 33.0 pg [facility] Mean Corpuscular HGB Conc 34.0 31.0 - 36.0 g/dl [facility] Red Cell Distribution Width 13.2 11.0 - 16.0 % [facility] Platelet Count 174 160 - 400 X10*3/uL [facility] Mean Platelet Volume 11.4 9.4 - 12.4 fL [facility] Neutrophils Percent Auto 47.0 45 - 73 % [facility] Imm Gran Pct Auto 0.5(H) 0.0 - 0.4 % [facility] Lymphocytes Percent Auto 35.8 20 - 40 % [facility] Monocytes Percent Auto 11.1(H) 2 - 11 % [facility] Eosinophils Percent Auto 4.9(H) 0 - 4 % [facility] Basophils Percent Auto 0.7 0 - 2 % [facility] NRBC Pct Auto 0.0 0.0 - 0.2 /100WBC [facility] Neutrophils Absolute Auto 3.4 2.0 - 8.3 x10*3/uL [facility] Imm Gran Abs Auto 0.04(H) 0.00 - 0.03 X10*3/uL [facility] Lymphocytes Absolute Auto 2.6 1.2 - 4.9 X10*3/uL [facility] Monocytes Absolute Auto 0.8 0.1 - 1.2 X10*3/uL [facility] Eosinophils Absolute Auto 0.4 0.0 - 0.4 X10*3/uL [facility] Basophils Absolute Auto 0.1 0.0 - 0.2 X10*3/uL [facility] NRBC Abs Auto 0.000 0.0 - 0.012 X10*3/uL [facility] 08/12/2025 2:58 AM EST 08/12/2025 3:03 AM EST us Generic External Data Provider LAB BLOOD ORDERAB LES Final Result [facility] [address] [place] [phone] [phone] documented in this encounter Visit Diagnoses Not on filedocumented in this encounter Additional Health Concerns Assessment Noted Time PHQ-9 Depression Total Score: 4 01/28/20 10:47 AM EDT documented as of this encounter Care Teams Gravity Prospecting Observer Relationship Specialty Start Date End Date Charley Dominique FNP [address] [place] [phone] PCP - General Family Medicine 01/27/25 documented as of this encounter
--- OUTSIDE RECORDS SUMMARY | 2025-08-12 03:22 | XMS_ITS | Encounter Summary ---
Author Organization [employer] Address [address] [facility] [address]t [place] [address] Care Team Providers Care Combination Man Name Role Phone Roxanne Cortez SERVICER TRAVEL TRAILERS Primary Care Provider [phone] Yarelis Graves CONTROL SYSTEMS DEVELOPER Primary Care Provider [phone] Charley Dominique SERVICER TRAVEL TRAILERS Primary Care Provider [phone] Encounter Details Date Type Department Care Team (Late Contact Info) Description 02/10/2023 Abstract [facility] [address] [place] [address] Ryan Carpenter, DMD [address] [place] [address] Social History Tobacco Use Types Packs/Day Years [...] Description 09/08/2025 10:30 AM EST Office Visit [facility] [address] [place] [address] Olivia Funez MD [address] [place] [address] documented as of this encounter Visit Diagnoses Not on filedocumented in this encounter Additional Health Concerns Assessment Noted Time PHQ-9 Depression Total Score: 3 01/06/20 23 10:23 AM EDT documented as of this encounter Care Teams Combination Man Relationship Specialty Start Date End Date Roxanne Cortez FNP [address] [place] [address] PCP - General Family Medicine 07/11/22 06/07/24 Yarelis Graves NP [address] [place] [phone] PCP - General Family Medicine 06/08/24 01/26/25 Charley Dominique FNP [address] [place] [address] PCP - General Family Medicine 01/27/25 documented as of this encounter
[2025-08-12 03:27] LABS: Troponin-I High Sensitivity < 2.7 ng/L (<3.5-35.0)
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
[2025-08-12 03:29] LABS: Appearance Urine Clear; Glucose Urine UA Negative (Negative); PH 7.0 (5.0-9.0); Specific Gravity - Urine 1.015 (1.005-1.025)
[2025-08-12 03:39] LABS: Cannabinoid Screen Urine POSITIVE (Not Detect)
[2025-08-12 05:18] LABS: Acetaminophen LAB < 3 mcg/mL (<30); Salicylate < 5.0 mg/dL (15-30)
[2025-08-12 05:39] VITALS: BP 102/48; PULSE 62; RESP 14; O2SAT 97
[2025-08-12 05:59] VITALS: BP 104/62; PULSE 64; RESP 14; TEMP 36.8; O2SAT 97
== END 2025-08-12 06:02 | disposition home or self-care (01) ==
PROVIDERS: Physician Assistant; Emergency Provider Emergency Medicine
DX: R11.2 Nausea with vomiting, unspecified (principal); F12.90 Cannabis use, unspecified, uncomplicated; J45.909 Unspecified asthma, uncomplicated
CPT/HCPCS: 36415; 80053; 80143; 80179; 80307; 81001; 84484; 85025; 93005; 99284; 99285; J1885; J2405

== ENCOUNTER → 2025-08-12 02:36 | Outpatient (BNV) | payer MEDICAID, SELFPAY | PROVIDERS: Emergency Provider Emergency Medicine; Visit Provider Internal Medicine Cardiovascular Disease | DX: R07.9 Chest pain, unspecified (principal) | CPT/HCPCS: 93010 ==

== ENCOUNTER 2025-09-21 22:28 | Emergency (ER) | payer MEDICAID, SELFPAY ==
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
[2025-09-21 22:41] VITALS: BP 151/88; PULSE 95; RESP 20; TEMP 36.8; O2SAT 99; BMI 25.1
--- OUTSIDE RECORDS SUMMARY | 2025-09-21 23:12 | XMS_ITS | Encounter Summary ---
Author Organization [employer] Address [address] 7[address] [place] [address] Care Team Providers Care Clinical Documentation Nurse Name Role Phone Roxanne Cortez AGILE COACH Primary Care Provider [phone] Yarelis Graves WINDING DEPARTMENT SUPERVISOR Primary Care Provider [phone] Charley Dominique AGILE COACH Primary Care Provider [phone] Encounter Details Date Type Department Care Team (Late st Contact Info) Description 03/03/2023 Abstract [facility] D[facility] [address] [place] [address] Ryan Carpenter, DMD [address] [place] [address] Social History Tobacco Use Types Packs/Day Years [...] as of this encounter Plan of Treatment Not on file documented as of this encounter Visit Diagnoses Not on filedocumented in this encounter Additional Health Concerns Assessment Noted Time PHQ-9 Depression Total Score: 3 01/06/20 23 10:23 AM EDT documented as of this encounter Care Teams Clinical Documentation Nurse Relationship Specialty Start Date End Date Roxanne Cortez FNP [address] [place] [address] PCP - General Family Medicine 07/11/22 06/07/24 Yarelis Graves NP [address] [place] [address] PCP - General Family Medicine 06/08/24 01/26/25 Charley Dominique FNP [address] [place] [address] PCP - General Family Medicine 01/27/25 documented as of this encounter
--- OUTSIDE RECORDS SUMMARY | 2025-09-21 23:12 | XMS_ITS | Encounter Summary ---
Author Organization [employer] Address [address] [address] [facility] [address] [facility] [address] [place] [address] Care Team Providers Care Rigger Name Role Phone Roxanne Cortez SNAGGER Primary Care Provider [phone] Yarelis Graves SALES COACH Primary Care Provider [phone] Charley Dominique SNAGGER Primary Care Provider [phone] Encounter Details Date Type Department Care Team (Late st Contact Info) Description 02/10/2023 Abstract [facility] ADULT D[facility] [address] [place] [address] Ryan Carpenter, DMD [address] [place] [address] Social History Tobacco Use Types Packs/Day Years [...] Time PHQ-9 Depression Total Score: 3 01/06/20 10:23 AM EDT documented as of this encounter Care Teams Rigger Relationship Specialty Start Date End Date Roxanne Cortez FNP [address] [place] [address] PCP - General Family Medicine 07/11/22 06/07/24 Yarelis Graves NP [address] [place] [address] PCP - General Family Medicine 06/08/24 01/26/25 Charley Dominique FNP [address] [place] [address] PCP - General Family Medicine 01/27/25 documented as of this encounter
--- OUTSIDE RECORDS SUMMARY | 2025-09-21 23:12 | XMS_ITS | Encounter Summary ---
Author Organization [employer] Address [address] [facility] [address]t [place] [address] Care Team Providers Care Shorthand Reporter Name Role Phone Roxanne Cortez SENIOR MARKETING COORDINATOR Primary Care Provider [phone] Yarelis Graves NP Primary Care Provider [phone] Charley Dominique SENIOR MARKETING COORDINATOR Primary Care Provider Reason for Visit * Reason Onset Date Comments Durable Medical Equipment 09/04/2023 Encounter Details Date Type Department Care Team (Late st Contact Info) Description 09/04/2023 Telephone [facility] [address] [place] [address] Roxanne Cortez FNP [address] [place] [address] Durable Medical Equipment Social History Tobacco Use [...] documented as of this encounter Care Teams Shorthand Reporter Relationship Specialty Start Date End Date Roxanne Cortez FNP [address] [place] [address] PCP - General Family Medicine 07/11/22 06/07/24 Yarelis Graves NP [address] [place] [address] PCP - General Family Medicine 06/08/24 01/26/25 Charley Dominique FNP [address] [place] [address] PCP - General Family Medicine 01/27/25 documented as of this encounter
--- OUTSIDE RECORDS SUMMARY | 2025-09-21 23:12 | XMS_ITS | Encounter Summary ---
Author Organization [employer] Address [address] [place] [address] Care Team Providers Care Nitroglycerin Supervisor Name Role Phone Charley Dominique INDUSTRIAL WORKERS Primary Care Provider [phone] Reason for Visit * Reason Onset Date Comments rs no show appt 04/19/2025 Encounter Details Date Type Department Care Team ([facility] st Contact Info) Description 04/19/2025 Telephone [facility] [address] [place] [address] Ayana Du [address] [place] [address] rs no show appt Social History Tobacco [...] documented as of this encounter Care Teams Nitroglycerin Supervisor Relationship Specialty Start Date End Date Charley Dominique FNP [address] [place] [id number] PCP - General Family Medicine 01/27/25 documented as of this encounter
--- OUTSIDE RECORDS SUMMARY | 2025-09-21 23:12 | XMS_ITS | Encounter Summary ---
Author Organization [employer] Address [address] [facility] 7t [place] [address] Care Team Providers Care Pipe And Boiler Covers Supervisor Name Role Phone Charley Dominique MAKING LINE WORKER Primary Care Provider [phone] Encounter Details Date Type Department Care Team (Late st Contact Info) Description 08/08/2025 Results Follow-Up [facility] [address] [place], [place] [phone] Omar Alves, MECHANICAL OXIDIZER [address] [place], [place] [phone] Basic Metabolic Panel, CBC auto differential, Lipid [...] documented as of this encounter Care Teams Pipe And Boiler Covers Supervisor Relationship Specialty Start Date End Date Charley Dominique FNP [address] [place] [id number] PCP - General Family Medicine 01/27/25 documented as of this encounter
--- OUTSIDE RECORDS SUMMARY | 2025-09-21 23:12 | XMS_ITS | Encounter Summary ---
Author Organization [employer] Address [address] [facility] 7t [place] [address] Care Team Providers Care Manager Life Name Role Phone Yarelis Graves LOAN OPERATIONS SPECIALIST Primary Care Provider [phone] Chraley Dominique ADMINISTRATION SPECIALIST Primary Care Provider [phone] Encounter Details Date Type Department Care Team ([facility] st Contact Info) Description 11/08/2024 Orders Only [facility] MED & PEDS [address] [place], [place] [phone] Vasu Morales MD [address] [place] [address] Acute right-sided low back pain without sciatica [...] as of this encounter Care Teams Manager Life Relationship Specialty Start Date End Date Yarelis Graves NP [address] [place] [address] PCP - General Family Medicine 06/08/24 01/26/25 Charley Dominique FNP [address] [place] [address] PCP - General Family Medicine 01/27/25 documented as of this encounter
--- OUTSIDE RECORDS SUMMARY | 2025-09-21 23:12 | XMS_ITS | Clinical Summary ---
Author Organization [employer] Address [address] [place] [address] Care Team Providers Care Anvilsmith Name Role Phone Charley Dominique [facility] Primary Care Provider [phone] Allergies Active Allergy Reactions Criticality Noted Date [...] 5 Active Blood Glucose Monitoring Suppl (FreeStyle [place] Lite) w/Device kit Use to test blood [...] Take 5 mg by mouth. 0 Active Hospital, Clinic, or Other Facility Administered Medication Ordered Dose Route Frequency Start Date End Date Status doxycycline (Vibramycin) capsule 100 mgIndications:Chlamydia 100 mg PO Once 09/21/2025 09/21/2025 E nded Active Problems Problem Noted Date Diagnosed Date [...] 10/10 when severe. Seen here at the [facility] back in October after he c/o rectal [...] x 10 days -Flonase for 3 weeks -Coleman nasal spray -Excuse work letter for missing days of work for his symptoms from 03/16 To 03/18 -alarm signs and symptoms discussed w pt . If symptoms dont improve of keep recurring will need image of sinuses Alcohol withdrawal syndrome without complication ([facility]) 07/12/2023 Assessment & Plan (07/12/2023 10:31 PM EDT): Pt w Sx of alcohol withdrawal, VS stable, mild sweating and hand tremors.reports insomnia for the past 3 days -states ongoing insomnia that is making his symptoms worse , states tried before several meds with no improvement ,states used to take low dose quetiapine in the past which helped w symptoms -EKG : [id number], HR 76x', noted ST elevation in inf [...] reaction -Cotninue trazodone for insomnia -Refer to [facility] Polysubstance abuse 06/30/2020 Asthma 11/02/2012 Assessment & Plan (06/23/2025 11:56 AM EDT): Stable Continue prn albuterol 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 Resolved Problems Problem Noted Date Diagnosed Date Resolved Date Blurry vision 01/29/2025 03/06/2025 Encounters Date Type Department Care Team Description 09/21/2025 3:30 PM EST Clinical Support [facility] [address] [place] [address] Hanh Rowell RN Chlamydia (Primary Dx) 09/21/2025 Travel 08/12/2025 Orders Only GENERIC EXTERNAL DATA DEPARTMENT Provider, Generic External Data 08/08/2025 Results Follow-Up [facility] PEDS [address] [place] [address] Omar Alves CNP Basic Metabolic Panel, CBC auto differential, Lipid Panel, Standard 07/09/2025 Orders Only [facility] External Provider, [facility] 06/23/2025 10:00 AM EDT Office Visit [facility] MED [facility] PEDS [address] [place] [address] Omar Alves CNP Encounter for physical examination (Primary Dx); Encounter for immunization; Mild persistent asthma without complication; Elevated BP without diagnosis of hypertension; Dietary counseling; Exercise counseling; Overweight 06/23/2025 Travel from Last 3 Months Immunizations Immunization Administration [...] 06/23/2025 10:01 AM EDT Plan of Treatment Health Maintenance Due Date Last Done Comments Family Planning (PISQ) 2006 Influenza Vaccine (#1) 2025 3, 12/08/2022, 12/08/2021, Additional history exists Dental Oral [...] older (1 - 1-dose 75+ series) 2066 Hepatitis B Vaccines Completed 03/05/2022, 02/05/2022, 05/23/2014, Additional history exists Hepatitis A Vaccines Aged Out 06/23/2025 No long er eligible based on patient's age to complete this topic HIV Screening Completed 09/05/2025, 12/17/2021 Hepatitis C Screening Completed 09/05/2025, 022 HIB Vaccines Aged Out No longer eligi [...] Procedure Name Priority Date/Time Associated Diagnosis Comments HIV ANTIBODY/ANTIGEN ([facility]) Routine 09/05/2025 HEPATITIS C ANTIBODY ([facility]) Routine 09/05/2025 SYPHILIS ABS ([facility]) Routine 09/05/2025 CHLAMYDIA/GONORRHEA - URINE ([facility]) Routine 09/05/2025 CHLAMYDIA/GONORRHEA THROAT SWAB ([facility]) Routine 09/05/2025 ACETAMINOPHEN LEVEL Routine 08/12/2025 4 :42 AM EST SALICYLATE Routine 08/12/2025 4:42 AM EST DRUG MONITOR, PANEL 1, SCREEN, URINE Routine 08/12/2025 3:21 AM EST URINALYSIS, COMPLETE, WITH REFLEX TO CULTURE Routine 08/12/2025 3:21 AM EST ETHANOL Routine 08/12/2025 2:58 AM EST HIGH SENSITIVITY TROPONIN I Routine 08/12/2025 2:58 AM EST COMPREHENSIVE METABOLIC [...] ESTABLISHED PATIENT Routine 04/20/2025 3:00 PM EDT from Last 3 Months or Most Recently Relevant to Health Maintenance Results * Chlamydia/Gonorrhea Throat Swab ([facility]) (09/05/2025) Chlamydia Throat Swab Negative Gonorrhea Throat Swab Negative Swab 09/05/2025 [facility] Provider MD LAB MICROBIOLOGY - GENERA L ORDERABLES Final Result * (ABNORMAL) Chlamydia/Gonorrhea, Urine ([facility]) (09/05/2025) Chlamydia, Urine Positive(A) Negative, Indeterminate, None Detected, Trace, 3+, Specimen unsatisfactory for evaluation, Weakly Positive, 1+, 2+ Gonorrhea, Urine Negative Negative, Indeterminate, None Detected, Trace, 3+, Specimen unsatisfactory for evaluation, Weakly Positive, 1+, 2+ Urine 09/05/2025 [facility] Provider MD LAB URINE ORDERABLES Michaela l Result * Syphilis Antibodies (DP) (09/05/2025) Syphilis Abs Nonreactive Borderline, Nonreactive, Weakly Reactive, Inconclusive, Specimen unsatisfactory for evaluation Blood Venous blood specimen / Unknown 09/05/2025 [facility] Provider MD LAB BLOOD ORDERABLES Michaela l Result * Hepatitis C Antibody ([facility]) (09/05/2025) Hepatitis C Ab Nonreactive Blood 09/05/2025 Historical Provider MD LAB BLOOD ORDERABLES Michaela l Result * HIV Ab/Ag ([facility]) (09/05/2025) HIV Ag/Ab Nonreactive Blood 09/05/2025 Historical Provider MD LAB BLOOD ORDERABLES Michaela l Result * Acetaminophen level (08/12/2025 4:42 AM EST) Pathologist [facility] Acetaminophen LAB <3 <30 mcg/mL [facility] 08/12/2025 4:42 AM EST 08/12/2025 4:47 AM EST Generic External Data Provider LAB BLOOD ORDERAB LES Final Result Performing Organization Address City/[facility]/ZIP Co de Phone Number [facility] [address] [place] [phone] * (ABNORMAL) Salicylate (08/12/2025 4:42 AM EST) Pathologist [facility] Salicylate <5.0(L) 15 - 30 mg/dL [facility] 08/12/2025 4:42 AM EST 08/12/2025 4:47 AM EST Result [facility] Generic External Data Provider LAB BLOOD ORDERAB LES Final Result Performing Organization Address City/[facility] Co de Phone Number [facility] [address] [place] [phone] * Urinalysis, Complete, with Reflex to Culture (08/12/2025 3:21 AM EST) Color Urine Yellow [facility] Appearance Urine Clear [facility] PH 7.0 5.0 - 9.0 [facility] Glucose Urine UA Negative Negative mg/dL [facility] Urine Blood Negative Negative [facility] Specific [place] - Urine 1.015 1.005 - 1.025 [facility] Urine Protein Negative Neg-Trace mg/dL [facility] Urine Ketones Negative Negative mg/dL [facility] Nitrite Urine Negative Negative [facility] Leukocyte Esterase Urine Negative Negative [facility] RBC Urine 0-2 0 - 2 /HPF [facility] Urine WBC 0-5 0 - 5 /HPF [facility] Urine Squamous Epithelial Cell 0-2 0 - 2 /HPF [facility] Urine Bacteria None Seen None Seen [facility] Hyaline Casts, Urine 0-2 0 - 2 /LPF [facility] 08/12/2025 3:21 AM EST 08/12/2025 3:26 AM EST Narrative [facility] - 08/12/2025 3:34 AM EST [id number], [employer] us Generic External Data Provider LAB URINE ORDERAB LES Final Result [facility] [address] [place] [phone] [phone] * (ABNORMAL) Drug Monitoring, Panel 1, Screen, Urine (08/12/2025 3:21 AM EST) Opiate Screen Urine Not Detected Not Detect [facility] Comment:Opiate cut-off is 30 0 ng/mL.Positive results are unconfirmed and should not be used fornon-medical purposes. Barbiturates, Urine Not Detected Not Detect [facility] Comment:Barbiturate cut-off is 200 ng/mL.Positive results are unconfirmed and should not be used fornon-medical purposes. Phencyclidine Screen Urine Not Detected Not Detect [facility] Comment:Phencyclidine cut-of f is 25 ng/mL.Positive results are unconfirmed and should not be used fornon-medical purposes. Amphetamine Screen Urine Not Detected Not Detect [facility] Comment:Amphetamine cut-off is 1000 ng/mL.Positive results are unconfirmed and should not be used fornon-medical purposes. Benzodiazepines Screen Urine Not Detected Not Detect [facility] Comment:Benzodiazepine cut-o ff is 200 ng/mL.Positive results are unconfirmed and should not be used fornon-medical purposes. Cocaine Screen Urine Not Detected Not Detect [facility] Comment:Cocaine cut-off is 3 00 ng/mL.Positive results are unconfirmed and should not be used fornon-medical purposes. Cannabinoid Screen Urine POSITIVE(A) Not Detect [facility] Comment:Cannabinoid cut-off is 50 ng/mL.Positive results are unconfirmed and should not be used fornon-medical purposes. Methadone Screen, Urine Not Detected Not Detect ng/mL [facility] Comment:Methadone cut-off is 300 ng/mL.Positive results are unconfirmed and should not be used fornon-medical purposes. FENTANYL URINE Not Detected Not Detect [facility] Comment:Fentanyl cut-off is 1 ng/mL.Positive results are unconfirmed and should not be used fornon-medical purposes. Oxycodone Urine Screen Not Detected Not Detect ng/mL [facility] Comment:Oxycodone cut-off is 100 ng/mL.Positive results are unconfirmed and should not be used fornon-medical purposes. Buprenorphine Screen Not Detected Not Detect ng/mL [facility] Comment:Buprenorphine cut-of f is 5 ng/mL.Positive results are unconfirmed and should not be used fornon-medical purposes. 08/12/2025 3:21 AM EST 08/12/2025 3:26 AM EST Generic External Data Provider LAB URINE ORDERAB LES Final Result [facility] [address] [place] [phone] * High Sensitivity Troponin I (08/12/2025 2:58 AM EST) TROPONIN I HIGH SENSITIVITY <2.7 <3.5 - 35.0 ng/L [facility] Comment:The Scott high sens itivity Troponin-I results should beused in conjunction with other diagnostic information suchas ECG, clinical observations and information, and patientsymptoms to aid in the diagnosis of [place]. 08/12/2025 2:58 AM EST 08/12/2025 3:03 AM EST us Generic External Data Provider LAB BLOOD ORDERAB LES Final Result Performing Organization Address City/[facility]/ZIP Co de Phone Number [facility] [address] [place] [phone] * Ethanol (08/12/2025 2:58 AM EST) Pathologist [facility] ETHANOL (MG/DL) IN SER/PLAS 154 mg/dL [facility] Comment:Serum/plasma ethanol results are to be used formedical/treatment purposes only. 08/12/2025 2:58 AM EST 08/12/2025 3:03 AM EST Generic External Data Provider LAB BLOOD ORDERAB LES Final Result Performing Organization Address [facility] Co de Phone Number [facility] [address] [place] [phone] * (ABNORMAL) CBC auto differential (08/12/2025 2:58 AM EST) Only the most recent of2 resultswithin the time period is included. [facility] White Blood Count 7.3 4.8 - 10.8 X10*3/uL [facility] Red Blood Count 4.88 4.60 - 5.80 X10*6/uL [facility] Hemoglobin 14.6 14.0 - 18.0 g/dl [facility] Hematocrit 43.0 42.0 - 52.0 % [facility] Mean Corpuscular Volume 88.1 80.0 - 98.0 fL [facility] Mean Corpuscular Hemoglobin 29.9 27.0 - 33.0 pg [facility] Mean Corpuscular HGB Conc 34.0 31.0 - 36.0 g/dl [facility] Red Cell Distribution Width 13.2 11.0 - 16.0 % [facility] Platelet Count 174 160 - 400 X10*3/uL [facility] Mean Platelet Volume 11.4 9.4 - 12.4 fL [facility] Neutrophils Percent Auto 47.0 45 - 73 % [facility] Imm Gran Pct Auto 0.5(H) 0.0 - 0.4 % [facility] Lymphocytes Percent Auto 35.8 20 - 40 % [facility] Monocytes Percent Auto 11.1(H) 2 - 11 % [facility] Eosinophils Percent Auto 4.9(H) 0 - 4 % [facility] Basophils Percent Auto 0.7 0 - 2 % [facility] NRBC Pct Auto 0.0 0.0 - 0.2 /100WBC [facility] Neutrophils Absolute Auto 3.4 2.0 - 8.3 x10*3/uL [facility] Imm Gran Abs Auto 0.04(H) 0.00 - 0.03 X10*3/uL [facility] Lymphocytes Absolute Auto 2.6 1.2 - 4.9 X10*3/uL [facility] Monocytes Absolute Auto 0.8 0.1 - 1.2 X10*3/uL [facility] Eosinophils Absolute Auto 0.4 0.0 - 0.4 X10*3/uL [facility] Basophils Absolute Auto 0.1 0.0 - 0.2 X10*3/uL [facility] NRBC Abs Auto 0.000 0.0 - 0.012 X10*3/uL [facility] 08/12/2025 2:58 AM EST 08/12/2025 3:03 AM EST us Generic External Data Provider LAB BLOOD ORDERAB LES Final Result [facility] [address] [place] [phone] * (ABNORMAL) Comprehensive Metabolic Panel (08/12/2025 2:58 AM EST) Sodium 144 135 - 145 mmol/L [facility] Potassium 3.8 3.3 - 5.1 mmol/L [facility] Chloride 109(H) 96 - 108 mmol/L [facility] Carbon Dioxide 26 22 - 29 mmol/L [facility] Anion Gap 13 12 - 20 [facility] Urea Nitrogen (BUN) 5(L) 9 - 16 mg/dL [facility] Creatinine, Serum 0.98 0.5 - 1.4 mg/dL [facility] Creatinine Clr Calc Pharmacy 99.2 [facility] Comment:eGFR (calculated fro m the MDRD study equation) and eCrCl(calculated from the Cockcroft-Gault equation) are based ondifferent parameters and may not yield comparable results.If eCrCl result is absurd, please check patient'sheight/weight. Estimated Glomerular Filt Rate >60 [facility] Comment:Chronic Kidney Disea se: Estimated GFR < 60 mL/min/1.35m7Vqhzqe Kidney Disease: Estimated GFR < 15 mL/min/1.73m2 Glucose 110 60 - 115 mg/dL [facility] Calcium 8.7 8.4 - 10.2 mg/dL [facility] Bilirubin, Total 0.3 0.0 - 1.0 mg/dL [facility] Aspartate Amino Transferase 30 5 - 37 U/L [facility] Alanine Aminotransferase 33 0 - 40 U/L [facility] Total Protein 7.5 6.5 - 8.0 g/dL [facility] Albumin Level 5.0 3.5 - 5.0 g/dL [facility] Alkaline Phosphatase 74 39 - 117 U/L [facility] 08/12/2025 2:58 AM EST 08/12/2025 3:03 AM EST us Generic External Data Provider LAB BLOOD ORDERAB LES Final Result [facility] [address] [place] [phone] * (ABNORMAL) Lipid Panel, Standard (08/08/2025 12:03 PM EST) Triglycerides 90 <150 mg/dL [facility] Comment:Desirable Triglyceri de: less than 150 mg/dLBorderline High Triglyceride 150-199 mg/dLHigh Triglyceride: 200-499 mg/dLVery High Triglyceride: greater than or equal to 5OO mg/dL Cholesterol 157 <200 mg/dL [facility] Comment:Desirable Cholestero l: less than 200 mg/dLBorderline High Cholesterol: 200-239 mg/dLHigh Cholesterol: greater than 239 mg/dL LDL Cholesterol Calculated 99 <100 mg/dL [facility] Comment:Desirable LDL: less than 100 mg/dLNear Optimal/Above Optimal LDL: 110- 129 mg/dLBorderline High LDL: 130-159 mg/dLHigh LDL: 160-189 mg/dLVery High LDL: greater than or equal to 190 mg/dL HDL Cholesterol 40(L) >40 mg/dL [facility] Comment:Desirable HDL: great er than 40 mg/dL Note: This HDL assay may give artificially low results in patients with liver disease. Blood Venous blood specimen / Unknown 08/08/2025 12:03 PM EST 08/08/2025 1:12 PM EST [facility] LAB BLOOD ORDERABLES Michaela l Result [facility] [address] [place] [phone] * (ABNORMAL) Basic Metabolic Panel (08/08/2025 12:03 PM EST) Sodium 141 135 - 145 mmol/L [facility] Potassium 4.0 3.3 - 5.1 mmol/L [facility] Chloride 108 96 - 108 mmol/L [facility] Carbon Dioxide 30(H) 22 - 29 mmol/L [facility] Anion Gap 7(L) 12 - 20 [facility] Urea Nitrogen (BUN) 10 9 - 16 mg/dL [facility] Creatinine, Serum 0.91 0.5 - 1.4 mg/dL [facility] Estimated Glomerular Filt Rate >60 [facility] Comment:Chronic Kidney Disea se: Estimated GFR < 60 mL/min/1.78s8Icmosn Kidney Disease: Estimated GFR < 15 mL/min/1.73m2 Glucose 93 60 - 115 mg/dL [facility] Calcium 8.8 8.4 - 10.2 mg/dL [facility] Blood Venous blood specimen / Unknown 08/08/2025 12:03 PM EST 08/08/2025 1:12 PM EST [facility] LAB BLOOD ORDERABLES Michaela l Result Performing Organization Address City/State/[facility] Co de Phone Number [facility] [address] [place] [phone] * XR Foot 3+ Views Left (07/09/2025 9:27 PM EDT) Anatomical Region Laterality Modality Lower Extremities, Foot Left Radiogra phic Imaging 07/09/2025 9:27 PM EDT Narrative 07/09/2025 9:28 PM EDT [address] [address] XRay Report Signed Patient: Mayco Sparrow MR#: [id number] : 1990 Acct:[id number] Age/Sex: 35 / M ADM Date: 07/09/25 Loc: .ED Attending Dr: Ordering Physician: Omar Avilez Date of Service: 07/09/25 Procedure(s): XR foot LT min 3V Accession Number(s): [id number] cc: [facility]; Omar Avilez Reason for Exam: left [...] in OV> 07/09/252126 DD/ 26 TD/TT: 07/09/252126 Roaster Operator: Procedure Note Donotsylvesterinterpreter, Image - 07/09/[address] [address] XRay Report Signed Patient: Mayco Sparrow LMR#: [id number] : 1990Acct:[id number] Age/Sex: 35 / MADM Date: 07/09/25 Loc: HO.ED Attending Dr: Ordering Physician: Omar Avilez Date of Service: 07/09/25 Procedure(s): XR foot LT min 3V Accession Number(s): [id number] cc: [facility]; Omar Avilez Reason for Exam: left [...] in OV> 07/09/252126 DD/ 26 TD/TT: 07/09/252126 Roaster Operator: [facility] External Provider IMG XR PROCEDURES Edited Result - Final * XR Ankle 3+ Views Left (07/09/2025 9:26 PM EDT) Anatomical Region Laterality Modality Lower Extremities, Ankle Left Radiogr aphic Imaging 07/09/2025 9:26 PM EDT Narrative 07/09/2025 9:27 PM EDT [address] [address] XRay Report Signed Patient: Mayco Sparrow MR#: [id number] : 1990 Acct:[id number] Age/Sex: 35 / M ADM Date: 07/09/25 Loc: HO.ED Attending Dr: Ordering Physician: Omar Avilez Date of Service: 07/09/25 Procedure(s): XR ankle LT min 3V Accession Number(s): [id number] cc: [facility]; Omar Avilez Reason for Exam: left [...] in OV> 07/09/252126 DD/ 25 TD/TT: 07/09/252125 Roaster Operator: Procedure Note Donotuseinterpreter, Image - 07/09/2025 [place] [address] XRay Report Signed Patient: Mayco Sparrow LMR#: [id number] : 1990Acct:[id number] Age/Sex: 35 / MADM Date: 07/09/25 Loc: .ED Attending Dr: Ordering Physician: Omar Avilez Date of Service: 07/09/25 Procedure(s): XR ankle LT min 3V Accession Number(s): [id number] cc: [facility]; Omar Avilez Reason for Exam: left [...] in OV> 07/09/252126 DD/ 25 TD/TT: 07/09/252125 Roaster Operator: [facility] External Provider IMG XR PROCEDURES Edited Result - Final from Last 3 Months Insurance [facility] C3 DENTAL-[facility] MEDICAID STAND ADULT Care Teams Anvilsmith Relationship Specialty Start Date End Date Charley Dominique FNP [address] [place] [phone] PCP - General Family Medicine 01/27/25
--- OUTSIDE RECORDS SUMMARY | 2025-09-21 23:12 | XMS_ITS | Encounter Summary ---
Author Organization [employer] Address [address] [place] [address] Care Team Providers Care Senior Stock Plan Administrator Name Role Phone Roxanne Cortez DRAG OUT MAN Primary Care Provider [phone] Yarelis Graves MANAGER HARBOR Primary Care Provider [phone] Charley Dominique DRAG OUT MAN Primary Care Provider [phone] Reason for Visit * Reason Onset Date Comments Appointment 04/01/2023 Encounter Details Date Type Department Care Team (Late st Contact Info) Description 04/01/2023 Telephone [facility] [address] [place] [address] Ryan Carpenetr, DMD [address] [place] [address] Appointment Social History Tobacco Use Types Packs/Day [...] documented as of this encounter Care Teams Senior Stock Plan Administrator Relationship Specialty Start Date End Date Roxanne Cortez FNP [address] [place] [address] PCP - General Family Medicine 07/11/22 06/07/24 Yarelis Graves NP [address] [place] [address] PCP - General Family Medicine 06/08/24 01/26/25 Charley Dominique FNP [address] [place] [address] PCP - General Family Medicine 01/27/25 documented as of this encounter
--- OUTSIDE RECORDS SUMMARY | 2025-09-21 23:12 | XMS_ITS | Encounter Summary ---
Author Organization [employer] Address [address] [place] [address] 7 [place] [address] Care Team Providers Care Rolling Up Machine Operator Name Role Phone Yarelis Graves POKER ROOM MANAGER Primary Care Provider [phone] Charley Dominique STEEL UN[employer]ER Primary Care Provider [phone] Reason for Referral * Imaging (Routine) - Closed Specialty Diagnoses / Procedures Referred By Contac t Referred To Contact Radiology Diagnoses Acute right-sided low back pain without sciatica Procedures CT Lumbar Spine w/o Contrast Vasu Morales MD [address] [place] [address] Phone: tel: fax: [facility] [address] [place] [phone] Phone: tel: fax: Referral ID Status Reason Start Date Expiration Date Visits Re quested Visits Authorized [id number] Closed 11/29/2024 11/29/2025 1 1 Encounter Details Date Type Department Care Team (Late st Contact Info) Description 11/29/2024 Orders Only [facility] [address] [place] [address] Vasu Morales MD [address], [place] [phone] Acute right-sided low back pain without sciatica [...] as of this encounter Plan of Treatment Scheduled Orders Name Type Priority Associated Diagnoses [...] documented as of this encounter Care Teams Rolling Up Machine Operator Relationship Specialty Start Date End Date Yarelis Graves NP [address] [place] [address] PCP - General Family Medicine 06/08/24 01/26/25 Charley Dominique FNP [address] [place] [address] PCP - General Family Medicine 01/27/25 documented as of this encounter
--- OUTSIDE RECORDS SUMMARY | 2025-09-21 23:12 | XMS_ITS | Encounter Summary ---
Author Organization [employer] Address [address] [place] [address] Care Team Providers Care Merchandising Internship Name Role Phone Charley Dominique [facility] Primary Care Provider [phone] Encounter Details Date Type Department Care Team (Latest Contact Info) Description 09/21/2025 Travel Social History Tobacco Use Types Packs/Day [...] documented as of this encounter Care Teams Merchandising Internship Relationship Specialty Start Date End Date Charley Dominique FNP [address] [place] [address] PCP - General Family Medicine 01/27/25 documented as of this encounter
[2025-09-21] MEDS: Albuterol Sulfate (0.083%) 2.5 MG/3 ML VIAL.NEB INHALE (23:22)
--- NOTE | 2025-09-22 00:11 | ED.GENADULT ---
HPI - General Adult General Chief complaint: ETOH/Substance Use Stated complaint: ate mushrooms Time Seen by Provider: 09/21/25 23:04 Source: patient Mode of arrival: ambulatory Limitations: no limitations History of Present Illness ED Provider: Dr. Paty Baca HPI narrative: patient comes to the emergency room reporting that he feels nauseous, anxious, a bit short of breath. Patient states that he ate a whole bag of psychologic mushrooms. Patient reports that he also smoked marijuana. Denies any falls or head injuries. Also, patient requesting a neb treatment, states that he is feeling that his asthma is starting to act up Related Data Home Medications ?Medication ?Instructions ?Recorded ?Confirmed ibuprofen 600 mg tablet 600 mg PO Q8H PRN moderate pain 02/15/25 03/02/25 quetiapine 25 mg tablet 25 mg PO BEDTIME 02/15/25 03/02/25 Previous Rx's ?Medication ?Instructions ?Recorded ibuprofen 600 mg tablet 600 mg PO Q6H PRN pain #30 tabs 03/02/25 oxycodone-acetaminophen 5 mg-325 1 tab PO Q6H PRN pain (scale score 03/10/25 mg tablet (Percocet) 7-10) #20 tabs docusate sodium 100 mg capsule 100 mg PO BID #30 caps 03/11/25 (Colace) acetaminophen 500 mg capsule 1,000 mg (2 x 500 mg) PO Q8H PRN 04/03/25 fever or pain #14 caps ibuprofen 400 mg tablet 400 mg PO Q6H PRN pain #14 tabs 04/03/25 ofloxacin 0.3 % eye drops See Rx Instructions ophthalmic 04/03/25 (eye) .COMPLEX #10 mL Allergies Allergy/AdvReac Type Severity Reaction Status Date / Time Crustaceans Allergy Severe UNKNOWN Uncoded 09/21/25 22:42 SEAFOOD Allergy Severe THROAT Uncoded 09/21/25 22:42 CLOSING Shellfish Allergy Severe SWOLLEN Uncoded 09/21/25 22:42 Review of Systems Review of Systems: Constitutional : No Weight loss, No Fever, No Chills, No Night Sweats, No Fatigue, No Malaise ENT/Mouth : No Hearing loss, No Ear Pain, No Nasal Congestion, No Sinus Pain, No Hoarseness, No sore throat, No Rhinorrhea, No Swallowing Difficulty Eyes: No Eye Pain, No Swelling, No Redness, No Foreign Body, No Discharge, No Vision Changes Cardiovascular : No Chest Pain, No SOB, No Dyspnea on Exertion, No Orthopnea, No Edema, No Palpitations Respiratory : No Cough, No Sputum, complaining ofWheezing, No Smoke Exposure, No Dyspnea Gastrointestinal : complaining of asthma and vomiting, No Diarrhea, No Constipation, No abdominal Pain, No Hematochezia, No Melena Genitourinary : no irregular bleeding, No Dysuria, No Urinary Frequency, No Hematuria, No Urinary Incontinence, No Urgency, No Flank Pain, No Urinary Flow Changes, No Hesitancy Musculoskeletal : No joint pain, No Myalgias, No Joint Swelling Skin : No Skin Lesions, No rash Neuro : No Weakness, No Numbness, No Paresthesias, No Loss of Consciousness, No Dizziness, No Headache Psych : No Anxiety/Panic, No Depression, No SI/HI/AH/VH, admits to using psychedelics mushrooms and marijuana Heme/Lymph: No Bruising, No Bleeding,No Lymphadenopathy Endocrine : No Polyuria, No Polydipsia, No Temperature Intolerance [facility] Past Medical History Medical History Anal fissure Alcohol use disorder Asthma Surgical History History of rectal sphincterotomy (03/02/25) Family History Family History Mother Brain aneurysm Blood clots in brain Social History Social History Household Members: None Housing: House Alcohol intake: current Alcohol intake frequency: a few times a week Alcohol type: hard liquor Patient Tobacco Use Status: Never used Tobacco Substance Use Type: Marijuana Advance Directives: No Advance Directives Information Provided: Yes service: No Physical Exam ED Exam Exam: Appearance: Alert. Oriented X3. No acute distress. Eyes: Pupils equal, round and reactive to light. ENT: Pharynx normal. Neck: Normal inspection. Neck supple. No lymph nodes noted. No crepitus CVS: Normal heart rate and rhythm. Pulses normal. Normal S1 and S2 Respiratory: No respiratory distress. Breath sounds normal. No Wheezing. No rales Abdomen: Soft and nontender. No rigidity. No distention. Skin: Skin warm and dry. Normal skin color. Normal skin turgor. Extremities: No lower extremity edema. No Lacerations. No Rash Neuro: Oriented X 3. No motor deficit. No sensory deficit. Moving all extremities. No slurred speech. CN 2 through 12 grossly intact Psych: calm, cooperative, normal affect Vital Signs: Vital Signs - 24 hr 09/21/25 22:41 Temperature 98.2 F Pulse Rate 95 Respiratory Rate 20 Blood Pressure 151/88 H Pulse Oximetry 99 Oxygen Delivery Method Room Air BMI result Body Mass Index 25.1 Medications Administered Discontinued Medications Generic Name Dose Route Start Last Admin Trade Name Freq PRN Reason Stop Dose Admin Albuterol Sulfate 2.5 mg 09/21/25 23:10 09/21/25 23:22 Albuterol Sulfate (0.083%) 2.5 Mg/3 Ml Vial.Neb INHALE 09/21/25 23:11 2.5 mg ONCE ONE Administration Medical Decision Making Medical Decision Making MDM Narrative: Given patient's symptoms and presentation, EKG, blood work was considered and recommended. However, patient states that after the nebulization treatment, he no longer feels anxious, no shortness of breath, feels well. Patient requested to not do labs or EKG. Patient states that he feels back to baseline. Patient says that he has plenty of albuterol both nebs and pumps at home Critical Care Time Critical Care Time Critical Care Time: Yes Total Critical Care Time: 35 Attestation: I have personally provided critical care time. Time includes review of lab data, radiology results, discussion with consultants, and monitoring for potential decompensation. Intervention performed as documented. Discharge Plan Discharge Clinical Impression: Asthma, Anxiety, Medication side effect Patient Disposition: Home, Self-Care Instructions: Asthma (DC), Anxiety (ED) Additional Instructions: Please follow-up with your primary care physician tomorrow. If you have any worsening or new symptoms, please return to the emergency room or call 911 Prescriptions: No Action oxycodone-acetaminophen [Percocet] 5-325 mg tablet 1 tab PO Q6H PRN (Reason: pain (scale score 7-10)) Qty: 20 0RF Rx Instructions: Partial Fill upon patient request. docusate sodium [Colace] 100 mg capsule 100 mg PO BID Qty: 30 0RF ibuprofen 600 mg tablet 600 mg PO Q6H PRN (Reason: pain) Qty: 30 0RF ofloxacin 0.3 % drops See Rx Instructions .ROUTE .COMPLEX Qty: 10 0RF Rx Instructions: put 2 drps into affected eye(s) every 2 h x 2 days, then 2 drps 4 times/day days 7 ibuprofen 400 mg tablet 400 mg PO Q6H PRN (Reason: pain) Qty: 14 0RF acetaminophen 500 mg capsule 1,000 mg PO Q8H PRN (Reason: fever or pain) Qty: 14 0RF quetiapine 25 mg tablet 25 mg PO BEDTIME ibuprofen 600 mg tablet 600 mg PO Q8H PRN (Reason: moderate pain) Print Language: Maltese
[2025-09-22 00:14] VITALS: BP 116/70; PULSE 72; RESP 16; TEMP 36.6; O2SAT 100
[2025-09-22 00:24] VITALS: BP 116/70; PULSE 72; RESP 16; TEMP 36.6; O2SAT 100
== END 2025-09-22 00:24 | disposition home or self-care (01) ==
PROVIDERS: Emergency Provider Emergency Medicine
DX: T62.0X1A Toxic effect of ingested mushrooms, accidental (unintentional), initial encounter (principal); T40.711A Poisoning by cannabis, accidental (unintentional), initial encounter; F41.9 Anxiety disorder, unspecified; J45.909 Unspecified asthma, uncomplicated; Y92.9 Unspecified place or not applicable; Z79.899 Other long term (current) drug therapy
CPT/HCPCS: 99283; 99284